=== PATIENT | female | born 1990 | race African-American/Black ===

== ENCOUNTER 2017-01-14 17:09 | Emergency (ER) | payer MEDICAID ==
[2017-01-14 17:48] VITALS: BP 116/54
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
== END 2017-01-14 21:58 | disposition home or self-care (01) ==
LOC: UCEAST 17:09
DX: N93.8 Other specified abnormal uterine and vaginal bleeding (principal); F41.9 Anxiety disorder, unspecified; F33.9 Major depressive disorder, recurrent, unspecified; F17.210 Nicotine dependence, cigarettes, uncomplicated
CPT/HCPCS: 81003; 84702; 99211; G0463

== ENCOUNTER → 2017-01-30 09:55 | Emergency (ER) | payer OTHER ==
[2017-01-30 10:07] VITALS: BP 129/77
[2017-01-30 10:50] LABS: Hematocrit 37 % (35-47); Hemoglobin 11.9 g/dl (12.0-16.0); Mean Corpuscular HGB Conc 32 g/dl (31-36); Mean Corpuscular Hemoglobin 27 pg (27-31); Mean Corpuscular Volume 84 fL (80-97); Mean Platelet Volume 8 um3 (7.4-10.4); Red Blood Count 4.36 10^6/ul (4.0-5.4); Red Cell Distribution Width 16 % (10.5-15); White Blood Count 7.3 10^3/ul (3.5-10.8)
[2017-01-30 10:58] LABS: Urine Bacteria Absent (Absent); Urine Bilirubin Negative (Negative); Urine Glucose Negative (Negative); Urine Nitrite Negative (Negative)
[2017-01-30 11:05] LABS: ALT 10 U/L (7-52); AST 24 U/L (13-39); Alkaline Phosphatase 36 U/L (34-104); Anion Gap 9 mmol/L (2-11); BUN/Creatinine Ratio 12.5 (8-20); Blood Urea Nitrogen 10 mg/dL (6-24); CO2 Carbon Dioxide 23 mmol/L (22-32); Calcium 10.1 mg/dL (8.6-10.3); Chloride 104 mmol/L (101-111); EGFR African American 113.3 (>60); EGFR Non-African American 88.1 (>60); Globulin 3.2 g/dL (2-4); Glucose 80 mg/dL (70-100); Potassium 3.4 mmol/L (3.5-5.0); Sodium 136 mmol/L (133-145); Total Protein 8.2 g/dL (6.4-8.9)
[2017-01-30 11:12] LABS: Benzodiazepine Urine Screen None Detected (None Detect)
--- NOTE | 2017-01-30 11:15 | ED ---
Psychiatric Complaint - HPI Summary HPI Summary: Pt here w/ 945. States she's not sure why she's here today. Was supposed to have a counseling appt but reports she called yesterday to tell them she wouldn' t be making it in and didn't care to reschedule as she doesn't feel she and her therapist are working well together. She'd like to find a new counselor. Denies SI/HI and has not reported any such concerns w/ her counselor. Feels well overall other than tired today. Admits to h/o anemia - has been taking Fe. Also has a yellow vaginal d/c that has been worked up by [facility] ([facility]). She had cx's taken and an U/S - per pt, these have all been normal. She denies vaginal pain, irritation, itching, odor, pelvic/back pain. - History Of Current Complaint Chief Complaint: EDMentalHealth Time Seen by Provider: 01/30/17 11:03 Hx Obtained From: Patient Hx Last Menstrual Period: 12/20/16 - Allergies/Home Medications Allergies/Adverse Reactions: Allergies Allergy/AdvReac Type Severity Reaction Status Date / Time No Known Allergies Allergy Verified 01/14/17 17:47 PMH/Surg Hx/FS Hx/Imm Hx Previously Healthy: Yes Endocrine/Hematology History: Reports: Hx Anemia - fe def - takes PO Fe Denies: Hx Anticoagulant Therapy, Hx Blood Disorders, Hx Blood Transfusions, Hx Bone Marrow Disease, Hx Diabetes, Hx Systemic Lupus Erythematosus, Hx Sickle Cell Disease, Hx Thyroid Disease, Hx Unexplained Bleeding, Other Endocrine/ Hematological Disorders Cardiovascular History: Denies: Hx Aneurysm, Hx Angina, Hx Angioplasty, Hx Auto Implanted Cardiovert Defib, Hx Cardiac Arrest, Hx Cardiomegaly, Hx Congenital Heart Disease, Hx Congestive Heart Failure, Hx Coronary Artery Disease, Hx Deep Vein Thrombosis, Hx Embolism, Hx Hypercholesterolemia, Hx Hypotension, Hx Hypertension, Hx Pacemaker/ICD, Hx Peripheral Vascular Disease, Hx Rheumatic Fever, Hx Syncope, Hx Valvular Heart Disease, Other Cardiovascular Problems/Disorders Respiratory History: Denies: Hx Asthma, Hx Chronic Bronchitis, Hx Chronic Obstructive Pulmonary Disease (COPD), Hx Cystic Fibrosis, Hx Lung Cancer, Hx Pleural Effusion, Hx Pneumonia, Hx Pulmonary Edema, Hx Pulmonary Embolism, Hx Seasonal Allergies, Hx Sleep Apnea, Other Respiratory Problems/Disorders GI History: Denies: Hx Cirrhosis, Hx Crohn's Disease, Hx Diverticulosis, Hx Gall Bladder Disease, Hx Gastroesophageal Reflux Disease, Hx Gastrointestinal Bleed, Hx Hiatal Hernia, Hx Irritable Bowel, Hx Jaundice, Hx Obstructive Bowel, Hx Ileostomy, Hx Pyloric Stenosis, Hx Ulcer, Other GI Disorders History: Denies: Hx Acute Renal Failure, Hx Benign Prostatic Hyperplasia, Hx Chronic Renal Failure, Hx Dialysis, Hx Kidney Infection, Hx Kidney Stones Musculoskeletal History: Denies: Hx Arthritis, Hx Back Problems, Hx Bursitis, Hx Congenital Bone Abnormalities, Hx Fibromyalgia, Hx Gout, Hx Orthopedic Injury, Hx Osteoporosis, Hx Scoliosis, Hx Tendonitis, Other Musculoskeletal History Sensory History: Denies: Hx Cataracts, Hx Contacts or Glasses, Hx Eye Injury, Hx Eye Prosthesis, Hx Glaucoma, Hx Legally Blind, Hx Macular Degeneration, Hx Vision Problem, Hx Deafness, Hx Hearing Aid, Hx Hearing Problem, Other Sensory Impairments Opthamlomology History: Denies: Hx Cataracts, Hx Contacts or Glasses, Hx Eye Injury, Hx Eye Prosthesis, Hx Glaucoma, Hx Legally Blind, Hx Macular Degeneration, Hx Vision Problem, Other Sensory Impairments Neurological History: Reports: Hx Headaches - patient states that she has has headache at least daily, lasting 2-3 hours Denies: Hx Dementia, Hx Migraine, Hx Nerve Disease, Hx Seizures, Hx Spinal Cord Injury, Hx Transient Ischemic Attacks (TIA), Other Neuro Impairments/ Disorders Psychiatric History: Reports: Hx Anxiety, Hx Depression, Hx Inpatient Treatment - december 2013 in [place], 4 days inpatient for psychosis Denies: Hx Attention Deficit Hyperactivity Disorder, Hx Eating Disorder, Hx Panic Disorder, Hx Post Traumatic Stress Disorder, Hx Schizophrenia, Hx Bipolar Disorder, Hx Suicide Attempt, Hx of Violent Episodes Against Others, Hx Substance Abuse, Other Psychiatric Issues/Disorders - Surgical History Surgery Procedure, Year, and Place: ORAL SURGERY Infectious Disease History: No Infectious Disease History: Reports: History Other Infectious Disease - Chlamydia [facility] Denies: Hx Clostridium Difficile, Hx Hepatitis, Hx Human Immunodeficiency Virus (HIV), Hx of Known/Suspected MRSA, Hx Shingles, Hx Tuberculosis, Traveled Outside the in Last 30 Days - Family History Known Family History: Positive: Hypertension, Diabetes - Social History Lives: [facility] Alcohol Use: Daily Alcohol Amount: 1 BOTTLE WINE DAILY Hx Substance Use: No Substance Use Type: Reports: None Hx Tobacco Use: No Smoking Status (MU): Current Every Day Smoker Type: Cigars Amount Used/How Often: 10/DAY Have You Smoked in the Last Year: Yes Review of Systems Constitutional: Negative Negative: Fever, Chills, Fatigue Cardiovascular: Negative Negative: Chest Pain Respiratory: Negative Negative: Shortness Of Breath Gastrointestinal: Negative Negative: Abdominal Pain, Vomiting, Diarrhea, Nausea Positive: see HPI Musculoskeletal: Negative Skin: Negative Positive: Headache - pt has these chronically - mild today Psychological: Normal, Other - see HPI All Other Systems Reviewed And Are Negative: Yes Physical Exam Triage Information Reviewed: Yes Vital Signs On Initial Exam: Initial Vitals Temp Pulse Resp BP Pulse Ox 98.3 F 90 17 129/77 100 01/30/17 10:04 01/30/17 10:04 01/30/17 10:04 01/30/17 10:04 01/30/17 10:04 Vital Signs Reviewed: Yes Appearance: Positive: Well-Appearing, No Pain Distress, Well-Nourished Skin: Positive: Warm, Dry - no signs of self harm Head/Face: Positive: Normal Head/Face Inspection Eyes: Positive: Normal, EOMI, Conjunctiva Clear ENT: Positive: Hearing grossly normal, Pharynx normal - mucosa moist Neck: Positive: Supple, Nontender Respiratory/Lung Sounds: Positive: Clear to Auscultation, Breath Sounds Present. Negative: Rales, Rhonchi, Wheezes Cardiovascular: Positive: Normal, RRR, Pulses are Symmetrical in both Upper and Lower Extremities Abdomen Description: Positive: Nontender, No Organomegaly, Soft Bowel Sounds: Positive: Present Musculoskeletal: Positive: Normal, Strength/ROM Intact Neurological: Positive: Normal, Sensory/Motor Intact, Alert, Oriented to Person Place, Time, CN Intact II-III Psychiatric: Positive: Normal - pleasant, calm, cooperative Diagnostics - Vital Signs Vital Signs Temp Pulse Resp BP Pulse Ox 01/30/17 10:07 98.4 F 90 17 129/77 100 01/30/17 10:04 98.3 F 90 17 129/77 100 - Laboratory Lab Results: Lab Results 01/30/17 01/30/17 01/30/17 Range/Units 10:35 10:35 10:35 WBC 7.3 (3.5-10.8) 10^3/ul RBC 4.36 (4.0-5.4) 10^6/ul Hgb 11.9 L (12.0-16.0) g/dl Hct 37 (35-47) % MCV 84 (80-97) fL MCH 27 (27-31) pg MCHC 32 (31-36) g/dl RDW 16 H (10.5-15) % Plt Count 403 (150-450) 10^3/ul MPV 8 (7.4-10.4) um3 Neut % (Auto) 52.0 (38-83) % Lymph % (Auto) 35.0 (25-47) % [place] % (Auto) 8.6 (1-9) % Eos % (Auto) 3.1 (0-6) % Baso % (Auto) 1.3 (0-2) % Absolute Neuts (auto) 3.8 (1.5-7.7) 10^3/ul Absolute Lymphs (auto) 2.5 (1.0-4.8) 10^3/ul Absolute Monos (auto) 0.6 (0-0.8) 10^3/ul Absolute Eos (auto) 0.2 (0-0.6) 10^3/ul Absolute Basos (auto) 0.1 (0-0.2) 10^3/ul Absolute Nucleated RBC 0 10^3/ul Nucleated RBC % 0 Sodium 136 (133-145) mmol/L Potassium 3.4 L (3.5-5.0) mmol/L Chloride 104 (101-111) mmol/L Carbon Dioxide 23 (22-32) mmol/L Anion Gap 9 (2-11) mmol/L BUN 10 (6-24) mg/dL Creatinine 0.80 (0.51-0.95) mg/dL Est GFR ( Amer) 113.3 (>60) Est GFR (Non-Af Amer) 88.1 (>60) BUN/Creatinine Ratio 12.5 (8-20) Glucose 80 (70-100) mg/dL Calcium 10.1 (8.6-10.3) mg/dL Total Bilirubin 0.50 (0.2-1.0) mg/dL AST 24 (13-39) U/L ALT 10 (7-52) U/L Alkaline Phosphatase 36 (34-104) U/L Total Protein 8.2 (6.4-8.9) g/dL Albumin 5.0 (3.2-5.2) g/dL Globulin 3.2 (2-4) g/dL Albumin/Globulin Ratio 1.6 (1-3) TSH Pending Urine Color Yellow Urine Appearance Cloudy Urine pH 5.0 (5-9) Ur Specific [place] 1.025 (1.010-1.030) Urine Protein 1+(30 mg/dl) H (Negative) Urine Ketones 1+ H (Negative) Urine Blood Negative (Negative) Urine Nitrate Negative (Negative) Urine Bilirubin Negative (Negative) Urine Urobilinogen Negative (Negative) Ur Leukocyte Esterase 1+ H (Negative) Urine WBC (Auto) 2+(11-20/hpf) H (Absent) Urine RBC (Auto) Absent (Absent) Ur Squamous Epith Cells Present H (Absent) Urine Bacteria Absent (Absent) Urine Glucose Negative (Negative) Urine Ascorbic Acid * H (Negative) Salicylates Pending Urine Opiates Screen (None Detect) Acetaminophen Pending Ur Barbiturates Screen (None Detect) Ur Phencyclidine Scrn (None Detect) Ur Amphetamines Screen (None Detect) U Benzodiazepines Scrn (None Detect) Urine Cocaine Screen (None Detect) U Cannabinoids Screen (None Detect) Serum Alcohol Pending 01/30/17 Range/Units 10:35 WBC (3.5-10.8) 10^3/ul RBC (4.0-5.4) 10^6/ul Hgb (12.0-16.0) g/dl Hct (35-47) % MCV (80-97) fL MCH (27-31) pg MCHC (31-36) g/dl RDW (10.5-15) % Plt Count (150-450) 10^3/ul MPV (7.4-10.4) um3 Neut % (Auto) (38-83) % Lymph % (Auto) (25-47) % Weston % (Auto) (1-9) % Eos % (Auto) (0-6) % Baso % (Auto) (0-2) % Absolute Neuts (auto) (1.5-7.7) 10^3/ul Absolute Lymphs (auto) (1.0-4.8) 10^3/ul Absolute Monos (auto) (0-0.8) 10^3/ul Absolute Eos (auto) (0-0.6) 10^3/ul Absolute Basos (auto) (0-0.2) 10^3/ul Absolute Nucleated RBC 10^3/ul Nucleated RBC % Sodium (133-145) mmol/L Potassium (3.5-5.0) mmol/L Chloride (101-111) mmol/L Carbon Dioxide (22-32) mmol/L Anion Gap (2-11) mmol/L BUN (6-24) mg/dL Creatinine (0.51-0.95) mg/dL Est GFR ( Amer) (>60) Est GFR (Non-Af Amer) (>60) BUN/Creatinine Ratio (8-20) Glucose (70-100) mg/dL Calcium (8.6-10.3) mg/dL Total Bilirubin (0.2-1.0) mg/dL AST (13-39) U/L ALT (7-52) U/L Alkaline Phosphatase (34-104) U/L Total Protein (6.4-8.9) g/dL Albumin (3.2-5.2) g/dL Globulin (2-4) g/dL Albumin/Globulin Ratio (1-3) TSH Urine Color Urine Appearance Urine pH (5-9) Ur Specific [place] (1.010-1.030) Urine Protein (Negative) Urine Ketones (Negative) Urine Blood (Negative) Urine Nitrate (Negative) Urine Bilirubin (Negative) Urine Urobilinogen (Negative) Ur Leukocyte Esterase (Negative) Urine WBC (Auto) (Absent) Urine RBC (Auto) (Absent) Ur Squamous Epith Cells (Absent) Urine Bacteria (Absent) Urine Glucose (Negative) Urine Ascorbic Acid (Negative) Salicylates Urine Opiates Screen None detected (None Detect) Acetaminophen Ur Barbiturates Screen None detected (None Detect) Ur Phencyclidine Scrn None detected (None Detect) Ur Amphetamines Screen None detected (None Detect) U Benzodiazepines Scrn None detected (None Detect) Urine Cocaine Screen None detected (None Detect) U Cannabinoids Screen None detected (None Detect) Serum Alcohol Result Diagrams: 01/30/17 10:35 01/30/17 10:35 Lab Statement: Any lab studies that have been ordered have been reviewed, and results considered in the medical decision making process. Course/Dx - Course Course Of Treatment: evaluation cleared pt to go home. See note. - Differential Dx/Clinical Impression Provider Diagnosis: Schizophrenia Discharge - Discharge Plan Condition: Stable Disposition: HOME Patient Education Materials: Schizophrenia (ED) Referrals: Fam Whitman MD [Primary Care Provider] - Additional Instructions: Follow-up with [facility] - see Mental Health discharge for phone number *If you develop suicidal or homicidal ideations, call 911 or return to ED
[2017-01-30 11:25] LABS: Acetaminophen < 15 mcg/mL; Alcohol < 10 mg/dL (<10); Salicylate < 2.50 mg/dL (<30)
[2017-01-30 11:32] LABS: TSH (Thyroid Stimulating Horm) 0.45 mcIU/mL (0.34-5.60)
== END | disposition home or self-care (01) ==
LOC: ED 09:55
DX: F20.9 Schizophrenia, unspecified (principal); R51 Headache; F17.210 Nicotine dependence, cigarettes, uncomplicated
CPT/HCPCS: 36415; 80053; 80307; 80320; 80329; 81003; 81015; 84443; 84702; 85025; 87086; 99284; G0480

== ENCOUNTER → 2017-02-03 10:27 | Emergency (ER) | payer OTHER ==
[2017-02-03 10:48] VITALS: BP 124/78
== END | disposition home or self-care (01) ==
LOC: ED 10:27
DX: Z53.21 Procedure and treatment not carried out due to patient leaving prior to being seen by health care provider (principal)
CPT/HCPCS: 99282

== ENCOUNTER 2017-02-07 13:57 | Emergency (ER) | payer OTHER ==
[2017-02-07 14:52] LABS: Urine Bacteria Absent (Absent); Urine Bilirubin Negative (Negative); Urine Glucose Negative (Negative); Urine Nitrite Negative (Negative)
[2017-02-07 14:56] LABS: Hematocrit 36 % (35-47); Hemoglobin 11.7 g/dl (12.0-16.0); Mean Corpuscular HGB Conc 32 g/dl (31-36); Mean Corpuscular Hemoglobin 27 pg (27-31); Mean Corpuscular Volume 84 fL (80-97); Mean Platelet Volume 8 um3 (7.4-10.4); Red Blood Count 4.35 10^6/ul (4.0-5.4); Red Cell Distribution Width 16 % (10.5-15); White Blood Count 8.4 10^3/ul (3.5-10.8)
[2017-02-07 15:09] LABS: Benzodiazepine Urine Screen None Detected (None Detect)
[2017-02-07 15:25] LABS: ALT 10 U/L (7-52); AST 20 U/L (13-39); Albumin 4.6 g/dL (3.2-5.2); Alkaline Phosphatase 31 U/L (34-104); Anion Gap 8 mmol/L (2-11); BUN/Creatinine Ratio 10.1 (8-20); Blood Urea Nitrogen 7 mg/dL (6-24); CO2 Carbon Dioxide 22 mmol/L (22-32); Calcium 9.9 mg/dL (8.6-10.3); Chloride 106 mmol/L (101-111); EGFR African American 134.4 (>60); EGFR Non-African American 104.5 (>60); Glucose 100 mg/dL (70-100); Potassium 3.5 mmol/L (3.5-5.0); Sodium 136 mmol/L (133-145); Total Protein 7.6 g/dL (6.4-8.9)
[2017-02-07 15:49] LABS: Acetaminophen < 15 mcg/mL; Alcohol < 10 mg/dL (<10); Salicylate < 2.50 mg/dL (<30)
[2017-02-07 15:58] LABS: TSH (Thyroid Stimulating Horm) 0.44 mcIU/mL (0.34-5.60)
[2017-02-07 17:17] VITALS: BP 123/73
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
== END 2017-02-07 17:50 | disposition home or self-care (01) ==
LOC: ED 13:57
DX: Z00.8 Encounter for other general examination (principal); F17.210 Nicotine dependence, cigarettes, uncomplicated
CPT/HCPCS: 36415; 80053; 80307; 80320; 80329; 81003; 81015; 84443; 84702; 85025; 87086; 99283; G0480

== ENCOUNTER 2017-02-27 16:27 | Inpatient (IN) | payer OTHER ==
[2017-02-27 17:31] LABS: Urine Bacteria Absent (Absent); Urine Bilirubin Negative (Negative); Urine Glucose Negative (Negative); Urine Nitrite Negative (Negative)
[2017-02-27 17:48] LABS: Benzodiazepine Urine Screen None Detected (None Detect)
[2017-02-27 18:24] LABS: Hematocrit 39 % (35-47); Hemoglobin 12.4 g/dl (12.0-16.0); Mean Corpuscular HGB Conc 32 g/dl (31-36); Mean Corpuscular Hemoglobin 28 pg (27-31); Mean Corpuscular Volume 87 fL (80-97); Mean Platelet Volume 8 um3 (7.4-10.4); Red Blood Count 4.48 10^6/ul (4.0-5.4); Red Cell Distribution Width 15 % (10.5-15); White Blood Count 6.4 10^3/ul (3.5-10.8)
[2017-02-27 18:41] LABS: ALT 10 U/L (7-52); AST 22 U/L (13-39); Acetaminophen < 15 mcg/mL; Albumin 5.1 g/dL (3.2-5.2); Alcohol < 10 mg/dL (<10); Alkaline Phosphatase 35 U/L (34-104); Anion Gap 6 mmol/L (2-11); BUN/Creatinine Ratio 12.3 (8-20); Blood Urea Nitrogen 9 mg/dL (6-24); CO2 Carbon Dioxide 26 mmol/L (22-32); Calcium 10.6 mg/dL (8.6-10.3); Chloride 104 mmol/L (101-111); EGFR Non-African American 97.9 (>60); Globulin 3.2 g/dL (2-4); Glucose 80 mg/dL (70-100); Potassium 3.9 mmol/L (3.5-5.0); Salicylate < 2.50 mg/dL (<30); Sodium 136 mmol/L (133-145); Total Protein 8.3 g/dL (6.4-8.9)
[2017-02-27 18:49] LABS: TSH (Thyroid Stimulating Horm) 0.47 mcIU/mL (0.34-5.60)
[2017-02-27] MEDS ORDERED: Acetaminophen TAB* 325 MG PO PRN (23:11)
[2017-02-27] MEDS ORDERED: Al Hydrox/Mg Hydrox/Simet LIQ* 30 ML UDC PO PRN (23:11)
[2017-02-27] MEDS ORDERED: Mouth Piece, Nicotine* 1 EACH CARTRIDGE INH SCH (23:11)
[2017-02-27] MEDS ORDERED: Nicotine Inhaler* 10 MG AMP INH PRN (23:11)
[2017-02-28] MEDS: Nicotine PATCH 14 MG/24 HR* PATCH TRANSDERM SCH (09:11)
[2017-02-28] MEDS: Vitamin THERAPEUTIC TAB PO SCH (09:11)
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
[2017-02-28] MEDS: FLUoxetine CAP* 10 MG PO SCH (16:11)
[2017-02-28] MEDS ORDERED: ARIPiprazole TAB* 5 MG PO SCH (21:00)
[2017-02-28] MEDS: Nicotine Patch Removal NOTE PATCH OFF SCH (21:01)
[2017-03-01] MEDS: FLUoxetine CAP* 10 MG PO SCH (08:13)
[2017-03-01] MEDS: Vitamin THERAPEUTIC TAB PO SCH (08:14)
[2017-03-01] MEDS: Nicotine PATCH 14 MG/24 HR* PATCH TRANSDERM SCH (08:14)
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
[2017-03-01] MEDS: Docusate CAP* 100 MG PO SCH (16:26)
[2017-03-01] MEDS: Nicotine Patch Removal NOTE PATCH OFF SCH (20:09)
[2017-03-01] MEDS: CMCS: Lurasidone (NF) 40 MG TAB PO SCH (20:09)
[2017-03-01] MEDS ORDERED: Paliperidone TAB* 6 MG PO SCH (21:00)
[2017-03-02] MEDS: Docusate CAP* 100 MG PO SCH (09:34)
[2017-03-02] MEDS: CMCS: Lurasidone (NF) 40 MG TAB PO SCH (09:34)
[2017-03-02] MEDS: FLUoxetine CAP* 10 MG PO SCH (09:34)
[2017-03-02] MEDS: Nicotine PATCH 14 MG/24 HR* PATCH TRANSDERM SCH (09:35)
[2017-03-02] MEDS: Vitamin THERAPEUTIC TAB PO SCH (09:35)
[2017-03-02] MEDS ORDERED: Magnesium CITRATE* 300 ML BTL PO ONE (15:12)
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
[2017-03-02] MEDS: Nicotine Patch Removal NOTE PATCH OFF SCH (22:07)
[2017-03-03] MEDS: Nicotine PATCH 14 MG/24 HR* PATCH TRANSDERM SCH (07:54)
[2017-03-03] MEDS: Vitamin THERAPEUTIC TAB PO SCH (07:54)
[2017-03-03] MEDS: LURASIDONE 20 MG PO SCH (09:22)
[2017-03-03] MEDS: FLUoxetine CAP* 10 MG PO SCH (09:23)
[2017-03-03] MEDS: LURASIDONE 40 MG PO SCH (09:23)
[2017-03-03] MEDS: Docusate CAP* 100 MG PO SCH (09:24)
[2017-03-03] MEDS: Nicotine Patch Removal NOTE PATCH OFF SCH (20:11)
--- NOTE | 2017-03-03 22:04 | ED ---
Anuja Amaral Edward, scribed for Tom Franco MD on 02/27/17 at 1700 . Psychiatric Complaint - HPI Summary HPI Summary: 26 y/o female brought to the ED by police s/p altercation. Per a clinical railroad track repair supervisor at [facility] the patient was stooped down this morning and jumped up at a programming instructor at the [facility] program with scissors in her hand and stated "these are for you". The patient has also been off of her medications for months and has had delusions of violence with her roommates, per the clinical railroad track repair supervisor. PMHx depression and anxiety. - History Of Current Complaint Chief Complaint: EDMentalHealth Time Seen by Provider: 02/27/17 16:49 Hx Obtained From: Patient Hx Last Menstrual Period: 12/20/16 Associated Signs And Symptoms: Positive: Paranoid Behavior - Delusions of violence, per clinical railroad track repair supervisor - Allergies/Home Medications Allergies/Adverse Reactions: Allergies Allergy/AdvReac Type Severity Reaction Status Date / Time No Known Allergies Allergy Verified 03/02/17 12:02 Home Medications: Home Medications Abilify 02/27/17 [History] Prozac 02/27/17 [History] PMH/Surg Hx/FS Hx/Imm Hx Previously Healthy: No Endocrine/Hematology History: Reports: Hx Anemia - fe def - takes PO Fe Denies: Hx Anticoagulant Therapy, Hx Blood Disorders, Hx Blood Transfusions, Hx Bone Marrow Disease, Hx Diabetes, Hx Systemic Lupus Erythematosus, Hx Sickle Cell Disease, Hx Thyroid Disease, Hx Unexplained Bleeding, Other Endocrine/ Hematological Disorders Cardiovascular History: Denies: Hx Aneurysm, Hx Angina, Hx Angioplasty, Hx Auto Implanted Cardiovert Defib, Hx Cardiac Arrest, Hx Cardiomegaly, Hx Congenital Heart Disease, Hx Congestive Heart Failure, Hx Coronary Artery Disease, Hx Deep Vein Thrombosis, Hx Embolism, Hx Hypercholesterolemia, Hx Hypotension, Hx Hypertension, Hx Pacemaker/ICD, Hx Peripheral Vascular Disease, Hx Rheumatic Fever, Hx Syncope, Hx Valvular Heart Disease, Other Cardiovascular Problems/Disorders Respiratory History: Denies: Hx Asthma, Hx Chronic Bronchitis, Hx Chronic Obstructive Pulmonary Disease (COPD), Hx Cystic Fibrosis, Hx Lung Cancer, Hx Pleural Effusion, Hx Pneumonia, Hx Pulmonary Edema, Hx Pulmonary Embolism, Hx Seasonal Allergies, Hx Sleep Apnea, Other Respiratory Problems/Disorders GI History: Denies: Hx Cirrhosis, Hx Crohn's Disease, Hx Diverticulosis, Hx Gall Bladder Disease, Hx Gastroesophageal Reflux Disease, Hx Gastrointestinal Bleed, Hx Hiatal Hernia, Hx Irritable Bowel, Hx Jaundice, Hx Obstructive Bowel, Hx Ileostomy, Hx Pyloric Stenosis, Hx Ulcer, Other GI Disorders History: Denies: Hx Acute Renal Failure, Hx Benign Prostatic Hyperplasia, Hx Chronic Renal Failure, Hx Dialysis, Hx Kidney Infection, Hx Kidney Stones Musculoskeletal History: Denies: Hx Arthritis, Hx Back Problems, Hx Bursitis, Hx Congenital Bone Abnormalities, Hx Fibromyalgia, Hx Gout, Hx Orthopedic Injury, Hx Osteoporosis, Hx Scoliosis, Hx Tendonitis, Other Musculoskeletal History Sensory History: Denies: Hx Cataracts, Hx Contacts or Glasses, Hx Eye Injury, Hx Eye Prosthesis, Hx Glaucoma, Hx Legally Blind, Hx Macular Degeneration, Hx Vision Problem, Hx Deafness, Hx Hearing Aid, Hx Hearing Problem, Other Sensory Impairments Opthamlomology History: Denies: Hx Cataracts, Hx Contacts or Glasses, Hx Eye Injury, Hx Eye Prosthesis, Hx Glaucoma, Hx Legally Blind, Hx Macular Degeneration, Hx Vision Problem, Other Sensory Impairments Neurological History: Reports: Hx Headaches - patient states that she has has headache at least daily, lasting 2-3 hours Denies: Hx Dementia, Hx Migraine, Hx Nerve Disease, Hx Seizures, Hx Spinal Cord Injury, Hx Transient Ischemic Attacks (TIA), Other Neuro Impairments/ Disorders Psychiatric History: Reports: Hx Anxiety, Hx Depression, Hx Inpatient Treatment - december 2013 in [place], 4 days inpatient for psychosis Denies: Hx Attention Deficit Hyperactivity Disorder, Hx Eating Disorder, Hx Panic Disorder, Hx Post Traumatic Stress Disorder, Hx Schizophrenia, Hx Bipolar Disorder, Hx Suicide Attempt, Hx of Violent Episodes Against Others, Hx Substance Abuse, Other Psychiatric Issues/Disorders - Surgical History Surgery Procedure, Year, and Place: ORAL SURGERY Infectious Disease History: Reports: History Other Infectious Disease - Chlamydia [facility] Denies: Hx Clostridium Difficile, Hx Hepatitis, Hx Human Immunodeficiency Virus (HIV), Hx of Known/Suspected MRSA, Hx Shingles, Hx Tuberculosis - Family History Known Family History: Positive: Hypertension, Diabetes - Social History Alcohol Use: Daily Alcohol Amount: 1 BOTTLE WINE DAILY Hx Substance Use: No Substance Use Type: Reports: None Hx Tobacco Use: No Smoking Status (MU): Current Every Day Smoker Type: Cigars Amount Used/How Often: 10/DAY Have You Smoked in the Last Year: Yes Review of Systems Constitutional: Negative Eyes: Negative ENT: Negative Cardiovascular: Negative Respiratory: Negative Gastrointestinal: Negative Genitourinary: Negative Musculoskeletal: Negative Skin: Negative Neurological: Negative Psychological: Other - Delusions of violence, per clinical railroad track repair supervisor All Other Systems Reviewed And Are Negative: Yes Physical Exam Triage Information Reviewed: Yes Vital Signs On Initial Exam: Initial Vitals Temp Pulse Resp BP Pulse Ox 98.7 F 110 18 141/84 100 02/27/17 16:59 02/27/17 16:59 02/27/17 16:59 02/27/17 16:59 02/27/17 16:59 Vital Signs Reviewed: Yes Appearance: Positive: Well-Appearing, No Pain Distress Skin: Positive: Warm, Skin Color Reflects Adequate Perfusion, Dry Head/Face: Positive: Normal Head/Face Inspection Eyes: Positive: EOMI, KATIUSKA ENT: Positive: Normal ENT inspection Neck: Positive: Supple, Nontender Respiratory/Lung Sounds: Positive: Clear to Auscultation, Breath Sounds Present Cardiovascular: Positive: RRR Abdomen Description: Positive: Nontender, Soft Bowel Sounds: Positive: Present Musculoskeletal: Positive: Normal, Strength/ROM Intact Neurological: Positive: Normal, Sensory/Motor Intact, Alert, Oriented to Person Place, Time Psychiatric: Positive: Affect/Mood Appropriate Diagnostics - Vital Signs Vital Signs Temp Pulse Resp BP Pulse Ox 02/27/17 20:06 98.1 F 73 16 120/85 100 02/27/17 16:59 98.7 F 110 18 141/84 100 - Laboratory Lab Results: Lab Results 02/27/17 02/27/17 02/27/17 Range/Units 16:35 16:35 17:16 WBC 6.4 (3.5-10.8) 10^3/ul RBC 4.48 (4.0-5.4) 10^6/ul Hgb 12.4 (12.0-16.0) g/dl Hct 39 (35-47) % MCV 87 (80-97) fL MCH 28 (27-31) pg MCHC 32 (31-36) g/dl RDW 15 (10.5-15) % Plt Count 347 (150-450) 10^3/ul MPV 8 (7.4-10.4) um3 Neut % (Auto) 39.0 (38-83) % Lymph % (Auto) 46.1 (25-47) % Vilas % (Auto) 10.1 H (1-9) % Eos % (Auto) 3.6 (0-6) % Baso % (Auto) 1.2 (0-2) % Absolute Neuts (auto) 2.5 (1.5-7.7) 10^3/ul Absolute Lymphs (auto) 2.9 (1.0-4.8) 10^3/ul Absolute Monos (auto) 0.6 (0-0.8) 10^3/ul Absolute Eos (auto) 0.2 (0-0.6) 10^3/ul Absolute Basos (auto) 0.1 (0-0.2) 10^3/ul Absolute Nucleated RBC 0.01 10^3/ul Nucleated RBC % 0.1 Sodium (133-145) mmol/L Potassium (3.5-5.0) mmol/L Chloride (101-111) mmol/L Carbon Dioxide (22-32) mmol/L Anion Gap (2-11) mmol/L BUN (6-24) mg/dL Creatinine (0.51-0.95) mg/dL Est GFR ( Amer) (>60) Est GFR (Non-Af Amer) (>60) BUN/Creatinine Ratio (8-20) Glucose (70-100) mg/dL Calcium (8.6-10.3) mg/dL Total Bilirubin (0.2-1.0) mg/dL AST (13-39) U/L ALT (7-52) U/L Alkaline Phosphatase (34-104) U/L Total Protein (6.4-8.9) g/dL Albumin (3.2-5.2) g/dL Globulin (2-4) g/dL Albumin/Globulin Ratio (1-3) TSH (0.34-5.60) mcIU/mL Beta HCG, Quant mIU/mL Urine Color Yellow Urine Appearance Clear Urine pH 6.0 (5-9) Ur Specific [place] 1.027 (1.010-1.030) Urine Protein 1+(30 mg/dl) H (Negative) Urine Ketones Trace H (Negative) Urine Blood Negative (Negative) Urine Nitrate Negative (Negative) Urine Bilirubin Negative (Negative) Urine Urobilinogen Negative (Negative) Ur Leukocyte Esterase Negative (Negative) Urine WBC (Auto) Trace(0-5/hpf) (Absent) Urine RBC (Auto) Absent (Absent) Ur Squamous Epith Cells Present H (Absent) Urine Bacteria Absent (Absent) Urine Glucose Negative (Negative) Urine Ascorbic Acid * H (Negative) Salicylates (<30) mg/dL Urine Opiates Screen None detected (None Detect) Acetaminophen mcg/mL Ur Barbiturates Screen None detected (None Detect) Ur Phencyclidine Scrn None detected (None Detect) Ur Amphetamines Screen None detected (None Detect) U Benzodiazepines Scrn None detected (None Detect) Urine Cocaine Screen None detected (None Detect) U Cannabinoids Screen None detected (None Detect) Serum Alcohol (<10) mg/dL 02/27/17 Range/Units 17:16 WBC (3.5-10.8) 10^3/ul RBC (4.0-5.4) 10^6/ul Hgb (12.0-16.0) g/dl Hct (35-47) % MCV (80-97) fL MCH (27-31) pg MCHC (31-36) g/dl RDW (10.5-15) % Plt Count (150-450) 10^3/ul MPV (7.4-10.4) um3 Neut % (Auto) (38-83) % Lymph % (Auto) (25-47) % Vilas % (Auto) (1-9) % Eos % (Auto) (0-6) % Baso % (Auto) (0-2) % Absolute Neuts (auto) (1.5-7.7) 10^3/ul Absolute Lymphs (auto) (1.0-4.8) 10^3/ul Absolute Monos (auto) (0-0.8) 10^3/ul Absolute Eos (auto) (0-0.6) 10^3/ul Absolute Basos (auto) (0-0.2) 10^3/ul Absolute Nucleated RBC 10^3/ul Nucleated RBC % Sodium 136 (133-145) mmol/L Potassium 3.9 (3.5-5.0) mmol/L Chloride 104 (101-111) mmol/L Carbon Dioxide 26 (22-32) mmol/L Anion Gap 6 (2-11) mmol/L BUN 9 (6-24) mg/dL Creatinine 0.73 (0.51-0.95) mg/dL Est GFR ( Amer) 126.0 (>60) Est GFR (Non-Af Amer) 97.9 (>60) BUN/Creatinine Ratio 12.3 (8-20) Glucose 80 (70-100) mg/dL Calcium 10.6 H (8.6-10.3) mg/dL Total Bilirubin 0.50 (0.2-1.0) mg/dL AST 22 (13-39) U/L ALT 10 (7-52) U/L Alkaline Phosphatase 35 (34-104) U/L Total Protein 8.3 (6.4-8.9) g/dL Albumin 5.1 (3.2-5.2) g/dL Globulin 3.2 (2-4) g/dL Albumin/Globulin Ratio 1.6 (1-3) TSH 0.47 (0.34-5.60) mcIU/mL Beta HCG, Quant < 0.60 mIU/mL Urine Color Urine Appearance Urine pH (5-9) Ur Specific Beaver (1.010-1.030) Urine Protein (Negative) Urine Ketones (Negative) Urine Blood (Negative) Urine Nitrate (Negative) Urine Bilirubin (Negative) Urine Urobilinogen (Negative) Ur Leukocyte Esterase (Negative) Urine WBC (Auto) (Absent) Urine RBC (Auto) (Absent) Ur Squamous Epith Cells (Absent) Urine Bacteria (Absent) Urine Glucose (Negative) Urine Ascorbic Acid (Negative) Salicylates < 2.50 (<30) mg/dL Urine Opiates Screen (None Detect) Acetaminophen < 15 mcg/mL Ur Barbiturates Screen (None Detect) Ur Phencyclidine Scrn (None Detect) Ur Amphetamines Screen (None Detect) U Benzodiazepines Scrn (None Detect) Urine Cocaine Screen (None Detect) U Cannabinoids Screen (None Detect) Serum Alcohol < 10 (<10) mg/dL Result Diagrams: 02/27/17 17:16 02/27/17 17:16 Lab Statement: Any lab studies that have been ordered have been reviewed, and results considered in the medical decision making process. Course/Dx - Course Assessment/Plan: Patient was medically cleared for MHU evaluation @ 19:[address] Tom Franco. - Differential Dx/Clinical Impression Provider Diagnosis: Mental health problem Discharge - Discharge Plan Condition: Stable Disposition: PSYCHIATRIC FACILITY-[facility] [place] The documentation as recorded by the Anuja rodriguez Edward accurately reflects the service I personally performed and the decisions made by me, Tom Franco MD.
[2017-03-04 07:56] VITALS: BP 119/73
[2017-03-04] MEDS: Docusate CAP* 100 MG PO SCH (08:22)
[2017-03-04] MEDS: LURASIDONE 40 MG PO SCH (08:23)
[2017-03-04] MEDS: FLUoxetine CAP* 10 MG PO SCH (08:23)
[2017-03-04] MEDS: LURASIDONE 20 MG PO SCH (08:23)
[2017-03-04] MEDS: Vitamin THERAPEUTIC TAB PO SCH (08:24)
[2017-03-04] MEDS: Nicotine PATCH 14 MG/24 HR* PATCH TRANSDERM SCH (08:24)
--- NOTE | 2017-03-04 13:53 | PN ---
MHU: Group Therapy Note - Service Type Service Type: 89177 Group Psychotherapy - Cognitive Behavioral Group Therapy ( CBT):Patient was attentive and participatory in CBT programming this morning, and remained in good behavioral control. Patient expressed positive insights regarding relevant treatment interventions and goals.
--- NOTE | 2017-03-04 23:33 | DS ---
DISCHARGE SUMMARY: DATE OF ADMISSION: 02/27/17 DATE OF DISCHARGE: 03/04/17 DISCHARGE DIAGNOSES: [place] I: Schizophrenia. [place] II: Deferred. [place] III: Headaches and constipati on. [place] IV: Severe primary support and housing stressors. [place] V: At the time of admission was 35 and at the time of discharge is 60. CONDITION AT THE TIME OF DISCHARGE: Stable. The patient is calm and cooperative. She has been safe on all checks. There has been on evidence of threatening or bizarre behavior. She is attending oups and seems to be social on the unit, interacting with staff and peers. The patient has initiate d an oral antipsychotic medication that she is tolerating well and is agreeable with continuing on a n outpatient basis. She had been visited by members of the [facility] on and they are in support of the discharge plan. In fact, they have arrived to pick her up and tra nsport her home. The patient is requesting discharge from the hospital indicating that she will fol low up on an outpatient basis and we feel that she could be adequately served in a less restrictive setting. MENTAL STATUS EXAMINATION: At the time of discharge, the patient is a young, attractive, -Am erican female, who is clean and well-groomed. She makes good eye contact. Her speech has a normal rate, tone, and volume. Mood appears to be euthymic with a full affect. Thought process is linear and goal directed. Thought content is significant for her desire to be discharged from the hospital . She denies suicidal or homicidal ideations. She denies auditory or visual hallucinations. Insig ht and judgment are fair given her willingness to follow up with outpatient treatment. Cognitively, she is awake and alert with what would appear to be an average intellect. DISCHARGE INSTRUCTIONS: To the patient are as follows: A. Medications: She takes lurasidone 60 mg p.o. q.h.s. She takes Prozac 10 mg p.o. daily. B. t: Regular. C. Activities: As tolerated. 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 There are no laboratory or diagnostic studies at the time of discharge. D. Followup care: The patient will be seen by Dr. Abdiel Jiménez, who is her psychiatric, as well as Sheyla Jasmine, who is her psychotherapist both at the [facility]. The patient will be seen within 1 week of discharge. HOSPITAL COURSE: Part A. Reason for admission: The patient is a 26-year-old single -[place] [facility], who was brought in by police on a 9.4 5 status due to an aggressive gesture towards her [place] staff. Apparently, this is the second ps ychiatric admission at [facility] for Benjamin with the first being in August of this year and she has a past diagnosis of schizophrenia and had been started on Abilify and Prozac during her last admission. She report that she was tried on multiple various medications, but was hesitant to discuss these any further. Apparently, she was brought in by police after she lunged at a [place] staff person with a pair of scissors. Staff person felt that this was an aggressive action. Throkam laoout her mental health evaluation, Benjamin asserts that she was simply handing the scissors [facility] and denied that it had been with the intent of harming or intimidating anyone. Cathleen andrews to her emergency room evaluation, she was squatting on the porch because it "took too long for the m to answer the door" and then when the door opened, she stood up and handed the scissors to the sta ff. The ER report further indicated that she had poor compliance with her medication regimen. She apparently lives with 2 separate roommates in the [facility], but does not interact w ith her team and tends to keep with herself. When we met her for her first assessment, she continuo usly asked multiple staff members what time it was because she insisted on going home. She indicate d that she was expecting a package in the mail that she needed to sign for. She further indicated t hat she was expecting a cellphone in the mail and that she did not want any of her roommate signing for this and then stealing it from her. On exam, the patient continued to state that the episode wi th the scissors was merely a misunderstanding. She did admit that she has not been taking her Abili fy and states that this was with the knowledge of her psychiatrist, Dr. Jiménez, because it was expla ined to her that Abilify caused weight gain. She did indicate that Dr. Jiménez had talked to her a l ittle bit about may be perhaps switching to Latuda; however, she had not made a decision about this. On examination, she was noted to be paranoid, hypervigilant, and perseverating on being able to le ave the mental health unit. Part B. Psychiatric treatment rendered: The patient was admitted to the hospital on a voluntary s tatus. She was placed on q.15-minute checks for her own safety. Initially, she was reluctant to sta rt medications, although she did become agreeable with a trial of lurasidone initially at 40 mg p.o. daily. She also continued to take Prozac 10 mg p.o. daily, which had been previously prescribed by Dr. Jiménez in the outpatient setting. On the unit, initially she was isolative but as she started taking the lurasidone, we noted that she started attending groups, started being more social and sta rted displaying a brighter affect. On the date of discharge, she was visited by members of the [facility] staff and she was calm and cooperative with them and was agreeable to continuing her antipsycho tic. She state that she tolerated this well with the exception of one side effect, which happened t o be sedation. For this reason, we recommended that she switch from taking it in the morning to edmund ing it in the evening right before bed. The patient is agreeable with this. She is agreeable with seeing Dr. Jiménez and agreeable with complying with all rules at the [facility]. We have se en no evidence of violent behavior from her and she has been fairly easy to work with throughout [facility] s hospitalization. [id number] #: [id number]
== END 2017-03-04 14:16 | disposition home or self-care (01) | DRG 750 ==
LOC: ED 16:27 → BSU 22:26
PROVIDERS: ADMIT Psychiatry & Neurology Psychiatry; ATTEND Psychiatry & Neurology Psychiatry
DX: F20.9 Schizophrenia, unspecified (principal); K59.00 Constipation, unspecified; R51 Headache
CPT/HCPCS: 36415; 80053; 80061; 80307; 80320; 80329; 81003; 81015; 83036; 84443; 84702; 85025; A9270-GY; G0480

== ENCOUNTER 2017-03-28 14:31 | Emergency (ER) | payer OTHER ==
[2017-03-28 14:51] VITALS: BP 123/70
--- NOTE | 2017-03-28 15:02 | UC ---
Headache HPI - HPI Summary HPI Summary: 26 year old female with a history of migraines presents with complains of a headache not resolving with ibuprofen. - History Of Current Complaint Chief Complaint: UCHeadache Stated Complaint: HEADACHE Time Seen by Provider: 03/28/17 14:37 Hx Last Menstrual Period: 03/26/17 - Allergies/Home Medications Allergies/Adverse Reactions: Allergies Allergy/AdvReac Type Severity Reaction Status Date / Time No Known Allergies Allergy Verified 03/02/17 12:02 PMH/Surg Hx/FS Hx/Imm Hx Previously Healthy: Yes Other History Of: Negative For: Anticoagulant Therapy - Surgical History Surgical History: Yes Surgery Procedure, Year, and Place: ORAL SURGERY - Family History Known Family History: Positive: Hypertension, Diabetes - Social History Alcohol Use: Rare Alcohol Amount: 1 BOTTLE WINE DAILY Substance Use Type: None Smoking Status (MU): Current Every Day Smoker Type: Cigars Amount Used/How Often: 10/DAY Have You Smoked in the Last Year: Yes When Did the Patient Quit Smoking/Using Tobacco: has not smoked for about a week /smoked within last 30 days Household Exposure Type: Cigarettes, Cigars - Immunization History Most Recent Influenza Vaccination: unknown Most Recent Tetanus Shot: 06/15/16 Most Recent Pneumonia Vaccination: n/a Review of Systems Constitutional: Negative Skin: Negative Eyes: Negative ENT: Negative Respiratory: Negative Cardiovascular: Negative Gastrointestinal: Negative Genitourinary: Negative Motor: Negative Neurovascular: Negative Musculoskeletal: Negative Neurological: Headache Psychological: Negative All Other Systems Reviewed And Are Negative: Yes Physical Exam Triage Information Reviewed: Yes Vital Signs: Initial Vital Signs Temp 36.2 C 03/28/17 14:47 Pulse 95 03/28/17 14:47 Resp 18 03/28/17 14:47 BP 123/70 03/28/17 14:47 Pulse Ox 100 03/28/17 14:47 Eye Exam: Normal ENT Exam: Normal Dental Exam: Normal Neck exam: Normal Neck: Positive: 1 Respiratory Exam: Normal Cardiovascular Exam: Normal Abdominal Exam: Normal Musculoskeletal Exam: Normal Neurological Exam: Normal Psychological Exam: Normal Skin Exam: Normal Headache Course/Dx - Differential Dx/Diagnosis Provider Diagnoses: migraine headache Discharge - Discharge Plan Condition: Stable Disposition: HOME Prescriptions: Butalb/Acetamin/Caff TAB* [Fioricet TAB*] 1 tab PO Q8H PRN #9 tab MDD 3 PRN Reason: Headache Patient Education Materials: Migraine Headache (ED) Referrals: Fam Whitman MD [Primary Care Provider] - If Needed
== END 2017-03-28 15:08 | disposition home or self-care (01) ==
LOC: UCEAST 14:31
DX: G43.909 Migraine, unspecified, not intractable, without status migrainosus (principal); F17.290 Nicotine dependence, other tobacco product, uncomplicated
CPT/HCPCS: 99212; G0463

== ENCOUNTER 2017-07-04 13:04 | Emergency (ER) | payer OTHER ==
[2017-07-04 13:29] VITALS: BP 114/69
--- NOTE | 2017-07-04 14:42 | UC ---
Respiratory Complaint HPI - HPI Summary HPI Summary: Patient presents with complaints of ear pain, sore throat and chest congestion with coughing. She states that her coughing has gotten progressively worse and she got sent home from work last night. He denies any chest pain, dyspnea, fever , chills, abdominal pain, nausea, vomiting, diarrhea associated with her symptoms. - History of Current Complaint Chief Complaint: UCGeneralIllness Stated Complaint: BODY ACHE/HEADACHE Time Seen by Provider: 07/04/17 14:26 Hx Obtained From: Patient Hx Last Menstrual Period: 06/06/17 ?: No Onset/Duration: Gradual Onset, Lasting Days Timing: Constant Severity Initially: Mild Severity Currently: Moderate Character: Cough: Productive Aggravating Factors: Deep Breaths, Recumbent Position Alleviating Factors: Upright Position, Spontaneous Resolution Associated Signs And Symptoms: Positive: Edema, URI, Nasal Congestion, Sinus Discomfort - Risk Factors Pulmonary Embolism Risk Factors: Negative Cardiac Risk Factors: Negative Pseudomonas Risk Factors: Negative Tuberculosis Risk Factors: Negative - Allergies/Home Medications Allergies/Adverse Reactions: Allergies Allergy/AdvReac Type Severity Reaction Status Date / Time No Known Allergies Allergy Verified 07/04/17 13:29 Home Medications: Home Medications Asenapine Maleate [Saphris] 2.5 mg SL DAILY 07/04/17 [History Confirmed 07/04/17 ] FLUoxetine CAP* [Prozac CAP*] 20 mg PO DAILY 07/04/17 [History Confirmed ] PMH/Surg Hx/FS Hx/Imm Hx Previously Healthy: Yes Other History Of: Negative For: Anticoagulant Therapy - Surgical History Surgical History: Yes Surgery Procedure, Year, and Place: ORAL SURGERY - Family History Known Family History: Positive: Hypertension, Diabetes - Social History Occupation: Employed Full-time Lives: Alone Alcohol Use: Occasionally Alcohol Amount: 1 BOTTLE WINE DAILY Substance Use Type: None Smoking Status (MU): Current Every Day Smoker Type: Cigars Amount Used/How Often: 10/DAY Have You Smoked in the Last Year: Yes When Did the Patient Quit Smoking/Using Tobacco: has not smoked for about a week /smoked within last 30 days Household Exposure Type: Cigarettes, Cigars - Immunization History Most Recent Influenza Vaccination: none Most Recent Tetanus Shot: 06/15/16 Most Recent Pneumonia Vaccination: n/a Review of Systems Constitutional: Negative Skin: Negative Eyes: Negative ENT: Sore Throat, Ear Ache, Nasal Discharge Respiratory: Cough Cardiovascular: Negative Gastrointestinal: Negative Genitourinary: Negative Motor: Negative Neurovascular: Negative Musculoskeletal: Negative Neurological: Negative Psychological: Negative All Other Systems Reviewed And Are Negative: Yes Physical Exam Triage Information Reviewed: Yes Appearance: Well-Appearing Vital Signs: Initial Vital Signs Pulse 104 07/04/17 13:20 Resp 16 07/04/17 13:20 BP 114/69 07/04/17 13:20 Pulse Ox 99 07/04/17 13:20 Eye Exam: Normal ENT Exam: Normal ENT: Positive: Pharyngeal erythema, Sinus tenderness Neck exam: Normal Neck: Positive: 1 Respiratory Exam: Normal Cardiovascular Exam: Normal Abdominal Exam: Normal Musculoskeletal Exam: Normal Neurological Exam: Normal Psychological Exam: Normal Skin Exam: Normal UC Diagnostic Evaluation - Laboratory O2 Sat by Pulse Oximetry: 99 Respiratory Course/Dx - Course Course Of Treatment: Patient presents with an unremarkable past medical history. She presents today with complaints of worsening cough and chest congestion. Her vital signs are normal. Afebrile. 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 She has been taken out of work for two days and if her symtpoms do not improve as anticipated she was told to go directly to the ER.Ayan verbalized understanding of and was in agreement with the discharge plan. - Differential Dx/Diagnosis Differential Diagnosis/HQI/PQRI: Bronchitis Provider Diagnoses: bronchitis Discharge - Discharge Plan Condition: Stable Disposition: HOME Prescriptions: Amoxicillin/Clavulanate TAB* [Augmentin TAB 500 mg*] 500 mg PO BID #20 tab Dextromethorphan-Guaifenesin [Robitussin Cough & Chest 5-100 mg/5Ml] 5 ml PO Q6H PRN #240 liq PRN Reason: Cough Patient Education Materials: Acute Bronchitis (ED) Referrals: Fam Whitman MD [Primary Care Provider] - Additional Instructions: Follow up with your PCP in two day, if your symptoms worsen go to the ER.
== END 2017-07-04 14:35 | disposition home or self-care (01) ==
LOC: UCEAST 13:04
DX: J40 Bronchitis, not specified as acute or chronic (principal); Z72.89 Other problems related to lifestyle; Z72.0 Tobacco use
CPT/HCPCS: 99212; G0463

== ENCOUNTER 2017-10-01 12:30 | Emergency (ER) | payer OTHER ==
[2017-10-01 13:40] VITALS: BP 112/74
--- NOTE | 2017-10-01 14:56 | UC ---
James Amaral Julia, scribed for Tom Franco MD on 10/01/17 at 1445 . Respiratory Complaint HPI - HPI Summary HPI Summary: This patient is a 26 year old F presenting to [facility] [place] with a chief complaint of coughing for two days. Patient reports: a upper abdominal, mid back pain, and chest pain with cough, sore throat, sneezing, and decreased appetite. The patient rates the pain 5/10 in severity. Patient denies calf swelling, ear pain , constant body aches, wheezing, urinary symptoms, and fever. Pt denies influenza contacts. Pt denies hx of asthma. Pt has hx of bronchitis. - History of Current Complaint Chief Complaint: UCGeneralIllness Stated Complaint: COUGH Time Seen by Provider: 10/01/17 14:35 Hx Obtained From: Patient Hx Last Menstrual Period: 09/14/17 Onset/Duration: Lasting Days, Still Present Timing: Constant Pain Intensity: 5 - with cough Pain Scale Used: 0-10 Numeric Character: Cough: Nonproductive Associated Signs And Symptoms: Positive: Pleuritic Chest Pain - back and abdominal pain Related History: Similar Episode/Dx as: - hx of bronchitis - Allergies/Home Medications Allergies/Adverse Reactions: Allergies Allergy/AdvReac Type Severity Reaction Status Date / Time No Known Allergies Allergy Verified 10/01/17 13:33 Home Medications: Home Medications Cold Medication 1 tab PO DAILY PRN 10/01/17 [History Confirmed 10/01/17] PMH/Surg Hx/FS Hx/Imm Hx Respiratory History: Bronchitis Other Respiratory History: no asthma Other History Of: Negative For: Anticoagulant Therapy - Surgical History Surgical History: Yes Surgery Procedure, Year, and Place: ORAL SURGERY - Family History Known Family History: Positive: Hypertension, Diabetes - Social History Alcohol Use: Daily Alcohol Amount: 1 BOTTLE WINE DAILY Substance Use Type: None Smoking Status (MU): Current Every Day Smoker Type: Cigars Amount Used/How Often: 4 cigars/daily Have You Smoked in the Last Year: Yes When Did the Patient Quit Smoking/Using Tobacco: has not smoked for about a week /smoked within last 30 days Household Exposure Type: Cigarettes, Cigars - Immunization History Most Recent Influenza Vaccination: none Most Recent Tetanus Shot: 06/15/16 Most Recent Pneumonia Vaccination: n/a Review of Systems Constitutional: Negative - fever and body aches ENT: Negative - ear ache, Sore Throat, Other - sneezing Respiratory: Negative - wheezing, Cough Cardiovascular: Chest Pain Gastrointestinal: Abdominal Pain, Other - decreased appetite Genitourinary: Negative Musculoskeletal: Myalgia - back pain All Other Systems Reviewed And Are Negative: Yes Physical Exam Triage Information Reviewed: Yes Vital Signs: Initial Vital Signs Temp 98.3 F 10/01/17 13:35 Pulse 102 10/01/17 13:35 Resp 18 10/01/17 13:35 BP 112/74 10/01/17 13:35 Pulse Ox 100 10/01/17 13:35 Vital Signs Reviewed: Yes - Additional Comments General: well-appearing, no pain distress Skin: warm, color reflects adequate perfusion, dry Head: normal Eyes: EOMI, KATIUSKA ENT: normal Neck: supple, nontender Respiratory: CTA, breath sounds present, dry cough Cardiovascular: Regular rhythm mildly tachycardic Abdomen: soft, nontender Bowel: present Musculoskeletal: normal, strength/ROM intact Neurological: normal, sensory/motor intact, A&O x3 Psychological: affect/mood appropriate Diagnostic Evaluation - Laboratory O2 Sat by Pulse Oximetry: 100 Respiratory Course/Dx - Course Course Of Treatment: SX X 2 DAYS - Differential Dx/Diagnosis Provider Diagnoses: VIRAL BRONCHITIS WITH BRONCHOSPASM Discharge - Discharge Plan Condition: Stable Disposition: HOME Prescriptions: Albuterol HFA INHALER* [Ventolin HFA Inhaler*] 2 puff INH Q4H PRN #1 mdi PRN Reason: Dyspnea guaiFENesin/CODIEN 100MG-10MG* [Robitussin AC 100Mg-10Mg*] 10 ml PO Q6H PRN # 120 ml MDD 40 PRN Reason: Cough Ibuprofen TAB* [Motrin TAB* 600 MG] 600 mg PO Q6H PRN #20 tab PRN Reason: Pain Patient Education Materials: Acute Bronchitis (ED), Viral Syndrome (ED), Bronchospasm (ED) Referrals: [facility]ERR[facility] [Outside] Additional Instructions: FOLLOW UP WITH YOUR DOCTOR. RETURN TO THE EMERGENCY DEPARTMENT FOR ANY WORSENING OF YOUR CONDITION OR QUESTIONS OR CONCERNS. The documentation as recorded by the James rodriguez Julia accurately reflects the service I personally performed and the decisions made by me, Tom Franco MD.
== END 2017-10-01 15:06 | disposition home or self-care (01) ==
LOC: UCEAST 12:30
DX: J20.8 Acute bronchitis due to other specified organisms (principal); F17.290 Nicotine dependence, other tobacco product, uncomplicated
CPT/HCPCS: 99212; G0463

== ENCOUNTER 2017-12-16 21:20 | Emergency (ER) | payer OTHER ==
--- NOTE | 2017-12-16 21:29 | UC ---
Skin Complaint HPI - HPI Summary HPI Summary: Pt presents with small plaques of itchy rash to neck and trunk. First started about 5 days ago and hasn't improved. She has not tried anything OTC for this. 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 She is most concerned that this is ringworm and that she might lose her hair. Denies fever, chills, SOB, chest pain. - History of Current Complaint Time Seen by Provider: 12/16/17 21:28 Stated Complaint: RASH Hx Obtained From: Patient Hx Last Menstrual Period: 09/14/17 Onset/Duration: Gradual Onset Skin Exposure Onset/Duration: Days Ago Current Severity: None - Allergy/Home Medications Allergies/Adverse Reactions: Allergies Allergy/AdvReac Type Severity Reaction Status Date / Time No Known Allergies Allergy Verified 12/16/17 21:30 Home Medications: Home Medications FLUoxetine CAP* [PROzac CAP*] 10 mg PO DAILY 12/16/17 [History Confirmed ] Review of Systems Constitutional: Negative Skin: Rash Eyes: Negative ENT: Negative Respiratory: Negative Cardiovascular: Negative Gastrointestinal: Negative Neurovascular: Negative Neurological: Negative Psychological: Negative All Other Systems Reviewed And Are Negative: Yes PMH/Surg Hx/FS Hx/Imm Hx Psychological History: Anxiety, Schizophrenia Other History Of: Negative For: Anticoagulant Therapy - Surgical History Surgical History: Yes Surgery Procedure, Year, and Place: ORAL SURGERY - Family History Known Family History: Positive: Hypertension, Diabetes - Social History Lives: With Family Alcohol Use: Daily Alcohol Amount: 1 BOTTLE WINE DAILY Substance Use Type: None Smoking Status (MU): Current Every Day Smoker Type: Cigars Amount Used/How Often: 4 cigars/daily Have You Smoked in the Last Year: Yes When Did the Patient Quit Smoking/Using Tobacco: has not smoked for about a week /smoked within last 30 days Household Exposure Type: Cigarettes, Cigars - Immunization History Most Recent Influenza Vaccination: none Most Recent Tetanus Shot: 06/15/16 Most Recent Pneumonia Vaccination: n/a Physical Exam - Summary Physical Exam Summary: GENERAL: NAD. WDWN. No pain distress. SKIN: Neck line with 6 to 7 , 1-2mm scaly papules that are itchy. Similar papules on sides of abdomen, approx 4-5 in number. No erythema, edema, or discharge. NECK: Supple. Nontender. No lymphadenopathy. CHEST: CTAB. No r/r/w. No accessory muscle use. Breathing comfortably and in no distress. CV: RRR. Without m/r/g. Pulses intact. Brisk cap refill. NEURO: Alert. CN II-XII grossly intact. PSYCH: Age appropriate behavior. Triage Information Reviewed: Yes Course/Dx - Course Course Of Treatment: Suspect lichen planus vs eczema vs tinea. Will treat her with steroids and topical ketoconazole cream and have her f/u with her cutting and boning supervisor. - Diagnoses Provider Diagnoses: Dermatitis Discharge - Sign-Out/Discharge Documenting (check all that apply): Discharge/Admit/Transfer - Discharge Plan Condition: Stable Disposition: HOME Patient Education Materials: Dermatitis (ED) Referrals: Fam Whitman MD [Primary Care Provider] - Additional Instructions: If you develop a fever, shortness of breath, chest pain, new or worsening symptoms - please call your PCP or go to the ED. 1) Please schedule a follow up appointment with your cutting and boning supervisor for further evaluation of your rash - Billing Disposition and Condition Condition: STABLE Disposition: HOME
[2017-12-16 21:30] VITALS: BP 128/84
[2017-12-16] MEDS ORDERED: predniSONE TAB* 20 MG PO ONE (21:48)
== END 2017-12-16 22:00 | disposition home or self-care (01) ==
LOC: UCEAST 21:20
DX: L30.9 Dermatitis, unspecified (principal); F41.9 Anxiety disorder, unspecified; F20.9 Schizophrenia, unspecified; F17.290 Nicotine dependence, other tobacco product, uncomplicated
CPT/HCPCS: 99212; G0463; J7512

== ENCOUNTER 2018-06-26 16:50 | Emergency (ER) | payer OTHER ==
[2018-06-26 17:20] VITALS: BP 117/79
--- NOTE | 2018-06-26 18:07 | UC ---
Complaint Female HPI - HPI Summary HPI Summary: 3 mo of increased urinary frequency w/ no other UTI symptoms. and 1 wk of vaginal irritation and discharge. +sexually active, last activity Jun 10, no condom use. [facility], neg. for StI there and no intercourse since last STI testing. Not on bc. Not interested in children at this time. Vaginal irritation worse w/ urination, intercourse. reports being neg. for hsv 2, + [facility]. denies pelvic pain, dv, n/v, fever. pt very concerned about fertility. - History Of Current Complaint Chief Complaint: UCGU Stated Complaint: PERSONAL Time Seen by Provider: 06/26/18 17:49 Hx Obtained From: Patient Hx Last Menstrual Period: 06/01/18 ?: No - today hcg neg. Onset/Duration: Gradual Onset Timing: Constant Severity Initially: Moderate Severity Currently: Mild Pain Intensity: 3 Pain Scale Used: 0-10 Numeric Character: Burning Aggravating Factor(s): Biron, Urination Associated Signs And Symptoms: Positive: Vaginal Discharge, Genital Swelling - Allergies/Home Medications Allergies/Adverse Reactions: Allergies Allergy/AdvReac Type Severity Reaction Status Date / Time No Known Allergies Allergy Verified 06/26/18 17:20 PMH/Surg Hx/FS Hx/Imm Hx Previously Healthy: Yes Other History Of: Negative For: Anticoagulant Therapy - Surgical History Surgical History: Yes Surgery Procedure, Year, and Place: ORAL SURGERY - Family History Known Family History: Positive: Hypertension, Diabetes - Social History Alcohol Use: None Alcohol Amount: 1 BOTTLE WINE DAILY Substance Use Type: None Smoking Status (MU): Current Every Day Smoker Type: Cigars Amount Used/How Often: 2 cigars/daily Have You Smoked in the Last Year: Yes When Did the Patient Quit Smoking/Using Tobacco: has not smoked for about a week /smoked within last 30 days Household Exposure Type: Cigarettes, Cigars - Immunization History Most Recent Influenza Vaccination: none Most Recent Tetanus Shot: 06/15/16 Most Recent Pneumonia Vaccination: n/a Review of Systems All Other Systems Reviewed And Are Negative: Yes Constitutional: Positive: Negative Skin: Positive: Negative Gastrointestinal: Positive: Negative Genitourinary: Positive: Frequency, Vaginal/Penile Burning, Vaginal/Penile Itching, Vaginal/Penile Discharge, Vaginal/Penile Pain. 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 Negative: Speculum Exam Normal - erythematous introitus, Blood, Cervicitis, Lesions Complaint Female Dx - Course Course Of Treatment: For increased urinary frequency w/ no + UA, urine cx pending have recommended she see pcp to discuss other causes given chronicity. on pelvic exam + for BV and yeast, sending labs to confirm more STI testing. Strongly encouraged control and we reviewed types. she will f/u w/ PP to discuss. hcg today neg. - Differential Dx/Diagnosis Differential Diagnosis/HQI/PQRI: Pelvic Inflammatory Disease, , Sexually Transmitted Disease, Urinary Tract Infection Provider Diagnoses: Bacterial Vaginosis, Yeast infection/vaginal. Discharge - Sign-Out/Discharge Documenting (check all that apply): Patient Departure All imaging exams completed and their final reports reviewed: No Studies - Discharge Plan Condition: Good Disposition: HOME Prescriptions: Fluconazole 150 MG (NF) [Diflucan 150 mg (NF)] 150 mg PO ONCE #1 tab metroNIDAZOLE VAGINAL 0.75%* 1 applic VAGINAL BEDTIME #7 tube Patient Education Materials: Bacterial Vaginosis (ED), Yeast Infection (ED) Referrals: Fam Whitman MD [Primary Care Provider] - Additional Instructions: If symptoms continue please return. we will call you with results. - Billing Disposition and Condition Condition: GOOD Disposition: Home
--- NOTE | 2018-06-30 16:52 | UC ---
- Progress Note Progress Note: 06/30/2018 Vaginal samples positive Kristen. Negative BV and Thricomonas vaginalis. GC/Chlam. pending. Pt Rx Metronidazole topical cream and Fluconazole PO. No change Laine Tiwari Discharge - Sign-Out/Discharge Documenting (check all that apply): Patient Departure - D/C home All imaging exams completed and their final reports reviewed: No Studies - Discharge Plan Condition: Good Disposition: HOME Prescriptions: Fluconazole 150 MG (NF) [Diflucan 150 mg (NF)] 150 mg PO ONCE #1 tab metroNIDAZOLE VAGINAL 0.75%* 1 applic VAGINAL BEDTIME #7 tube Patient Education Materials: Bacterial Vaginosis (ED), Yeast Infection (ED) Referrals: Fam Whitman MD [Primary Care Provider] - Additional Instructions: If symptoms continue please return. we will call you with results. - Billing Disposition and Condition Condition: GOOD Disposition: Home
== END 2018-06-26 19:00 | disposition home or self-care (01) ==
LOC: UCEAST 16:50
DX: B37.3 Candidiasis of vulva and vagina (principal); F17.210 Nicotine dependence, cigarettes, uncomplicated
CPT/HCPCS: 81003; 84702; 87086; 87480; 87491; 87510; 87591; 87661; 99212; G0463

== ENCOUNTER 2018-09-28 18:57 | Emergency (ER) | payer OTHER ==
--- OUTSIDE RECORDS SUMMARY | 2018-09-28 19:04 | XMS REPORT | Continuity of Care Document ---
:1990 External Reference #:[id number] Author Name Ramya Ariza Care Team Providers Name Role Phone Fam Whitman III, MD Primary Care Physician Unavailable Payers Type Date Identification Numbers Payment Provider Subscriber Policy Number: [id number] Tommy Roland Group Number: [id number] [address] PayID: [id number] [place] [address] Expires: 2016 PayID: [id number] Cont: Jose Luis Jeong Benjamin Roland [address] [place] [address] Advance Directives Description No Information Available Problems Date Description Provider Status Onset: 05/18/2016 Moderate depression Irvinyue Redding, [employer] Active Onset: 05/18/2016 Primary herpes simplex infection of lips Irvin [place], [employer] Active Onset: 05/18/2016 Tension-type headache Irvin [place], [employer] Active Onset: 05/18/2016 Nondependent alcohol abuse, continuous Irvinyue Redding, [employer] Active Onset: 03/12/2018 Headache Aftab Montoya MD Active Onset: 03/12/2018 Migraine without aura, not refractory Aftab Montoya MD Active Onset: 03/12/2018 Carpal tunnel syndrome of left wrist Aftab Montoya MD Active Onset: 03/12/2018 Essential tremor Aftab Montoya MD Active Family History Description No Information Available Social History Type Date Description Comments Sex Unknown Marital Status Single Lives With Alone Occupation Unemployed 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 occ more Tobacco Use Start: Unknown Patient is a current cigars and cigarettes smoker, smokes every X 1 year day Recreational Drug Use Denies Drug Use Smoking Status Reviewed: 09/10/18 Patient is a current cigars and cigarettes smoker, smokes every X 1 year day Exercise Type/Frequency Does not exercise Allergies, Adverse Reactions, Alerts Description No Known Drug Allergies Medications Medication Date Status Form Strength Qnty SIG Indications Ordering Provider Famotidine 08/22/ Active Tablets 20mg 30tabs 1 by mouth R07.89 Fam Rosado 2018 every day Antonette, for 1 month M.DTyree Rizatriptan 06/27/ Active Tablets 10mg 8tabs 1 by mouth G25.0 Aftab Benzoate 2017 as needed Lindsay for headache may repeat once in 2 hours max 2 days a week Wrist Splint 03/26/ Active Misc 1units use daily Aftab 2017 to help Lindsay with numbness and tingling in the right and left hand Oxycodone HCL 04/01/ Hx Tab ER 30mg M54.2 Jacob ER 2017 - 12H JOHN Carreno 04/01/ Abuse-Det 2018 Oxycodone-Aceta 04/01/ Hx Tablets 5-325mg 14tabs 1 tabs by M54.2 Jacob minophen 2018 - mouth every JOHN Carreno 06/26/ hours as 2018 needed for pain Valium 03/24/ Hx Tablets 10mg 1tabs 1 tablet by Aftab 2018 - mouth 30 Lindsay, 06/26/ minutes 2018 before mri Valium 03/14/ Hx Tablets 2mg 8tabs 2 tabs by Micheal Vargas 2017 - mouth 1 Almas, 03/24/ hour prior M.DTyree 2018 to procedure, may repeat dose at time of procedure if needed Amitriptyline 03/12/ Hx Tablets 10mg 60tabs 1/2 pill by G43.009 Aftab HCL 2018 - mouth at [facility], 06/26/ bedtime for 2018 a week then 1 at bed for two weeks then 2 at bed Naproxen 03/06/ Hx Tablets 500mg 30tabs 1 tablet M54.2 Jacob 2018 - with food JOHN Carreno 06/26/ by mouth 2018 twice a day for one week and then as needed. Baclofen 03/06/ Hx Tablets 10mg 20tabs take 1/2 M54.2 Jacob 2018 - tab every 8 JOHN Carreno 06/26/ hours as 2018 needed for muscle spasm Hydrocodone-Hany 03/06/ Hx Tablets 5-325mg 21tabs take 1 M54.2 Jacob taminophen 2018 - tablets JOHN Carreno 08/14/ every 8 2018 hours for pain. No Active Unknown Medications 2015 - 2015 Ferrous Sulfate Hx Tablets 325(65Fe) 60tabs 1 by mouth D64.9 Irvin 2016 - mg twice a day [place], 2016 D50.8 Abreva 05/18/2016 - Hx Cream 10% 2g apply B00.1 Irvin 05/23/2016 topically to [place], [employer] blister 5 x's/day intil gone Tylenol Extra 05/18/2016 - Hx Tablets 500mg 2 tablets G44.201 Irvin Strength 06/15/2016 twice daily [place], [employer] as needed for Culp Wellbutrin SR 05/18/2016 - Hx Tablets ER 150mg 60tabs 1 tablet po F33.2 Irvin 06/15/2016 12HR in the [place], [employer] morning Loratadine - Hx Tablets 10mg 1 by mouth Unknown 06/15/2016 every day as needed. (has not taken is 2 months) Wellbutrin SR - Hx Tablets ER 200mg 1 by mouth Unknown 01/08/2017 12HR every day(not taking regularly) Abilify - Hx Tablets 10mg 1 by mouth Unknown 01/08/2017 every day Prozac - Hx Capsules 10mg 1 by mouth Unknown 03/11/2018 every day Abilify - Hx Prsy 300mg Unknown Maintena 02/17/2018 Immunizations CPT Code Status Date Vaccine Lot # [id number] Given 06/15/2016 Tetanus And Diptheria (Td) For Adult Use Preservative Free Vital Signs Date Vital Result Comment 09/10/2018 10:20am Height 66 inches 5'6" Heart Rate 70 /min BP Systolic Sitting 116 mmHg BP Diastolic Sitting 70 mmHg 08/22/2018 10:05am Height 66 inches 5'6" Heart Rate 73 /min BP Systolic Sitting 110 mmHg BP Diastolic Sitting 78 mmHg O2 % BldC Oximetry 98 % 06/27/2018 10:08am Height 66 inches 5'6" Weight 125.50 lb Heart Rate 80 /min BP Systolic 110 mmHg BP Diastolic 78 mmHg BMI (Body Mass Index) 20.3 kg/m2 03/12/2018 10:20am Height 66 inches 5'6" Weight 129.00 lb Heart Rate 76 /min BP Systolic Sitting 118 mmHg BP Diastolic Sitting 70 mmHg BMI (Body Mass Index) 20.8 kg/m2 03/06/2018 9:37am Height 66 inches 5'6" Weight 129.00 lb Heart Rate 82 /min BP Systolic 106 mmHg 64 Body Temperature 97.5 F O2 % BldC Oximetry 96 % BMI (Body Mass Index) 20.8 kg/m2 01/08/2017 10:16am Heart Rate 82 /min BP Systolic Sitting 124 mmHg BP Diastolic Sitting 80 mmHg Respiratory Rate 15 /min O2 % BldC Oximetry 98 % 07/23/2016 11:35am Height 66 inches 5'6" Weight 125.00 lb Heart Rate 64 /min BP Systolic Sitting 108 mmHg BP Diastolic Sitting 80 mmHg Body Temperature 97.8 F O2 % BldC Oximetry 96 % BMI (Body Mass Index) 20.2 kg/m2 07/11/2016 11:15am Weight 123.00 lb Heart Rate 84 /min BP Systolic Sitting 128 mmHg BP Diastolic Sitting 80 mmHg Body Temperature 97.5 F O2 % BldC Oximetry 98 % 06/15/2016 9:39am Weight 127.00 lb Heart Rate 84 /min BP Systolic Sitting 124 mmHg BP Diastolic Sitting 86 mmHg Body Temperature 98.4 F 05/18/2016 10:04am Height 66 inches 5'6" Weight 128.50 lb Heart Rate 76 /min BP Systolic Sitting 110 mmHg BP Diastolic Sitting 80 mmHg Body Temperature 97.6 F BMI (Body Mass Index) 20.7 kg/m2 Results Test Date Facility Test Result H/L Range Note Basic Metabolic 08/26/2018 [facility] Sodium 139 mmol/L N 135- 145 Panel [address] [place] [address] [phone] Potassium 3.9 mmol/L N 3.5-5.0 Chloride 106 mmol/L N 101-111 Co2 Carbon Dioxide 27 mmol/L N 22-32 Anion Gap 6 mmol/L N 2-11 Glucose 84 mg/dL N 70-100 Blood Urea Nitrogen 8 mg/dL N 6-24 Creatinine 0.80 mg/dL N 0.51-0.95 BUN/Creatinine Ratio 10.0 N 8-20 Calcium 10.4 mg/dL High 8.6-10.3 Egfr Non- 87.4 >60 Egfr 105.8 >60 1 Lipid Profile 08/26/2018 [facility] Triglycerides 44 mg/dL 2 (Trig/Chol/HDL) [address] [place] [address] [phone] Cholesterol 145 mg/dL 3 HDL Cholesterol 48.8 mg/dL 4 LDL Cholesterol 87 mg/dL 5 Laboratory test 06/27/2018 [facility] TSH (Thyroid 0.77 N 0.34 -5.[address] Stim Horm) mcIU/[place] [address] [phone] Laboratory test 06/26/2018 [facility] Gard[place]rella/ SEE RESULT 6, [address] Yeast: [place] [address] Vaginal Dna [phone] Trichomonas Vaginalis Rna Negative Negative 8 GC/Chlamydia 06/26/2018 [facility] Chlamydia Negative Negative Amplified Rna [address] [place] [address] [phone] Neisseria gonorrhoeae (GC) Rna Negative Negative Urine Culture And 06/26/2018 [facility] Urine SEE RESULT 9 , [address] [place] [address] [phone] Laboratory test 06/26/2018 [facility] Poc Negative Negative [address] , [place] [address] Urine [phone] Poc Urinalysis 06/26/2018 [facility] Poc Negative Negative [address] Glucose, [place] [address] Urine [phone] Poc Bilirubin, Urine 1+ Abnormal Negative Poc Ketone, Urine Trace Abnormal Negative Poc Specific [place], Urine >=1.030 N 1.010-1.030 Poc Blood, Urine Negative Negative Poc pH, Urine 6.0 N 5-9 Poc Protein, Urine Trace Abnormal Negative Poc Urobilinogen, Urine 1.0 Negative Poc Nitrite, Urine Negative Negative Poc Leukocytes, Urine Trace Abnormal Negative Poc Color, Urine Yellow Poc Clarity, Urine Clear 12 Drug Abuse 20 03/06/2018 [facility] Urine Amphetamine Negative ng/mL [address] [place] [address] [phone] Urine Barbiturates Negative ng/mL 14 Urine Benzodiazepines Negative ng/mL 15 Urine Cocaine Negative ng/mL 16 Urine Phencyclidine Negative ng/mL Cutoff: 25 Urine Tetrahydrocannabinol Negative ng/mL Cutoff: 50 17 Creatinine, Urine 345.0 mg/dL Specific [place] 1.021 pH 5.9 Oxidants Negative 18 Adulterants Comment Normal Codeine, Ur Not Detected ng/mL Cutoff: 25 19 Gofcjit-8-ctbp-glucuronide, Ur Not Detected ng/mL 20 Morphine, Ur Not Detected ng/mL Cutoff: 25 21 Ialtmtxt-5-usgg-glucuronide, U Not Detected ng/mL 22 6-monoacetylmorphine, Ur Not Detected ng/mL Cutoff: 25 23 Hydrocodone, Ur Not Detected ng/mL Cutoff: 25 24 Norhydrocodone, Ur Not Detected ng/mL Cutoff: 25 25 Dihydrocodeine, Ur Not Detected ng/mL Cutoff: 25 26 Hydromorphone, Ur Not Detected ng/mL Cutoff: 25 27 Ldczikjzxfbhy3emjpgnjaisijmqo Not Detected ng/mL 28 Oxycodone, Ur Not Detected ng/mL Cutoff: 25 29 Noroxycodone, Ur Not Detected ng/mL Cutoff: 25 30 Oxymorphone, Ur Not Detected ng/mL Cutoff: 25 31 Cboogrcsjze-5-ceko-glucuronide Not Detected ng/mL 32 Noroxymorphone, Ur Not Detected ng/mL Cutoff: 25 33 Fentanyl, Ur Not Detected ng/mL Cutoff: 2 34 Norfentanyl, Ur Not Detected ng/mL Cutoff: 2 35 Meperidine, Ur Not Detected ng/mL Cutoff: 25 36 Normeperidine, Ur Not Detected ng/mL Cutoff: 25 37 Naloxone, Ur Not Detected ng/mL Cutoff: 25 38 Kxfhpwkv-3-nccm-glucuronide, U Not Detected ng/mL 39 Methadone, Ur Not Detected ng/mL Cutoff: 25 40 Eddp, Ur Not Detected ng/mL Cutoff: 25 41 Propoxyphene, Ur Not Detected ng/mL Cutoff: 25 42 Norpropoxyphene, Ur Not Detected ng/mL Cutoff: 25 43 Tramadol, Ur Not Detected ng/mL Cutoff: 25 44 O-desmethyltramadol, Ur Not Detected ng/mL Cutoff: 25 45 Tapentadol, Ur Not Detected ng/mL Cutoff: 25 46 N-desmethyltapentadol, Ur Not Detected ng/mL Cutoff: 50 47 Twdffnbkdx-pwhf-almzxuptisf, U Not Detected ng/mL 48 Buprenorphine, Ur Not Detected ng/mL Cutoff: 5 49 Norbuprenorphine, Ur Not Detected ng/mL Cutoff: 5 50 Norbuprenorphine glucuronide Not Detected ng/mL Cutoff: 20 51 Opioid Interpretation See Comment 52 Urinalysis Profile 02/07/2017 [facility] Urine Color Yellow N [address] [place] [address] [phone] Urine Appearance Clear N Urine Specific [place] 1.026 N 1.010-1.030 Urine pH 7.0 N 5-9 Urine Urobilinogen Negative N Negative Urine Ketones Trace Abnormal Negative Urine Protein 2+(100 mg/dL) Abnormal Negative Urine Leukocytes Trace Abnormal Negative Urine Blood Negative N Negative * * Abnormal Negative 53 Urine Nitrite Negative N Negative Urine Bilirubin Negative N Negative Urine Glucose Negative N Negative Urine White Blood Cell Trace(0-5/hpf) N Absent Urine Red Blood Cell 1+(3-5/hpf) Abnormal Absent Urine Bacteria Absent N Absent Urine Squamous Epithelial Cell Present Abnormal Absent Urine Drug 02/07/2017 [facility] Amphetamine Ur None Detected N None Detect SCR ED & [address] [place] [address] [phone] Barbiturates Urine Screen None Detected N None Detect Benzodiazepine Urine Screen None Detected N None Detect Urine Cannabinoids Screen None Detected N None Detect Urine Cocaine Screen None Detected N None Detect Urine Opiates Screen None Detected N None Detect Urine Phencyclidine Screen None Detected N None Detect 54 CBC Auto Diff 02/07/2017 [facility] White Blood 8.4 10^3/uL N 3.5-10.[address] [place] [address] [phone] Red Blood Count 4.35 10^6/uL N 4.0-5.4 Hemoglobin 11.7 g/dL Low 12.0-16.0 Hematocrit 36 % N 35-47 Mean Corpuscular Volume 84 fL N 80-97 Mean Corpuscular Hemoglobin 27 pg N 27-31 Mean Corpuscular HGB Conc 32 g/dL N 31-36 Red Cell Distribution Width 16 % High 10.5-15 Platelet Count 327 10^3/uL N 150-450 Mean Platelet Volume 8 um3 N 7.4-10.4 Abs Neutrophils 4.5 10^3/uL N 1.5-7.7 Abs Lymphocytes 2.9 10^3/uL N 1.0-4.8 Abs Monocytes 0.6 10^3/uL N 0-0.8 Abs Eosinophils 0.3 10^3/uL N 0-0.6 Abs Basophils 0.1 10^3/uL N 0-0.2 Abs Nucleated RBC 0.01 10^3/uL N Granulocyte % 53.3 % N 38-83 Lymphocyte % 35.1 % N 25-47 Monocyte % 6.9 % N 1-9 Eosinophil % 3.3 % N 0-6 Basophil % 1.4 % N 0-2 Nucleated Red Blood Cells % 0.1 N Laboratory test 02/07/2017 [facility] HCG < 0.60 N [address] mIU/[place] [address] [phone] Comp Metabolic 02/07/2017 [facility] Sodium 136 mmol/L N 133- [address] [place] [address] [phone] Potassium 3.5 mmol/L N 3.5-5.0 Chloride 106 mmol/L N 101-111 Co2 Carbon Dioxide 22 mmol/L N 22-32 Anion Gap 8 mmol/L N 2-11 Glucose 100 mg/dL N 70-100 Blood Urea Nitrogen 7 mg/dL N 6-24 Creatinine 0.69 mg/dL N 0.51-0.95 BUN/Creatinine Ratio 10.1 N 8-20 Calcium 9.9 mg/dL N 8.6-10.3 Total Protein 7.6 g/dL N 6.4-8.9 Albumin 4.6 g/dL N 3.2-5.2 Globulin 3.0 g/dL N 2-4 Albumin/Globulin Ratio 1.5 N 1-3 Total Bilirubin 0.30 mg/dL N 0.2-1.0 Alkaline Phosphatase 31 U/L Low 34-104 Alt 10 U/L N 7-52 Ast 20 U/L N 13-39 Egfr Non- 104.5 N >60 Egfr 134.4 N >60 56 Laboratory test 02/07/2017 [facility] Acetaminophen < 15 g/mL N [address] [place] [address] [phone] Alcohol < 10 mg/dL N <10 Salicylate < 2.50 mg/dL N <30 TSH (Thyroid Stim Horm) 0.44 mcIU/mL N 0.34-5.60 Urine Culture And 02/07/2017 [facility] Urine Culture SEE RESULT [address] [place] [address] [phone] Urinalysis Profile 01/30/2017 [facility] Urine Color Yellow N [address] [place] [address] [phone] Urine Appearance Cloudy N Urine Specific [place] 1.025 N 1.010-1.030 Urine pH 5.0 N 5-9 Urine Urobilinogen Negative N Negative Urine Ketones 1+ Abnormal Negative Urine Protein 1+(30 mg/dL) Abnormal Negative Urine Leukocytes 1+ Abnormal Negative Urine Blood Negative N Negative * * Abnormal Negative 59 Urine Nitrite Negative N Negative Urine Bilirubin Negative N Negative Urine Glucose Negative N Negative Urine White Blood Cell 2+(11-20/hpf) Abnormal Absent Urine Red Blood Cell Absent N Absent Urine Bacteria Absent N Absent Urine Squamous Epithelial Cell Present Abnormal Absent CBC Auto Diff 01/30/2017 [facility] White Blood 7.3 10^3/uL N 3.5-10.[address] [place] [address] [phone] Red Blood Count 4.36 10^6/uL N 4.0-5.4 Hemoglobin 11.9 g/dL Low 12.0-16.0 Hematocrit 37 % N 35-47 Mean Corpuscular Volume 84 fL N 80-97 Mean Corpuscular Hemoglobin 27 pg N 27-31 Mean Corpuscular HGB Conc 32 g/dL N 31-36 Red Cell Distribution Width 16 % High 10.5-15 Platelet Count 403 10^3/uL N 150-450 Mean Platelet Volume 8 um3 N 7.4-10.4 Abs Neutrophils 3.8 10^3/uL N 1.5-7.7 Abs Lymphocytes 2.5 10^3/uL N 1.0-4.8 Abs Monocytes 0.6 10^3/uL N 0-0.8 Abs Eosinophils 0.2 10^3/uL N 0-0.6 Abs Basophils 0.1 10^3/uL N 0-0.2 Abs Nucleated RBC 0 10^3/uL N Granulocyte % 52.0 % N 38-83 Lymphocyte % 35.0 % N 25-47 Monocyte % 8.6 % N 1-9 Eosinophil % 3.1 % N 0-6 Basophil % 1.3 % N 0-2 Nucleated Red Blood Cells % 0 N Urine Drug 01/30/2017 [facility] Amphetamine Ur None Detected N None Detect SCR ED & [address] [place] [address] [phone] Barbiturates Urine Screen None Detected N None Detect Benzodiazepine Urine Screen None Detected N None Detect Urine Cannabinoids Screen None Detected N None Detect Urine Cocaine Screen None Detected N None Detect Urine Opiates Screen None Detected N None Detect Urine Phencyclidine Screen None Detected N None Detect 60 Comp Metabolic Panel 01/30/2017 [facility] Sodium 136 mmol/L N 133-[address] [place] [address] [phone] Potassium 3.4 mmol/L Low 3.5-5.0 Chloride 104 mmol/L N 101-111 Co2 Carbon Dioxide 23 mmol/L N 22-32 Anion Gap 9 mmol/L N 2-11 Glucose 80 mg/dL N 70-100 Blood Urea Nitrogen 10 mg/dL N 6-24 Creatinine 0.80 mg/dL N 0.51-0.95 BUN/Creatinine Ratio 12.5 N 8-20 Calcium 10.1 mg/dL N 8.6-10.3 Total Protein 8.2 g/dL N 6.4-8.9 Albumin 5.0 g/dL N 3.2-5.2 Globulin 3.2 g/dL N 2-4 Albumin/Globulin Ratio 1.6 N 1-3 Total Bilirubin 0.50 mg/dL N 0.2-1.0 Alkaline Phosphatase 36 U/L N 34-104 Alt 10 U/L N 7-52 Ast 24 U/L N 13-39 Egfr Non- 88.1 N >60 Egfr 113.3 N >60 61 Laboratory test 01/30/2017 [facility] Acetaminophen < 15 g/mL N [address] [place] [address] [phone] Alcohol < 10 mg/dL N <10 Salicylate < 2.50 mg/dL N <30 TSH (Thyroid Stim Horm) 0.45 mcIU/mL N 0.34-5.60 HCG < 0.60 mIU/mL N 63 Urine Culture And 01/30/2017 [facility] Urine SEE RESULT [address] [place] [address] [phone] Laboratory test 01/14/2017 [facility] Poc Negative N Negative [address] , [place] [address] Urine [phone] Poc Urinalysis 01/14/2017 [facility] Poc Negative N Negative [address] Glucose, [place] [address] Urine [phone] Poc Bilirubin, Urine Negative N Negative Poc Ketone, Urine Negative N Negative Poc Specific [place], Urine 1.025 N 1.010-1.030 Poc Blood, Urine 3+ Abnormal Negative Poc pH, Urine 6.5 N 5-9 Poc Protein, Urine Negative N Negative Poc Urobilinogen, Urine 0.2 N Negative Poc Nitrite, Urine Negative N Negative Poc Leukocytes, Urine Negative N Negative Poc Color, Urine Brown N Poc Clarity, Urine Cloudy N 66 Urine Culture And 08/22/2016 [facility] Urine Culture SEE RESULT [address] [place] [address] [phone] Laboratory test 08/22/2016 [facility] [place]/Y SEE RESULT [address] east: [place] [address] Dna [phone] CBC Auto Diff 08/22/2016 [facility] White Blood 5.8 10^3/uL N 3.5-[address] Count 0.8 [place] [address] [phone] Red Blood Count 4.69 10^6/uL N 4.0-5.4 Hemoglobin 13.0 g/dL N 12.0-16.0 Hematocrit 40 % N 35-47 Mean Corpuscular Volume 86 fL N 80-97 Mean Corpuscular Hemoglobin 28 pg N 27-31 Mean Corpuscular HGB Conc 32 g/dL N 31-36 Red Cell Distribution Width 16 % High 10.5-15 Platelet Count 324 10^3/uL N 150-450 Mean Platelet Volume 8 um3 N 7.4-10.4 Abs Neutrophils 1.9 10^3/uL N 1.5-7.7 Abs Lymphocytes 3.2 10^3/uL N 1.0-4.8 Abs Monocytes 0.5 10^3/uL N 0-0.8 Abs Eosinophils 0.1 10^3/uL N 0-0.6 Abs Basophils 0.1 10^3/uL N 0-0.2 Abs Nucleated RBC 0.01 10^3/uL N Granulocyte % 32.3 % Low 38-83 Lymphocyte % 55.6 % High 25-47 Monocyte % 8.9 % N 1-9 Eosinophil % 2.0 % N 0-6 Basophil % 1.2 % N 0-2 Nucleated Red Blood Cells % 0.1 N Urinalysis Profile 08/22/2016 [facility] Urine Color Yellow N [address] [place] [address] [phone] Urine Appearance Cloudy N Urine Specific [place] 1.031 High 1.010-1.030 Urine pH 6.0 N 5-9 Urine Urobilinogen Negative N Negative Urine Ketones Trace Abnormal Negative Urine Protein 1+(30 mg/dL) Abnormal Negative Urine Leukocytes Negative N Negative Urine Blood Negative N Negative Urine Nitrite Negative N Negative Urine Bilirubin Negative N Negative Urine Glucose Negative N Negative Urine White Blood Cell Trace(0-5/hpf) N Absent Urine Red Blood Cell Absent N Absent Urine Bacteria 3+ Abnormal Absent Urine Squamous Epithelial Cell Present Abnormal Absent Urine Drug 08/22/2016 [facility] Amphetamine Ur None Detected N None Detect SCR ED & [address] [place] [address] [phone] Barbiturates Urine Screen None Detected N None Detect Benzodiazepine Urine Screen None Detected N None Detect Urine Cannabinoids Screen None Detected N None Detect Urine Cocaine Screen None Detected N None Detect Urine Opiates Screen None Detected N None Detect Urine Phencyclidine Screen None Detected N None Detect 69 Comp Metabolic Panel 08/22/2016 [facility] Sodium 133 mmol/L N 133-[address] [place] [address] [phone] Potassium 3.9 mmol/L N 3.5-5.0 Chloride 102 mmol/L N 101-111 Co2 Carbon Dioxide 22 mmol/L N 22-32 Anion Gap 9 mmol/L N 2-11 Glucose 85 mg/dL N 70-100 Blood Urea Nitrogen 15 mg/dL N 6-24 Creatinine 0.81 mg/dL N 0.51-0.95 BUN/Creatinine Ratio 18.5 N 8-20 Calcium 10.0 mg/dL N 8.6-10.3 Total Protein 8.3 g/dL N 6.4-8.9 Albumin 5.0 g/dL N 3.2-5.2 Globulin 3.3 g/dL N 2-4 Albumin/Globulin Ratio 1.5 N 1-3 Total Bilirubin 0.40 mg/dL N 0.2-1.0 Alkaline Phosphatase 41 U/L N 34-104 Alt 10 U/L N 7-52 Ast 23 U/L N 13-39 Egfr Non- 87.6 N >60 Egfr 112.7 N >60 70 Laboratory test 08/22/2016 [facility] HCG < 0.60 mIU/ mL N 71 finding [address] [place] [address] [phone] Acetaminophen < 15 g/mL N 72 Alcohol < 10 mg/dL N <10 Salicylate < 2.50 mg/dL N <30 TSH (Thyroid Stim Horm) 0.63 mcIU/mL N 0.34-5.60 Rapid HIV Nonreactive N Nonreactive Syphillis Igg W/Reflex RPR Nonreactive N Nonreactive 73 Hepatitis 08/22/2016 [facility] Hepatitis B Nonreactive N Nonreactive Acute Panel [address] [place] [address] Antigen [phone] Hepatitis B Core IgM Nonreactive N Nonreactive Hepatitis A AB IgM Nonreactive N Nonreactive Hepatitis C Antibody Nonreactive N Nonreactive Laboratory test 08/04/2016 [facility] HCG < 0.60 mIU/ mL N 74 finding [address] [place] [address] [phone] Acetaminophen < 15 g/mL N 75 Alcohol < 10 mg/dL N <10 Salicylate < 2.50 mg/dL N <30 TSH (Thyroid Stim Horm) 1.63 mcIU/mL N 0.34-5.60 Comp Metabolic Panel 08/04/2016 [facility] Sodium 135 mmol/L N 133-145 [address] [place] [address] [phone] Potassium 3.8 mmol/L N 3.5-5.0 Chloride 104 mmol/L N 101-111 Co2 Carbon Dioxide 25 mmol/L N 22-32 Anion Gap 6 mmol/L N 2-11 Glucose 108 mg/dL High 70-100 Blood Urea Nitrogen 18 mg/dL N 6-24 Creatinine 0.85 mg/dL N 0.51-0.95 BUN/Creatinine Ratio 21.2 High 8-20 Calcium 9.8 mg/dL N 8.6-10.3 Total Protein 7.4 g/dL N 6.4-8.9 Albumin 4.5 g/dL N 3.2-5.2 Globulin 2.9 g/dL N 2-4 Albumin/Globulin Ratio 1.6 N 1-3 Total Bilirubin 0.20 mg/dL N 0.2-1.0 Alkaline Phosphatase 35 U/L N 34-104 Alt 7 U/L N 7-52 Ast 17 U/L N 13-39 Egfr Non- 82.9 N >60 Egfr 106.6 N >60 76 Urinalysis Profile 08/04/2016 [facility] Urine Color Yellow N [address] [place] [address] [phone] Urine Appearance Cloudy N Urine Specific [place] 1.029 N 1.010-1.030 Urine pH 5.0 N 5-9 Urine Urobilinogen Negative N Negative Urine Ketones Negative N Negative Urine Protein Negative N Negative Urine Leukocytes Negative N Negative Urine Blood 3+ Abnormal Negative Urine Nitrite Negative N Negative Urine Bilirubin Negative N Negative Urine Glucose Negative N Negative Urine White Blood Cell Absent N Absent Urine Red Blood Cell 3+(>10/hpf) Abnormal Absent Urine Bacteria Absent N Absent Urine Squamous Epithelial Cell Present Abnormal Absent CBC Auto Diff 08/04/2016 [facility] White Blood 8.1 10^3/uL N 3.5-10.[address] [place] [address] [phone] Red Blood Count 4.15 10^6/uL N 4.0-5.4 Hemoglobin 11.6 g/dL Low 12.0-16.0 Hematocrit 35 % N 35-47 Mean Corpuscular Volume 84 fL N 80-97 Mean Corpuscular Hemoglobin 28 pg N 27-31 Mean Corpuscular HGB Conc 33 g/dL N 31-36 Red Cell Distribution Width 16 % High 10.5-15 Platelet Count 302 10^3/uL N 150-450 Mean Platelet Volume 7 um3 Low 7.4-10.4 Abs Neutrophils 4.5 10^3/uL N 1.5-7.7 Abs Lymphocytes 2.5 10^3/uL N 1.0-4.8 Abs Monocytes 0.8 10^3/uL N 0-0.8 Abs Eosinophils 0.2 10^3/uL N 0-0.6 Abs Basophils 0.1 10^3/uL N 0-0.2 Abs Nucleated RBC 0 10^3/uL N Granulocyte % 55.1 % N 38-83 Lymphocyte % 31.1 % N 25-47 Monocyte % 9.3 % High 1-9 Eosinophil % 3.0 % N 0-6 Basophil % 1.5 % N 0-2 Nucleated Red Blood Cells % 0 N Urine 08/04/2016 [facility] Amphetamine Ur Presumptive Abnormal None 77 Drug SCR [address] Screen Posi <SEE Detect ED & [place] [address] NOTE> Clinic [phone] Barbiturates Urine Screen None Detected N None Detect Benzodiazepine Urine Screen None Detected N None Detect Urine Cannabinoids Screen None Detected N None Detect Urine Cocaine Screen None Detected N None Detect Urine Opiates Screen None Detected N None Detect Urine Phencyclidine Screen None Detected N None Detect 78 CBC Auto Diff 06/25/2016 [facility] White Blood 8.2 10^3/uL N 3.5-10.[address] [place] [address] [phone] Red Blood Count 4.54 10^6/uL N 4.0-5.4 Hemoglobin 12.4 g/dL N 12.0-16.0 Hematocrit 38 % N 35-47 Mean Corpuscular Volume 84 fL N 80-97 Mean Corpuscular Hemoglobin 27 pg N 27-31 Mean Corpuscular HGB Conc 33 g/dL N 31-36 Red Cell Distribution Width 16 % High 10.5-15 Platelet Count 293 10^3/uL N 150-450 Mean Platelet Volume 8 um3 N 7.4-10.4 Abs Neutrophils 3.0 10^3/uL N 1.5-7.7 Abs Lymphocytes 4.0 10^3/uL N 1.0-4.8 Abs Monocytes 0.7 10^3/uL N 0-0.8 Abs Eosinophils 0.3 10^3/uL N 0-0.6 Abs Basophils 0.1 10^3/uL N 0-0.2 Abs Nucleated RBC 0 10^3/uL N Granulocyte % 36.9 % Low 38-83 Lymphocyte % 49.0 % High 25-47 Monocyte % 8.9 % N 1-9 Eosinophil % 3.9 % N 0-6 Basophil % 1.3 % N 0-2 Nucleated Red Blood Cells % 0 N Iron & Iron Binding 06/25/2016 [facility] Iron 37 g/dL Low 50-[address] [place] [address] [phone] Unsaturated Iron Binding 484 g/dL N Total Iron Binding Capacity 521 g/dL High 250-450 % Iron Saturation 7 % Low 15-55 Laboratory test 06/25/2016 [facility] Ferritin < 10.0 ng/mL Low 11-307 [address] [place] [address] [phone] Vitamin B12 285 pg/mL N 180-914 80 CBC Auto Diff 05/31/2016 [facility] White Blood 6.2 10^3/uL N 3.5-10.[address] [place] [address] [phone] Red Blood Count 4.46 10^6/uL N 4.0-5.4 Hemoglobin 11.6 g/dL Low 12.0-16.0 Hematocrit 37 % N 35-47 Mean Corpuscular Volume 83 fL N 80-97 Mean Corpuscular Hemoglobin 26 pg Low 27-31 Mean Corpuscular HGB Conc 32 g/dL N 31-36 Red Cell Distribution Width 17 % High 10.5-15 Platelet Count 333 10^3/uL N 150-450 Mean Platelet Volume 8 um3 N 7.4-10.4 Abs Neutrophils 2.2 10^3/uL N 1.5-7.7 Abs Lymphocytes 3.0 10^3/uL N 1.0-4.8 Abs Monocytes 0.7 10^3/uL N 0-0.8 Abs Eosinophils 0.3 10^3/uL N 0-0.6 Abs Basophils 0.1 10^3/uL N 0-0.2 Abs Nucleated RBC 0.01 10^3/uL N Granulocyte % 35.8 % Low 38-83 Lymphocyte % 48.0 % High 25-47 Monocyte % 11.0 % High 1-9 Eosinophil % 4.2 % N 0-6 Basophil % 1.0 % N 0-2 Nucleated Red Blood Cells % 0.2 N Laboratory test 05/31/2016 [facility] TSH (Thyroid 0.55 mcIU/mL N 0.34-5.60 [address] Stim [place]) [place] [address] [phone] Basic Metabolic 05/31/2016 [facility] Sodium 136 mmol/L N 133- [address] [place] [address] [phone] Potassium 4.2 mmol/L N 3.5-5.0 Chloride 105 mmol/L N 101-111 Co2 Carbon Dioxide 23 mmol/L N 22-32 Anion Gap 8 mmol/L N 2-11 Glucose 78 mg/dL N 70-100 Blood Urea Nitrogen 7 mg/dL N 6-24 Creatinine 0.77 mg/dL N 0.51-0.95 BUN/Creatinine Ratio 9.1 N 8-20 Calcium 10.0 mg/dL N 8.6-10.3 Egfr Non- 92.9 N >60 Egfr 119.5 N >60 82 1 Because ethnic data is not always readily available, this report includes an eGFR for both -Americans and non- Americans. The National Kidney Disease Education Program (NKDEP) does not endorse the use of the MDRD equation for patients that are not between the ages of 18 and 70, are , have extremes of body size, muscle mass, or nutritional status, or are non- or non-. According to the National Kidney Foundation, irrespective of diagnosis, the stage of the disease is based on the level of kidney function: Stage Description GFR(mL/min/1.73 m(2)) 1 Kidney damage with normal or decreased GFR 90 2 Kidney damage with mild decrease in GFR 60-89 3 Moderate decrease in GFR 30-59 4 Severe decrease in GFR 15-29 5 Kidney failure <15 (or dialysis) 2 Desirable: <150 Borderline High: 150-199 High: 200-499 Very High: >500 3 Desirable: <200 Borderline High: 200-239 High: >239 4 Low: <40 Desirable: 40-60 High: >60 5 Desirable: <100 Near Optimal: 100-129 Borderline High: 130-159 High: 160-189 Very High: >189 6 [id number] Would you like to order Trichomonas Vaginalis RNA testing? Y 7 SEE RESULT BELOW Name: BENJAMIN ROLAND : [address]: Tom Franco MD Acct: [id number] Unit: [id number] AGE: 27 Location: [facility] Re06/26/18 SEX: F Status: DEP ER SPEC: [id number] OLVIN: 06/26/18-[address] [facility] [address]: Sheyla YOUNG REQ: [id number] RECD: 06/27/18 STATUS: PAULINO MENDOZA DR: Fam Franco MD _ SOURCE: VAGINAL SPDESC: ORDERED: Jac,Yeast DNA COMMENTS: [id number] Would you like to order Trichomonas Vaginalis RNA testing? Y Procedure Result Reported Site Gardnerella/Yeast: Vaginal DNA Final 06/27/18- 1412 ML Organism 1 Negative Gardnerella Organism 2 POSITIVE KRISTEN The presence of G. vaginalis, although suggestive, is not diagnostic for bacterial vaginosis. Results should be interpreted in conjuction with other clinical and laboratory data available. Women with vaginal discharge should be evaluated for risk factors of cervicitis and pelvic inflammatory disease, toxic shock syndrome (S.aureus), and if present, evaluated for organisms not included in this assay such as N. gonorrhoeae, C. trachomatis, Mobiluncus, Mycoplasma and/or Prevotella. Mixed infections may occur. The performance of this test on patient specimens collected during or immediately after antimicrobial therapy is unknown. The presence or absence of Kristen species, or G. vaginalis cannot be used as a test for therapeutic success or failure. * ML - Main Lab . END OF REPORT DEPARTMENT OF PATHOLOGY, [address] [place] [address] Kvng Cole M.D. Director [facility] # [id number] GC/Chlamydia Source?: Endocervical Trichomonas Source: Endocervical 9 [id number] SEE RESULT BELOW Name: BENJAMIN ROLAND : [address]: Tom Franco MD Acct: [id number] Unit: [id number] AGE: 27 Location: [facility] Re06/26/18 SEX: F Status: DEP ER SPEC: [id number] OLVIN: 06/26/[address] [facility] [address]: Sheyla YOUNG REQ: [id number] RECD: 06/27/18 STATUS: PAULINO MENDOZA DR: Fam Franco MD _ SOURCE: URINE SPDESC: ORDERED: Urine Culture COMMENTS: [id number] Procedure Result Reported Site Urine Culture Final 06/28/18- 1113 ML No Growth (<1,000 CFU/mL) * ML - Main Lab . END OF REPORT DEPARTMENT OF PATHOLOGY, [address] [place] [address] Kvng Cole M.D. Director [facility] # [id number] 11 Super[employer]: [id number] If is still suspected, please repeat test after 48 to 72 hours. 12 Supervisor [employer] Cell Assembly: [id number] 13 REFERENCE VALUE Cutoff: 500 14 REFERENCE VALUE Cutoff: 200 15 REFERENCE VALUE Cutoff: 100 16 REFERENCE VALUE Cutoff: 150 17 ADDITIONAL INFORMATION This report is intended for use in clinical monitoring or management of patients. It is not intended for use in employment-related testing. 18 REFERENCE VALUE Cutoff: 200 mg/L 19 Tylenol 3 20 Metabolite of codeine REFERENCE VALUE Cutoff: 100 21 Valerie Phelan, Contin; Also a minor metabolite (10%) of codeine and can be seen in low concentrations (<2,000 ng/mL) with poppy seed ingestion. 22 Metabolite of morphine REFERENCE VALUE Cutoff: 100 23 Metabolite of heroin 24 Lortab, [place], Vicodin; Also a very minor metabolite of codeine and impurity (<1%) of oxycodone. 25 Metabolite of hydrocodone 26 Metabolite of hydrocodone 27 Dilaudid, Exalgo; Also a metabolite of hydrocodone and a minor (<5%) metabolite of morphine. 28 Metabolite of hydromorphone REFERENCE VALUE Cutoff: 100 29 Endocet, Percocet, Oxycontin 30 Metabolite of oxycodone 31 Numorphan, Opana; Also a metabolite of oxycodone. 32 Metabolite of oxymorphone REFERENCE VALUE Cutoff: 100 33 Metabolite of oxymorphone 34 Actiq, Duragesic, Fentora 35 Metabolite of fentanyl 36 Demerol 37 Metabolite of meperidine 38 Narcan 39 Metabolite of naloxone REFERENCE VALUE Cutoff: 100 40 Dolophine 41 Metabolite of methadone 42 Darvon, Darvocet 43 Metabolite of propoxyphene 44 Tradol, Ultram, Ultracet 45 Metabolite of tramadol 46 Nucynta 47 Metabolite of tapentadol 48 Metabolite of tapentadol REFERENCE VALUE Cutoff: 100 49 Buprenex, Suboxone 50 Metabolite of buprenorphine 51 Metabolite of buprenorphine 52 No opioids were detected. The absence of expected drug(s) and/or drug metabolite(s) may indicate non-compliance, altered pharmacokinetics, inappropriate timing of specimen collection relative to drug administration, diluted/adulterated urine, or limitations of testing. ADDITIONAL INFORMATION This test was developed and its performance characteristics determined by [facility] in a manner consistent with CLIA requirements. This test has not been cleared or approved by the U.S. Food and Drug Administration. Test Performed by: [facility] [address] [place] [address] 53 *Ascorbic acid is present which may interfere with detection of blood. 54 The urine specimen was tested at the listed cutoffs: Drug class test level (ng/mL) Amphetamines 500 Barbiturates 200 Benzodiazepine metabolites 200 Cocaine metabolites 150 Cannabinoids 50 Opiates 300 Pcp 25 Specimen was received without chain of custody. Results should be used for medical purposes only. 55 <5.0 Negative 5.0 - 25.0 Indeterminate (Repeat testing recommended after 72 hours) >25.0 Positive Perimenopausal women can display HCG levels of up to 20 mIU/mL 56 Because ethnic data is not always readily available, this report includes an eGFR for both -Americans and non- Americans. The National Kidney Disease Education Program (NKDEP) does not endorse the use of the MDRD equation for patients that are not between the ages of 18 and 70, are , have extremes of body size, muscle mass, or nutritional status, or are non- or non-. According to the National Kidney Foundation, irrespective of diagnosis, the stage of the disease is based on the level of kidney function: Stage Description GFR(mL/min/1.73 m(2)) 1 Kidney damage with normal or decreased GFR 90 2 Kidney damage with mild decrease in GFR 60-89 3 Moderate decrease in GFR 30-59 4 Severe decrease in GFR 15-29 5 Kidney failure <15 (or dialysis) 57 Therapeutic concentration: <50 ug/mL Toxic concentration: >120 ug/mL 58 SEE RESULT BELOW Name: BENJAMIN ROLAND : [address]: Tom Franco MD Acct: [id number] Unit: [id number] AGE: 26 Location: ED Re02/07/17 SEX: F Status: DEP ER SPEC: [id number] OLVIN: 02/07/17-[address] [facility] [address]: Tom Franco MD REQ: [id number] RECD: 02/07/17 STATUS: PAULINO MENDOZA DR: Fam Whitman III, MD _ SOURCE: URINE SPDESC: ORDERED: Urine Culture Procedure Result Reported Site Urine Culture Final 02/08/17- 1222 ML No Growth (<1,000 CFU/mL) * ML - MAIN LAB ([facility]) . END OF REPORT * ML=Testing performed at Main Lab DEPARTMENT OF PATHOLOGY, [address] [place] [address] Kvng Cole M.D. Director [facility] # [id number] 59 *Ascorbic acid is present which may interfere with detection of blood. 60 The urine specimen was tested at the listed cutoffs: Drug class test level (ng/mL) Amphetamines 500 Barbiturates 200 Benzodiazepine metabolites 200 Cocaine metabolites 150 Cannabinoids 50 Opiates 300 Pcp 25 Specimen was received without chain of custody. Results should be used for medical purposes only. 61 Because ethnic data is not always readily available, this report includes an eGFR for both -Americans and non- Americans. The National Kidney Disease Education Program (NKDEP) does not endorse the use of the MDRD equation for patients that are not between the ages of 18 and 70, are , have extremes of body size, muscle mass, or nutritional status, or are non- or non-. According to the National Kidney Foundation, irrespective of diagnosis, the stage of the disease is based on the level of kidney function: Stage Description GFR(mL/min/1.73 m(2)) 1 Kidney damage with normal or decreased GFR 90 2 Kidney damage with mild decrease in GFR 60-89 3 Moderate decrease in GFR 30-59 4 Severe decrease in GFR 15-29 5 Kidney failure <15 (or dialysis) 62 Therapeutic concentration: <50 ug/mL Toxic concentration: >120 ug/mL 63 <5.0 Negative 5.0 - 25.0 Indeterminate (Repeat testing recommended after 72 hours) >25.0 Positive Perimenopausal women can display HCG levels of up to 20 mIU/mL 64 SEE RESULT BELOW Name: BENJAMIN ROLAND : [address]: Fam Fernandez MD Acct: [id number] Unit: [id number] AGE: 26 Location: ED Re01/30/17 SEX: F Status: REG ER SPEC: [id number] OLVIN: 01/30/17-[address] [facility] [address]: Dorothy YOUNG REQ: [id number] RECD: 01/30/17 STATUS: PAULION MENDOZA DR: [facility] Fam Whitman III, MD _ SOURCE: URINE SPDESC: ORDERED: Urine Culture Procedure Result Reported Site Urine Culture Final 01/31/17- 1434 ML No Growth (<1,000 CFU/mL) * ML - [facility] ([facility]) . END OF REPORT * ML=Testing performed at Main Lab DEPARTMENT OF PATHOLOGY, [address] [place] [address] Kvng Cole M.D. Director [facility] # [id number] 65 Supervisor [employer]: [id number] If is still suspected, please repeat test after 48 to 72 hours. 66 Supervisor [employer] Cell Assembly: [id number] 67 SEE RESULT BELOW Name: BENJAMIN ROLAND : [address]: Evaristo Anand MD Acct: [id number] Unit: [id number] AGE: 25 Location: [address] Re08/22/16 SEX: F Status: ADM IN SPEC: [id number] OLVIN: 08/22/16-[address] [facility] [address]: Catherine YOUNG REQ: [id number] RECD: 08/22/16 STATUS: PAULINO MENDOZA DR: Kavon Whitman III, MD _ SOURCE: URINE SPDESC: ORDERED: Urine Culture Procedure Result Reported Site Urine Culture Final 08/23/16- 1415 ML No Growth (<1,000 CFU/mL) * ML - MAIN LAB ([facility]) . END OF REPORT * ML=Testing performed at Main Lab DEPARTMENT OF PATHOLOGY, [address] [place] [address] Kvng Cole M.D. Director [facility] # [id number] 68 SEE RESULT BELOW Name: BENJAMIN ROLAND : [address]: Kavon Saldivar MD Acct: [id number] Unit: [id number] AGE: 25 Location: ED Re08/22/16 SEX: F Status: REG ER SPEC: [id number] OLVIN: 08/22/16-[address] [facility] [address]: Catherine YOUNG REQ: [id number] RECD: 08/22/16-1259 STATUS: PAULINO MENDOZA DR: Kavon Whitman III, MD _ SOURCE: VAGINAL SPDESC: ORDERED: Jac,Yeast DNA, Trich DNA Procedure Result Reported Site Gardnerella/Yeast: Vaginal DNA Final 08/22/16- 7199 ML Organism 1 Negative Gardnerella Organism 2 Negative Kristen The presence of G. vaginalis, although suggestive, is not diagnostic for bacterial vaginosis. Results should be interpreted in conjuction with other clinical and laboratory data available. Women with vaginal discharge should be evaluated for risk factors of cervicitis and pelvic inflammatory disease, toxic shock syndrome (S.aureus), and if present, evaluated for organisms not included in this assay such as N. gonorrhoeae, C. trachomatis, Mobiluncus, Mycoplasma and/or Prevotella. Mixed infections may occur. The performance of this test on patient specimens collected during or immediately after antimicrobial therapy is unknown. The presence or absence of Kristen species, or G. vaginalis cannot be used as a test for therapeutic success or failure. Trichomonas: Vaginal DNA Probe Final 08/22/16- 1459 ML Organism 1 Negative Trichomonas CONTINUED ON NEXT PAGE * ML=Testing performed at [facility] DEPARTMENT OF PATHOLOGY, [address] [place] [address] Knvg Cole M.D. Director [facility] # [id number] Patient: BENJAMIN ROLAND [id number] (Continued) Specimen: [id number] Collected: 08/22/16-1236 Received: 08/22/16-125 (Continued) Procedure Result Reported Site Trichomonas: Vaginal DNA Probe Final (continued) 08/22/161458 The presence or absence of T. vaginalis cannot be used as a test for therapeutic success or failure. * ML - MAIN LAB ([facility]) . END OF REPORT * ML=Testing performed at Main Lab DEPARTMENT OF PATHOLOGY, [address] [place] [address] Kvng Cole M.D. Director [facility] # [id number] 69 The urine specimen was tested at the listed cutoffs: Drug class test level (ng/mL) Amphetamines 500 Barbiturates 200 Benzodiazepine metabolites 200 Cocaine metabolites 150 Cannabinoids 50 Opiates 300 Pcp 25 Specimen was received without chain of custody. Results should be used for medical purposes only. 70 Because ethnic data is not always readily available, this report includes an eGFR for both -Americans and non- Americans. The National Kidney Disease Education Program (NKDEP) does not endorse the use of the MDRD equation for patients that are not between the ages of 18 and 70, are , have extremes of body size, muscle mass, or nutritional status, or are non- or non-. According to the National Kidney Foundation, irrespective of diagnosis, the stage of the disease is based on the level of kidney function: Stage Description GFR(mL/min/1.73 m(2)) 1 Kidney damage with normal or decreased GFR 90 2 Kidney damage with mild decrease in GFR 60-89 3 Moderate decrease in GFR 30-59 4 Severe decrease in GFR 15-29 5 Kidney failure <15 (or dialysis) 71 <5.0 Negative 5.0 - 25.0 Indeterminate (Repeat testing recommended after 72 hours) >25.0 Positive Perimenopausal women can display HCG levels of up to 20 mIU/mL 72 Therapeutic concentration: <50 ug/mL Toxic concentration: >120 ug/mL 73 Warning: A positive result is not useful for establishing a diagnosis of syphilis. In most situations, such a result may reflect a prior treated infection; a negative result can exclude a diagnosis of syphilis except for incubating or early primary disease. 74 <5.0 Negative 5.0 - 25.0 Indeterminate (Repeat testing recommended after 72 hours) >25.0 Positive Perimenopausal women can display HCG levels of up to 20 mIU/mL 75 Therapeutic concentration: <50 ug/mL Toxic concentration: >120 ug/mL 76 Because ethnic data is not always readily available, this report includes an eGFR for both -Americans and non- Americans. The National Kidney Disease Education Program (NKDEP) does not endorse the use of the MDRD equation for patients that are not between the ages of 18 and 70, are , have extremes of body size, muscle mass, or nutritional status, or are non- or non-. According to the National Kidney Foundation, irrespective of diagnosis, the stage of the disease is based on the level of kidney function: Stage Description GFR(mL/min/1.73 m(2)) 1 Kidney damage with normal or decreased GFR 90 2 Kidney damage with mild decrease in GFR 60-89 3 Moderate decrease in GFR 30-59 4 Severe decrease in GFR 15-29 5 Kidney failure <15 (or dialysis) 77 Presumptive Positive Presumptive positive results are unconfirmed. 78 The urine specimen was tested at the listed cutoffs: Drug class test level (ng/mL) Amphetamines 500 Barbiturates 200 Benzodiazepine metabolites 200 Cocaine metabolites 150 Cannabinoids 50 Opiates 300 Pcp 25 Specimen was received without chain of custody. Results should be used for medical purposes only. 79 July 16 Normal Range 180 to 914 Indeterminate Range 145 to 180 Deficient Range <145 81 FASTING 10 HOUR 82 Because ethnic data is not always readily available, this report includes an eGFR for both -Americans and non- Americans. The National Kidney Disease Education Program (NKDEP) does not endorse the use of the MDRD equation for patients that are not between the ages of 18 and 70, are , have extremes of body size, muscle mass, or nutritional status, or are non- or non-. According to the National Kidney Foundation, irrespective of diagnosis, the stage of the disease is based on the level of kidney function: Stage Description GFR(mL/min/1.73 m(2)) 1 Kidney damage with normal or decreased GFR 90 2 Kidney damage with mild decrease in GFR 60-89 3 Moderate decrease in GFR 30-59 4 Severe decrease in GFR 15-29 5 Kidney failure <15 (or dialysis) Procedures Date Code Description Status 08/26/2018 48127 Nerve Conduction 07-08 Studies Completed 08/26/2018 94043 Needle Electromyography Each Extremity W/Related Completed Paraspinal Areas 08/22/2018 46035 EKG Tracing & Interpretation Completed 06/15/2016 43098 EKG Tracing & Interpretation Completed Encounters Type Date Location Provider Dx Diagnosis Office Visit 08/22/2018 [facility] Fam Whitman, R07.89 Other chest pain 10:00a Radha Chris Z13.220 Encounter for screening for lipoid disorders Z13.1 Encounter for screening for diabetes mellitus F41.9 Anxiety disorder, unspecified Office Visit 06/27/2018 [facility] Aftab Montoya, G25.0 Essential 10:15a Clinic tremor G56.02 Carpal tunnel syndrome, left upper limb G43.009 Migraine w/o aura, not intractable, w/o status migrainosus Office 03/12/2018 [facility] Aftab G43.009 Migraine w/o Visit 10:30a Clinic MD Lindsay aura, not intractable, w/o status migrainosus G56.02 Carpal tunnel syndrome, left upper limb G25.0 Essential tremor G44.209 Tension-type headache, unspecified, not intractable G25.2 Other specified forms of tremor Office Visit 03/06/2018 9:20a [facility] Internal Jacob Wai, [employer] M54.2 Cervicalgia Medicine - [place] Office Visit 01/08/2017 10:20a [facility] Internal Fam Rosado R51 Headache Radha - Dot Whitman M.D. G47.00 Insomnia, unspecified F33.2 Major depressv disorder, recurrent severe w/o psych features Office Visit 07/23/2016 11:40a [facility] Internal Irvin [place], D50.8 Other iron Medicine - [place] [employer] deficiency [address] anemias R79.0 Abnormal level of blood mineral Office Visit 07/11/2016 11:20a [facility] Internal Fam Rosado S61.001D Unsp open wound of Medicine Delmi Whitman M.D. right thumb w/o [place] damage to nail, subs Office Visit 06/20/2016 10:30a [facility] Nursing Monica Z11.1 Encounter for Home Aman, screening for N.P. respiratory tuberculosis Z02.1 Encounter for pre-employment examination Office Visit 06/15/2016 9:40a [facility] Internal Irvin [place], G44.201 Tension- type Medicine - [employer] headache, [place] [address] unspecified, intractable R07.9 Chest pain, unspecified F33.2 Major depressv disorder, recurrent severe w/o psych features F10.188 Alcohol abuse with other alcohol-induced disorder D64.9 Anemia, unspecified Z72.0 Tobacco use G44.209 Tension-type headache, unspecified, not intractable Office Visit 05/18/2016 10:00a [facility] Internal Irvin [place], Z00.00 Encntr for Medicine - [place] [employer] general adult Rd medical exam w/o abnormal findings F33.2 Major depressv disorder, 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 G44.201 Tension-type headache, unspecified, intractable L20.89 Other atopic dermatitis F10.188 Alcohol abuse with other alcohol-induced disorder Plan of Treatment Future Appointment(s):01/08/2019 9:30 am - Aftab Montoya MD at [facility] [id number]/10/2018 - Aftab Montoya MDG43.009 Migraine without aura, not intractable, without status migraComments:Discussed that she should have maxalt (=rizatriptan)available for when she gets a bad migraine it may help. Dicussed again that the tremor will be persistent and may slowly worsen over time.Discussed that with bilateral hand numbness she likely has carpal tunnel syndrome though her ncv did not show it at this time- it is mild. Discussed precautions she can take to minimize wear and tear on her hands. She did not want to go to ot and did not want to try exercises. she did not tolerate the splintFollow up:4 [id number] Carpal tunnel syndrome, left upper limbG25.0 Essential tremor
[2018-09-28 19:10] VITALS: BP 126/81
--- NOTE | 2018-09-28 19:33 | UC ---
Abdominal Pain Female HPI - HPI Summary HPI Summary: PATIENT ARRIVES CONCERNED THAT SHE HAS NOT HAD A BM IN THE PAST 3-4 DAYS. STATES SHE DOES NOT FEEL LIKE SHE NEEDS TO GO BUT JUST THOUGHT THAT SHE SHOULD. ON FIRST APPEARANCE PATIENT IS EXTREMELY THIN. UPON FURTHER QUESTIONING SHE ADMITS THAT SHE CARRIES A DIAGNOSIS OF ANOREXIA. HAS EATEN ONLY A FIBER BAR AND A COUPLE OF CHIPS TODAY. SHE DID THE SAME YESTERDAY. SHE REPORTS SHE DOES NOT EAT ANYTHING ON SOME DAYS. PATIENT HAS BEEN FOLLOWING UP WITH PSYCHIATRY AND IS NEXT DUE TO SEE SOMEONE ON THE TEAM THIS WEEK. SHE HAS BEEN PROVIDED WITH RESOURCES FOR EATING DISORDERS. - History of Current Complaint Chief Complaint: UCGI Stated Complaint: CONSTIPATION Time Seen by Provider: 09/28/18 19:09 Hx Obtained From: Patient Hx Last Menstrual Period: now Onset/Duration: Lasting Days, Still Present Severity Initially: Mild Severity Currently: Mild Pain Intensity: 0 Pain Scale Used: 0-10 Numeric Character: Not Applicable Associated Signs and Symptoms: Positive: Nausea. Negative: Fever, Back Pain, Urinary Symptoms, Vomiting, Diarrhea Allergies/Adverse Reactions: Allergies Allergy/AdvReac Type Severity Reaction Status Date / Time No Known Allergies Allergy Verified 09/28/18 19:10 Home Medications: Home Medications NK [No Home Medications Reported] 09/28/18 [History Confirmed 09/28/18] PMH/Surg Hx/FS Hx/Imm Hx - Additional Past Medical History Additional PMH: ANOREXIA Psychological History: Anxiety, Depression, Schizophrenia, Post Traumatic Stress Disorder Other History Of: Negative For: Anticoagulant Therapy - Surgical History Surgical History: Yes Surgery Procedure, Year, and Place: ORAL SURGERY - Family History Known Family History: Positive: Hypertension, Diabetes - Social History Alcohol Use: Rare Alcohol Amount: 1 BOTTLE WINE DAILY Substance Use Type: None Smoking Status (MU): Current Every Day Smoker Type: Cigars Amount Used/How Often: 2 cigars/daily Have You Smoked in the Last Year: Yes When Did the Patient Quit Smoking/Using Tobacco: has not smoked for about a week /smoked within last 30 days Household Exposure Type: Cigarettes, Cigars - Immunization History Most Recent Influenza Vaccination: none Most Recent Tetanus Shot: 06/15/16 Most Recent Pneumonia Vaccination: n/a Review of Systems All Other Systems Reviewed And Are Negative: Yes Constitutional: Positive: Negative Skin: Positive: Negative Respiratory: Positive: Negative Cardiovascular: Positive: Negative Gastrointestinal: Positive: Nausea Genitourinary: Positive: Negative Physical Exam Triage Information Reviewed: Yes Appearance: Well-Appearing, No Pain Distress, Thin Vital Signs: Initial Vital Signs Temp 96.9 F 09/28/18 19:05 Pulse 75 09/28/18 19:05 Resp 18 09/28/18 19:05 BP 126/81 09/28/18 19:05 Pulse Ox 97 09/28/18 19:05 Vital Signs Reviewed: Yes Eyes: Positive: Conjunctiva Clear ENT: Positive: Hearing grossly normal Neck: Positive: Supple Respiratory: Positive: No respiratory distress, No accessory muscle use Cardiovascular: Positive: Pulses Normal Abdomen Description: Positive: Nontender, Soft. Negative: Distended, Guarding Bowel Sounds: Positive: Present Musculoskeletal: Positive: No Edema Neurological: Positive: Alert Psychological: Positive: Age Appropriate Behavior Skin: Negative: Rashes UC Physical Exam Vital Signs On Initial Exam: Initial Vitals Temp Pulse Resp BP Pulse Ox 96.9 F 75 18 126/81 97 09/28/18 19:05 09/28/18 19:05 09/28/18 19:05 09/28/18 19:05 09/28/18 19:05 - Rectal Exam Rectal Exam: Normal Rectal Tone, Other - NO STOOL Abd Pain Female Course/Dx - Course Course Of Treatment: NO STOOL IN RECTAL VAULT ON EXAM TODAY. PT ADMITS TO DIAGNOSIS OF ANOREXIA. HAS NOT EATEN MUCH OF ANY SUBSTANCE OVER THE PAST FEW WEEKS. COUNSELED ON DANGERS OF EATING DISORDERS. PT SEES PSYCHIATRY REGULARLY AND STATES SHE HAS BEEN PROVIDED WITH RESOURCES FOR EATING DISORDERS. - Differential Dx/Diagnosis Provider Diagnosis: Eating disorder Discharge - Sign-Out/Discharge Documenting (check all that apply): Patient Departure All imaging exams completed and their final reports reviewed: No Studies - Discharge Plan Condition: Stable Disposition: HOME Referrals: Fam Whitman MD [Primary Care Provider] - 1 Week Additional Instructions: I DO NOT THINK YOU ARE CONSTIPATED. IT SEEMS THAT YOU ARE NOT TAKING IN ENOUGH SUBSTANTIVE FOOD TO NECESSITATE A BM EVERY DAY. I AM CONCERNED ABOUT YOUR EATING HABITS. ANOREXIA IS A CHRONIC CONDITION THAT CAN BE VERY DIFFICULT TO NAVIGATE. PLEASE CONTINUE TO FOLLOW-UP WITH YOUR PSYCHIATRIST AND HIS TEAM. STAY HYDRATED AND TRY TO EAT SOMETHING AT EVERY MEAL TIME EVEN IF IT IS A SMALL AMOUNT. DO NOT HESITATE TO GO TO THE ER IF YOU ARE FEELING FAINT, DIZZY, OR FIND THAT YOU HAVE NOT EATEN ANYTHING FOR DAYS AT A TIME. - Billing Disposition and Condition Condition: STABLE Disposition: Home
== END 2018-09-28 19:59 | disposition home or self-care (01) ==
LOC: UCEAST 18:57
DX: F50.9 Eating disorder, unspecified (principal); R11.0 Nausea; F17.210 Nicotine dependence, cigarettes, uncomplicated
CPT/HCPCS: 99211; G0463

== ENCOUNTER 2018-10-02 18:29 | Emergency (ER) | payer OTHER ==
[2018-10-02 19:20] VITALS: BP 133/91
--- NOTE | 2018-10-02 20:13 | UC ---
UC General HPI - HPI Summary HPI Summary: 27-year-old woman comes in with a chief complaint of right facial pain. Denies she woke up this morning when she was sleeping on a couch and had pain in the right temporal area of the right maxillary area. She sat up the pain went away about a minute. No runny nose no sore throat no ear pain no dental pain. No longer has the pain feels well otherwise. No rash. - History of Current Complaint Chief Complaint: UCHeadache Stated Complaint: ABDOMINAL PAIN, AND ACHE Time Seen by Provider: 10/02/18 20:01 Hx Last Menstrual Period: 10/02/18 Pain Intensity: 0 - Allergy/Home Medications Allergies/Adverse Reactions: Allergies Allergy/AdvReac Type Severity Reaction Status Date / Time No Known Allergies Allergy Verified 10/02/18 19:20 PMH/Surg Hx/FS Hx/Imm Hx Previously Healthy: Yes - eating disorder Psychological History: Depression, Schizophrenia, Other - psychosis Other History Of: Negative For: Anticoagulant Therapy - Surgical History Surgical History: Yes Surgery Procedure, Year, and Place: ORAL SURGERY - Family History Known Family History: Positive: Hypertension, Diabetes - Social History Alcohol Use: Occasionally Alcohol Amount: 1 BOTTLE WINE DAILY Substance Use Type: None Smoking Status (MU): Current Every Day Smoker Type: Cigars Amount Used/How Often: 2 cigars/daily Have You Smoked in the Last Year: Yes When Did the Patient Quit Smoking/Using Tobacco: has not smoked for about a week /smoked within last 30 days Household Exposure Type: Cigarettes, Cigars - Immunization History Most Recent Influenza Vaccination: none Most Recent Tetanus Shot: 06/15/16 Most Recent Pneumonia Vaccination: n/a Review of Systems All Other Systems Reviewed And Are Negative: Yes Constitutional: Positive: Negative Skin: Positive: Negative Eyes: Positive: Negative ENT: Positive: Negative Respiratory: Positive: Negative Cardiovascular: Positive: Negative Gastrointestinal: Positive: Negative Motor: Positive: Negative Neurovascular: Positive: Negative Musculoskeletal: Positive: Negative Neurological: Positive: Negative Psychological: Positive: Negative Is Patient Immunocompromised?: No Physical Exam Triage Information Reviewed: Yes Appearance: Well-Appearing, No Pain Distress, Well-Nourished Vital Signs: Initial Vital Signs Temp 98.3 F 10/02/18 19:11 Pulse 72 10/02/18 19:11 Resp 12 10/02/18 19:11 BP 133/91 10/02/18 19:11 Pulse Ox 100 10/02/18 19:11 Vital Signs Reviewed: Yes Eye Exam: Normal Eyes: Positive: Conjunctiva Clear ENT: Positive: Pharynx normal, TMs normal, Other - No facial/temporal tenderness to palpation Dental Exam: Normal Neck exam: Normal Neck: Positive: Supple Respiratory Exam: Normal Respiratory: Positive: Lungs clear, Normal breath sounds, No respiratory distress Cardiovascular: Positive: RRR Musculoskeletal Exam: Normal Musculoskeletal: Positive: Strength Intact, ROM Intact Neurological Exam: Normal Neurological: Positive: Alert, Muscle Tone Normal Psychological Exam: Normal Psychological: Positive: Normal Response To Family, Age Appropriate Behavior Skin Exam: Normal Course/Dx - Diagnoses Provider Diagnosis: Right sided facial pain Discharge - Sign-Out/Discharge Documenting (check all that apply): Patient Departure All imaging exams completed and their final reports reviewed: No Studies - Discharge Plan Condition: Stable Disposition: HOME Patient Education Materials: Atypical Facial Pain (ED) Referrals: Fam Whitman MD [Primary Care Provider] - Additional Instructions: FOLLOW UP WITH YOUR DOCTOR IF NOT COMPLETELY IMPROVED. GET RECHECKED FOR ANY WORSENING OF YOUR CONDITION OR QUESTIONS OR CONCERNS. - Billing Disposition and Condition Condition: STABLE Disposition: Home
== END 2018-10-02 20:15 | disposition home or self-care (01) ==
LOC: UCEAST 18:29
DX: R51 Headache (principal); F17.210 Nicotine dependence, cigarettes, uncomplicated
CPT/HCPCS: 99211; G0463

== ENCOUNTER 2018-10-22 12:30 | Emergency (ER) | payer OTHER ==
--- OUTSIDE RECORDS SUMMARY | 2018-10-22 12:44 | XMS REPORT | Continuity of Care Document ---
:1990 External Reference #:[id number] Author Name Traci Kong Care Team Providers Name Role Phone Fam Whitman III, MD Primary Care Physician Unavailable Payers Date Identification Numbers Payment Provider Subscriber Policy Number: [id number] Tommy Roland Group Number: [id number] [address] PayID: [id number] [place] [address] Expires: 2016 PayID: [id number] Cont: Jose Luis Adenike Roland [address] [place] [address] Advance Directives Description No Information Available Problems Date Description Provider Status Onset: 05/18/2016 Moderate depression Irvinyue Redding, [employer]OOD STATION 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 Active Onset: 05/18/2016 Primary herpes simplex infection of lips Irvin Redding [employer] STATION MANAGER Active Onset: 05/18/2016 Tension-type headache Irvin Redding, BROOD STATION MANAGER Active Onset: 05/18/2016 Nondependent alcohol abuse, continuous Irvin Redding, BROOD STATION MANAGER Active Onset: 03/12/2018 Headache Aftab Montoya MD [...] Use Denies Drug Use Smoking Status Reviewed: 10/20/18 Patient is a current cigars and cigarettes smoker, smokes every X 1 year day Exercise Type/Frequency Does not exercise Allergies, Adverse Reactions, Alerts Description No Known Drug Allergies Medications Medication Date Status Form Strength Qnty SIG Indications Ordering Provider Famotidine 08/22/ Active Tablets 20mg 30tabs 1 by mouth R07.89 Fam Rosado 2018 every day Antonette, for 1 M.D. month Rizatriptan 06/27/ Active Tablets 10mg 8tabs 1 by mouth G25.0 Aftab Benzoate 2017 as needed lai Montoya MD headache may repeat once in 2 hours max 2 days a week Wrist Splint 03/26/ Active Misc 1units use daily Aftab An to help Lindsay with numbness and tingling in the right and left hand Metamucil / Active Capsules 0.52gm 2 to 5 Unknown 0000 capsules up to 4 times daily Oxycodone HCL 04/01/ Hx Tab ER 12H 30mg M54.2 Jacob ER 2018 - Abuse-Det JOHN Carreno 2017 Oxycodone-Aceta 04/01/ Hx Tablets 5-325mg 14tabs 1 tabs by M54.2 Jacob minophen 2017 - mouth JOHN Carreno 06/26/ every 12 2018 hours as needed for pain Valium 03/24/ Hx Tablets 10mg 1tabs 1 tablet Aftab 2017 - by mouth Lindsay, 06/26/ 30 minutes 2017 before mri Valium 03/14/ Hx Tablets 2mg 8tabs 2 tabs by Micheal Vargas 2018 - mouth 1 Almas, 03/24/ hour prior M.D. 2018 to procedure, may repeat dose at time of procedure if needed Amitriptyline 03/12/ Hx Tablets 10mg 60tabs /2 pill G43.009 Aftab HCL 2018 - by mouth Lindsay, 06/26/ at bedtime 2018 for a week then 1 at bed for two weeks then 2 at bed Naproxen 03/06/ Hx Tablets 500mg 30tabs 1 tablet M54.2 Jacob 2017 - with food JOHN Carreno 06/26/ by mouth 2018 twice a day for one week and then as needed. Baclofen 03/06/ Hx Tablets 10mg 20tabs take /2 M54.2 Jacob 2018 - tab every JOHN Carreno 06/26/ 8 hours as 2018 needed for muscle spasm Hydrocodone-Hany 03/06/ Hx Tablets 5-325mg 21tabs take 1 M54.2 Jacob taminophen 2018 - tablets JOHN Carreno 04/01/ every 8 2018 hours for pain. No Active Unknown Medications 2015 - 2015 Ferrous Sulfate Hx Tablets 325(65Fe) 60tabs 1 by mouth D64.9 Irvin 2016 - mg twice a Montserratian, [employer]OOD STATION MANAGER 2017 D50.8 Abreva 05/18/2016 - Hx Cream 10% 2g apply B00.1 Irvin 05/23/2016 topically to Montserratian, [employer]OOD STATION MANAGER blister 5 x's/day intil gone Tylenol Extra 05/18/2016 - Hx Tablets 500mg 2 tablets G44.201 Irvin Strength 06/15/2016 twice daily Vahid [employer]OOD STATION MANAGER as needed for Culp Wellbutrin SR 05/18/2016 - Hx Tablets ER 150mg 60tabs 1 tablet po F33.2 Irvin 06/15/2016 12HR in the Montserratian, [employer]OOD STATION MANAGER morning Loratadine - Hx Tablets 10mg 1 [...] CPT Code Status Date Vaccine Lot # [id number] Given 06/15/2016 Tetanus And Diptheria (Td) For Adult Use Preservative Free Vital Signs Date Vital Result Comment 10/20/2018 10:13am Height 66 inches 5'6" Weight 104.00 lb Heart Rate 60 /min BP Systolic Sitting 125 mmHg BP Diastolic Sitting 78 mmHg Body Temperature 97.7 F BMI (Body Mass Index) 16.8 kg/m2 09/29/2018 10:01am Height 66 inches 5'6" Weight 108.25 lb Heart Rate 80 /min BP Systolic 100 mmHg BP Diastolic 62 mmHg Body Temperature 96.8 F O2 % BldC Oximetry 95 % BMI (Body Mass Index) 17.5 kg/m2 09/10/2018 11:57am Height 66 inches 5'6" Heart Rate 93 /min BP Systolic Sitting 120 mmHg BP Diastolic Sitting 80 mmHg O2 % BldC Oximetry 99 % 09/10/2018 10:20am Height 66 inches 5'6" Heart [...] Result H/L Range Note Basic Metabolic 08/26/2018 [facility] Sodium 139 mmol/L N 135- [address] [place], [place] [id number] [phone] Potassium 3.9 mmol/L N 3.5-5.0 Chloride 106 mmol/L N 101-111 Co2 Carbon Dioxide 27 mmol/L N 22-32 Anion Gap 6 mmol/L N 2-11 Glucose 84 mg/dL N 70-100 Blood Urea Nitrogen 8 mg/dL N 6-24 Creatinine 0.80 mg/dL N 0.51-0.95 BUN/Creatinine Ratio 10.0 N 8-20 Calcium 10.4 mg/dL High 8.6-10.3 Egfr Non- 87.4 >60 Egfr 105.8 >60 1 Lipid Profile 08/26/2018 [facility] Triglycerides 44 mg/dL 2 (Trig/Chol/HDL) [address] [place] [address] [phone] Cholesterol 145 mg/dL 3 HDL Cholesterol 48.8 mg/dL 4 LDL Cholesterol 87 mg/dL 5 Laboratory test 06/27/2018 [facility] TSH (Thyroid 0.77 N 0.34 -5.[address] Stim Horm) mcIU/[place] [address] [phone] Laboratory test 06/26/2018 [facility] Gardnerella/ SEE RESULT 6, [address] Yeast: [place] [address] Vaginal Dna [phone] Trichomonas Vaginalis Rna Negative Negative 8 GC/Chlamydia 06/26/2018 [facility] Chlamydia Negative Negative Amplified Rna [address] trachomatis Rna [place], [place] [id number] [phone] Neisseria gonorrhoeae (GC) Rna Negative Negative Urine Culture And 06/26/2018 [facility] Urine SEE RESULT 9 , [address] [place] [address] [phone] Laboratory test 06/26/2018 [facility] Poc Negative Negative [address] , [place] [address] Urine [phone] Poc Urinalysis 06/26/2018 [facility] Poc Negative Negative [address] Glucose, [place] [address] Urine [phone] Poc Bilirubin, Urine 1+ Abnormal Negative Poc Ketone, Urine Trace Abnormal Negative Poc Specific Crook, Urine >=1.030 N 1.010-1.030 Poc Blood, Urine Negative Negative Poc pH, Urine 6.0 N 5-9 Poc Protein, Urine Trace Abnormal Negative Poc Urobilinogen, Urine 1.0 Negative Poc Nitrite, Urine Negative Negative Poc Leukocytes, Urine Trace Abnormal Negative Poc Color, Urine Yellow Poc Clarity, Urine Clear 12 Drug Abuse 20 03/06/2018 [facility] Urine Amphetamine Negative ng/mL [address] [place] [address] [phone] Urine Barbiturates Negative ng/mL 14 Urine Benzodiazepines Negative ng/mL 15 Urine Cocaine Negative ng/mL 16 Urine Phencyclidine Negative ng/mL Cutoff: 25 Urine Tetrahydrocannabinol Negative ng/mL Cutoff: 50 17 Creatinine, Urine 345.0 mg/dL Specific Crook 1.021 pH 5.9 Oxidants Negative 18 Adulterants Comment Normal Codeine, Ur Not Detected ng/mL Cutoff: 25 19 Uooieru-4-rhkh-glucuronide, Ur Not Detected ng/mL 20 Morphine, Ur Not Detected ng/mL Cutoff: 25 21 Qhgsjlyi-0-mcqf-glucuronide, U Not Detected ng/mL 22 6-monoacetylmorphine, Ur Not Detected ng/mL Cutoff: 25 23 Hydrocodone, Ur Not Detected ng/mL Cutoff: 25 24 Norhydrocodone, Ur Not Detected ng/mL Cutoff: 25 25 Dihydrocodeine, Ur Not Detected ng/mL Cutoff: 25 26 Hydromorphone, Ur Not Detected ng/mL Cutoff: 25 27 Hmzgdtvqtrjcn0rmtvxyjzxgcxrag Not Detected ng/mL 28 Oxycodone, Ur Not Detected ng/mL Cutoff: 25 29 Noroxycodone, Ur Not Detected ng/mL Cutoff: 25 30 Oxymorphone, Ur Not Detected ng/mL Cutoff: 25 31 Wwzlnyfnuno-6-gtqj-glucuronide Not Detected ng/mL 32 Noroxymorphone, Ur Not Detected ng/mL Cutoff: 25 33 Fentanyl, Ur Not Detected ng/mL Cutoff: 2 34 Norfentanyl, Ur Not Detected ng/mL Cutoff: 2 35 Meperidine, Ur Not Detected ng/mL Cutoff: 25 36 Normeperidine, Ur Not Detected ng/mL Cutoff: 25 37 Naloxone, Ur Not Detected ng/mL Cutoff: 25 38 Vpbjxklj-4-evza-glucuronide, U Not Detected ng/mL 39 Methadone, Ur [...] Ur Not Detected ng/mL Cutoff: 50 47 Vsbhspjlzp-qoxc-easvyjdevps, U Not Detected ng/mL 48 Buprenorphine, Ur Not Detected ng/mL Cutoff: 5 49 Norbuprenorphine, Ur Not Detected ng/mL Cutoff: 5 50 Norbuprenorphine glucuronide Not Detected ng/mL Cutoff: 20 51 Opioid Interpretation See Comment 52 Urinalysis Profile 02/07/2017 [facility] Urine Color Yellow N [address] [place] [address] [phone] Urine Appearance Clear N Urine Specific Crook 1.026 N 1.010-1.030 Urine pH 7.0 N [...] Cell Present Abnormal Absent Urine Drug 02/07/2017 [facility] Amphetamine Ur None Detected N None Detect SCR ED & [address] [address] [phone] Barbiturates Urine Screen None Detected N None Detect Benzodiazepine Urine Screen None Detected N None Detect Urine Cannabinoids Screen None Detected N None Detect Urine Cocaine Screen None Detected N None Detect Urine Opiates Screen None Detected N None Detect Urine Phencyclidine Screen None Detected N None Detect 54 CBC Auto Diff 02/07/2017 [facility] White Blood 8.4 10^3/uL N 3.5-10.[address] [place] [address] [phone] Red Blood Count 4.35 10^6/uL N 4.0-5.4 [...] Cells % 0.1 N Laboratory test 02/07/2017 [facility] HCG < 0.60 N [address] mIU/[place] [address] [phone] Comp Metabolic 02/07/2017 [facility] Sodium 136 mmol/L N 133- [address] [place] [address] [phone] Potassium 3.5 mmol/L N 3.5-5.0 Chloride 106 [...] 134.4 N >60 56 Laboratory test 02/07/2017 [facility] Acetaminophen < 15 g/mL N [address] [place] [address] [phone] Alcohol < 10 mg/dL N <10 Salicylate < 2.50 mg/dL N <30 TSH (Thyroid Stim Horm) 0.44 mcIU/mL N 0.34-5.60 Urine Culture And 02/07/2017 [facility] Urine Culture SEE RESULT [address] [place] [address] [phone] Urinalysis Profile 01/30/2017 [facility] Urine Color Yellow N [address] [place] [address] [phone] Urine Appearance Cloudy N Urine Specific Crook 1.025 N 1.010-1.030 Urine pH 5.0 N [...] Present Abnormal Absent CBC Auto Diff 01/30/2017 [facility] White Blood 7.3 10^3/uL N 3.5-10.[address] [place] [address] [phone] Red Blood Count 4.36 10^6/uL N 4.0-5.4 [...] Cells % 0 N Urine Drug 01/30/2017 [facility] Amphetamine Ur None Detected N None Detect SCR ED & [address] [address] [phone] Barbiturates Urine Screen None Detected N None Detect Benzodiazepine Urine Screen None Detected N None Detect Urine Cannabinoids Screen None Detected N None Detect Urine Cocaine Screen None Detected N None Detect Urine Opiates Screen None Detected N None Detect Urine Phencyclidine Screen None Detected N None Detect 60 Comp Metabolic Panel 01/30/2017 [facility] Sodium 136 mmol/L N 133-[address] [place] [address] [phone] Potassium 3.4 mmol/L Low 3.5-5.0 Chloride 104 [...] 113.3 N >60 61 Laboratory test 01/30/2017 [facility] Acetaminophen < 15 g/mL N [address] [place], [place] [id number] [phone] Alcohol < 10 mg/dL N <10 Salicylate < 2.50 mg/dL N <30 TSH (Thyroid Stim Horm) 0.45 mcIU/mL N 0.34-5.60 HCG < 0.60 mIU/mL N 63 Urine Culture And 01/30/2017 [facility] Urine SEE RESULT [address] [place] [address] [phone] Laboratory test 01/14/2017 [facility] Poc Negative N Negative [address] , [place] [address] Urine [phone] Poc Urinalysis 01/14/2017 [facility] Poc Negative N Negative [address] Glucose, [place] [address] Urine [phone] Poc Bilirubin, Urine Negative N Negative Poc Ketone, Urine Negative N Negative Poc Specific Crook, Urine 1.025 N 1.010-1.030 Poc Blood, Urine 3+ Abnormal Negative Poc pH, Urine 6.5 N 5-9 Poc Protein, Urine Negative N Negative Poc Urobilinogen, Urine 0.2 N Negative Poc Nitrite, Urine Negative N Negative Poc Leukocytes, Urine Negative N Negative Poc Color, Urine Brown N Poc Clarity, Urine Cloudy N 66 Laboratory test 08/22/2016 [facility] Gardnerella/Yeast: SEE RESULT [address] Vaginal Dna [place]OW [place], [place] [address] [phone] CBC Auto Diff 08/22/2016 [facility] White Blood Count 5.8 N 3.5- [address] 10^3/uL 10.8 [place] [address] [phone] Red Blood Count 4.69 10^6/uL N 4.0-5.4 [...] Cells % 0.1 N Urinalysis Profile 08/22/2016 [facility] Urine Color Yellow N [address] [place] [address] [phone] Urine Appearance Cloudy N Urine Specific Crook 1.031 High 1.010-1.030 Urine pH 6.0 N [...] Cell Present Abnormal Absent Urine Drug 08/22/2016 [facility] Amphetamine Ur None Detected N None Detect SCR ED & [address] [address] [phone] Barbiturates Urine Screen None Detected N None Detect Benzodiazepine Urine Screen None Detected N None Detect Urine Cannabinoids Screen None Detected N None Detect Urine Cocaine Screen None Detected N None Detect Urine Opiates Screen None Detected N None Detect Urine Phencyclidine Screen None Detected N None Detect 68 Comp Metabolic Panel 08/22/2016 [facility] Sodium 133 mmol/L N 133-[address] [place] [address] [phone] Potassium 3.9 mmol/L N 3.5-5.0 Chloride 102 [...] 87.6 N >60 Egfr 112.7 N >60 69 Laboratory test 08/22/2016 [facility] HCG < 0.60 mIU/ mL N [address] [place] [address] [phone] Acetaminophen < 15 g/mL N 71 Alcohol < 10 mg/dL N <10 Salicylate < 2.50 mg/dL N <30 TSH (Thyroid Stim Horm) 0.63 mcIU/mL N 0.34-5.60 Rapid HIV Nonreactive N Nonreactive Syphillis Igg W/Reflex RPR Nonreactive N Nonreactive 72 Hepatitis 08/22/2016 [facility] Hepatitis B Nonreactive N Nonreactive Acute Panel [address] [place] [address] Antigen [phone] Hepatitis B Core IgM Nonreactive N Nonreactive Hepatitis A AB IgM Nonreactive N Nonreactive Hepatitis C Antibody Nonreactive N Nonreactive Urine Culture 08/22/2016 [facility] Urine SEE RESULT [address] [place] [address] [phone] Urine Drug SCR 08/04/2016 [facility] Amphetamine Presumptive Abnormal None 74 ED & Pain [address] Ur Screen Posi <[place] [address] NOTE> [phone] Barbiturates Urine Screen None Detected N None Detect Benzodiazepine Urine Screen None Detected N None Detect Urine Cannabinoids Screen None Detected N None Detect Urine Cocaine Screen None Detected N None Detect Urine Opiates Screen None Detected N None Detect Urine Phencyclidine Screen None Detected N None Detect 75 CBC Auto Diff 08/04/2016 [facility] White Blood 8.1 10^3/uL N 3.5-10.[address] [place] [address] [phone] Red Blood Count 4.15 10^6/uL N 4.0-5.4 [...] Nucleated Red Blood Cells % 0 N Laboratory test 08/04/2016 [facility] HCG < 0.60 mIU/ mL N [address] [place] [address] [phone] Acetaminophen < 15 g/mL N 77 Alcohol < 10 mg/dL N <10 Salicylate < 2.50 mg/dL N <30 TSH (Thyroid Stim Horm) 1.63 mcIU/mL N 0.34-5.60 Comp Metabolic Panel 08/04/2016 [facility] Sodium 135 mmol/L N 133-[address] [place] [address] [phone] Potassium 3.8 mmol/L N 3.5-5.0 Chloride 104 [...] 82.9 N >60 Egfr 106.6 N >60 78 Urinalysis Profile 08/04/2016 [facility] Urine Color Yellow N [address] [place] [address] [phone] Urine Appearance Cloudy N Urine Specific Crook 1.029 N 1.010-1.030 Urine pH 5.0 N [...] Urine Squamous Epithelial Cell Present Abnormal Absent Laboratory test 06/25/2016 [facility] Ferritin < 10.0 ng/mL Low 11-307 79 finding [address] [place] [address] [phone] Vitamin B12 285 pg/mL N 180-914 80 Iron & Iron Binding 06/25/2016 [facility] Iron 37 g/dL Low 50-212 [address] [place] [address] [phone] Unsaturated Iron Binding 484 g/dL N Total Iron Binding Capacity 521 g/dL High 250-450 % Iron Saturation 7 % Low 15-55 CBC Auto Diff 06/25/2016 [facility] White Blood 8.2 10^3/uL N 3.5-10.[address] [place] [address] [phone] Red Blood Count 4.54 10^6/uL N 4.0-5.4 [...] Nucleated Red Blood Cells % 0 N Laboratory test 05/31/2016 [facility] TSH (Thyroid 0.55 mcIU/mL N 0.34-5.60 [address] Stim Horm) [place] [address] [phone] Basic Metabolic 05/31/2016 [facility] Sodium 136 mmol/L N 133- [address] [place] [address] [phone] Potassium 4.2 mmol/L N 3.5-5.0 Chloride 105 mmol/L N 101-111 Co2 Carbon Dioxide 23 mmol/L N 22-32 Anion Gap 8 mmol/L N 2-11 Glucose 78 mg/dL N 70-100 Blood Urea Nitrogen 7 mg/dL N 6-24 Creatinine 0.77 mg/dL N 0.51-0.95 BUN/Creatinine Ratio 9.1 N 8-20 Calcium 10.0 mg/dL N 8.6-10.3 Egfr Non- 92.9 N >60 Egfr 119.5 N >60 82 CBC Auto Diff 05/31/2016 [facility] White Blood 6.2 10^3/uL N 3.5-10.[address] [place] [address] [phone] Red Blood Count 4.46 10^6/uL N 4.0-5.4 [...] Nucleated Red Blood Cells % 0.2 N 1 Because ethnic data is not always [...] 130-159 High: 160-189 Very High: >189 6 [id number] Would you like to order Trichomonas Vaginalis RNA testing? Y 7 SEE RESULT BELOW Name: BENJAMIN ROLAND : [address]: Tom Franco MD Acct: [id number] Unit: [id number] AGE: 27 Location: [facility] Re06/26/18 SEX: F Status: DEP ER SPEC: [id number] OLVIN: 06/26/[address] [facility] DR: Sheyla YOUNG REQ: [id number] RECD: 06/27/18 STATUS: PAULINO MENDOZA DR: Fam Franco MD _ SOURCE: VAGINAL SPDESC: ORDERED: Jac,Yeast DNA COMMENTS: [id number] Would you like to order Trichomonas Vaginalis [...] . END OF REPORT DEPARTMENT OF PATHOLOGY, [address] [place] [address] Kvng Cole M.D. Director [facility] # [id number] GC/Chlamydia Source?: Endocervical Trichomonas Source: Endocervical 9 [id number] SEE RESULT BELOW Name: KIERSTENBENJAMIN : [address]: Tom Franco MD Acct: [id number] Unit: [id number] AGE: 27 Location: [facility] Re06/26/18 SEX: F Status: DEP ER SPEC: [id number] OLVIN: 06/26/[address] [facility] DR: Sheyla YOUNG REQ: [id number] RECD: 06/27/18 STATUS: PAULINO MENDOZA DR: Fam Franco MD _ SOURCE: URINE SPDESC: ORDERED: Urine Culture COMMENTS: [id number] Procedure Result Reported Site Urine Culture Final 06/28/18- 1113 ML No Growth (<1,000 CFU/mL) * ML - Main Lab . END OF REPORT DEPARTMENT OF PATHOLOGY, [address] [place] [address] Kvng Cole M.D. Director [facility] # [id number] 11 Physical Integration Practitioner: [id number] If is still suspected, please repeat test after 48 to 72 hours. 12 Physical Integration Practitioner: [id number] REFERENCE VALUE Cutoff: 500 14 REFERENCE [...] REFERENCE VALUE Cutoff: 100 21 Valerie Phelan, MS Contin; Also a minor metabolite (10%) of codeine and can be seen in low concentrations (<2,000 ng/mL) with poppy seed ingestion. 22 Metabolite of morphine REFERENCE VALUE Cutoff: 100 23 Metabolite of heroin 24 Lortab, [place], Vicodin; Also a very minor metabolite of [...] developed and its performance characteristics determined by [facility] in a manner consistent with CLIA requirements. This test has not been cleared or approved by the U.S. Food and Drug Administration. Test Performed by: [facility] [address] [place] [address] 53 *Ascorbic acid is present which may [...] [address]: Tom Franco MD Acct: [id number] Unit: [id number] AGE: 26 Location: ED Re02/07/17 SEX: F Status: DEP ER SPEC: [id number] OLVIN: 02/07/17-[address] [facility] DR: Tom Franco MD REQ: [id number] RECD: 02/07/17 STATUS: PAULINO MENDOZA DR: Fam Whitman III, MD _ SOURCE: URINE SPDESC: ORDERED: Urine Culture Procedure Result Reported Site Urine Culture Final 02/08/17- 1222 ML No Growth (<1,000 CFU/mL) * ML - MAIN LAB ([facility]) . END OF REPORT * ML=Testing performed at Main Lab DEPARTMENT OF PATHOLOGY, [address] [place] [address] Kvng Cole M.D. Director [facility] # [id number] 59 *Ascorbic acid is present which may [...] [address]: Fam Fernandez MD Acct: [id number] Unit: [id number] AGE: 26 Location: ED Re01/30/17 SEX: F Status: REG ER SPEC: [id number] OLVIN: 01/30/17-[address] [facility] DR: Dorothy YOUNG REQ: [id number] RECD: 01/30/17 STATUS: PAULINO [facility] DR: [facility] Fam Whitman III, MD _ SOURCE: URINE SPDESC: ORDERED: Urine Culture Procedure Result Reported Site Urine Culture Final 01/31/17- 1434 ML No Growth (<1,000 CFU/mL) * ML - MAIN LAB ([facility]) . END OF REPORT * ML=Testing performed at Main Lab DEPARTMENT OF PATHOLOGY, [address] [place] [address] Kvng Cole M.D. Director [facility] # [id number] 65 Physical Integration Practitioner: [id number] If is still suspected, please repeat test after 48 to 72 hours. 66 Physical Integration Practitioner: [id number] 67 SEE RESULT BELOW Name: BENJAMIN ROLAND : [address]: Kavon Saldivar MD Acct: [id number] Unit: [id number] AGE: 25 Location: ED Re08/22/16 SEX: F Status: REG ER SPEC: [id number] OLVIN: 08/22/16-[address] [facility] DR: Catherine YOUNG REQ: [id number] RECD: 08/22/16-1258 STATUS: PAULINO MENDOZA DR: Kavon Whitman III, MD _ SOURCE: VAGINAL SPDESC: ORDERED: Jac,Yeast DNA, Trich DNA Procedure Result Reported Site Gardnerella/Yeast: Vaginal DNA Final 08/22/16- 1459 ML Organism 1 Negative Gardnerella Organism 2 [...] ON NEXT PAGE * ML=Testing performed at [facility] DEPARTMENT OF PATHOLOGY, [address] [place] [address] Kvng Cole M.D. Director [facility] # [id number] Patient: BENJAMIN ROLAND [id number] (Continued) Specimen: [id number] Collected: 08/22/16-1236 Received: 08/22/16-125 (Continued) Procedure Result Reported Site Trichomonas: Vaginal DNA Probe Final (continued) 08/22/16- 145 The presence or absence of T. vaginalis cannot be used as a test for therapeutic success or failure. * ML - MAIN LAB ([facility]) . END OF REPORT * ML=Testing performed at Main Lab DEPARTMENT OF PATHOLOGY, [address] [place] [address] Kvng Cole M.D. Director [facility] # [id number] 68 The urine specimen was tested at the listed cutoffs: Drug class test level (ng/mL) Amphetamines 500 Barbiturates 200 Benzodiazepine metabolites 200 Cocaine metabolites 150 Cannabinoids 50 Opiates 300 Pcp 25 Specimen was received without chain of custody. Results should be used for medical purposes only. 69 Because ethnic data is not always readily [...] 15-29 5 Kidney failure <15 (or dialysis) 70 <5.0 Negative 5.0 - 25.0 Indeterminate (Repeat testing recommended after 72 hours) >25.0 Positive Perimenopausal women can display HCG levels of up to 20 mIU/mL 71 Therapeutic concentration: <50 ug/mL Toxic concentration: >120 ug/mL 72 Warning: A positive result is not useful for establishing a diagnosis of syphilis. In most situations, such a result may reflect a prior treated infection; a negative result can exclude a diagnosis of syphilis except for incubating or early primary disease. 73 SEE RESULT BELOW Name: BENJAMIN ROLAND : [address]: Evaristo Anand MD Acct: [id number] Unit: [id number] AGE: 25 Location: [place] [address] Re08/22/16 SEX: F Status: ADM IN SPEC: [id number] OLVIN: 08/22/[address]: Catherine YOUNG REQ: [id number] RECD: [id number] STATUS: PAULINO MENDOZA DR: Kavon Whitman III, MD _ SOURCE: URINE SPDESC: ORDERED: Urine Culture Procedure Result Reported Site Urine Culture Final 08/23/16- 1415 ML No Growth (<1,000 CFU/mL) * ML - MAIN LAB ([id number]) . END OF REPORT * ML=Testing performed at Main Lab DEPARTMENT OF PATHOLOGY, [address] [place] [address] Kvng Cole M.D. Director [facility] # [id number] 74 Presumptive Positive Presumptive positive results are unconfirmed. 75 The urine specimen was tested at the listed cutoffs: Drug class test level (ng/mL) Amphetamines 500 Barbiturates 200 Benzodiazepine metabolites 200 Cocaine metabolites 150 Cannabinoids 50 Opiates 300 Pcp 25 Specimen was received without chain of custody. Results should be used for medical purposes only. 76 <5.0 Negative 5.0 - 25.0 Indeterminate (Repeat testing recommended after 72 hours) >25.0 Positive Perimenopausal women can display HCG levels of up to 20 mIU/mL 77 Therapeutic concentration: <50 ug/mL Toxic concentration: >120 ug/mL 78 Because ethnic data is not always readily [...] 15-29 5 Kidney failure <15 (or dialysis) July 16 Normal Range 180 to 914 [...] dialysis) Procedures Date Code Description Status 08/26/2018 42118 Nerve Conduction 07-08 Studies Completed 08/26/2018 00926 Needle Electromyography Each Extremity W/Related Completed Paraspinal Areas 08/22/2018 98375 EKG Tracing & Interpretation Completed 06/15/2016 54270 EKG Tracing & Interpretation Completed Encounters Type Date Location Provider Dx Diagnosis Office Visit 09/29/2018 Akil Whitman, R19.4 Change in bowel 10:00a Medicine - MTori habit [facility] Office Visit 09/10/2018 Akil Whitman, R47.02 Dysphasia 11:40a Radha Chris F41.9 Anxiety disorder, unspecified Office 09/10/2018 [facility] G43.009 Migraine w/o Visit 10:00a Clinic MD Lindsay aura, not intractable, w/o status migrainosus G56.02 Carpal tunnel syndrome, left upper limb G25.0 Essential tremor R20.0 Anesthesia of skin Office Visit 08/22/2018 10:00a [facility] Internal Fam Rosado R07.89 Other chest Medicine - Dariel Whitman pain [place] Z13.220 Encounter for screening for lipoid disorders [...] forms of tremor Office Visit 03/06/2018 9:20a [facility] Internal Jacob Carreno, BROOD STATION MANAGER M54.2 Cervicalgia [facility] Office Visit 01/08/2017 10:20a [facility] Geraldo Rosado R51 Headache Medicine - Dot Whitman M.D. G47.00 Insomnia, unspecified F33.2 Major depressv disorder, recurrent severe w/o psych features Office Visit 07/23/2016 11:40a [facility] Internal Irvin Redding, D50.8 Other iron Medicine - [place] BROOD STATION MANAGER deficiency Rd anemias R79.0 Abnormal level of blood mineral Office Visit 07/11/2016 11:20a [facility] Internal Fam Rosado S61.001D Unsp open wound of Radha Whitman M.D. right thumb w/o Dot damage to nail, subs Office Visit 06/20/2016 10:30a [facility] Monica Z11.1 Encounter for Home Aman, screening for N.P. respiratory tuberculosis Z02.1 Encounter for pre-employment examination Office Visit 06/15/2016 9:40a [facility] Internal Irvin [place], G44.201 Tension- type Medicine - BROOD STATION MANAGER headache, [place] [address] unspecified, intractable R07.9 Chest pain, unspecified F33.2 Major depressv disorder, recurrent severe w/o psych features F10.188 Alcohol abuse with other alcohol-induced disorder D64.9 Anemia, unspecified Z72.0 Tobacco use G44.209 Tension-type headache, unspecified, not intractable Office Visit 05/18/2016 10:00a [facility] Internal Irvin [place], Z00.00 Encntr for Medicine - [place] BROOD STATION MANAGER general adult Rd medical exam w/o abnormal findings F33.2 Major depressv disorder, 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 No acute medical concerns except pt's ongoing mental health issues as they affect her mood and appetite. Pt so far has declined some recommended psych medications. Continued close psychiatric follow up advised in her new location
--- NOTE | 2018-10-22 13:14 | ED ---
Psychiatric Complaint - HPI Summary HPI Summary: Patient's 27-year-old female with a history of anorexia and mental health issues presenting to the ED with 2 advocates. Advocates from the [facility] team states she has been having a 20 pound weight loss over the course of 3 months. She is a known anorexic, and admits this on arrival. She states she has been restricting her food intake, however has not been calorie counting. She is unsure how many calories per day she has been taking, but gases this is less than 1000. She states she is ready to take psychotropic medications for her anorexia, but her team of active nurses and physicians one to make sure she was healthy enough to withstand the medications as well as has no organ failure. She states she feels well, better than her baseline. She denies any headache, weakness. She was recently diagnosed with anemia in the past month but states she has no symptoms. Patient denies any SI, HI, feelings of wanting to harm herself. - History Of Current Complaint Chief Complaint: EDPsychosocial Time Seen by Provider: 10/22/18 12:45 Hx Obtained From: Patient Hx Last Menstrual Period: 10/02/18 ?: No Onset/Duration: Gradual Onset Timing: Constant Severity Initially: Severe Severity Currently: Severe Aggravating Factor(s): Nothing Alleviating Factor(s): Nothing Associated Signs And Symptoms: Positive: Negative - Risk Factor(s) Completed Suicide Risk Factors: Negative - Allergies/Home Medications Allergies/Adverse Reactions: Allergies Allergy/AdvReac Type Severity Reaction Status Date / Time No Known Allergies Allergy Verified 10/22/18 13:04 PMH/Surg Hx/FS Hx/Imm Hx Previously Healthy: Yes Endocrine/Hematology History: Reports: Hx Anemia - fe def - takes PO Fe Denies: Hx Anticoagulant Therapy, Hx Blood Disorders, Hx Blood Transfusions, Hx Bone Marrow Disease, Hx Diabetes, Hx Systemic Lupus Erythematosus, Hx Sickle Cell Disease, Hx Thyroid Disease, Hx Unexplained Bleeding, Other Endocrine/ Hematological Disorders Cardiovascular History: Denies: Hx Aneurysm, Hx Angina, Hx Angioplasty, Hx Auto Implanted Cardiovert Defib, Hx Cardiac Arrest, Hx Cardiomegaly, Hx Congenital Heart Disease, Hx Congestive Heart Failure, Hx Coronary Artery Disease, Hx Deep Vein Thrombosis, Hx Embolism, Hx Hypercholesterolemia, Hx Hypotension, Hx Hypertension, Hx Pacemaker/ICD, Hx Peripheral Vascular Disease, Hx Rheumatic Fever, Hx Syncope, Hx Valvular Heart Disease, Other Cardiovascular Problems/Disorders Respiratory History: Denies: Hx Asthma, Hx Chronic Bronchitis, Hx Chronic Obstructive Pulmonary Disease (COPD), Hx Cystic Fibrosis, Hx Lung Cancer, Hx Pleural Effusion, Hx Pneumonia, Hx Pulmonary Edema, Hx Pulmonary Embolism, Hx Seasonal Allergies, Hx Sleep Apnea, Other Respiratory Problems/Disorders GI History: Denies: Hx Cirrhosis, Hx Crohn's Disease, Hx Diverticulosis, Hx Gall Bladder Disease, Hx Gastroesophageal Reflux Disease, Hx Gastrointestinal Bleed, Hx Hiatal Hernia, Hx Irritable Bowel, Hx Jaundice, Hx Obstructive Bowel, Hx Ileostomy, Hx Pyloric Stenosis, Hx Ulcer, Other GI Disorders History: Denies: Hx Acute Renal Failure, Hx Benign Prostatic Hyperplasia, Hx Chronic Renal Failure, Hx Dialysis, Hx Kidney Infection, Hx Kidney Stones, Hx Renal Disease Musculoskeletal History: Denies: Hx Arthritis, Hx Back Problems, Hx Bursitis, Hx Congenital Bone Abnormalities, Hx Fibromyalgia, Hx Gout, Hx Orthopedic Injury, Hx Osteoporosis, Hx Scoliosis, Hx Tendonitis, Other Musculoskeletal History Sensory History: Denies: Hx Cataracts, Hx Contacts or Glasses, Hx Eye Injury, Hx Eye Prosthesis, Hx Glaucoma, Hx Legally Blind, Hx Macular Degeneration, Hx Vision Problem, Hx Deafness, Hx Hearing Aid, Hx Hearing Problem, Other Sensory Impairments Opthamlomology History: Denies: Hx Cataracts, Hx Contacts or Glasses, Hx Eye Injury, Hx Eye Prosthesis, Hx Glaucoma, Hx Legally Blind, Hx Macular Degeneration, Hx Vision Problem, Other Sensory Impairments Neurological History: Reports: Hx Headaches Denies: Hx Dementia, Hx Migraine, Hx Nerve Disease, Hx Seizures, Hx Spinal Cord Injury, Hx Transient Ischemic Attacks (TIA), Other Neuro Impairments/ Disorders Psychiatric History: Reports: Hx Anxiety, Hx Depression, Hx Inpatient Treatment - december 2013 in [place], 4 days inpatient for psychosis, Hx Community Mental Health Tx Denies: Hx Attention Deficit Hyperactivity Disorder, Hx Eating Disorder, Hx Panic Disorder, Hx Post Traumatic Stress Disorder, Hx Schizophrenia, Hx Bipolar Disorder, Hx Suicide Attempt, Hx of Violent Episodes Against Others, Hx Substance Abuse, Other Psychiatric Issues/Disorders - Surgical History Surgery Procedure, Year, and Place: ORAL SURGERY - Immunization History Hx Pertussis Vaccination: No Immunizations Up to Date: Yes Infectious Disease History: No Infectious Disease History: Reports: History Other Infectious Disease - [facility]lamydia June 2016[facility] Denies: Hx Clostridium Difficile, Hx Hepatitis, Hx Human Immunodeficiency Virus (HIV), Hx of Known/Suspected MRSA, Hx Shingles, Hx Tuberculosis, Traveled Outside the [place] in Last 30 Days - Family History Known Family History: Positive: Hypertension, Diabetes - Social History Occupation: Unemployed Lives: Alone Alcohol Use: Occasionally Alcohol Amount: 1 BOTTLE WINE DAILY Hx Substance Use: No Substance Use Type: Reports: None Hx Tobacco Use: No Smoking Status (MU): Current Every Day Smoker Type: Cigars Amount Used/How Often: 2 cigars/daily Have You Smoked in the Last Year: Yes Review of Systems Constitutional: Negative Negative: Fever, Chills, Fatigue, Skin Diaphoresis Negative: Dental Pain Negative: Palpitations, Chest Pain Genitourinary: Negative Positive: no symptoms reported, see HPI Negative: Arthralgia, Myalgia Skin: Negative Positive: Other - anorexia. Negative: Anxious, Depressed All Other Systems Reviewed And Are Negative: Yes Physical Exam Triage Information Reviewed: Yes Vital Signs On Initial Exam: Initial Vitals Temp Pulse Resp BP Pulse Ox 97.9 F 95 15 132/83 96 10/22/18 12:33 10/22/18 12:33 10/22/18 12:33 10/22/18 12:33 10/22/18 12:33 Vital Signs Reviewed: Yes Appearance: Positive: Thin Skin: Positive: Skin Color Reflects Adequate Perfusion Eyes: Positive: EOMI, KATIUSKA, Conjunctiva Clear Neck: Positive: Supple, No Lymphadenopathy Respiratory/Lung Sounds: Positive: Clear to Auscultation, Breath Sounds Present Cardiovascular: Positive: Pulses are Symmetrical in both Upper and Lower Extremities. Negative: Leg Edema Left, Leg Edema Right Musculoskeletal: Positive: Normal, Strength/ROM Intact Neurological: Positive: Sensory/Motor Intact, Alert, Oriented to Person Place, Time, Speech Normal Psychiatric: Positive: Normal, Affect/Mood Appropriate AVPU Assessment: Alert Diagnostics - Vital Signs Vital Signs Temp Pulse Resp BP Pulse Ox 10/22/18 12:33 97.9 F 95 15 132/83 96 - Laboratory Result Diagrams: 10/22/18 13:20 10/22/18 13:20 Lab Statement: Any lab studies that have been ordered have been reviewed, and results considered in the medical decision making process. Course/Dx - Course Course Of Treatment: Patient is evaluated for anorexia with request for a physical. She states she lives in a mental health house for anorexia and has a team of counselors with close follow-up. 2 counselors are at bedside. They state she is here for a is a local examination. Recently had a CBC which showed anemia, but no other abnormalities. No other lab work was obtained at that time. They're requesting full lab work for vitamin deficiency and full workup for organ failure secondary to anorexia. Patient states she feels well and denies any complaints at this time. Labs and EKG obtained. Vitamin D level is low. Otherwise normal labs. Normal EKG. Patient will be discharged home with diagnosis of anorexia. She will continue her follow up care. She offers no other concerns or complaints at this time. - Differential Dx/Clinical Impression Differential Diagnosis/HQI/PQRI: Positive: Other - Metabolic disorder Provider Diagnosis: Anorexia Discharge - Sign-Out/Discharge Documenting (check all that apply): Patient Departure Patient Received Moderate/Deep Sedation with Procedure: No - Discharge Plan Condition: Stable Disposition: HOME Patient Education Materials: Anorexia Nervosa (ED) Referrals: Fam Whitman MD [Primary Care Provider] - Additional Instructions: Please continue your outpatient care with your therapist During today's visit, there are no findings of acute heart or other organ failure - Billing Disposition and Condition Condition: STABLE Disposition: Home
[2018-10-22 13:37] LABS: Hematocrit 32 % (35-47); Mean Corpuscular HGB Conc 31 g/dl (31-36); Mean Corpuscular Hemoglobin 24 pg (27-31); Mean Corpuscular Volume 78 fL (80-97); Mean Platelet Volume 7.3 fL (7.4-10.4); Platelet Count 391 10^3/ul (150-450); Red Blood Count 4.12 10^6/ul (4.00-5.40); Red Cell Distribution Width 19 % (10.5-15); White Blood Count 7.8 10^3/ul (3.5-10.8)
[2018-10-22 13:50] LABS: Albumin 4.6 g/dL (3.2-5.2); Albumin/Globulin Ratio 1.8 (1-3); BUN/Creatinine Ratio 13.2 (8-20); Calcium 9.9 mg/dL (8.6-10.3); EGFR African American 112.2 (>60); EGFR Non-African American 92.7 (>60); Globulin 2.6 g/dL (2-4); Magnesium 2.1 mg/dL (1.9-2.7); Potassium 3.7 mmol/L (3.5-5.0); Total Bilirubin 0.3 mg/dL (0.2-1.0); Total Protein 7.2 g/dL (6.4-8.9)
[2018-10-22 14:06] VITALS: BP 147/89
[2018-10-22 14:29] LABS: Lymphocytes % 36 %; Monocytes % 7 %; Neutrophil % 54 %
[2018-10-22 14:30] LABS: ABS Eosinophils 0.2 10^3/ul (0-0.6); ABS Neutrophils 4.2 10^3/ul (1.5-7.7)
[2018-10-22 15:51] LABS: TSH (Thyroid Stimulating Horm) 0.34 mcIU/mL (0.34-5.60)
== END 2018-10-22 14:05 | disposition home or self-care (01) ==
LOC: ED 12:30
DX: R63.0 Anorexia (principal); D50.9 Iron deficiency anemia, unspecified; F17.290 Nicotine dependence, other tobacco product, uncomplicated
CPT/HCPCS: 36415; 80053; 82306; 82607; 83690; 83735; 84443; 85025; 93005; 99282

== ENCOUNTER 2018-10-23 22:28 | Emergency (ER) | payer OTHER ==
--- NOTE | 2018-10-23 23:16 | ED ---
Psychiatric Complaint - HPI Summary HPI Summary: This pt is a 27 y/o female presenting to [facility] via [facility] from [facility] for depression. Pt reports she has been feeling depressed and has "bad thoughts." She denies SI or HI. Pt states her feelings vary. Pt called the ambulance herself and notes she would like to be evaluated. She notes she sees a psychiatrist and is supposed to get a prescription for Abilify tomorrow. Currently she does not take any medications. Pt lives by herself in an apartment. - History Of Current Complaint Chief Complaint: EDMentalHealth Time Seen by Provider: 10/23/18 22:53 Hx Obtained From: Patient Hx Last Menstrual Period: 10/02/18 Onset/Duration: Lasting Days, Still Present Timing: Days Severity Currently: Mild Character: Depressed Aggravating Factor(s): Nothing Alleviating Factor(s): Nothing Related History: Positive For: Prior Psychiatric Issues Has Suicidal: Denies: Thoughts, With A Plan Has Homicidal: Denies: Thoughts, With A Plan - Allergies/Home Medications Allergies/Adverse Reactions: Allergies Allergy/AdvReac Type Severity Reaction Status Date / Time No Known Allergies Allergy Verified 10/24/18 00:05 PMH/Surg Hx/FS Hx/Imm Hx Endocrine/Hematology History: Reports: Hx Anemia - fe def - takes PO Fe Denies: Hx Anticoagulant Therapy, Hx Blood Disorders, Hx Blood Transfusions, Hx Bone Marrow Disease, Hx Diabetes, Hx Systemic Lupus Erythematosus, Hx Sickle Cell Disease, Hx Thyroid Disease, Hx Unexplained Bleeding, Other Endocrine/ Hematological Disorders Cardiovascular History: Denies: Hx Aneurysm, Hx Angina, Hx Angioplasty, Hx Auto Implanted Cardiovert Defib, Hx Cardiac Arrest, Hx Cardiomegaly, Hx Congenital Heart Disease, Hx Congestive Heart Failure, Hx Coronary Artery Disease, Hx Deep Vein Thrombosis, Hx Embolism, Hx Hypercholesterolemia, Hx Hypotension, Hx Hypertension, Hx Pacemaker/ICD, Hx Peripheral Vascular Disease, Hx Rheumatic Fever, Hx Syncope, Hx Valvular Heart Disease, Other Cardiovascular Problems/Disorders Respiratory History: Denies: Hx Asthma, Hx Chronic Bronchitis, Hx Chronic Obstructive Pulmonary Disease (COPD), Hx Cystic Fibrosis, Hx Lung Cancer, Hx Pleural Effusion, Hx Pneumonia, Hx Pulmonary Edema, Hx Pulmonary Embolism, Hx Seasonal Allergies, Hx Sleep Apnea, Other Respiratory Problems/Disorders GI History: Denies: Hx Cirrhosis, Hx Crohn's Disease, Hx Diverticulosis, Hx Gall Bladder Disease, Hx Gastroesophageal Reflux Disease, Hx Gastrointestinal Bleed, Hx Hiatal Hernia, Hx Irritable Bowel, Hx Jaundice, Hx Obstructive Bowel, Hx Ileostomy, Hx Pyloric Stenosis, Hx Ulcer, Other GI Disorders History: Denies: Hx Acute Renal Failure, Hx Benign Prostatic Hyperplasia, Hx Chronic Renal Failure, Hx Dialysis, Hx Kidney Infection, Hx Kidney Stones, Hx Renal Disease Musculoskeletal History: Denies: Hx Arthritis, Hx Back Problems, Hx Bursitis, Hx Congenital Bone Abnormalities, Hx Fibromyalgia, Hx Gout, Hx Orthopedic Injury, Hx Osteoporosis, Hx Scoliosis, Hx Tendonitis, Other Musculoskeletal History Sensory History: Denies: Hx Cataracts, Hx Contacts or Glasses, Hx Eye Injury, Hx Eye Prosthesis, Hx Glaucoma, Hx Legally Blind, Hx Macular Degeneration, Hx Vision Problem, Hx Deafness, Hx Hearing Aid, Hx Hearing Problem, Other Sensory Impairments Opthamlomology History: Denies: Hx Cataracts, Hx Contacts or Glasses, Hx Eye Injury, Hx Eye Prosthesis, Hx Glaucoma, Hx Legally Blind, Hx Macular Degeneration, Hx Vision Problem, Other Sensory Impairments Neurological History: Reports: Hx Headaches Denies: Hx Dementia, Hx Migraine, Hx Nerve Disease, Hx Seizures, Hx Spinal Cord Injury, Hx Transient Ischemic Attacks (TIA), Other Neuro Impairments/ Disorders Psychiatric History: Reports: Hx Anxiety, Hx Depression, Hx Inpatient Treatment - december 2013 in [place], 4 days inpatient for psychosis, Hx Community Mental Health Tx Denies: Hx Attention Deficit Hyperactivity Disorder, Hx Eating Disorder, Hx Panic Disorder, Hx Post Traumatic Stress Disorder, Hx Schizophrenia, Hx Bipolar Disorder, Hx Suicide Attempt, Hx of Violent Episodes Against Others, Hx Substance Abuse, Other Psychiatric Issues/Disorders - Surgical History Surgery Procedure, Year, and Place: ORAL SURGERY Infectious Disease History: No Infectious Disease History: Reports: History Other Infectious Disease - Chlamydia June 2016, [facility] Denies: Hx Clostridium Difficile, Hx Hepatitis, Hx Human Immunodeficiency Virus (HIV), Hx of Known/Suspected MRSA, Hx Shingles, Hx Tuberculosis, Traveled Outside the [place] in Last 30 Days - Family History Known Family History: Positive: Hypertension, Diabetes - Social History Alcohol Use: Occasionally Alcohol Amount: 1 BOTTLE WINE DAILY Hx Substance Use: No Substance Use Type: Reports: None Hx Tobacco Use: No Smoking Status (MU): Current Every Day Smoker Type: Cigars Amount Used/How Often: 2 cigars/daily Have You Smoked in the Last Year: Yes Review of Systems Negative: Fever, Chills Cardiovascular: Negative Respiratory: Negative Gastrointestinal: Negative Positive: Depressed, Other - NEG: SI or HI All Other Systems Reviewed And Are Negative: Yes Physical Exam - Summary Physical Exam Summary: VITAL SIGNS: Reviewed. GENERAL: Patient is a well-developed and nourished female who is lying comfortable in the stretcher. Patient is not in any acute respiratory distress. HEAD AND FACE: No signs of trauma. No ecchymosis, hematomas or skull depressions. No sinus tenderness. EYES: PERRLA, EOMI x 2, No injected conjunctiva, no nystagmus. EARS: Hearing grossly intact. Ear canals and tympanic membranes are within normal limits. MOUTH: Oropharynx within normal limits. NECK: Supple, trachea is midline, no adenopathy, no JVD, no carotid bruit, no c- spine tenderness, neck with full ROM. CHEST: Symmetric, no tenderness at palpation LUNGS: Clear to auscultation bilaterally. No wheezing or crackles. CVS: Regular rate and rhythm, S1 and S2 present, no murmurs or gallops appreciated. ABDOMEN: Soft, non-tender. No signs of distention. No rebound no guarding, and no masses palpated. Bowel sounds are normal. EXTREMITIES: FROM in all major joints, no edema, no cyanosis or clubbing. NEURO: Alert and oriented x 3. No acute neurological deficits. Speech is normal and follows commands. SKIN: Dry and warm Triage Information Reviewed: Yes Vital Signs On Initial Exam: Initial Vitals Temp Pulse Resp BP Pulse Ox 98.2 F 91 16 140/85 98 10/23/18 22:28 10/23/18 22:28 10/23/18 22:28 10/23/18 22:28 10/23/18 22:28 Vital Signs Reviewed: Yes Diagnostics - Vital Signs Vital Signs Temp Pulse Resp BP Pulse Ox 10/23/18 22:28 98.2 F 91 16 140/85 98 - Laboratory Result Diagrams: 10/23/18 23:35 10/23/18 23:35 Lab Statement: Any lab studies that have been ordered have been reviewed, and results considered in the medical decision making process. Course/Dx - Course Assessment/Plan: Pt is a 27 y/o female who presents via EMS for depression. Pt reports she has been feeling depressed and has "bad thoughts." She denies SI or HI. Pt states her feelings vary. Pt called the ambulance herself and notes she would like to be evaluated. Currently she does not take any medications. Pt was given potassium chloride for potassium level of 3.3. Pt was medically cleared. She had a mental health evaluation by sample body builder Joyce Earl. Pt will be discharged home with dx bipolar disorder. - Differential Dx/Clinical Impression Provider Diagnosis: Bipolar disorder Discharge - Sign-Out/Discharge Documenting (check all that apply): Patient Departure - Discharge home Patient Received Moderate/Deep Sedation with Procedure: No - Discharge Plan Condition: Stable Disposition: HOME Referrals: Fam Whitman MD [Primary Care Provider] - - Attestation Statements Document Initiated by Scribe: Yes Documenting Scribe: Natasha Tam Provider For Whom Scribe is Documenting (Include Credential): Sadiq Reyes MD Scribe Attestation: Natasha Amaral, scribed for Sadiq Reyes MD on 10/24/18 at 0203. Status of Scribe Document: Ready
[2018-10-23 23:24] LABS: Urine Appearance Cloudy; Urine Bacteria Absent (Absent); Urine Bilirubin Negative (Negative); Urine Blood 3+ (Negative); Urine Color Amber; Urine Glucose Negative (Negative); Urine Ketones Trace (Negative); Urine Nitrite Negative (Negative); Urine Protein 1+(30 mg/dL) (Negative); Urine Red Blood Cell 2+(6-10/hpf) (Absent); Urine Specific Gravity 1.031 (1.010-1.030); Urine Squamous Epithelial Cell Present (Absent); Urine Urobilinogen Positive (Negative); Urine White Blood Cell 2+(11-20/hpf) (Absent)
[2018-10-23 23:33] LABS: Barbiturates Urine Screen None Detected (None Detect); Benzodiazepine Urine Screen None Detected (None Detect); Urine Cannabinoids Screen None Detected (None Detect)
[2018-10-23 23:56] LABS: Hematocrit 32 % (35-47); Hemoglobin 9.9 g/dl (12.0-16.0); Mean Corpuscular HGB Conc 31 g/dl (31-36); Mean Corpuscular Hemoglobin 24 pg (27-31); Mean Corpuscular Volume 78 fL (80-97); Mean Platelet Volume 7.3 fL (7.4-10.4); Platelet Count 413 10^3/ul (150-450); Red Blood Count 4.07 10^6/ul (4.00-5.40); Red Cell Distribution Width 19 % (10.5-15)
[2018-10-24] LABS: ALT 17 U/L (7-52); AST 27 U/L (13-39); Albumin 4.5 g/dL (3.2-5.2); Albumin/Globulin Ratio 1.6 (1-3); Alkaline Phosphatase 39 U/L (34-104); Anion Gap 6 mmol/L (2-11); BUN/Creatinine Ratio 13.9 (8-20); Blood Urea Nitrogen 11 mg/dL (6-24); CO2 Carbon Dioxide 26 mmol/L (22-32); Calcium 9.9 mg/dL (8.6-10.3); Chloride 107 mmol/L (101-111); EGFR African American 107.3 (>60); EGFR Non-African American 88.7 (>60); Globulin 2.8 g/dL (2-4); Glucose 99 mg/dL (70-100); Potassium 3.3 mmol/L (3.5-5.0); Sodium 139 mmol/L (135-145); Total Protein 7.3 g/dL (6.4-8.9)
[2018-10-24 00:07] LABS: HCG Pregnancy 1.33 mIU/mL
[2018-10-24 00:21] LABS: Acetaminophen < 15 mcg/mL; Alcohol < 10 mg/dL (<10); Salicylate < 2.50 mg/dL (<30)
[2018-10-24] MEDS ORDERED: Potassium Chlor TAB* 20 MEQ TAB.ER PO ONE (00:41)
[2018-10-24 00:55] LABS: ABS Basophils 0.1 10^3/ul (0-0.2); ABS Eosinophils 0.2 10^3/ul (0-0.6); ABS Lymphocytes 2.9 10^3/ul (1.0-4.8); ABS Monocytes 0.5 10^3/ul (0-0.8); ABS Neutrophils 3.3 10^3/ul (1.5-7.7); ABS Nucleated RBC 0 10^3/ul; Eosinophil % 2.7 %; Lymphocyte % 41.7 %; Nucleated Red Blood Cells % 0
[2018-10-24 02:41] VITALS: BP 116/81
== END 2018-10-24 03:29 | disposition home or self-care (01) ==
LOC: ED 22:28
DX: F31.9 Bipolar disorder, unspecified (principal); D50.9 Iron deficiency anemia, unspecified; F17.290 Nicotine dependence, other tobacco product, uncomplicated
CPT/HCPCS: 36415; 80053; 80307; 80320; 80329; 81003; 81015; 84443; 84702; 85025; 87086; 99285; A9270-GY; G0480

== ENCOUNTER 2018-11-19 00:07 | Emergency (ER) | payer OTHER ==
[2018-11-19 00:13] VITALS: BP 128/84
--- NOTE | 2018-11-19 00:38 | ED ---
Complex/Multi-Sys Presentation - HPI Summary HPI Summary: This patient is a 27 year old F presenting to ED with a chief complaint of R hand swelling since 2200 on 11/18/18. The patient rates the pain 0/10 in severity. Symptoms aggravated by nothing. Symptoms alleviated by nothing. Patient reports any pain or recent trauma to the R hand. PMHx of carpel tunnel. - History Of Current Complaint Chief Complaint: EDExtremityUpper Time Seen by Provider: 11/19/18 00:24 Hx Obtained From: Patient Onset/Duration: Sudden Onset, Lasting Hours, Still Present Timing: Constant, Hours Severity Currently: None Aggravating Factor(s): nothing Alleviating Factor(s): nothing Associated Signs And Symptoms: Positive: Other - denies any pain or recent trauma to the R hand - Allergies/Home Medications Allergies/Adverse Reactions: Allergies Allergy/AdvReac Type Severity Reaction Status Date / Time No Known Allergies Allergy Verified 11/19/18 00:13 PMH/Surg Hx/FS Hx/Imm Hx Endocrine/Hematology History: Reports: Hx Anemia - fe def - takes PO Fe Denies: Hx Anticoagulant Therapy, Hx Blood Disorders, Hx Blood Transfusions, Hx Bone Marrow Disease, Hx Diabetes, Hx Systemic Lupus Erythematosus, Hx Sickle Cell Disease, Hx Thyroid Disease, Hx Unexplained Bleeding, Other Endocrine/ Hematological Disorders Cardiovascular History: Denies: Hx Aneurysm, Hx Angina, Hx Angioplasty, Hx Auto Implanted Cardiovert Defib, Hx Cardiac Arrest, Hx Cardiomegaly, Hx Congenital Heart Disease, Hx Congestive Heart Failure, Hx Coronary Artery Disease, Hx Deep Vein Thrombosis, Hx Embolism, Hx Hypercholesterolemia, Hx Hypotension, Hx Hypertension, Hx Pacemaker/ICD, Hx Peripheral Vascular Disease, Hx Rheumatic Fever, Hx Syncope, Hx Valvular Heart Disease, Other Cardiovascular Problems/Disorders Respiratory History: Denies: Hx Asthma, Hx Chronic Bronchitis, Hx Chronic Obstructive Pulmonary Disease (COPD), Hx Cystic Fibrosis, Hx Lung Cancer, Hx Pleural Effusion, Hx Pneumonia, Hx Pulmonary Edema, Hx Pulmonary Embolism, Hx Seasonal Allergies, Hx Sleep Apnea, Other Respiratory Problems/Disorders GI History: Denies: Hx Cirrhosis, Hx Crohn's Disease, Hx Diverticulosis, Hx Gall Bladder Disease, Hx Gastroesophageal Reflux Disease, Hx Gastrointestinal Bleed, Hx Hiatal Hernia, Hx Irritable Bowel, Hx Jaundice, Hx Obstructive Bowel, Hx Ileostomy, Hx Pyloric Stenosis, Hx Ulcer, Other GI Disorders History: Denies: Hx Acute Renal Failure, Hx Benign Prostatic Hyperplasia, Hx Chronic Renal Failure, Hx Dialysis, Hx Kidney Infection, Hx Kidney Stones, Hx Renal Disease Musculoskeletal History: Denies: Hx Arthritis, Hx Back Problems, Hx Bursitis, Hx Congenital Bone Abnormalities, Hx Fibromyalgia, Hx Gout, Hx Orthopedic Injury, Hx Osteoporosis, Hx Scoliosis, Hx Tendonitis, Other Musculoskeletal History Sensory History: Denies: Hx Cataracts, Hx Contacts or Glasses, Hx Eye Injury, Hx Eye Prosthesis, Hx Glaucoma, Hx Legally Blind, Hx Macular Degeneration, Hx Vision Problem, Hx Deafness, Hx Hearing Aid, Hx Hearing Problem, Other Sensory Impairments Opthamlomology History: Denies: Hx Cataracts, Hx Contacts or Glasses, Hx Eye Injury, Hx Eye Prosthesis, Hx Glaucoma, Hx Legally Blind, Hx Macular Degeneration, Hx Vision Problem, Other Sensory Impairments Neurological History: Reports: Hx Headaches Denies: Hx Dementia, Hx Migraine, Hx Nerve Disease, Hx Seizures, Hx Spinal Cord Injury, Hx Transient Ischemic Attacks (TIA), Other Neuro Impairments/ Disorders Psychiatric History: Reports: Hx Anxiety, Hx Depression, Hx Inpatient Treatment - december 2013 in [place], 4 days inpatient for psychosis, Hx Community Mental Health Tx Denies: Hx Attention Deficit Hyperactivity Disorder, Hx Eating Disorder, Hx Panic Disorder, Hx Post Traumatic Stress Disorder, Hx Schizophrenia, Hx Bipolar Disorder, Hx Suicide Attempt, Hx of Violent Episodes Against Others, Hx Substance Abuse, Other Psychiatric Issues/Disorders - Surgical History Surgery Procedure, Year, and Place: ORAL SURGERY Infectious Disease History: No Infectious Disease History: Reports: History Other Infectious Disease - Chlamydia June 2016, [facility] Denies: Hx Clostridium Difficile, Hx Hepatitis, Hx Human Immunodeficiency Virus (HIV), Hx of Known/Suspected MRSA, Hx Shingles, Hx Tuberculosis, Traveled Outside the in Last 30 Days - Family History Known Family History: Positive: Hypertension, Diabetes - Social History Alcohol Use: Occasionally Alcohol Amount: 1 BOTTLE WINE DAILY Hx Substance Use: No Substance Use Type: Reports: None Hx Tobacco Use: No Smoking Status (MU): Current Every Day Smoker Type: Cigars Amount Used/How Often: 2 cigars/daily Have You Smoked in the Last Year: Yes Review of Systems Negative: Fever Positive: Other - R hand swelling, denies any pain or recent trauma to the R hand All Other Systems Reviewed And Are Negative: Yes Physical Exam - Summary Physical Exam Summary: VITAL SIGNS: Reviewed. GENERAL: Patient is a well-developed and nourished FEMALE who is lying comfortable in the stretcher. Patient is not in any acute respiratory distress. HEAD AND FACE: No signs of trauma. No ecchymosis, hematomas or skull depressions. No sinus tenderness. EYES: PERRLA, EOMI x 2, No injected conjunctiva, no nystagmus. EARS: Hearing grossly intact. Ear canals and tympanic membranes are within normal limits. MOUTH: Oropharynx within normal limits. NECK: Supple, trachea is midline, no adenopathy, no JVD, no carotid bruit, no c- spine tenderness, neck with full ROM. CHEST: Symmetric, no tenderness at palpation LUNGS: Clear to auscultation bilaterally. No wheezing or crackles. CVS: Regular rate and rhythm, S1 and S2 present, no murmurs or gallops appreciated. ABDOMEN: Soft, non-tender. No signs of distention. No rebound no guarding, and no masses palpated. Bowel sounds are normal. EXTREMITIES: FROM in all major joints, no cyanosis or clubbing. Very minimal swelling of the R hand. No warmness, no tenderness, no erythema, and no other signs of inflammation. NEURO: Alert and oriented x 3. No acute neurological deficits. Speech is normal and follows commands. SKIN: Dry and warm Triage Information Reviewed: Yes Vital Signs On Initial Exam: Initial Vitals Temp Pulse Resp BP Pulse Ox 97.8 F 86 16 128/84 100 11/19/18 00:10 11/19/18 00:10 11/19/18 00:10 11/19/18 00:10 11/19/18 00:10 Vital Signs Reviewed: Yes Diagnostics - Vital Signs Vital Signs Temp Pulse Resp BP Pulse Ox 11/19/18 00:10 97.8 F 86 16 128/84 100 - Laboratory Lab Statement: Any lab studies that have been ordered have been reviewed, and results considered in the medical decision making process. Complex Multi-Symp Course/Dx Assessment/Plan: This patient is a 27 year old F presenting to ED with a chief complaint of R hand swelling since 2200 on 11/18/18. This patient will be given a sling and discharged with dx of dependent edema. Patient understands and agrees with this plan. - Diagnoses Differential Diagnoses/HQI/PQRI: Other - dependent edema Provider Diagnoses: Dependent edema Discharge - Sign-Out/Discharge Documenting (check all that apply): Patient Departure - discharge Patient Received Moderate/Deep Sedation with Procedure: No - Discharge Plan Condition: Stable Disposition: HOME Patient Education Materials: How to Use a Sling (ED) Referrals: Fam Whitman MD [Primary Care Provider] - 3 Days Additional Instructions: PLEASE RETURN TO THE ED TO IMMEDIATELY FOR WORSENING OR CONCERNING SYMPTOMS. - Billing Disposition and Condition Condition: STABLE Disposition: Home - Attestation Statements Document Initiated by Bethibe: Yes Documenting Scribe: Senthil Lozano Provider For Whom Antonio is Documenting (Include Credential): Sadiq Reyes MD Scribe Attestation: Senthil Amaral, scribed for Sadiq Reyes MD on 11/19/18 at 0615. Scribe Documentation Reviewed: Yes Provider Attestation: The documentation as recorded by the scribeSenthil accurately reflects the service I personally performed and the decisions made by me, Sadiq Reyes MD Status of Scribe Document: Viewed
== END 2018-11-19 00:53 | disposition home or self-care (01) ==
LOC: ED 00:07
DX: R60.9 Edema, unspecified (principal); D50.9 Iron deficiency anemia, unspecified; F41.9 Anxiety disorder, unspecified; F32.9 Major depressive disorder, single episode, unspecified; F17.290 Nicotine dependence, other tobacco product, uncomplicated
CPT/HCPCS: 99282

== ENCOUNTER 2018-11-29 15:09 | Emergency (ER) | payer OTHER ==
--- NOTE | 2018-11-29 15:59 | ED ---
GI/ HPI - HPI Summary HPI Summary: This patient is a 27 year old female presenting to [facility] with a chief complaint of vaginal bleeding since today. Patient started control pills 6 days ago and eventually stopped 4 days ago, due to concerns of side effects. Patient started bleeding today after and patient is wondering if her cycle is starting today. The pain is rated 0/10 in severity, although she had a minor cramping pain similar to period cramps briefly. Symptoms aggravated by nothing. Symptoms alleviated by nothing. Patient states that she is otherwise symptomatic. - History of Current Complaint Chief Complaint: EDVaginalBleeding Time Seen by Provider: 11/29/18 15:43 Stated Complaint: MENSTRUAL PROBLEMS PER PT Hx Obtained From: Patient Hx Last Menstrual Period: 10/02/18 Onset/Duration: Still Present Timing: Constant Current Severity: None Pain Intensity: 0 Location of Pain: None Aggravating Factor(s): Nothing Alleviating Factor(s): Nothing - Additional Pertinent History Primary Care Physician: MARY JANE - Allergy/Home Medications Allergies/Adverse Reactions: Allergies Allergy/AdvReac Type Severity Reaction Status Date / Time No Known Allergies Allergy Verified 11/29/18 15:20 PMH/Surg Hx/FS Hx/Imm Hx Previously Healthy: Yes Endocrine/Hematology History: Reports: Hx Anemia - fe def - takes PO Fe Denies: Hx Anticoagulant Therapy, Hx Blood Disorders, Hx Blood Transfusions, Hx Bone Marrow Disease, Hx Diabetes, Hx Systemic Lupus Erythematosus, Hx Sickle Cell Disease, Hx Thyroid Disease, Hx Unexplained Bleeding, Other Endocrine/ Hematological Disorders Cardiovascular History: Denies: Hx Aneurysm, Hx Angina, Hx Angioplasty, Hx Auto Implanted Cardiovert Defib, Hx Cardiac Arrest, Hx Cardiomegaly, Hx Congenital Heart Disease, Hx Congestive Heart Failure, Hx Coronary Artery Disease, Hx Deep Vein Thrombosis, Hx Embolism, Hx Hypercholesterolemia, Hx Hypotension, Hx Hypertension, Hx Pacemaker/ICD, Hx Peripheral Vascular Disease, Hx Rheumatic Fever, Hx Syncope, Hx Valvular Heart Disease, Other Cardiovascular Problems/Disorders Respiratory History: Denies: Hx Asthma, Hx Chronic Bronchitis, Hx Chronic Obstructive Pulmonary Disease (COPD), Hx Cystic Fibrosis, Hx Lung Cancer, Hx Pleural Effusion, Hx Pneumonia, Hx Pulmonary Edema, Hx Pulmonary Embolism, Hx Seasonal Allergies, Hx Sleep Apnea, Other Respiratory Problems/Disorders GI History: Denies: Hx Cirrhosis, Hx Crohn's Disease, Hx Diverticulosis, Hx Gall Bladder Disease, Hx Gastroesophageal Reflux Disease, Hx Gastrointestinal Bleed, Hx Hiatal Hernia, Hx Irritable Bowel, Hx Jaundice, Hx Obstructive Bowel, Hx Ileostomy, Hx Pyloric Stenosis, Hx Ulcer, Other GI Disorders History: Denies: Hx Acute Renal Failure, Hx Benign Prostatic Hyperplasia, Hx Chronic Renal Failure, Hx Dialysis, Hx Kidney Infection, Hx Kidney Stones, Hx Renal Disease Musculoskeletal History: Denies: Hx Arthritis, Hx Back Problems, Hx Bursitis, Hx Congenital Bone Abnormalities, Hx Fibromyalgia, Hx Gout, Hx Orthopedic Injury, Hx Osteoporosis, Hx Scoliosis, Hx Tendonitis, Other Musculoskeletal History Sensory History: Denies: Hx Cataracts, Hx Contacts or Glasses, Hx Eye Injury, Hx Eye Prosthesis, Hx Glaucoma, Hx Legally Blind, Hx Macular Degeneration, Hx Vision Problem, Hx Deafness, Hx Hearing Aid, Hx Hearing Problem, Other Sensory Impairments Opthamlomology History: Denies: Hx Cataracts, Hx Contacts or Glasses, Hx Eye Injury, Hx Eye Prosthesis, Hx Glaucoma, Hx Legally Blind, Hx Macular Degeneration, Hx Vision Problem, Other Sensory Impairments Neurological History: Reports: Hx Headaches Denies: Hx Dementia, Hx Migraine, Hx Nerve Disease, Hx Seizures, Hx Spinal Cord Injury, Hx Transient Ischemic Attacks (TIA), Other Neuro Impairments/ Disorders Psychiatric History: Reports: Hx Anxiety, Hx Depression, Hx Inpatient Treatment - december 2013 in [place], 4 days inpatient for psychosis, Hx Community Mental Health Tx Denies: Hx Attention Deficit Hyperactivity Disorder, Hx Eating Disorder, Hx Panic Disorder, Hx Post Traumatic Stress Disorder, Hx Schizophrenia, Hx Bipolar Disorder, Hx Suicide Attempt, Hx of Violent Episodes Against Others, Hx Substance Abuse, Other Psychiatric Issues/Disorders - Surgical History Surgery Procedure, Year, and Place: ORAL SURGERY Infectious Disease History: No Infectious Disease History: Reports: History Other Infectious Disease - Chlamydia June 2016, [facility] Denies: Hx Clostridium Difficile, Hx Hepatitis, Hx Human Immunodeficiency Virus (HIV), Hx of Known/Suspected MRSA, Hx Shingles, Hx Tuberculosis, Traveled Outside the [place] in Last 30 Days - Family History Known Family History: Positive: Hypertension, Diabetes - Social History Lives: Alone Alcohol Use: Occasionally Alcohol Amount: 1 BOTTLE WINE DAILY Hx Substance Use: No Substance Use Type: Reports: None Hx Tobacco Use: Yes Smoking Status (MU): Current Every Day Smoker Type: Cigars Amount Used/How Often: 2 cigars/daily Have You Smoked in the Last Year: Yes Review of Systems Negative: Fever Genitourinary: Other - vaginal bleeding All Other Systems Reviewed And Are Negative: Yes Physical Exam - Summary Physical Exam Summary: Constitutional: Well-developed, Well-nourished, Alert. Skin: Warm, Dry HENT: Normocephalic; Atraumatic Eyes: Conjunctiva normal Neck: Musculoskeletal ROM normal neck. Cardio: Rhythm regular, rate normal, Heart sounds normal; Intact distal pulses; The pedal pulses are 2+ and symmetric. Radial pulses are 2+ and symmetric. Pulmonary/Chest wall: Effort normal. Abd: Soft, Musculoskeletal: Normal Lymph: Normal Neuro: Alert, Oriented x3 Psych: Mood and affect Normal Triage Information Reviewed: Yes Vital Signs On Initial Exam: Initial Vitals Temp Pulse Resp BP Pulse Ox 98.4 F 94 12 128/85 100 11/29/18 15:20 11/29/18 15:20 11/29/18 15:20 11/29/18 15:20 11/29/18 15:20 Vital Signs Reviewed: Yes Diagnostics - Vital Signs Vital Signs Temp Pulse Resp BP Pulse Ox 11/29/18 15:20 98.4 F 94 12 128/85 100 - Laboratory Lab Statement: Any lab studies that have been ordered have been reviewed, and results considered in the medical decision making process. GIGU Course/Dx - Course Course Of Treatment: This patient is a 27 year old female presenting to [facility] with a chief complaint of vaginal bleeding since today. Patient started control pills 6 days ago and eventually stopped 4 days ago, due to concerns of side effects. Patient started bleeding today after and patient is wondering if her cycle is starting today. Patient will be discharged with a dx of control withdrawal bleeding. Patient is advised to follow up with PCP in 3 days. The patient is agreeable with this plan. - Diagnoses Provider Diagnoses: Breakthrough bleeding on control pills Discharge - Sign-Out/Discharge Documenting (check all that apply): Patient Departure Patient Received Moderate/Deep Sedation with Procedure: No - Discharge Plan Condition: Good Disposition: HOME Patient Education Materials: Control Pills (ED) Print Language: VIET[place]ESE Referrals: Fam Whitman MD [Primary Care Provider] - - Billing Disposition and Condition Condition: GOOD Disposition: Home - Attestation Statements Document Initiated by Scribe: Yes Documenting Scribe: Amy Lozano Provider For Whom Scribe is Documenting (Include Credential): Eugenia Melendez MD Scribe Attestation: I, Amy Lozano, scribed for Eugenia Patterson MD on 11/29/18 at 2138. Scribe Documentation Reviewed: Yes Provider Attestation: The documentation as recorded by the Amy rodriguez accurately reflects the service I personally performed and the decisions made by me, Eugenia Patterson MD Status of Scribe Document: Viewed
[2018-11-29 16:25] VITALS: BP 146/84
== END 2018-11-29 16:24 | disposition home or self-care (01) ==
LOC: ED 15:09
DX: N93.9 Abnormal uterine and vaginal bleeding, unspecified (principal); F17.290 Nicotine dependence, other tobacco product, uncomplicated; D64.9 Anemia, unspecified
CPT/HCPCS: 99282

== ENCOUNTER 2018-11-30 16:45 | Emergency (ER) | payer OTHER ==
[2018-11-30 16:55] VITALS: BP 130/84
--- NOTE | 2018-11-30 17:16 | UC ---
Upper Extremity HPI - HPI Summary HPI Summary: reports intermittant swelling R hand, bilateral lower legs and stomach over past few months denies known precipitant, denies change in diet except for trying to lose weight - History of Current Complaint Chief Complaint: UCGeneralIllness Stated Complaint: HAND, LEG, STOMACH COMPLAINT Time Seen by Provider: 11/30/18 16:57 Hx Obtained From: Patient Hx Last Menstrual Period: 11/30/18 Onset/Duration: Gradual Onset Pain Intensity: 0 - Allergies/Home Medications Allergies/Adverse Reactions: Allergies Allergy/AdvReac Type Severity Reaction Status Date / Time No Known Allergies Allergy Verified 11/30/18 16:55 PMH/Surg Hx/FS Hx/Imm Hx Previously Healthy: Yes Psychological History: Other - MH issues _ cannot name Other History Of: Negative For: Anticoagulant Therapy - Surgical History Surgical History: None Surgery Procedure, Year, and Place: ORAL SURGERY - Family History Known Family History: Positive: Hypertension, Diabetes - Social History Occupation: Unemployed Lives: Alone Alcohol Use: Daily Alcohol Amount: 1 BOTTLE WINE DAILY Substance Use Type: None Substance Use Comment - Amount & Last Used: half to whole bottle of wine Smoking Status (MU): Current Every Day Smoker Type: Cigars Amount Used/How Often: 2 cigars/daily Have You Smoked in the Last Year: Yes When Did the Patient Quit Smoking/Using Tobacco: has not smoked for about a week /smoked within last 30 days Household Exposure Type: Cigarettes, Cigars Cessation Counseling: Patient Advised to Stop - Immunization History Most Recent Influenza Vaccination: none Most Recent Tetanus Shot: 06/15/16 Most Recent Pneumonia Vaccination: n/a Review of Systems All Other Systems Reviewed And Are Negative: Yes Constitutional: Positive: Negative. Negative: Fever, Chills, Fatigue Skin: Positive: Negative. Negative: Rash Respiratory: Positive: Negative. Negative: Shortness Of Breath, Cough Cardiovascular: Positive: Negative. Negative: Chest Pain Gastrointestinal: Positive: Negative. Negative: Abdominal Pain, Vomiting, Diarrhea, Nausea Genitourinary: Positive: Negative Neurovascular: Positive: Negative Musculoskeletal: Positive: Negative Neurological: Positive: Negative. Negative: Headache Psychological: Positive: Negative Is Patient Immunocompromised?: No Physical Exam Triage Information Reviewed: Yes Appearance: Well-Appearing, No Pain Distress, Well-Nourished - calm Vital Signs: Initial Vital Signs Temp 98.2 F 11/30/18 16:48 Pulse 95 11/30/18 16:48 Resp 16 11/30/18 16:48 BP 130/84 11/30/18 16:48 Pulse Ox 99 11/30/18 16:48 Vital Signs Reviewed: Yes Eyes: Positive: Conjunctiva Clear Respiratory Exam: Normal Respiratory: Positive: Lungs clear Cardiovascular Exam: Normal Cardiovascular: Positive: RRR Abdominal Exam: Normal Abdomen Description: Positive: Nontender, No Organomegaly, Soft Bowel Sounds: Positive: Present Musculoskeletal Exam: Normal Psychological Exam: Normal Skin Exam: Normal Skin: Negative: Rashes Upper Extremity Course/Dx - Differential Dx/Diagnosis Differential Diagnosis/HQI/PQRI: Contusion, Other - CHF, leg edema, edema Provider Diagnosis: Edema Discharge - Sign-Out/Discharge Documenting (check all that apply): Patient Departure All imaging exams completed and their final reports reviewed: No Studies - Discharge Plan Condition: Good Disposition: HOME Patient Education Materials: Edema (ED) Referrals: Fam Whitman MD [Primary Care Provider] - 1 Day (call tomorrow) Additional Instructions: drink plenty of water and avoid salty foods - Billing Disposition and Condition Condition: GOOD Disposition: Home
== END 2018-11-30 17:38 | disposition home or self-care (01) ==
LOC: UCEAST 16:45
DX: R60.0 Localized edema (principal); F17.290 Nicotine dependence, other tobacco product, uncomplicated
CPT/HCPCS: 99211; G0463

== ENCOUNTER 2018-12-09 18:56 | Emergency (ER) | payer OTHER ==
--- OUTSIDE RECORDS SUMMARY | 2018-12-09 19:01 | XMS REPORT | Continuity of Care Document ---
:1990 External Reference #:[id number] Author Name Lena Oliver Care Team Providers Name Role Phone Fam Whitman III, MD Primary Care Physician Unavailable Payers Date Identification Numbers Payment Provider Subscriber Policy Number: [id number] Tommy Roland Group Number: [id number] [address] PayID: [id number] [place] [address] Expires: 2016 PayID: [id number] Cont: Jose Luis Jeong Benjamin Roland [address] [place] [address] Advance Directives Description No Information Available Problems Active Problems Provider Date Moderate depression Irvin Redding, SUPPORT SERVICES SPECIALIST Onset: 05/18/2016 Primary herpes simplex infection of lips Irvin Redding SUPPORT SERVICES SPECIALIST Onset: 05/18/2016 Tension-type headache Irvin Redding, SUPPORT SERVICES SPECIALIST Onset: 05/18/2016 Nondependent alcohol abuse, continuous Irvinyue Redding, SUPPORT SERVICES SPECIALIST Onset: 05/18/2016 Headache Aftab Montoya MD Onset: 03/12/2018 Migraine without aura, not refractory Aftab Montoya MD Onset: 03/12/2018 Carpal tunnel syndrome of left wrist Aftab Montoya MD Onset: 03/12/2018 Essential tremor Aftab Montoya MD Onset: 03/12/2018 Family History Description No Information Available Social [...] Use Denies Drug Use Smoking Status Reviewed: 12/04/18 Patient is a current cigars and cigarettes smoker, smokes every X 1 year day Exercise Type/Frequency Does not exercise Allergies, Adverse Reactions, Alerts Description No Known Drug Allergies Medications Active Medications SIG Qnty Indications Ordering Provider Date Ranitidine 150 one by mouth twice 60tabs R10.84 Alicia Borden MD 12/04/2018 Maximum Strength a day, as needed for heartburn and 150mg Tablets abdominal pain History Medications No Active Medications Unknown 12/04/2018 - 12/04/2018 Famotidine 1 by mouth every 30tabs R07.89 Fam Rosado 08/22/2018 - 20mg Tablets day for 1 month Dariel Whitman 12/04/2018 Rizatriptan Benzoate 1 by mouth as 8tabs G25.0 Aftab Montoya 06/27/2018 - needed for 12/04/2018 10mg Tablets headache may repeat once in 2 hours max 2 days a week Oxycodone HCL ER M54.2 Jacob Carreno NP 04/01/2018 - 30mg 04/01/2018 Tab ER 12H Abuse-Det Oxycodone-Acetaminoph 1 tabs by mouth 14tabs M54.2 Jacob Carreno NP 2017 - en every 12 hours as 06/26/2018 5-325mg Tablets needed for pain Wrist Splint use daily to help 1units Aftab Montoya 03/26/2018 - Misc with numbness and 12/04/2018 tingling in the right and left hand Valium 1 tablet by mouth 1tabs Aftab Montoya, 03/24/2018 - 10mg Tablets 30 minutes before 06/26/2018 mri Valium 2 tabs by mouth 1 8tabs Micheal Vargas 03/14/2018 - 2mg Tablets hour prior to Dariel Coburn 03/24/2018 procedure, may repeat dose at time of procedure if needed Amitriptyline HCL 1/2 pill by mouth 60tabs G43.009 Aftab Montoya, 2017 - 10mg at bedtime for a MD 06/26/2018 Tablets week then 1 at bed for two weeks then 2 at bed Hydrocodone-Acetamino take 1 tablets 21tabs M54.2 Jacob Carreno NP 2017 - phen every 8 hours for 04/01/2018 5-325mg Tablets pain. Baclofen take 1/2 tab 20tabs M54.2 Jacob Carreno NP 03/06/2018 - 10mg Tablets every 8 hours as 06/26/2018 needed for muscle spasm Naproxen 1 tablet with 30tabs M54.2 Jacob Carreno, SUPPORT SERVICES SPECIALIST 03/06/2018 - 500mg Tablets food by mouth 06/26/2018 twice a day for one week and then as needed. No Active Medications Unknown 06/15/2016 - 06/15/2016 Ferrous Sulfate 1 by mouth twice 60tabs D64.9 Irvin Redding, 06/15/2016 - a day SUPPORT SERVICES SPECIALIST 01/08/2017 325(65Fe) mg Tablets D50.8 Abreva apply topically to 2g B00.1 Irvin Redding, 05/18/2016 - 10% Cream blister 5 x's/day SUPPORT SERVICES SPECIALIST 05/23/2016 intil gone Tylenol Extra 2 tablets twice G44.201 Irvin Redding, 05/18/2016 - Strength daily as needed SUPPORT SERVICES SPECIALIST 06/15/2016 500mg for Culp Tablets Wellbutrin SR 1 tablet po in the 60tabs F33.2 Irvin Redding, 05/18/2016 - 150mg morning SUPPORT SERVICES SPECIALIST 06/15/2016 Tablets ER 12HR Loratadine 1 by mouth every Unknown - 10mg day as needed. 06/15/2016 Tablets (has not taken is 2 months) Wellbutrin SR 1 by mouth every Unknown - 200mg day(not taking 01/08/2017 Tablets ER 12HR regularly) Abilify 1 by mouth every Unknown - 10mg day 01/08/2017 Tablets Prozac 1 by mouth every Unknown - 10mg day 03/11/2018 Capsules Abilify Maintena Unknown - 02/17/2018 300mg Prsy Metamucil 2 to 5 capsules up Unknown - 0.52gm to 4 times daily 12/04/2018 Capsules Immunizations CPT Code Status Date Vaccine Lot # [id number] Given 06/15/2016 Tetanus And Diptheria (Td) For Adult Use Preservative Free Vital Signs Date Vital Result Comment 12/04/2018 3:31pm Height 66 inches 5'6" Weight 116.00 lb Heart Rate 95 /min BP Systolic Sitting 121 mmHg BP Diastolic Sitting 70 mmHg BMI (Body Mass Index) 18.7 kg/m2 10/20/2018 10:13am Height 66 inches 5'6" Weight [...] Date Facility Test Result H/L Range Note Urine Drug 10/23/2018 [facility] Amphetamine Ur None Detected None Detect 1 SCR ED & [address] [place] [address] [phone] Barbiturates Urine Screen None Detected None Detect Benzodiazepine Urine Screen None Detected None Detect Urine Cannabinoids Screen None Detected None Detect Urine Cocaine Screen None Detected None Detect Urine Opiates Screen None Detected None Detect Urine Phencyclidine Screen None Detected None Detect 2 Comp Metabolic Panel 10/23/2018 [facility] Sodium 139 mmol/L N 135-[address] [place] [address] [phone] Potassium 3.3 mmol/L Low 3.5-5.0 Chloride 107 mmol/L N 101-111 Co2 Carbon Dioxide 26 mmol/L N 22-32 Anion Gap 6 mmol/L N 2-11 Glucose 99 mg/dL N 70-100 Blood Urea Nitrogen 11 mg/dL N 6-24 Creatinine 0.79 mg/dL N 0.51-0.95 BUN/Creatinine Ratio 13.9 N 8-20 Calcium 9.9 mg/dL N 8.6-10.3 Total Protein 7.3 g/dL N 6.4-8.9 Albumin 4.5 g/dL N 3.2-5.2 Globulin 2.8 g/dL N 2-4 Albumin/Globulin Ratio 1.6 N 1-3 Total Bilirubin 0.30 mg/dL N 0.2-1.0 Alkaline Phosphatase 39 U/L N 34-104 Alt 17 U/L N 7-52 Ast 27 U/L N 13-39 Egfr Non- 88.7 >60 Egfr 107.3 >60 3 Laboratory test 10/23/2018 [facility] HCG 1.33 mIU/mL [address] [place] [address] [phone] Acetaminophen < 15 g/mL 5 Alcohol < 10 mg/dL N <10 Salicylate < 2.50 mg/dL <30 TSH (Thyroid Stim Horm) 0.50 mcIU/mL N 0.34-5.60 CBC Auto Diff 10/23/2018 [facility] White Blood 7.0 10^3/uL N 3.5-10.[address] [place] [address] [phone] Red Blood Count 4.07 10^6/uL N 4.00-5.40 Hemoglobin 9.9 g/dL Low 12.0-16.0 Hematocrit 32 % Low 35-47 Mean Corpuscular Volume 78 fL Low 80-97 Mean Corpuscular Hemoglobin 24 pg Low 27-31 Mean Corpuscular HGB Conc 31 g/dL N 31-36 Red Cell Distribution Width 19 % High 10.5-15 Platelet Count 413 10^3/uL N 150-450 Mean Platelet Volume 7.3 fL Low 7.4-10.4 Abs Neutrophils 3.3 10^3/uL N 1.5-7.7 Abs Lymphocytes 2.9 10^3/uL N 1.0-4.8 Abs Monocytes 0.5 10^3/uL N 0-0.8 Abs Eosinophils 0.2 10^3/uL N 0-0.6 Abs Basophils 0.1 10^3/uL N 0-0.2 Abs Nucleated RBC 0 10^3/uL Granulocyte % 47.6 % Lymphocyte % 41.7 % Monocyte % 7.2 % Eosinophil % 2.7 % Basophil % 0.8 % Nucleated Red Blood Cells % 0 Urine Culture And 10/23/2018 [facility] Urine Culture SEE RESULT [address] [place] [address] [phone] CBC Auto Diff 10/22/2018 [facility] White Blood 7.8 10^3/uL N 3.5-[address] Count .8 [place] [address] [phone] Red Blood Count 4.12 10^6/uL N 4.00-5.40 Hemoglobin 10.0 g/dL Low 12.0-16.0 Hematocrit 32 % Low 35-47 Mean Corpuscular Volume 78 fL Low 80-97 Mean Corpuscular Hemoglobin 24 pg Low 27-31 Mean Corpuscular HGB Conc 31 g/dL N 31-36 Red Cell Distribution Width 19 % High 10.5-15 Platelet Count 391 10^3/uL N 150-450 Mean Platelet Volume 7.3 fL Low 7.4-10.4 Manual Differential 10/22/2018 [facility] Neutrophil % 54 % [address] [place] [address] [phone] Lymphocytes % 36 % Monocytes % 7 % Eosinophils % 3 % Anisocytosis 1+ Abs Neutrophils 4.2 10^3/uL N 1.5-7.7 Abs Lymphocytes 2.8 10^3/uL N 1.0-4.8 Abs Monocytes 0.5 10^3/uL N 0-0.8 Abs Eosinophils 0.2 10^3/uL N 0-0.6 Laboratory test 10/22/2018 [facility] Vitamin D 9.0 ng/mL Low 20-[address] Total 25(Oh) [place] [address] [phone] TSH (Thyroid Stim Horm) 0.34 mcIU/mL N 0.34-5.60 Vitamin B12 273 pg/mL N 180-914 7 Manual Differential 10/20/2018 [facility] Neutrophil % 60 % [address] [place] [address] [phone] Lymphocytes % 27 % Monocytes % 12 % Eosinophils % 1 % Microcytosis 1+ Hypochromasia 1+ Abs Neutrophils 5.34 10^3/uL N 1.5-7.7 Abs Lymphocytes 2.4 10^3/uL N 1.0-4.8 Abs Monocytes 1.06 10^3/uL High 0-0.8 Abs Eosinophils 0.08 10^3/uL N 0-0.6 CBC Auto Diff 10/20/2018 [facility] White Blood 8.9 10^3/uL N 3.5-10.[address] [place] [address] [phone] Red Blood Count 4.20 10^6/uL N 4.00-5.40 Hemoglobin 10.2 g/dL Low 12.0-16.0 Hematocrit 33 % Low 35-47 Mean Corpuscular Volume 78 fL Low 80-97 Mean Corpuscular Hemoglobin 24 pg Low 27-31 Mean Corpuscular HGB Conc 31 g/dL N 31-36 Red Cell Distribution Width 18 % High 10.5-15 Platelet Count 407 10^3/uL N 150-450 Mean Platelet Volume 7.5 fL N 7.4-10.4 Lipid Profile 08/26/2018 [facility] Triglycerides 44 mg/dL 8 (Trig/Chol/HDL) [address] [place] [address] [phone] Cholesterol 145 mg/dL 9 HDL Cholesterol 48.8 mg/dL 10 LDL Cholesterol 87 mg/dL 11 Basic Metabolic Panel 08/26/2018 [facility] Sodium 139 mmol/L N 135-[address] [place] [address] [phone] Potassium 3.9 mmol/L N 3.5-5.0 Chloride 106 mmol/L N 101-111 Co2 Carbon Dioxide 27 mmol/L N 22-32 Anion Gap 6 mmol/L N 2-11 Glucose 84 mg/dL N 70-100 Blood Urea Nitrogen 8 mg/dL N 6-24 Creatinine 0.80 mg/dL N 0.51-0.95 BUN/Creatinine Ratio 10.0 N 8-20 Calcium 10.4 mg/dL High 8.6-10.3 Egfr Non- 87.4 >60 Egfr 105.8 >60 12 Laboratory test 06/27/2018 [facility] TSH (Thyroid 0.77 N 0.34 -5.[address] Stim Horm) mcIU/[place] [address] [phone] Laboratory test 06/26/2018 [facility] Gardnerella/ SEE RESULT 13, [address] Yeast: [place] [address] Vaginal Dna [phone] Trichomonas Vaginalis Rna Negative Negative 15 GC/Chlamydia 06/26/2018 [facility] Chlamydia Negative Negative Amplified Rna [address] [place] [address] [phone] Neisseria gonorrhoeae (GC) Rna Negative Negative Urine Culture And 06/26/2018 [facility] Urine SEE RESULT 16 , [address] [place] [address] [phone] Laboratory test 06/26/2018 [facility] Poc Negative Negative [address] , [place] [address] Urine [phone] Poc Urinalysis 06/26/2018 [facility] Poc Negative Negative [address] Glucose, [place] [address] Urine [phone] Poc Bilirubin, Urine 1+ Abnormal Negative Poc Ketone, Urine Trace Abnormal Negative Poc Specific [place], Urine >=1.030 N 1.010-1.030 Poc Blood, Urine Negative Negative Poc pH, Urine 6.0 N 5-9 Poc Protein, Urine Trace Abnormal Negative Poc Urobilinogen, Urine 1.0 Negative Poc Nitrite, Urine Negative Negative Poc Leukocytes, Urine Trace Abnormal Negative Poc Color, Urine Yellow Poc Clarity, Urine Clear 19 Drug Abuse 20 03/06/2018 [facility] Urine Amphetamine Negative ng/mL [address] [place] [address] [phone] Urine Barbiturates Negative ng/mL 21 Urine Benzodiazepines Negative ng/mL 22 Urine Cocaine Negative ng/mL 23 Urine Phencyclidine Negative ng/mL Cutoff: 25 Urine Tetrahydrocannabinol Negative ng/mL Cutoff: 50 24 Creatinine, Urine 345.0 mg/dL Specific [place] 1.021 pH 5.9 Oxidants Negative 25 Adulterants Comment Normal Codeine, Ur Not Detected ng/mL Cutoff: 25 26 Qyqorjp-5-vopc-glucuronide, Ur Not Detected ng/mL 27 Morphine, Ur Not Detected ng/mL Cutoff: 25 28 Xwdcqjmm-4-hivy-glucuronide, U Not Detected ng/mL 29 6-monoacetylmorphine, Ur Not Detected ng/mL Cutoff: 25 30 Hydrocodone, Ur Not Detected ng/mL Cutoff: 25 31 Norhydrocodone, Ur Not Detected ng/mL Cutoff: 25 32 Dihydrocodeine, Ur Not Detected ng/mL Cutoff: 25 33 Hydromorphone, Ur Not Detected ng/mL Cutoff: 25 34 Corjtuyzckypp6dosydkcgehyxvhs Not Detected ng/mL 35 Oxycodone, Ur Not Detected ng/mL Cutoff: 25 36 Noroxycodone, Ur Not Detected ng/mL Cutoff: 25 37 Oxymorphone, Ur Not Detected ng/mL Cutoff: 25 38 Esoawyhljxz-6-thnx-glucuronide Not Detected ng/mL 39 Noroxymorphone, Ur Not Detected ng/mL Cutoff: 25 40 Fentanyl, Ur Not Detected ng/mL Cutoff: 2 41 Norfentanyl, Ur Not Detected ng/mL Cutoff: 2 42 Meperidine, Ur Not Detected ng/mL Cutoff: 25 43 Normeperidine, Ur Not Detected ng/mL Cutoff: 25 44 Naloxone, Ur Not Detected ng/mL Cutoff: 25 45 Tpvimxpa-7-kxto-glucuronide, U Not Detected ng/mL 46 Methadone, Ur Not Detected ng/mL Cutoff: 25 47 Eddp, Ur Not Detected ng/mL Cutoff: 25 48 Propoxyphene, Ur Not Detected ng/mL Cutoff: 25 49 Norpropoxyphene, Ur Not Detected ng/mL Cutoff: 25 50 Tramadol, Ur Not Detected ng/mL Cutoff: 25 51 O-desmethyltramadol, Ur Not Detected ng/mL Cutoff: 25 52 Tapentadol, Ur Not Detected ng/mL Cutoff: 25 53 N-desmethyltapentadol, Ur Not Detected ng/mL Cutoff: 50 54 Mbvgeoqvid-oler-rsdbwcllbfa, U Not Detected ng/mL 55 Buprenorphine, Ur Not Detected ng/mL Cutoff: 5 56 Norbuprenorphine, Ur Not Detected ng/mL Cutoff: 5 57 Norbuprenorphine glucuronide Not Detected ng/mL Cutoff: 20 58 Opioid Interpretation See Comment 59 Urinalysis Profile 02/07/2017 [facility] Urine Color Yellow N [address] [place] [address] [phone] Urine Appearance Clear N Urine Specific [place] 1.026 N 1.010-1.030 Urine pH 7.0 N 5-9 Urine Urobilinogen Negative N Negative Urine Ketones Trace Abnormal Negative Urine Protein 2+(100 mg/dL) Abnormal Negative Urine Leukocytes Trace Abnormal Negative Urine Blood Negative N Negative * * Abnormal Negative 60 Urine Nitrite Negative N Negative Urine Bilirubin Negative N Negative Urine Glucose Negative N Negative Urine White Blood Cell Trace(0-5/hpf) N Absent Urine Red Blood Cell 1+(3-5/hpf) Abnormal Absent Urine Bacteria Absent N Absent Urine Squamous Epithelial Cell Present Abnormal Absent Urine Drug 02/07/2017 [facility] Amphetamine Ur None Detected N None Detect SCR ED & [address] [place] [address] [phone] Barbiturates Urine Screen None Detected N None Detect Benzodiazepine Urine Screen None Detected N None Detect Urine Cannabinoids Screen None Detected N None Detect Urine Cocaine Screen None Detected N None Detect Urine Opiates Screen None Detected N None Detect Urine Phencyclidine Screen None Detected N None Detect 61 CBC Auto Diff 02/07/2017 [facility] White Blood 8.4 10^3/uL N 3.5-10.[address] [place] [address] [phone] Red Blood Count 4.35 10^6/uL N 4.0-5.4 [...] Cells % 0.1 N Laboratory test 02/07/2017 [facility] HCG < 0.60 N [address] mIU/[place] [address] [phone] Comp Metabolic 02/07/2017 [facility] Sodium 136 mmol/L N 133- [address] 5 [place] [address] [phone] Potassium 3.5 mmol/L N 3.5-5.0 Chloride 106 [...] 104.5 N >60 Egfr 134.4 N >60 63 Laboratory test 02/07/2017 [facility] Acetaminophen < 15 g/mL N [address] [place] [address] [phone] Alcohol < 10 mg/dL N <10 Salicylate < 2.50 mg/dL N <30 TSH (Thyroid Stim Horm) 0.44 mcIU/mL N 0.34-5.60 Urine Culture And 02/07/2017 [facility] Urine Culture SEE RESULT [address] [place] [address] [phone] Urinalysis Profile 01/30/2017 [facility] Urine Color Yellow N [address] [place] [address] [phone] Urine Appearance Cloudy N Urine Specific [place] 1.025 N 1.010-1.030 Urine pH 5.0 N 5-9 Urine Urobilinogen Negative N Negative Urine Ketones 1+ Abnormal Negative Urine Protein 1+(30 mg/dL) Abnormal Negative Urine Leukocytes 1+ Abnormal Negative Urine Blood Negative N Negative * * Abnormal Negative 66 Urine Nitrite Negative N Negative Urine Bilirubin Negative N Negative Urine Glucose Negative N Negative Urine White Blood Cell 2+(11-20/hpf) Abnormal Absent Urine Red Blood Cell Absent N Absent Urine Bacteria Absent N Absent Urine Squamous Epithelial Cell Present Abnormal Absent CBC Auto Diff 01/30/2017 [facility] White Blood 7.3 10^3/uL N 3.5-10.[address] [place] [address] [phone] Red Blood Count 4.36 10^6/uL N 4.0-5.4 [...] Cells % 0 N Urine Drug 01/30/2017 [facility] Amphetamine Ur None Detected N None Detect SCR ED & [address] [place] [address] [phone] Barbiturates Urine Screen None Detected N None Detect Benzodiazepine Urine Screen None Detected N None Detect Urine Cannabinoids Screen None Detected N None Detect Urine Cocaine Screen None Detected N None Detect Urine Opiates Screen None Detected N None Detect Urine Phencyclidine Screen None Detected N None Detect 67 Comp Metabolic Panel 01/30/2017 [facility] Sodium 136 mmol/L N 133-[address] [place] [address] [phone] Potassium 3.4 mmol/L Low 3.5-5.0 Chloride 104 [...] 88.1 N >60 Egfr 113.3 N >60 68 Laboratory test 01/30/2017 [facility] Acetaminophen < 15 g/mL N [address] [place] [address] [phone] Alcohol < 10 mg/dL N <10 Salicylate < 2.50 mg/dL N <30 TSH (Thyroid Stim Horm) 0.45 mcIU/mL N 0.34-5.60 HCG < 0.60 mIU/mL N 70 Urine Culture And 01/30/2017 [facility] Urine SEE RESULT [address] [place] [address] [phone] Laboratory test 01/14/2017 [facility] Poc Negative N Negative [address] , [place] [address] Urine [phone] Poc Urinalysis 01/14/2017 [facility] Poc Negative N Negative [address] Glucose, [place] [address] Urine [phone] Poc Bilirubin, Urine Negative N Negative Poc Ketone, Urine Negative N Negative Poc Specific [place], Urine 1.025 N 1.010-1.030 Poc Blood, Urine 3+ Abnormal Negative Poc pH, Urine 6.5 N 5-9 Poc Protein, Urine Negative N Negative Poc Urobilinogen, Urine 0.2 N Negative Poc Nitrite, Urine Negative N Negative Poc Leukocytes, Urine Negative N Negative Poc Color, Urine Brown N Poc Clarity, Urine Cloudy N 73 Laboratory test 08/22/2016 [facility] Gardnerella/Yeast: SEE RESULT [address] [place] [address] [phone] CBC Auto Diff 08/22/2016 [facility] White Blood Count 5.8 N 3.5- [address] 10^3/uL 10.8 [place] [address] [phone] Red Blood Count 4.69 10^6/uL N 4.0-5.4 [...] Cells % 0.1 N Urinalysis Profile 08/22/2016 [facility] Urine Color Yellow N [address] [place] [address] [phone] Urine Appearance Cloudy N Urine Specific [place] 1.031 High 1.010-1.030 Urine pH 6.0 N [...] Cell Present Abnormal Absent Urine Drug 08/22/2016 [facility] Amphetamine Ur None Detected N None Detect SCR ED & [address] [place] [address] [phone] Barbiturates Urine Screen None Detected N None Detect Benzodiazepine Urine Screen None Detected N None Detect Urine Cannabinoids Screen None Detected N None Detect Urine Cocaine Screen None Detected N None Detect Urine Opiates Screen None Detected N None Detect Urine Phencyclidine Screen None Detected N None Detect 75 Comp Metabolic Panel 08/22/2016 [facility] Sodium 133 mmol/L N 133-[address] [place] [address] [phone] Potassium 3.9 mmol/L N 3.5-5.0 Chloride 102 [...] 87.6 N >60 Egfr 112.7 N >60 76 Laboratory test 08/22/2016 [facility] HCG < 0.60 mIU/ mL N [address] [place] [address] [phone] Acetaminophen < 15 g/mL N 78 Alcohol < 10 mg/dL N <10 Salicylate < 2.50 mg/dL N <30 TSH (Thyroid Stim Horm) 0.63 mcIU/mL N 0.34-5.60 Rapid HIV Nonreactive N Nonreactive Syphillis Igg W/Reflex RPR Nonreactive N Nonreactive 79 Hepatitis 08/22/2016 [facility] Hepatitis B Nonreactive N Nonreactive Acute Panel [address] [place] [address] Antigen [phone] Hepatitis B Core IgM Nonreactive N Nonreactive Hepatitis A AB IgM Nonreactive N Nonreactive Hepatitis C Antibody Nonreactive N Nonreactive Urine Culture 08/22/2016 [facility] Urine SEE RESULT [address] Culture [place] [address] [phone] Urine Drug SCR 08/04/2016 [facility] Amphetamine Presumptive Abnormal None 81 ED & Pain [address] Ur Screen Posi <[place] [address] NOTE> [phone] Barbiturates Urine Screen None Detected N None Detect Benzodiazepine Urine Screen None Detected N None Detect Urine Cannabinoids Screen None Detected N None Detect Urine Cocaine Screen None Detected N None Detect Urine Opiates Screen None Detected N None Detect Urine Phencyclidine Screen None Detected N None Detect 82 CBC Auto Diff 08/04/2016 [facility] White Blood 8.1 10^3/uL N 3.5-10.[address] [place] [address] [phone] Red Blood Count 4.15 10^6/uL N 4.0-5.4 [...] Nucleated Red Blood Cells % 0 N Urinalysis Profile 08/04/2016 [facility] Urine Color Yellow N [address] [place] [address] [phone] Urine Appearance Cloudy N Urine Specific [place] 1.029 N 1.010-1.030 Urine pH 5.0 N [...] Urine Squamous Epithelial Cell Present Abnormal Absent Comp Metabolic Panel 08/04/2016 [facility] Sodium 135 mmol/L N 133-145 [address] [place] [address] [phone] Potassium 3.8 mmol/L N 3.5-5.0 Chloride 104 [...] 82.9 N >60 Egfr 106.6 N >60 83 Laboratory test 08/04/2016 [facility] HCG < 0.60 mIU/ mL N 84 finding [address] [place] [address] [phone] Acetaminophen < 15 g/mL N 85 Alcohol < 10 mg/dL N <10 Salicylate < 2.50 mg/dL N <30 TSH (Thyroid Stim Horm) 1.63 mcIU/mL N 0.34-5.60 Laboratory test 06/25/2016 [facility] Ferritin < 10.0 ng/mL Low 11-307 86 finding [address] [place] [address] [phone] Vitamin B12 285 pg/mL N 180-914 87 Iron & Iron Binding 06/25/2016 [facility] Iron 37 g/dL Low 50-212 Capacity [address] [place] [address] [phone] Unsaturated Iron Binding 484 g/dL N Total Iron Binding Capacity 521 g/dL High 250-450 % Iron Saturation 7 % Low 15-55 CBC Auto Diff 06/25/2016 [facility] White Blood 8.2 10^3/uL N 3.5-10.[address] [place] [address] [phone] Red Blood Count 4.54 10^6/uL N 4.0-5.4 [...] Nucleated Red Blood Cells % 0 N Basic Metabolic Panel 05/31/2016 [facility] Sodium 136 mmol/L N 133-[address] [place] [address] [phone] Potassium 4.2 mmol/L N 3.5-5.0 Chloride 105 mmol/L N 101-111 Co2 Carbon Dioxide 23 mmol/L N 22-32 Anion Gap 8 mmol/L N 2-11 Glucose 78 mg/dL N 70-100 Blood Urea Nitrogen 7 mg/dL N 6-24 Creatinine 0.77 mg/dL N 0.51-0.95 BUN/Creatinine Ratio 9.1 N 8-20 Calcium 10.0 mg/dL N 8.6-10.3 Egfr Non- 92.9 N >60 Egfr 119.5 N >60 88 Laboratory test 05/31/2016 [facility] TSH (Thyroid 0.55 mcIU/mL N 0.34-5.60 [address] Stim Horm) [place] [address] [phone] CBC Auto Diff 05/31/2016 [facility] White Blood 6.2 10^3/uL N 3.5-10.[address] [place] [address] [phone] Red Blood Count 4.46 10^6/uL N 4.0-5.4 [...] Red Blood Cells % 0.2 N 1 [place] BY [id number] THAT IS WAS [id number] COLLECTION TIME, NOT 7862 [id number] 2 The urine specimen was tested at the listed cutoffs: Drug class test level (ng/mL) Amphetamines 500 Barbiturates 200 Benzodiazepine metabolites 200 Cocaine metabolites 150 Cannabinoids 50 Opiates 300 Pcp 25 Specimen was received without chain of custody. Results should be used for medical purposes only. 3 Because ethnic data is not always readily [...] 15-29 5 Kidney failure <15 (or dialysis) 4 <5.0 Negative 5.0 - 25.0 Indeterminate (Repeat testing recommended after 72 hours) >25.0 Positive Perimenopausal women can display HCG levels of up to 20 mIU/mL 5 Therapeutic concentration: <50 ug/mL Toxic concentration: >120 ug/mL 6 SEE RESULT BELOW Name: KIERSTENBENJAMIN : [address]: Sadiq Reyes MD Acct: [id number] Unit: [id number] AGE: 27 Location: ED Re10/23/18 SEX: F Status: DEP ER SPEC: [id number] OLVIN: 10/23/18-[address] [facility] [address]: Sadiq Reyes MD REQ: [id number] RECD: 10/23/18 STATUS: PAULINO MENDOZA DR: Fam Whitman III, MD _ SOURCE: URINE SPDESC: ORDERED: Urine Culture Procedure Result Reported Site Urine Culture Final 10/25/18- 939 ML No Growth (<1,000 CFU/mL) * ML - Main Lab . END OF REPORT DEPARTMENT OF PATHOLOGY, [address] [place] [address] Kvng Cole M.D. Director [facility] # [id number] Normal Range 180 to 914 Indeterminate Range 145 to 180 Deficient Range <145 8 Desirable: <150 Borderline High: 150-199 High: 200-499 Very High: >500 9 Desirable: <200 Borderline High: 200-239 High: >239 10 Low: <40 Desirable: 40-60 High: >60 11 Desirable: <100 Near Optimal: 100-129 Borderline High: 130-159 High: 160-189 Very High: >189 12 Because ethnic data is not always readily [...] 15-29 5 Kidney failure <15 (or dialysis) 13 [id number] Would you like to order Trichomonas Vaginalis RNA testing? Y 14 SEE RESULT BELOW Name: BENJAMIN ROLAND : [address]: Tom Franco MD Acct: [id number] Unit: [id number] AGE: 27 Location: [facility] Re06/26/18 SEX: F Status: DEP ER SPEC: [id number] OLVIN: 06/26/18-[address]: Sheyla YOUNG REQ: [id number] RECD: 06/27/18 STATUS: COMP KELLY DR: Fam Franco MD _ SOURCE: VAGINAL SPDESC: ORDERED: Jac,Yeast DNA COMMENTS: [id number] Would you like to order Trichomonas Vaginalis [...] . END OF REPORT DEPARTMENT OF PATHOLOGY, [address] [place] [address] Kvng Cole M.D. Director [facility] # [id number] 15 [id number] GC/Chlamydia Source?: Endocervical Trichomonas Source: Endocervical 16 [id number] 17 SEE RESULT BELOW Name: BENJAMIN ROLAND : [address]: Tom Franco MD Acct: [id number] Unit: [id number] AGE: 27 Location: [facility] Re06/26/18 SEX: F Status: DEP ER SPEC: [id number] OLVIN: 06/26/[address] [facility] [address]: Sheyla YOUNG REQ: [id number] RECD: 06/27/18-3 STATUS: PALUINO MENDOZA DR: Fam Franco MD _ SOURCE: URINE SPDESC: ORDERED: Urine Culture COMMENTS: [id number] Procedure Result Reported Site Urine Culture Final 06/28/18- 1113 ML No Growth (<1,000 CFU/mL) * ML - Main Lab . END OF REPORT DEPARTMENT OF PATHOLOGY, [address] [place] [address] Kvng Cole M.D. Director [facility] # [id number] 18 Toppiece Chopper: [id number] If is still suspected, please repeat test after 48 to 72 hours. 19 Toppiece Chopper: [id number] 20 REFERENCE VALUE Cutoff: 500 21 REFERENCE VALUE Cutoff: 200 22 REFERENCE VALUE Cutoff: 100 23 REFERENCE VALUE Cutoff: 150 24 ADDITIONAL INFORMATION This report is intended for use in clinical monitoring or management of patients. It is not intended for use in employment-related testing. 25 REFERENCE VALUE Cutoff: 200 mg/L 26 Tylenol 3 27 Metabolite of codeine REFERENCE VALUE Cutoff: 100 28 Valerie Phelan, MS Contin; Also a minor metabolite (10%) of codeine and can be seen in low concentrations (<2,000 ng/mL) with poppy seed ingestion. 29 Metabolite of morphine REFERENCE VALUE Cutoff: 100 30 Metabolite of heroin 31 Lortab, [place], Vicodin; Also a very minor metabolite of codeine and impurity (<1%) of oxycodone. 32 Metabolite of hydrocodone 33 Metabolite of hydrocodone 34 Dilaudid, Exalgo; Also a metabolite of hydrocodone and a minor (<5%) metabolite of morphine. 35 Metabolite of hydromorphone REFERENCE VALUE Cutoff: 100 36 Endocet, Percocet, Oxycontin 37 Metabolite of oxycodone 38 Numorphan, Opana; Also a metabolite of oxycodone. 39 Metabolite of oxymorphone REFERENCE VALUE Cutoff: 100 40 Metabolite of oxymorphone 41 Actiq, Duragesic, Fentora 42 Metabolite of fentanyl 43 Demerol 44 Metabolite of meperidine 45 Narcan 46 Metabolite of naloxone REFERENCE VALUE Cutoff: 100 47 Dolophine 48 Metabolite of methadone 49 Darvon, Darvocet 50 Metabolite of propoxyphene 51 Tradol, Ultram, Ultracet 52 Metabolite of tramadol 53 Nucynta 54 Metabolite of tapentadol 55 Metabolite of tapentadol REFERENCE VALUE Cutoff: 100 56 Buprenex, Suboxone 57 Metabolite of buprenorphine 58 Metabolite of buprenorphine 59 No opioids were detected. The absence of expected drug(s) and/or drug metabolite(s) may indicate non-compliance, altered pharmacokinetics, inappropriate timing of specimen collection relative to drug administration, diluted/adulterated urine, or limitations of testing. ADDITIONAL INFORMATION This test was developed and its performance characteristics determined by [facility] in a manner consistent with CLIA requirements. This test has not been cleared or approved by the U.S. Food and Drug Administration. Test Performed by: [facility] [address] [place] [address] 60 *Ascorbic acid is present which may interfere with detection of blood. 61 The urine specimen was tested at the listed cutoffs: Drug class test level (ng/mL) Amphetamines 500 Barbiturates 200 Benzodiazepine metabolites 200 Cocaine metabolites 150 Cannabinoids 50 Opiates 300 Pcp 25 Specimen was received without chain of custody. Results should be used for medical purposes only. 62 <5.0 Negative 5.0 - 25.0 Indeterminate (Repeat testing recommended after 72 hours) >25.0 Positive Perimenopausal women can display HCG levels of up to 20 mIU/mL 63 Because ethnic data is not always readily [...] 15-29 5 Kidney failure <15 (or dialysis) 64 Therapeutic concentration: <50 ug/mL Toxic concentration: >120 ug/mL 65 SEE RESULT BELOW Name: BENJAMIN ROLAND : [address]: Tom Franco MD Acct: [id number] Unit: [id number] AGE: 26 Location: ED Re02/07/17 SEX: F Status: DEP ER SPEC: [id number] OLVIN: 02/07/17-[address] [facility] [address]: Tom Franco MD REQ: [id number] RECD: 02/07/17 STATUS: PAULINO MENDOZA DR: Fam Whitman III, MD _ SOURCE: URINE [facility]: ORDERED: Urine Culture Procedure Result Reported Site Urine Culture Final 02/08/17- 1222 ML No Growth (<1,000 CFU/mL) * ML - MAIN LAB ([facility]) . END OF REPORT * ML=Testing performed at Main Lab DEPARTMENT OF PATHOLOGY, [address] [place] [address] Kvng Cole M.D. Director [facility] # [id number] 66 *Ascorbic acid is present which may interfere with detection of blood. 67 The urine specimen was tested at the listed cutoffs: Drug class test level (ng/mL) Amphetamines 500 Barbiturates 200 Benzodiazepine metabolites 200 Cocaine metabolites 150 Cannabinoids 50 Opiates 300 Pcp 25 Specimen was received without chain of custody. Results should be used for medical purposes only. 68 Because ethnic data is not always readily [...] 15-29 5 Kidney failure <15 (or dialysis) 69 Therapeutic concentration: <50 ug/mL Toxic concentration: >120 ug/mL 70 <5.0 Negative 5.0 - 25.0 Indeterminate (Repeat testing recommended after 72 hours) >25.0 Positive Perimenopausal women can display HCG levels of up to 20 mIU/mL 71 SEE RESULT BELOW Name: BENJAMIN ROLAND : [address]: Fam Fernandez MD Acct: [id number] Unit: [id number] AGE: 26 Location: ED Re01/30/17 SEX: F Status: REG ER SPEC: [id number] OLVIN: 01/30/17-[address]: Dorothy YOUNG REQ: [id number] RECD: 01/30/17 STATUS: PAULNIO MENDOZA DR: [facility] Fam Whitman III, MD _ SOURCE: URINE SPDES: ORDERED: Urine Culture Procedure Result Reported Site Urine Culture Final 01/31/17- 1434 ML No Growth (<1,000 CFU/mL) * ML - MAIN LAB ([facility]) . END OF REPORT * ML=Testing performed at Main Lab DEPARTMENT OF PATHOLOGY, [address] [place] [address] Kvng Cole M.D. Director [facility] # [id number] 72 Toppiece Chopper: [id number] If is still suspected, please repeat test after 48 to 72 hours. 73 Toppiece Chopper: [id number] 74 SEE RESULT BELOW Name: BENJAMIN ROLAND : [address]: Kavon Saldivar MD Acct: [id number] Unit: [id number] AGE: 25 Location: ED Re08/22/16 SEX: F Status: REG ER SPEC: [id number] OLVIN: 08/22/16-[address] [facility] [address]: Catherine YOUNG REQ: [id number] RECD: 08/22/16-125 STATUS: PAULINO MENDOAZ DR: Kavon Whitman III, MD _ SOURCE: [...] or failure. Trichomonas: Vaginal DNA Probe Final 08/22/161458 ML Organism 1 Negative Trichomonas CONTINUED ON NEXT PAGE * ML=Testing performed at Main Lab DEPARTMENT OF PATHOLOGY, [address] [place] [address] Kvng Cole M.D. Director [facility] # [id number] Patient: BENJAMIN ROLAND [id number] (Continued) Specimen: [id number] Collected: 08/22/16 Received: 08/22/16-757 (Continued) Procedure Result Reported Site Trichomonas: Vaginal DNA Probe Final (continued) 08/22/161458 The presence or absence of T. vaginalis cannot be used as a test for therapeutic success or failure. * ML - MAIN LAB ([facility]) . END OF REPORT * ML=Testing performed at Main Lab DEPARTMENT OF PATHOLOGY, [address] [place] [address] Kvng Cole M.D. Director [facility] # [id number] 75 The urine specimen was tested at the listed cutoffs: Drug class test level (ng/mL) Amphetamines 500 Barbiturates 200 Benzodiazepine metabolites 200 Cocaine metabolites 150 Cannabinoids 50 Opiates 300 Pcp 25 Specimen was received without chain of custody. Results should be used for medical purposes only. 76 Because ethnic data is not always [...] 5 Kidney failure <15 (or dialysis) 77 <5.0 Negative 5.0 - 25.0 Indeterminate (Repeat testing recommended after 72 hours) >25.0 Positive Perimenopausal women can display HCG levels of up to 20 mIU/mL 78 Therapeutic concentration: <50 ug/mL Toxic concentration: >120 ug/mL 79 Warning: A positive result is not useful for establishing a diagnosis of syphilis. In most situations, such a result may reflect a prior treated infection; a negative result can exclude a diagnosis of syphilis except for incubating or early primary disease. 80 SEE RESULT BELOW Name: BENJAMIN ROLAND : [address]: Evaristo Anand MD Acct: [id number] Unit: [id number] AGE: 25 Location: [address] Re08/22/16 SEX: F Status: ADM IN SPEC: [id number] OLVIN: 08/22/16-[address]: Catherine YOUNG REQ: [id number] RECD: 08/22/160879 STATUS: PAULINO MENDOZA DR: Kavon Whitman III, MD _ SOURCE: URINE [facility]: ORDERED: Urine Culture Procedure Result Reported Site Urine Culture Final 08/23/16- 1415 ML No Growth (<1,000 CFU/mL) * ML - MAIN LAB ([facility]) . END OF REPORT * ML=Testing performed at Main Lab DEPARTMENT OF PATHOLOGY, [address] [place] [address] Kvng Cole M.D. Director [facility] # [id number] 81 Presumptive Positive Presumptive positive results are unconfirmed. 82 The urine specimen was tested at the listed cutoffs: Drug class test level (ng/mL) Amphetamines 500 Barbiturates 200 Benzodiazepine metabolites 200 Cocaine metabolites 150 Cannabinoids 50 Opiates 300 Pcp 25 Specimen was received without chain of custody. Results should be used for medical purposes only. 83 Because ethnic data is not always readily [...] 15-29 5 Kidney failure <15 (or dialysis) 84 <5.0 Negative 5.0 - 25.0 Indeterminate (Repeat testing recommended after 72 hours) >25.0 Positive Perimenopausal women can display HCG levels of up to 20 mIU/mL 85 Therapeutic concentration: <50 ug/mL Toxic concentration: >120 ug/mL 86 due July 16 Normal Range 180 to 914 Indeterminate Range 145 to 180 Deficient Range <145 88 Because ethnic data is not always readily [...] 15-29 5 Kidney failure <15 (or dialysis) 89 FASTING 10 HOUR Procedures Date Code Description Status 08/26/2018 73015 Nerve Conduction 07-08 Studies Completed 08/26/2018 15028 Needle Electromyography Each Extremity W/Related Completed Paraspinal Areas 08/22/2018 96911 EKG Tracing & Interpretation Completed 06/15/2016 47656 EKG Tracing & Interpretation Completed Encounters Type Date Location Provider Dx Diagnosis Office Visit 10/20/2018 [facility] Geraldo Rosado F31.9 Bipolar disorder, 10:00a Radha Whitman M.D. unspecified [place] kent Office Visit 09/29/2018 [facility] Internal Fma Rosado R19.4 Change in bowel 10:00a Radha Whitman M.D. habit [place] Office Visit 09/10/2018 [facility] Internal Fam Rosado R47.02 Dysphasia 11:40a Dariel [place] F41.9 Anxiety disorder, unspecified Office 09/10/2018 [facility] G43.009 Migraine w/o Visit 10:00a Clinic MD Lindsay aura, not intractable, w/o status migrainosus G56.02 Carpal tunnel syndrome, left upper limb G25.0 Essential tremor R20.0 Anesthesia of skin Office Visit 08/22/2018 10:00a [facility] Geraldo Rosado R07.89 Other chest Radha Whitman M.D. pain [facility] Z13.220 Encounter for screening for lipoid disorders [...] forms of tremor Office Visit 03/06/2018 9:20a [facility] Internal Jacob Carreno NP M54.2 Cervicalgia Medicine Office Visit 01/08/2017 10:20a [facility] Internal Fam Rosado R51 Headache Radha Whitman M.D. G47.00 Insomnia, unspecified F33.2 Major depressv disorder, recurrent severe w/o psych features Office Visit 07/23/2016 11:40a [facility] Internal Irvin [place], D50.8 Other iron Medicine - [place] [employer] deficiency Rd anemias R79.0 Abnormal level of blood mineral Office Visit 07/11/2016 11:20a [facility] Internal Fam Rosado S61.001D Unsp open wound of Medicine Delmi Whitman M.D. right thumb w/o [place] damage to nail, subs Office Visit 06/20/2016 10:30a [facility] Nursing Monica Z11.1 Encounter for Home [facility], screening for N.P. respiratory tuberculosis Z02.1 Encounter for pre-employment examination Office Visit 06/15/2016 9:40a [facility] Internal Irvin [place], G44.201 Tension- type Medicine - [employer] SERVICES SPECIALIST headache, [place] [address] unspecified, intractable R07.9 Chest pain, unspecified F33.2 Major depressv disorder, recurrent severe w/o psych features F10.188 Alcohol abuse with other alcohol-induced disorder D64.9 Anemia, unspecified Z72.0 Tobacco use G44.209 Tension-type headache, unspecified, not intractable Office Visit 05/18/2016 10:00a [facility] Internal Irvin [place], Z00.00 Encntr for Medicine - [place] [employer] SPECIALIST general adult Rd medical exam w/o abnormal findings F33.2 Major depressv disorder, 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 at [facility] Internal Qozmhbbc63/18/2019 - Alicia Borden, MDR22.30 Localized swelling, mass and lump, unspecified upper limbNew Labs:Food Allergy Panel, Ordered: Anca Panel For Vasculitis, Ordered: 12/04/18R10.84 Generalized abdominal painNew Medication:Ranitidine 150 Maximum Strength 150 mg - one by mouth twice a day, as needed for heartburn and abdominal painD64.9 Anemia, unspecifiedNew Labs:Iron & Iron Binding Capacity, Ordered: 12/04/18Hemoglobin Electropheresis, Ordered: 12/04/18
--- OUTSIDE RECORDS SUMMARY | 2018-12-09 19:02 | XMS REPORT | Continuity of Care Document ---
:1990 External Reference #:[id number] Author Name Lena Oliver Care Team Providers Name Role Phone Fam Whitman III, MD Primary Care Physician Unavailable Payers Date Identification Numbers Payment Provider Subscriber Policy Number: [id number] Tommy Roland Group Number: [id number] [address] PayID: [id number] [place] [address] Expires: 2016 PayID: [id number] Cont: Jose Luis Jeong Benjamin Roland [address] [place] [address] Advance Directives Description No Information Available Problems Active Problems Provider Date Moderate depression Irvin Redding, [employer] Onset: 05/18/2016 Primary herpes simplex infection of lips Irvin Redding [employer] Onset: 05/18/2016 Tension-type headache Irvin Redding, [employer] Onset: 05/18/2016 Nondependent alcohol abuse, continuous Irvinyue Redding, [employer] Onset: 05/18/2016 Headache Aftab Montoya MD Onset: [...] 1 tablet with 30tabs M54.2 Jacob Carreno, [employer] 03/06/2018 - 500mg Tablets food by mouth 06/26/2018 twice a day for one week and then as needed. No Active Medications Unknown 06/15/2016 - 06/15/2016 Ferrous Sulfate 1 by mouth twice 60tabs D64.9 Irvin Redding, 06/15/2016 - a day [employer] 01/08/2017 325(65Fe) mg Tablets D50.8 Abreva apply topically to 2g B00.1 Irvin Redding, 05/18/2016 - 10% Cream blister 5 x's/day [employer] 05/23/2016 intil gone Tylenol Extra 2 tablets twice G44.201 Irvin Redding, 05/18/2016 - Strength daily as needed [employer] 06/15/2016 500mg for Culp Tablets Wellbutrin SR 1 tablet po in the 60tabs F33.2 Irvin Redding, 05/18/2016 - 150mg morning [employer] 06/15/2016 Tablets ER 12HR Loratadine 1 by [...] CPT Code Status Date Vaccine Lot # [id number] Given 06/15/2016 Tetanus And Diptheria (Td) For [...] Result H/L Range Note Urine Drug 10/23/2018 [facility] Amphetamine Ur None Detected None Detect 1 SCR ED & [address] [place] [address] [phone] Barbiturates Urine Screen None Detected None Detect Benzodiazepine Urine Screen None Detected None Detect Urine Cannabinoids Screen None Detected None Detect Urine Cocaine Screen None Detected None Detect Urine Opiates Screen None Detected None Detect Urine Phencyclidine Screen None Detected None Detect 2 Comp Metabolic Panel 10/23/2018 [facility] Sodium 139 mmol/L N 135-[address] [place] [address] [phone] Potassium 3.3 mmol/L Low 3.5-5.0 Chloride 107 [...] Egfr 107.3 >60 3 Laboratory test 10/23/2018 [facility] HCG 1.33 mIU/mL [address] [place] [address] [phone] Acetaminophen < 15 g/mL 5 Alcohol < 10 mg/dL N <10 Salicylate < 2.50 mg/dL <30 TSH (Thyroid Stim Horm) 0.50 mcIU/mL N 0.34-5.60 CBC Auto Diff 10/23/2018 [facility] White Blood 7.0 10^3/uL N 3.5-10.[address] [place] [address] [phone] Red Blood Count 4.07 10^6/uL N 4.00-5.40 [...] Cells % 0 Urine Culture And 10/23/2018 [facility] Urine Culture SEE RESULT [address] [place] [address] [phone] CBC Auto Diff 10/22/2018 [facility] White Blood 7.8 10^3/uL N 3.5-[address] Count .8 [place] [address] [phone] Red Blood Count 4.12 10^6/uL N 4.00-5.40 Hemoglobin 10.0 g/dL Low 12.0-16.0 Hematocrit 32 % Low 35-47 Mean Corpuscular Volume 78 fL Low 80-97 Mean Corpuscular Hemoglobin 24 pg Low 27-31 Mean Corpuscular HGB Conc 31 g/dL N 31-36 Red Cell Distribution Width 19 % High 10.5-15 Platelet Count 391 10^3/uL N 150-450 Mean Platelet Volume 7.3 fL Low 7.4-10.4 Manual Differential 10/22/2018 [facility] Neutrophil % 54 % [address] [place] [address] [phone] Lymphocytes % 36 % Monocytes % 7 % Eosinophils % 3 % Anisocytosis 1+ Abs Neutrophils 4.2 10^3/uL N 1.5-7.7 Abs Lymphocytes 2.8 10^3/uL N 1.0-4.8 Abs Monocytes 0.5 10^3/uL N 0-0.8 Abs Eosinophils 0.2 10^3/uL N 0-0.6 Laboratory test 10/22/2018 [facility] Vitamin D 9.0 ng/mL Low 20-[address] Total 25(Oh) [place] [address] [phone] TSH (Thyroid Stim Horm) 0.34 mcIU/mL N 0.34-5.60 Vitamin B12 273 pg/mL N 180-914 7 Manual Differential 10/20/2018 [facility] Neutrophil % 60 % [address] [place] [address] [phone] Lymphocytes % 27 % Monocytes % 12 % Eosinophils % 1 % Microcytosis 1+ Hypochromasia 1+ Abs Neutrophils 5.34 10^3/uL N 1.5-7.7 Abs Lymphocytes 2.4 10^3/uL N 1.0-4.8 Abs Monocytes 1.06 10^3/uL High 0-0.8 Abs Eosinophils 0.08 10^3/uL N 0-0.6 CBC Auto Diff 10/20/2018 [facility] White Blood 8.9 10^3/uL N 3.5-10.[address] [place] [address] [phone] Red Blood Count 4.20 10^6/uL N 4.00-5.40 Hemoglobin 10.2 g/dL Low 12.0-16.0 Hematocrit 33 % Low 35-47 Mean Corpuscular Volume 78 fL Low 80-97 Mean Corpuscular Hemoglobin 24 pg Low 27-31 Mean Corpuscular HGB Conc 31 g/dL N 31-36 Red Cell Distribution Width 18 % High 10.5-15 Platelet Count 407 10^3/uL N 150-450 Mean Platelet Volume 7.5 fL N 7.4-10.4 Lipid Profile 08/26/2018 [facility] Triglycerides 44 mg/dL 8 (Trig/Chol/HDL) [address] [place] [address] [phone] Cholesterol 145 mg/dL 9 HDL Cholesterol 48.8 mg/dL 10 LDL Cholesterol 87 mg/dL 11 Basic Metabolic Panel 08/26/2018 [facility] Sodium 139 mmol/L N 135-[address] [place] [address] [phone] Potassium 3.9 mmol/L N 3.5-5.0 Chloride 106 mmol/L N 101-111 Co2 Carbon Dioxide 27 mmol/L N 22-32 Anion Gap 6 mmol/L N 2-11 Glucose 84 mg/dL N 70-100 Blood Urea Nitrogen 8 mg/dL N 6-24 Creatinine 0.80 mg/dL N 0.51-0.95 BUN/Creatinine Ratio 10.0 N 8-20 Calcium 10.4 mg/dL High 8.6-10.3 Egfr Non- 87.4 >60 Egfr 105.8 >60 12 Laboratory test 06/27/2018 [facility] TSH (Thyroid 0.77 N 0.34 -5.[address] Stim Horm) mcIU/[place] [address] [phone] Laboratory test 06/26/2018 [facility] Gardnerella/ SEE RESULT 13, [address] Yeast: [place] [address] Vaginal Dna [phone] Trichomonas Vaginalis Rna Negative Negative 15 GC/Chlamydia 06/26/2018 [facility] Chlamydia Negative Negative Amplified Rna [address] [place] [address] [phone] Neisseria gonorrhoeae (GC) Rna Negative Negative Urine Culture And 06/26/2018 [facility] Urine SEE RESULT 16 , [address] [place] [address] [phone] Laboratory test 06/26/2018 [facility] Poc Negative Negative [address] , [place] [address] Urine [phone] Poc Urinalysis 06/26/2018 [facility] Poc Negative Negative [address] Glucose, [place] [address] Urine [phone] Poc Bilirubin, Urine 1+ Abnormal Negative Poc Ketone, Urine Trace Abnormal Negative Poc Specific [place], Urine >=1.030 N 1.010-1.030 Poc Blood, Urine Negative Negative Poc pH, Urine 6.0 N 5-9 Poc Protein, Urine Trace Abnormal Negative Poc Urobilinogen, Urine 1.0 Negative Poc Nitrite, Urine Negative Negative Poc Leukocytes, Urine Trace Abnormal Negative Poc Color, Urine Yellow Poc Clarity, Urine Clear 19 Drug Abuse 20 03/06/2018 [facility] Urine Amphetamine Negative ng/mL [address] [place] [address] [phone] Urine Barbiturates Negative ng/mL 21 Urine Benzodiazepines Negative ng/mL 22 Urine Cocaine Negative ng/mL 23 Urine Phencyclidine Negative ng/mL Cutoff: 25 Urine Tetrahydrocannabinol Negative ng/mL Cutoff: 50 24 Creatinine, Urine 345.0 mg/dL Specific [place] 1.021 pH 5.9 Oxidants Negative 25 Adulterants Comment Normal Codeine, Ur Not Detected ng/mL Cutoff: 25 26 Ylheekf-7-kezf-glucuronide, Ur Not Detected ng/mL 27 Morphine, Ur Not Detected ng/mL Cutoff: 25 28 Ecegubkf-0-xruj-glucuronide, U Not Detected ng/mL 29 6-monoacetylmorphine, Ur Not Detected ng/mL Cutoff: 25 30 Hydrocodone, Ur Not Detected ng/mL Cutoff: 25 31 Norhydrocodone, Ur Not Detected ng/mL Cutoff: 25 32 Dihydrocodeine, Ur Not Detected ng/mL Cutoff: 25 33 Hydromorphone, Ur Not Detected ng/mL Cutoff: 25 34 Ambzkhztjwduj9dhlvurmbjdaypih Not Detected ng/mL 35 Oxycodone, Ur Not Detected ng/mL Cutoff: 25 36 Noroxycodone, Ur Not Detected ng/mL Cutoff: 25 37 Oxymorphone, Ur Not Detected ng/mL Cutoff: 25 38 Ftyygdiymzz-6-qziu-glucuronide Not Detected ng/mL 39 Noroxymorphone, Ur Not Detected ng/mL Cutoff: 25 40 Fentanyl, Ur Not Detected ng/mL Cutoff: 2 41 Norfentanyl, Ur Not Detected ng/mL Cutoff: 2 42 Meperidine, Ur Not Detected ng/mL Cutoff: 25 43 Normeperidine, Ur Not Detected ng/mL Cutoff: 25 44 Naloxone, Ur Not Detected ng/mL Cutoff: 25 45 Nuebzdhs-0-elgq-glucuronide, U Not Detected ng/mL 46 Methadone, Ur [...] Ur Not Detected ng/mL Cutoff: 50 54 Ozovndjrwc-pihi-yvhamdyoycn, U Not Detected ng/mL 55 Buprenorphine, Ur Not Detected ng/mL Cutoff: 5 56 Norbuprenorphine, Ur Not Detected ng/mL Cutoff: 5 57 Norbuprenorphine glucuronide Not Detected ng/mL Cutoff: 20 58 Opioid Interpretation See Comment 59 Urinalysis Profile 02/07/2017 [facility] Urine Color Yellow N [address] [place] [address] [phone] Urine Appearance Clear N Urine Specific [place] 1.026 N 1.010-1.030 Urine pH 7.0 N [...] Cell Present Abnormal Absent Urine Drug 02/07/2017 [facility] Amphetamine Ur None Detected N None Detect SCR ED & [address] [place] [address] [phone] Barbiturates Urine Screen None Detected N None Detect Benzodiazepine Urine Screen None Detected N None Detect Urine Cannabinoids Screen None Detected N None Detect Urine Cocaine Screen None Detected N None Detect Urine Opiates Screen None Detected N None Detect Urine Phencyclidine Screen None Detected N None Detect 61 CBC Auto Diff 02/07/2017 [facility] White Blood 8.4 10^3/uL N 3.5-10.[address] [place] [address] [phone] Red Blood Count 4.35 10^6/uL N 4.0-5.4 [...] Cells % 0.1 N Laboratory test 02/07/2017 [facility] HCG < 0.60 N [address] mIU/[place] [address] [phone] Comp Metabolic 02/07/2017 [facility] Sodium 136 mmol/L N 133- [address] 5 [place] [address] [phone] Potassium 3.5 mmol/L N 3.5-5.0 Chloride 106 [...] 134.4 N >60 63 Laboratory test 02/07/2017 [facility] Acetaminophen < 15 g/mL N [address] [place] [address] [phone] Alcohol < 10 mg/dL N <10 Salicylate < 2.50 mg/dL N <30 TSH (Thyroid Stim Horm) 0.44 mcIU/mL N 0.34-5.60 Urine Culture And 02/07/2017 [facility] Urine Culture SEE RESULT [address] [place] [address] [phone] Urinalysis Profile 01/30/2017 [facility] Urine Color Yellow N [address] [place] [address] [phone] Urine Appearance Cloudy N Urine Specific [place] 1.025 N 1.010-1.030 Urine pH 5.0 N [...] Present Abnormal Absent CBC Auto Diff 01/30/2017 [facility] White Blood 7.3 10^3/uL N 3.5-10.[address] [place] [address] [phone] Red Blood Count 4.36 10^6/uL N 4.0-5.4 [...] Cells % 0 N Urine Drug 01/30/2017 [facility] Amphetamine Ur None Detected N None Detect SCR ED & [address] [place] [address] [phone] Barbiturates Urine Screen None Detected N None Detect Benzodiazepine Urine Screen None Detected N None Detect Urine Cannabinoids Screen None Detected N None Detect Urine Cocaine Screen None Detected N None Detect Urine Opiates Screen None Detected N None Detect Urine Phencyclidine Screen None Detected N None Detect 67 Comp Metabolic Panel 01/30/2017 [facility] Sodium 136 mmol/L N 133-[address] [place] [address] [phone] Potassium 3.4 mmol/L Low 3.5-5.0 Chloride 104 [...] 113.3 N >60 68 Laboratory test 01/30/2017 [facility] Acetaminophen < 15 g/mL N [address] [place] [address] [phone] Alcohol < 10 mg/dL N <10 Salicylate < 2.50 mg/dL N <30 TSH (Thyroid Stim Horm) 0.45 mcIU/mL N 0.34-5.60 HCG < 0.60 mIU/mL N 70 Urine Culture And 01/30/2017 [facility] Urine SEE RESULT [address] [place] [address] [phone] Laboratory test 01/14/2017 [facility] Poc Negative N Negative [address] , [place] [address] Urine [phone] Poc Urinalysis 01/14/2017 [facility] Poc Negative N Negative [address] Glucose, [place] [address] Urine [phone] Poc Bilirubin, Urine Negative N Negative Poc Ketone, Urine Negative N Negative Poc Specific [place], Urine 1.025 N 1.010-1.030 Poc Blood, Urine 3+ Abnormal Negative Poc pH, Urine 6.5 N 5-9 Poc Protein, Urine Negative N Negative Poc Urobilinogen, Urine 0.2 N Negative Poc Nitrite, Urine Negative N Negative Poc Leukocytes, Urine Negative N Negative Poc Color, Urine Brown N Poc Clarity, Urine Cloudy N 73 Laboratory test 08/22/2016 [facility] Gardnerella/Yeast: SEE RESULT [address] [place] [address] [phone] CBC Auto Diff 08/22/2016 [facility] White Blood Count 5.8 N 3.5- [address] 10^3/uL 10.8 [place] [address] [phone] Red Blood Count 4.69 10^6/uL N 4.0-5.4 [...] Cells % 0.1 N Urinalysis Profile 08/22/2016 [facility] Urine Color Yellow N [address] [place] [address] [phone] Urine Appearance Cloudy N Urine Specific [place] 1.031 High 1.010-1.030 Urine pH 6.0 N [...] Cell Present Abnormal Absent Urine Drug 08/22/2016 [facility] Amphetamine Ur None Detected N None Detect SCR ED & [address] [place] [address] [phone] Barbiturates Urine Screen None Detected N None Detect Benzodiazepine Urine Screen None Detected N None Detect Urine Cannabinoids Screen None Detected N None Detect Urine Cocaine Screen None Detected N None Detect Urine Opiates Screen None Detected N None Detect Urine Phencyclidine Screen None Detected N None Detect 75 Comp Metabolic Panel 08/22/2016 [facility] Sodium 133 mmol/L N 133-[address] [place] [address] [phone] Potassium 3.9 mmol/L N 3.5-5.0 Chloride 102 [...] 112.7 N >60 76 Laboratory test 08/22/2016 [facility] HCG < 0.60 mIU/ mL N [address] [place] [address] [phone] Acetaminophen < 15 g/mL N 78 Alcohol < 10 mg/dL N <10 Salicylate < 2.50 mg/dL N <30 TSH (Thyroid Stim Horm) 0.63 mcIU/mL N 0.34-5.60 Rapid HIV Nonreactive N Nonreactive Syphillis Igg W/Reflex RPR Nonreactive N Nonreactive 79 Hepatitis 08/22/2016 [facility] Hepatitis B Nonreactive N Nonreactive Acute Panel [address] [place] [address] Antigen [phone] Hepatitis B Core IgM Nonreactive N Nonreactive Hepatitis A AB IgM Nonreactive N Nonreactive Hepatitis C Antibody Nonreactive N Nonreactive Urine Culture 08/22/2016 [facility] Urine SEE RESULT [address] [place] [address] [phone] Urine Drug SCR 08/04/2016 [facility] Amphetamine Presumptive Abnormal None 81 ED & Pain [address] Ur Screen Posi <[place] [address] NOTE> [phone] Barbiturates Urine Screen None Detected N None Detect Benzodiazepine Urine Screen None Detected N None Detect Urine Cannabinoids Screen None Detected N None Detect Urine Cocaine Screen None Detected N None Detect Urine Opiates Screen None Detected N None Detect Urine Phencyclidine Screen None Detected N None Detect 82 CBC Auto Diff 08/04/2016 [facility] White Blood 8.1 10^3/uL N 3.5-10.[address] [place] [address] [phone] Red Blood Count 4.15 10^6/uL N 4.0-5.4 [...] Cells % 0 N Urinalysis Profile 08/04/2016 [facility] Urine Color Yellow N [address] [place] [address] [phone] Urine Appearance Cloudy N Urine Specific [place] 1.029 N 1.010-1.030 Urine pH 5.0 N [...] Present Abnormal Absent Comp Metabolic Panel 08/04/2016 [facility] Sodium 135 mmol/L N 133-145 [address] [place] [address] [phone] Potassium 3.8 mmol/L N 3.5-5.0 Chloride 104 [...] 106.6 N >60 83 Laboratory test 08/04/2016 [facility] HCG < 0.60 mIU/ mL N 84 finding [address] [place] [address] [phone] Acetaminophen < 15 g/mL N 85 Alcohol < 10 mg/dL N <10 Salicylate < 2.50 mg/dL N <30 TSH (Thyroid Stim Horm) 1.63 mcIU/mL N 0.34-5.60 Laboratory test 06/25/2016 [facility] Ferritin < 10.0 ng/mL Low 11-307 86 finding [address] [place] [address] [phone] Vitamin B12 285 pg/mL N 180-914 87 Iron & Iron Binding 06/25/2016 [facility] Iron 37 g/dL Low 50-212 Capacity [address] [place] [address] [phone] Unsaturated Iron Binding 484 g/dL N Total Iron Binding Capacity 521 g/dL High 250-450 % Iron Saturation 7 % Low 15-55 CBC Auto Diff 06/25/2016 [facility] White Blood 8.2 10^3/uL N 3.5-10.[address] [place] [address] [phone] Red Blood Count 4.54 10^6/uL N 4.0-5.4 [...] % 0 N Basic Metabolic Panel 05/31/2016 [facility] Sodium 136 mmol/L N 133-[address] [place] [address] [phone] Potassium 4.2 mmol/L N 3.5-5.0 Chloride 105 mmol/L N 101-111 Co2 Carbon Dioxide 23 mmol/L N 22-32 Anion Gap 8 mmol/L N 2-11 Glucose 78 mg/dL N 70-100 Blood Urea Nitrogen 7 mg/dL N 6-24 Creatinine 0.77 mg/dL N 0.51-0.95 BUN/Creatinine Ratio 9.1 N 8-20 Calcium 10.0 mg/dL N 8.6-10.3 Egfr Non- 92.9 N >60 Egfr 119.5 N >60 88 Laboratory test 05/31/2016 [facility] TSH (Thyroid 0.55 mcIU/mL N 0.34-5.60 [address] Stim Horm) [place] [address] [phone] CBC Auto Diff 05/31/2016 [facility] White Blood 6.2 10^3/uL N 3.5-10.[address] [place] [address] [phone] Red Blood Count 4.46 10^6/uL N 4.0-5.4 [...] Cells % 0.2 N 1 [place] BY [id number] THAT IS WAS 2242 COLLECTION TIME, NOT [id number] -[id number] 2 The urine specimen was tested at [...] [address]: Sadiq Reyes MD Acct: [id number] Unit: [id number] AGE: 27 Location: ED Re10/23/18 SEX: F Status: DEP ER SPEC: [id number] OLVIN: 10/23/18-[address] [facility] [address]: Sadiq Reyes MD REQ: [id number] RECD: 10/23/18 STATUS: PAULINO MENDOZA DR: Fam Whitman III, MD _ SOURCE: URINE SPDESC: ORDERED: Urine Culture Procedure Result Reported Site Urine Culture Final 10/25/18- 939 ML No Growth (<1,000 CFU/mL) * ML - Main Lab . END OF REPORT DEPARTMENT OF PATHOLOGY, [address] [place] [address] Kvng Cole M.D. Director [facility] # [id number] 7 Normal Range 180 to 914 Indeterminate [...] 5 Kidney failure <15 (or dialysis) 13 [id number] Would you like to order Trichomonas Vaginalis RNA testing? Y 14 SEE RESULT BELOW Name: BENJAMIN ROLAND : [address]: Tom Franco MD Acct: [id number] Unit: [id number] AGE: 27 Location: [facility] Re06/26/18 SEX: F Status: DEP ER SPEC: [id number] OLVIN: 06/26/18-[address]: Sheyla YOUNG REQ: [id number] RECD: 06/27/18 STATUS: COMP KELLY DR: Fam Franco MD _ SOURCE: VAGINAL SPDESC: ORDERED: Jac,Yeast DNA COMMENTS: [id number] Would you like to order Trichomonas Vaginalis [...] . END OF REPORT DEPARTMENT OF PATHOLOGY, [address] [place] [address] Kvng Cole M.D. Director [facility] # [id number] GC/Chlamydia Source?: Endocervical Trichomonas Source: Endocervical 16 [id number] 17 SEE RESULT BELOW Name: BENJAMIN ROLAND : [address]: Tom Franco MD Acct: [id number] Unit: [id number] AGE: 27 Location: [facility] Re06/26/18 SEX: F Status: DEP ER SPEC: [id number] OLVIN: 06/26/[address] [facility] [address]: Sheyla YOUNG REQ: [id number] RECD: 06/27/18-3 STATUS: PAULINO MENDOZA DR: Fam Franco MD _ SOURCE: URINE SPDESC: ORDERED: Urine Culture COMMENTS: [id number] Procedure Result Reported Site Urine Culture Final 06/28/18- 1113 ML No Growth (<1,000 CFU/mL) * ML - Main Lab . END OF REPORT DEPARTMENT OF PATHOLOGY, [address] [place] [address] Kvng Cole M.D. Director [facility] # [id number] 18 [employer]inerator Plant Supervisor: [id number] If is still suspected, please repeat test after 48 to 72 hours. 19 [employer]inerator Plant Supervisor: [id number] REFERENCE VALUE Cutoff: 500 21 REFERENCE [...] 100 30 Metabolite of heroin 31 Lortab, Byers, Vicodin; Also a very minor metabolite of [...] developed and its performance characteristics determined by [facility] in a manner consistent with CLIA requirements. This test has not been cleared or approved by the U.S. Food and Drug Administration. Test Performed by: [facility] [address] [place] [address] 60 *Ascorbic acid is present which may [...] [address]: Tom Franco MD Acct: [id number] Unit: [id number] AGE: 26 Location: ED Re02/07/17 SEX: F Status: DEP ER SPEC: [id number] OLVIN: 02/07/17-[address] [facility] [address]: Tom Franco MD REQ: [id number] RECD: 02/07/17 STATUS: PAULINO MENDOZA DR: Fam Whitman III, MD _ SOURCE: URINE [facility]: ORDERED: Urine Culture Procedure Result Reported Site Urine Culture Final 02/08/17- 1222 ML No Growth (<1,000 CFU/mL) * ML - MAIN LAB ([facility]) . END OF REPORT * ML=Testing performed at Main Lab DEPARTMENT OF PATHOLOGY, [address] [place] [address] Kvng Cole M.D. Director [facility] # [id number] 66 *Ascorbic acid is present which may [...] [address]: Fam Fernandez MD Acct: [id number] Unit: [id number] AGE: 26 Location: ED Re01/30/17 SEX: F Status: REG ER SPEC: [id number] OLVIN: 01/30/17-[address]: Dorothy YOUNG REQ: [id number] RECD: 01/30/17 STATUS: PAULINO MENDOZA DR: [facility] Fam Whitman III, MD _ SOURCE: URINE SPDES: ORDERED: Urine Culture Procedure Result Reported Site Urine Culture Final 01/31/17- 1434 ML No Growth (<1,000 CFU/mL) * ML - [facility] LAB ([facility]) . END OF REPORT * ML=Testing performed at Main Lab DEPARTMENT OF PATHOLOGY, [address] [place] [address] Kvng Cole M.D. Director [facility] # [id number] 72 Incinerator Plant Supervisor: [id number] If is still suspected, please repeat test after 48 to 72 hours. 73 [employer]inerator Plant Supervisor: [id number] 74 SEE RESULT BELOW Name: BENJAMIN ROLAND : [address]: Kavon Saldivar MD Acct: [id number] Unit: [id number] AGE: 25 Location: ED Re08/22/16 SEX: F Status: REG ER SPEC: [id number] OLVIN: 08/22/16-[address] [facility] [address]: Catherine YOUNG REQ: [id number] RECD: 08/22/16-125 STATUS: PAULINO MENDOZA DR: Kavon Whitman III, [...] performed at Main Lab DEPARTMENT OF PATHOLOGY, [address] [place] [address] Kvng Cole M.D. Director [facility] # [id number] Patient: BENJAMIN ROLAND [id number] (Continued) Specimen: [id number] Collected: 08/22/16 Received: 08/22/16-997 (Continued) Procedure Result Reported Site Trichomonas: Vaginal DNA Probe Final (continued) 08/22/161458 The presence or absence of T. vaginalis cannot be used as a test for therapeutic success or failure. * ML - MAIN LAB ([facility]) . END OF REPORT * ML=Testing performed at Main Lab DEPARTMENT OF PATHOLOGY, [address] [place] [address] Kvng Cole M.D. Director [facility] # [id number] 75 The urine specimen was tested at [...] [address]: Evaristo Anand MD Acct: [id number] Unit: [id number] AGE: 25 Location: [address] Re08/22/16 SEX: F Status: ADM IN SPEC: [id number] OLVIN: 08/22/16-[address]: Catherine YOUNG REQ: [id number] RECD: 08/22/162585 STATUS: PAULINO [place] DR: Kavon Whitman III, MD _ SOURCE: URINE [facility]: ORDERED: Urine Culture Procedure Result Reported Site Urine Culture Final 08/23/16- 1415 ML No Growth (<1,000 CFU/mL) * ML - MAIN LAB ([facility]) . END OF REPORT * ML=Testing performed at Main Lab DEPARTMENT OF PATHOLOGY, [address] [place] [address] Kvng Cole M.D. Director [facility] # [id number] Presumptive Positive Presumptive positive results are [...] HOUR Procedures Date Code Description Status 08/26/2018 13457 Nerve Conduction 07-08 Studies Completed 08/26/2018 26178 Needle Electromyography Each Extremity W/Related Completed Paraspinal Areas 08/22/2018 65829 EKG Tracing & Interpretation Completed 06/15/2016 05067 EKG Tracing & Interpretation Completed Encounters Type Date Location Provider Dx Diagnosis Office Visit 10/20/2018 [facility] Geraldo Rosado F31.9 Bipolar disorder, 10:00a Radha Whitman M.D. unspecified [place] Office Visit 09/29/2018 [facility] Internal Fam Rosado R19.4 Change in bowel 10:00a Radha Whitman M.D. habit [place] Office Visit 09/10/2018 [facility] Internal Fam Rosado R47.02 Dysphasia 11:40a Dariel Mathewscarmel F41.9 Anxiety disorder, unspecified Office 09/10/2018 [facility] [place] G43.009 Migraine w/o Visit 10:00a Clinic MD Lindsay aura, not intractable, w/o status migrainosus G56.02 Carpal tunnel syndrome, left upper limb G25.0 Essential tremor R20.0 Anesthesia of skin Office Visit 08/22/2018 10:00a [facility] Geraldo Rosado R07.89 Other chest Radha Whitman M.D. pain [facility] Z13.220 Encounter for screening for lipoid disorders [...] forms of tremor Office Visit 03/06/2018 9:20a [facility] Internal Jacob Carreno NP M54.2 Cervicalgia Medicine Office Visit 01/08/2017 10:20a [facility] Internal Fam Rosado R51 Headache Radha Whitman M.D. 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 right thumb w/o [place] damage to nail, subs Office Visit 06/20/2016 10:30a [facility] Nursing Monica Z11.1 Encounter for Home [facility], screening for N.P. 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, recurrent severe w/o psych features F10.188 Alcohol abuse with other alcohol-induced disorder D64.9 Anemia, unspecified Z72.0 Tobacco use G44.209 Tension-type headache, unspecified, not intractable Office Visit 05/18/2016 10:00a [facility] Internal Irvin [place], Z00.00 Encntr for Medicine - [place] [address] general adult Rd medical exam w/o abnormal findings F33.2 Major depressv disorder, 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 G44.201 Tension-type headache, unspecified, intractable L20.89 Other atopic dermatitis F10.188 Alcohol abuse with other alcohol-induced disorder Plan of Treatment 12/04/2018 - Alicia Borden, MDR22.30 Localized swelling, mass and lump, unspecified upper limbNew Labs:Food Allergy Panel, Ordered: 12/04/18Anca Panel For Vasculitis, Ordered: 12/04/18R10.84 Generalized abdominal painNew Medication :Ranitidine 150 Maximum Strength 150 mg - one by mouth twice a day, as needed for heartburn and abdominal painD64.9 Anemia, unspecifiedNew Labs:Iron & Iron Binding Capacity, Ordered: 12/04/18Hemoglobin Electropheresis, Ordered:
--- NOTE | 2018-12-09 19:08 | UC ---
Throat Pain/Nasal Horacio HPI - HPI Summary HPI Summary: 27 yo female presents with a sore throat for 4 days. She has not taken anything OTC for her symptoms. She is tolerating po well. Denies fever, chills, sinus symptoms, cough, rash. - History of Current Complaint Stated Complaint: SORE THROAT Time Seen by Provider: 12/09/18 19:08 Hx Obtained From: Patient Hx Last Menstrual Period: 11/30/18 Onset/Duration: Gradual Onset Severity: Moderate Pain Intensity: 6 Pain Scale Used: 0-10 Numeric - Allergies/Home Medications Allergies/Adverse Reactions: Allergies Allergy/AdvReac Type Severity Reaction Status Date / Time No Known Allergies Allergy Verified 12/09/18 19:15 PMH/Surg Hx/FS Hx/Imm Hx - Additional Past Medical History Additional PMH: None Other History Of: Negative For: Anticoagulant Therapy - Surgical History Surgical History: None Surgery Procedure, Year, and Place: ORAL SURGERY - Family History Known Family History: Positive: Hypertension, Diabetes - Social History Lives: With Family Alcohol Use: Daily Alcohol Amount: 1 BOTTLE WINE DAILY Substance Use Type: None Substance Use Comment - Amount & Last Used: half to whole bottle of wine Smoking Status (MU): Current Every Day Smoker Type: Cigars Amount Used/How Often: 2 cigars/daily Have You Smoked in the Last Year: Yes When Did the Patient Quit Smoking/Using Tobacco: has not smoked for about a week /smoked within last 30 days Household Exposure Type: Cigarettes, Cigars - Immunization History Most Recent Influenza Vaccination: none Most Recent Tetanus Shot: 06/15/16 Most Recent Pneumonia Vaccination: n/a Review of Systems All Other Systems Reviewed And Are Negative: Yes Constitutional: Positive: Negative Skin: Positive: Negative Eyes: Positive: Negative ENT: Positive: Sore Throat Respiratory: Positive: Negative Cardiovascular: Positive: Negative Gastrointestinal: Positive: Negative Neurological: Positive: Negative Psychological: Positive: Negative Physical Exam - Summary Physical Exam Summary: GENERAL: NAD. WDWN. No pain distress. SKIN: No rashes, sores, lesions, or open wounds. HEENT: Head: AT/NC Eyes: Conjunctiva clear without inflammation or discharge. Ears: Hearing grossly normal. TMs intact, no bulging, erythema, or edema. Nose: Nasal mucosa pink and moist. NTTP maxillary and frontal sinus. Throat: Posterior oropharynx mild erythema and 2+ tonsillar enlargement. No exudates. Uvula midline. No hoarse voice or muffled voice. NECK: Supple. Nontender. No lymphadenopathy. CHEST: CTAB. No r/r/w. No accessory muscle use. Breathing comfortably and in no distress. CV: RRR. Without m/r/g. Pulses intact. Cap refill <2seconds NEURO: Alert. PSYCH: Age appropriate behavior. Triage Information Reviewed: Yes Vital Signs: Vital Signs: Temp Pulse Resp BP Pulse Ox 98.5 F 98 16 143/72 98 12/09/18 19:08 12/09/18 19:08 12/09/18 19:08 12/09/18 19:08 12/09/18 19:08 Laboratory Tests 12/09/18 19:19 Group A Strep Rapid Positive A Vital Signs Reviewed: Yes Throat Pain/Nasal Course/Dx - Course Course Of Treatment: POC strep positive. Rx for amoxicillin - Differential Dx/Diagnosis Provider Diagnosis: Strep pharyngitis Discharge - Sign-Out/Discharge Documenting (check all that apply): Patient Departure All imaging exams completed and their final reports reviewed: No Studies - Discharge Plan Condition: Stable Disposition: HOME Prescriptions: Amoxicillin PO (*) [Amoxicillin 500 MG CAP*] 500 mg PO Q12H #20 cap Patient Education Materials: Strep Throat (DC) Referrals: Fam Whitman MD [Primary Care Provider] - Additional Instructions: If you develop a fever, shortness of breath, chest pain, new or worsening symptoms - please call your PCP or go to the ED. - Billing Disposition and Condition Condition: STABLE Disposition: Home - Attestation Statements Provider Attestation: Pt not examined by me. I was available for consult.
[2018-12-09 19:14] VITALS: BP 143/72
== END 2018-12-09 19:38 | disposition home or self-care (01) ==
LOC: UCEAST 18:56
DX: J02.0 Streptococcal pharyngitis (principal); F17.290 Nicotine dependence, other tobacco product, uncomplicated
CPT/HCPCS: 87651; 99212; G0463

== ENCOUNTER 2018-12-14 17:46 | Emergency (ER) | payer OTHER ==
--- OUTSIDE RECORDS SUMMARY | 2018-12-14 17:50 | XMS REPORT | Continuity of Care Document ---
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 Onset: 05/18/2016 Primary herpes simplex infection of lips Irvin Redding [employer] IN[employer] Onset: 05/18/2016 Tension-type headache Irvin Redding [employer]AL [employer]IL INST[employer]ER Onset: 05/18/2016 Nondependent alcohol abuse, continuous 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 occ more Tobacco Use Start: Unknown Patient is a current cigars and cigarettes smoker, smokes every X 1 year day Recreational Drug Use Denies Drug Use Smoking Status Reviewed: 12/10/18 Patient is a current cigars and cigarettes [...] Valium 1 tablet by mouth 1tabs Aftab Montoya 03/24/2018 - 10mg Tablets 30 minutes before [...] Baclofen take 1/2 tab 20tabs M54.2 Jacob Carreno, JOHN 03/06/2018 - 10mg Tablets every 8 hours as 06/26/2018 needed for muscle spasm Naproxen 1 tablet with 30tabs M54.2 Jacob Carreno, JOHN 03/06/2018 - 500mg Tablets food by mouth 06/26/2018 twice a day for one week and then as needed. 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] Date Facility Test Result H/L Range Note Laboratory test [facility] Rapid Strep POSITIVE Abnormal Negative 1 finding 9 [address] [place] [address] [phone] Food Allergy [facility] Egg White <0.35 kU/L 2 Panel 9 [address] [place] [address] [phone] Cumby Allergen IgE <0.35 kU/L 3 Egg Yolk Allergen IgE <0.35 kU/L 4 Cow's Milk Allergen IgE <0.35 kU/L 5 Peanut Allergen IgE <0.10 kU/L 6 Soybean Allergen IgE <0.35 kU/L 7 Wheat Allergen IgE <0.35 kU/L 8 Anca Panel For 12/04/2018 [facility] Myeloperoxidase AB < 0.2 U 9 Vasculitis [address] [place] [address] [phone] Proteinase 3 AB < 0.2 U 10 Iron & Iron 12/04/2018 [facility] Total Iron 627 g/dL High 250-450 Binding [address] [place] [address] Capacity [phone] Transferrin 448 mg/dL High 203-362 Iron < 17 g/dL Low 50-212 Unsaturated Iron Binding < 612 g/dL % Iron Saturation 3 % Low 15-55 Hemoglobin 12/04/2018 [facility] Hemoglobin A2 2.2 % 2.0-3.3 Electropheresis [address] [place] [address] [phone] Hemoglobin F 0.0 % 0.0-0.9 11 Hemoglobin A 97.8 % 95.8-98.0 Variant Hemoglobin 0.0 % 12 Hemoglobin Electro Interp See Comment 13 Urine Drug 10/23/2018 [facility] Amphetamine Ur None Detected None 14 SCR ED & [address] Screen [place] [address] [phone] Barbiturates Urine Screen None Detected None Detect Benzodiazepine Urine Screen None Detected None Detect Urine Cannabinoids Screen None Detected None Detect Urine Cocaine Screen None Detected None Detect Urine Opiates Screen None Detected None Detect Urine Phencyclidine Screen None Detected None Detect 15 Comp Metabolic Panel 10/23/2018 [facility] Sodium 139 mmol/L N 135-[address] [place] [address] [phone] Potassium 3.3 mmol/L Low 3.5-5.0 Chloride 107 [...] Egfr Non- 88.7 >60 Egfr 107.3 >60 16 Laboratory test 10/23/2018 [facility] HCG 1.33 mIU/mL [address] [place] [address] [phone] Acetaminophen < 15 g/mL 18 Alcohol < 10 mg/dL N <10 Salicylate < 2.50 mg/dL <30 TSH (Thyroid Stim Horm) 0.50 mcIU/mL N 0.34-5.60 CBC Auto Diff 10/23/2018 [facility] White Blood 7.0 10^3/uL N 3.5-10.[address] [place] [address] [phone] Red Blood Count 4.07 10^6/uL N 4.00-5.40 [...] Cells % 0 Urine Culture And 10/23/2018 [facility] Urine Culture SEE RESULT [address] [place] [address] [phone] CBC Auto Diff 10/22/2018 [facility] White Blood 7.8 10^3/uL N 3.5-[address] Count 0.8 [place], [place] [id number] [phone] Red Blood Count 4.12 10^6/uL N 4.00-5.40 Hemoglobin 10.0 g/dL Low 12.0-16.0 Hematocrit 32 % Low 35-47 Mean Corpuscular Volume 78 fL Low 80-97 Mean Corpuscular Hemoglobin 24 pg Low 27-31 Mean Corpuscular HGB Conc 31 g/dL N 31-36 Red Cell Distribution Width 19 % High 10.5-15 Platelet Count 391 10^3/uL N 150-450 Mean Platelet Volume 7.3 fL Low 7.4-10.4 Manual Differential 10/22/2018 [facility] Neutrophil % 54 % [address] [place] [address] [phone] Lymphocytes % 36 % Monocytes % 7 % Eosinophils % 3 % Anisocytosis 1+ Abs Neutrophils 4.2 10^3/uL N 1.5-7.7 Abs Lymphocytes 2.8 10^3/uL N 1.0-4.8 Abs Monocytes 0.5 10^3/uL N 0-0.8 Abs Eosinophils 0.2 10^3/uL N 0-0.6 Laboratory test 10/22/2018 [facility] Vitamin D 9.0 ng/mL Low 20-[address] Total 25(Oh) [place] [address] [phone] TSH (Thyroid Stim Horm) 0.34 mcIU/mL N 0.34-5.60 Vitamin B12 273 pg/mL N 180-914 20 Manual Differential 10/20/2018 [facility] Neutrophil % 60 % [address] [place] [address] [phone] Lymphocytes % 27 % Monocytes % 12 % Eosinophils % 1 % Microcytosis 1+ Hypochromasia 1+ Abs Neutrophils 5.34 10^3/uL N 1.5-7.7 Abs Lymphocytes 2.4 10^3/uL N 1.0-4.8 Abs Monocytes 1.06 10^3/uL High 0-0.8 Abs Eosinophils 0.08 10^3/uL N 0-0.6 CBC Auto Diff 10/20/2018 [facility] White Blood 8.9 10^3/uL N 3.5-10.[address] [place] [address] [phone] Red Blood Count 4.20 10^6/uL N 4.00-5.40 Hemoglobin 10.2 g/dL Low 12.0-16.0 Hematocrit 33 % Low 35-47 Mean Corpuscular Volume 78 fL Low 80-97 Mean Corpuscular Hemoglobin 24 pg Low 27-31 Mean Corpuscular HGB Conc 31 g/dL N 31-36 Red Cell Distribution Width 18 % High 10.5-15 Platelet Count 407 10^3/uL N 150-450 Mean Platelet Volume 7.5 fL N 7.4-10.4 Basic Metabolic Panel 08/26/2018 [facility] Sodium 139 mmol/L N 135-[address] [place] [address] [phone] Potassium 3.9 mmol/L N 3.5-5.0 Chloride 106 mmol/L N 101-111 Co2 Carbon Dioxide 27 mmol/L N 22-32 Anion Gap 6 mmol/L N 2-11 Glucose 84 mg/dL N 70-100 Blood Urea Nitrogen 8 mg/dL N 6-24 Creatinine 0.80 mg/dL N 0.51-0.95 BUN/Creatinine Ratio 10.0 N 8-20 Calcium 10.4 mg/dL High 8.6-10.3 Egfr Non- 87.4 >60 Egfr 105.8 >60 21 Lipid Profile 08/26/2018 [facility] Triglycerides 44 mg/dL 22 (Trig/Chol/HDL) [address] [place], [place] [address] [phone] Cholesterol 145 mg/dL 23 HDL Cholesterol 48.8 mg/dL 24 LDL Cholesterol 87 mg/dL 25 Laboratory test 06/27/2018 [facility] TSH (Thyroid 0.77 N 0.34 -5.[address] Stim Horm) mcIU/[place] [address] [phone] Laboratory test 06/26/2018 [facility] Gardnerella/ SEE RESULT 26, [address] Yeast: [place] [address] Vaginal Dna [phone] Trichomonas Vaginalis Rna Negative Negative 28 GC/Chlamydia 06/26/2018 [facility] Chlamydia Negative Negative Amplified Rna [address] [place] [address] [phone] Neisseria gonorrhoeae (GC) Rna Negative Negative Urine Culture And 06/26/2018 [facility] Urine SEE RESULT 29 , [address] [place] [address] [phone] Laboratory test 06/26/2018 [facility] Poc Negative Negative [address] , [place] [address] Urine [phone] Poc Urinalysis 06/26/2018 [facility] Poc Negative Negative [address] Glucose, [place] [address] Urine [phone] Poc Bilirubin, Urine 1+ Abnormal Negative Poc Ketone, Urine Trace Abnormal Negative Poc Specific [place], Urine >=1.030 N 1.010-1.030 Poc Blood, Urine Negative Negative Poc pH, Urine 6.0 N 5-9 Poc Protein, Urine Trace Abnormal Negative Poc Urobilinogen, Urine 1.0 Negative Poc Nitrite, Urine Negative Negative Poc Leukocytes, Urine Trace Abnormal Negative Poc Color, Urine Yellow Poc Clarity, Urine Clear 32 Drug Abuse 20 03/06/2018 [facility] Urine Amphetamine Negative ng/mL [address] [place] [id number] [phone] Urine Barbiturates Negative ng/mL 34 Urine Benzodiazepines Negative ng/mL 35 Urine Cocaine Negative ng/mL 36 Urine Phencyclidine Negative ng/mL Cutoff: 25 Urine Tetrahydrocannabinol Negative ng/mL Cutoff: 50 37 Creatinine, Urine 345.0 mg/dL Specific [place] 1.021 pH 5.9 Oxidants Negative 38 Adulterants Comment Normal Codeine, Ur Not Detected ng/mL Cutoff: 25 39 Esrxghe-7-uuxx-glucuronide, Ur Not Detected ng/mL 40 Morphine, Ur Not Detected ng/mL Cutoff: 25 41 Ogtjieec-9-oeck-glucuronide, U Not Detected ng/mL 42 6-monoacetylmorphine, Ur Not Detected ng/mL Cutoff: 25 43 Hydrocodone, Ur Not Detected ng/mL Cutoff: 25 44 Norhydrocodone, Ur Not Detected ng/mL Cutoff: 25 45 Dihydrocodeine, Ur Not Detected ng/mL Cutoff: 25 46 Hydromorphone, Ur Not Detected ng/mL Cutoff: 25 47 Swjlylkzbkknt9veiauzlivbhztxa Not Detected ng/mL 48 Oxycodone, Ur Not Detected ng/mL Cutoff: 25 49 Noroxycodone, Ur Not Detected ng/mL Cutoff: 25 50 Oxymorphone, Ur Not Detected ng/mL Cutoff: 25 51 Icglzeqshaz-6-zxiz-glucuronide Not Detected ng/mL 52 Noroxymorphone, Ur Not Detected ng/mL Cutoff: 25 53 Fentanyl, Ur Not Detected ng/mL Cutoff: 2 54 Norfentanyl, Ur Not Detected ng/mL Cutoff: 2 55 Meperidine, Ur Not Detected ng/mL Cutoff: 25 56 Normeperidine, Ur Not Detected ng/mL Cutoff: 25 57 Naloxone, Ur Not Detected ng/mL Cutoff: 25 58 Peerpmzj-1-fant-glucuronide, U Not Detected ng/mL 59 Methadone, Ur Not Detected ng/mL Cutoff: 25 60 Eddp, Ur Not Detected ng/mL Cutoff: 25 61 Propoxyphene, Ur Not Detected ng/mL Cutoff: 25 62 Norpropoxyphene, Ur Not Detected ng/mL Cutoff: 25 63 Tramadol, Ur Not Detected ng/mL Cutoff: 25 64 O-desmethyltramadol, Ur Not Detected ng/mL Cutoff: 25 65 Tapentadol, Ur Not Detected ng/mL Cutoff: 25 66 N-desmethyltapentadol, Ur Not Detected ng/mL Cutoff: 50 67 Sfqwkfvsrd-wjde-tzitpgajktq, U Not Detected ng/mL 68 Buprenorphine, Ur Not Detected ng/mL Cutoff: 5 69 Norbuprenorphine, Ur Not Detected ng/mL Cutoff: 5 70 Norbuprenorphine glucuronide Not Detected ng/mL Cutoff: 20 71 Opioid Interpretation See Comment 72 Urinalysis Profile 02/07/2017 [facility] Urine Color Yellow N [address] [place] [address] [phone] Urine Appearance Clear N Urine Specific [place] 1.026 N 1.010-1.030 Urine pH 7.0 N 5-9 Urine Urobilinogen Negative N Negative Urine Ketones Trace Abnormal Negative Urine Protein 2+(100 mg/dL) Abnormal Negative Urine Leukocytes Trace Abnormal Negative Urine Blood Negative N Negative * * Abnormal Negative 73 Urine Nitrite Negative N Negative Urine Bilirubin Negative N Negative Urine Glucose Negative N Negative Urine White Blood Cell Trace(0-5/hpf) N Absent Urine Red Blood Cell 1+(3-5/hpf) Abnormal Absent Urine Bacteria Absent N Absent Urine Squamous Epithelial Cell Present Abnormal Absent Urine Drug 02/07/2017 [facility] Amphetamine Ur None Detected N None Detect SCR ED & [address] [place] [address] [phone] Barbiturates Urine Screen None Detected N None Detect Benzodiazepine Urine Screen None Detected N None Detect Urine Cannabinoids Screen None Detected N None Detect Urine Cocaine Screen None Detected N None Detect Urine Opiates Screen None Detected N None Detect Urine Phencyclidine Screen None Detected N None Detect 74 CBC Auto Diff 02/07/2017 [facility] White Blood 8.4 10^3/uL N 3.5-10.[address] [place] [address] [phone] Red Blood Count 4.35 10^6/uL N 4.0-5.4 [...] Cells % 0.1 N Laboratory test 02/07/2017 [facility] HCG < 0.60 N [address] mIU/[place] [address] [phone] Comp Metabolic 02/07/2017 [facility] Sodium 136 mmol/L N 133- [address] [place] [address] [phone] Potassium 3.5 mmol/L N 3.5-5.0 Chloride 106 [...] 104.5 N >60 Egfr 134.4 N >60 76 Laboratory test 02/07/2017 [facility] Acetaminophen < 15 g/mL N [address] [place] [address] [phone] Alcohol < 10 mg/dL N <10 Salicylate < 2.50 mg/dL N <30 TSH (Thyroid Stim Horm) 0.44 mcIU/mL N 0.34-5.60 Urine Culture And 02/07/2017 [facility] Urine Culture SEE RESULT [address] [place] [address] [phone] Urinalysis Profile 01/30/2017 [facility] Urine Color Yellow N [address] [place] [address] [phone] Urine Appearance Cloudy N Urine Specific [place] 1.025 N 1.010-1.030 Urine pH 5.0 N 5-9 Urine Urobilinogen Negative N Negative Urine Ketones 1+ Abnormal Negative Urine Protein 1+(30 mg/dL) Abnormal Negative Urine Leukocytes 1+ Abnormal Negative Urine Blood Negative N Negative * * Abnormal Negative 79 Urine Nitrite Negative N Negative Urine Bilirubin Negative N Negative Urine Glucose Negative N Negative Urine White Blood Cell 2+(11-20/hpf) Abnormal Absent Urine Red Blood Cell Absent N Absent Urine Bacteria Absent N Absent Urine Squamous Epithelial Cell Present Abnormal Absent CBC Auto Diff 01/30/2017 [facility] White Blood 7.3 10^3/uL N 3.5-10.[address] [place] [address] [phone] Red Blood Count 4.36 10^6/uL N 4.0-5.4 [...] Cells % 0 N Urine Drug 01/30/2017 [facility] Amphetamine Ur None Detected N None Detect SCR ED & [address] [place] [address] [phone] Barbiturates Urine Screen None Detected N None Detect Benzodiazepine Urine Screen None Detected N None Detect Urine Cannabinoids Screen None Detected N None Detect Urine Cocaine Screen None Detected N None Detect Urine Opiates Screen None Detected N None Detect Urine Phencyclidine Screen None Detected N None Detect 80 Comp Metabolic Panel 01/30/2017 [facility] Sodium 136 mmol/L N 133-[address] [place] [address] [phone] Potassium 3.4 mmol/L Low 3.5-5.0 Chloride 104 [...] 88.1 N >60 Egfr 113.3 N >60 81 Laboratory test 01/30/2017 [facility] Acetaminophen < 15 g/mL N [address] [place] [address] [phone] Alcohol < 10 mg/dL N <10 Salicylate < 2.50 mg/dL N <30 TSH (Thyroid Stim Horm) 0.45 mcIU/mL N 0.34-5.60 HCG < 0.60 mIU/mL N 83 Urine Culture And 01/30/2017 [facility] Urine SEE RESULT [address] [place] [address] [phone] Laboratory test 01/14/2017 [facility] Poc Negative N Negative [address] , [place] [address] Urine [phone] Poc Urinalysis 01/14/2017 [facility] Poc Negative N Negative [address] Glucose, [place] [address] Urine [phone] Poc Bilirubin, Urine Negative N Negative Poc Ketone, Urine Negative N Negative Poc Specific [place], Urine 1.025 N 1.010-1.030 Poc Blood, Urine 3+ Abnormal Negative Poc pH, Urine 6.5 N 5-9 Poc Protein, Urine Negative N Negative Poc Urobilinogen, Urine 0.2 N Negative Poc Nitrite, Urine Negative N Negative Poc Leukocytes, Urine Negative N Negative Poc Color, Urine Brown N Poc Clarity, Urine Cloudy N 86 Urine Culture And 08/22/2016 [facility] Urine Culture SEE RESULT [address] [place] [address] [phone] Laboratory test 08/22/2016 [facility] Gardnerella/Y SEE RESULT [address] east: [place] [address] Dna [phone] CBC Auto Diff 08/22/2016 [facility] White Blood 5.8 10^3/uL N 3.5-[address] Count 0.8 [place], [place] [address] [phone] Red Blood Count 4.69 10^6/uL N 4.0-5.4 [...] Cells % 0.1 N Urinalysis Profile 08/22/2016 [facility] Urine Color Yellow N [address] [place] [address] [phone] Urine Appearance Cloudy N Urine Specific [place] 1.031 High 1.010-1.030 Urine pH 6.0 N [...] Cell Present Abnormal Absent Urine Drug 08/22/2016 [facility] Amphetamine Ur None Detected N None Detect SCR ED & [address] [place] [address] [phone] Barbiturates Urine Screen None Detected N None Detect Benzodiazepine Urine Screen None Detected N None Detect Urine Cannabinoids Screen None Detected N None Detect Urine Cocaine Screen None Detected N None Detect Urine Opiates Screen None Detected N None Detect Urine Phencyclidine Screen None Detected N None Detect 89 Comp Metabolic Panel 08/22/2016 [facility] Sodium 133 mmol/L N 133-[address] [place] [address] [phone] Potassium 3.9 mmol/L N 3.5-5.0 Chloride 102 [...] 87.6 N >60 Egfr 112.7 N >60 90 Laboratory test 08/22/2016 [facility] HCG < 0.60 mIU/ mL N 91 finding [address] [place] [address] [phone] Acetaminophen < 15 g/mL N 92 Alcohol < 10 mg/dL N <10 Salicylate < 2.50 mg/dL N <30 TSH (Thyroid Stim Horm) 0.63 mcIU/mL N 0.34-5.60 Rapid HIV Nonreactive N Nonreactive Syphillis Igg W/Reflex RPR Nonreactive N Nonreactive 93 Hepatitis 08/22/2016 [facility] Hepatitis B Nonreactive N Nonreactive Acute Panel [address] [place] [address] Antigen [phone] Hepatitis B Core IgM Nonreactive N Nonreactive Hepatitis A AB IgM Nonreactive N Nonreactive Hepatitis C Antibody Nonreactive N Nonreactive Laboratory test 08/04/2016 [facility] HCG < 0.60 mIU/ mL N 94 finding [address] [place] [address] [phone] Acetaminophen < 15 g/mL N 95 Alcohol < 10 mg/dL N <10 Salicylate < 2.50 mg/dL N <30 TSH (Thyroid Stim Horm) 1.63 mcIU/mL N 0.34-5.60 Comp Metabolic Panel 08/04/2016 [facility] Sodium 135 mmol/L N 133-[address] [place] [address] [phone] Potassium 3.8 mmol/L N 3.5-5.0 Chloride 104 [...] 82.9 N >60 Egfr 106.6 N >60 96 Urinalysis Profile 08/04/2016 [facility] Urine Color Yellow [address] [place] [address] [phone] Urine Appearance Cloudy N Urine Specific [place] 1.029 N 1.010-1.030 Urine pH 5.0 N [...] Present Abnormal Absent CBC Auto Diff 08/04/2016 [facility] White Blood 8.1 10^3/uL N 3.5-10.[address] [place] [address] [phone] Red Blood Count 4.15 10^6/uL N 4.0-5.4 [...] Blood Cells % 0 N Urine 08/04/2016 [facility] Amphetamine Ur Presumptive Abnormal None 97 Drug SCR [address] Screen Posi <SEE Detect ED & [place] [address] NOTE> [facility] [phone] Barbiturates Urine Screen None Detected N None Detect Benzodiazepine Urine Screen None Detected N None Detect Urine Cannabinoids Screen None Detected N None Detect Urine Cocaine Screen None Detected N None Detect Urine Opiates Screen None Detected N None Detect Urine Phencyclidine Screen None Detected N None Detect 98 CBC Auto Diff 06/25/2016 [facility] White Blood 8.2 10^3/uL N 3.5-10.[address] [place] [address] [phone] Red Blood Count 4.54 10^6/uL N 4.0-5.4 [...] 0 N Iron & Iron Binding 06/25/2016 [facility] Iron 37 g/dL Low 50-212 Capacity [address] [place] [address] [phone] Unsaturated Iron Binding 484 g/dL N Total Iron Binding Capacity 521 g/dL High 250-450 % Iron Saturation 7 % Low 15-55 Laboratory test 06/25/2016 [facility] Ferritin < 10.0 ng/mL Low 11-307 [address] [place] [address] [phone] Vitamin B12 285 pg/mL N 180-914 100 CBC Auto Diff 05/31/2016 [facility] White Blood 6.2 10^3/uL N 3.5-10.[address] [place] [address] [phone] Red Blood Count 4.46 10^6/uL N 4.0-5.4 [...] Cells % 0.2 N Laboratory test 05/31/2016 [facility] TSH (Thyroid 0.55 N 0.34 -5.60 [address] Stim Horm) mcIU/[place] [address] [phone] Basic Metabolic 05/31/2016 [facility] Sodium 136 mmol/L N 133- [address] [place] [address] [phone] Potassium 4.2 mmol/L N 3.5-5.0 Chloride 105 mmol/L N 101-111 Co2 Carbon Dioxide 23 mmol/L N 22-32 Anion Gap 8 mmol/L N 2-11 Glucose 78 mg/dL N 70-100 Blood Urea Nitrogen 7 mg/dL N 6-24 Creatinine 0.77 mg/dL N 0.51-0.95 BUN/Creatinine Ratio 9.1 N 8-20 Calcium 10.0 mg/dL N 8.6-10.3 Egfr Non- 92.9 N >60 Egfr 119.5 N >60 102 1 Plating Stripper: [id number] 2 Class 0 (Negative <0.35) 3 Class 0 (Negative <0.35) 4 Class 0 (Negative <0.35) 5 Class 0 (Negative <0.35) 6 Class 0 (Negative <0.10) 7 Class 0 (Negative <0.35) 8 Class 0 (Negative <0.35) Test Performed by: [facility] [employer] [facility] [address], [place] [address] 9 REFERENCE VALUE <0.4 (Negative) 10 REFERENCE VALUE <0.4 (Negative) Test Performed by: [facility] [employer] [facility] [address] [place] [address] 11 ADDITIONAL INFORMATION This test has been modified from the netbackup admin's instructions. Its performance characteristics were determined by [facility] in a manner consistent with CLIA requirements. This test has not been cleared or approved by the U.S. Food and Drug Administration. 12 REFERENCE VALUE No abnormal variants ADDITIONAL INFORMATION This test has been modified from the netbackup admin's instructions. Its performance characteristics were determined by [facility] in a manner consistent with CLIA requirements. This test has not been cleared or approved by the U.S. Food and Drug Administration. 13 No electrophoretic evidence of abnormal hemoglobin or beta thalassemia. See comment. Comment: These results do not exclude alpha thalassemia. The vast majority of hemoglobin variants and beta thalassemias are excluded, although some rare clinically significant hemoglobin disorders are electrophoretically silent. If otherwise unexplained lifelong/familial symptoms such as hemolysis (i.e. Josh body hemolytic anemia), microcytosis, erythrocytosis, cyanosis, or hypoxia are present and additional testing is desired, please call the [facility] ( ). If alpha thalassemia is a consideration, alpha globin gene deletion/duplication analysis is available (ATHAL/Alpha-Globin Gene Analysis). Additional sample required. Test Performed by: [facility] [address] [place] [address] 14 VERBALL BY [id number] THAT IS WAS 2242 COLLECTION TIME, NOT 2052 [id number] The urine specimen was tested at the listed cutoffs: Drug class test level (ng/mL) Amphetamines 500 Barbiturates 200 Benzodiazepine metabolites 200 Cocaine metabolites 150 Cannabinoids 50 Opiates 300 Pcp 25 Specimen was received without chain of custody. Results should be used for medical purposes only. 16 Because ethnic data is not always readily [...] 15-29 5 Kidney failure <15 (or dialysis) 17 <5.0 Negative 5.0 - 25.0 Indeterminate (Repeat testing recommended after 72 hours) >25.0 Positive Perimenopausal women can display HCG levels of up to 20 mIU/mL 18 Therapeutic concentration: <50 ug/mL Toxic concentration: >120 ug/mL 19 SEE RESULT BELOW Name: BENJAMIN ROLAND : [address]: Sadiq Reyes MD Acct: [id number] Unit: [id number] AGE: 27 Location: ED Re10/23/18 SEX: F Status: DEP ER SPEC: [id number] OLVIN: 10/23/[address] [facility] [address]: Sadiq Reyes MD REQ: [id number] RECD: 10/23/18 STATUS: PAULINO MENDOZA DR: Fam Whitman III, MD _ SOURCE: URINE SPDESC: ORDERED: Urine Culture Procedure Result Reported Site Urine Culture Final 10/25/18- 939 ML No Growth (<1,000 CFU/mL) * ML - Main Lab . END OF REPORT DEPARTMENT OF PATHOLOGY, [address] [place] [address] Kvng Cole M.D. Director [facility] # [id number] 20 Normal Range 180 to 914 Indeterminate Range 145 to 180 Deficient Range <145 21 Because ethnic data is not always readily [...] 15-29 5 Kidney failure <15 (or dialysis) 22 Desirable: <150 Borderline High: 150-199 High: 200-499 Very High: >500 23 Desirable: <200 Borderline High: 200-239 High: >239 24 Low: <40 Desirable: 40-60 High: >60 25 Desirable: <100 Near Optimal: 100-129 Borderline High: 130-159 High: 160-189 Very High: >189 26 [id number] Would you like to order Trichomonas Vaginalis RNA testing? Y 27 SEE RESULT BELOW Name: BENJAMIN ROLAND : [address]: Tom Franco MD Acct: [id number] Unit: [id number] AGE: 27 Location: [facility] Re06/26/18 SEX: F Status: DEP ER SPEC: [id number] OLVIN: 06/26/18-[address] [facility] [address]: Sheyla YOUNG REQ: [id number] RECD: 06/27/18 STATUS: PAULINO MENDOZA DR: Fam Franco MD _ SOURCE: VAGINAL [facility]: ORDERED: Jac,Yeast DNA COMMENTS: [id number] Would you like to order Trichomonas Vaginalis [...] . END OF REPORT DEPARTMENT OF PATHOLOGY, [address] [place] [address] Kvng Cole M.D. Director [facility] # [id number] 28 [id number] GC/Chlamydia Source?: Endocervical Trichomonas Source: Endocervical 29 [id number] 30 SEE RESULT BELOW Name: BENJAMIN ROLAND : [address]: Tom Franco MD Acct: [id number] Unit: [id number] AGE: 27 Location: [facility] Re06/26/18 SEX: F Status: DEP ER SPEC: [id number] OLVIN: 06/26/18-[address] [facility] [address]: Sheyla YOUNG REQ: [id number] RECD: 06/27/18-1002 STATUS: PAULINO MENDOZA DR: Fam Franco MD _ SOURCE: URINE SPDESC: ORDERED: Urine Culture COMMENTS: [id number] Procedure Result Reported Site Urine Culture Final 06/28/18- 1113 ML No Growth (<1,000 CFU/mL) * ML - Main Lab . END OF REPORT DEPARTMENT OF PATHOLOGY, [address] [place] [address] Kvng Cole M.D. Director [facility] # [id number] 31 Plating Stripper: [id number] If is still suspected, please repeat test after 48 to 72 hours. 32 Plating Stripper: [id number] 33 REFERENCE VALUE Cutoff: 500 34 REFERENCE VALUE Cutoff: 200 35 REFERENCE VALUE Cutoff: 100 36 REFERENCE VALUE Cutoff: 150 37 ADDITIONAL INFORMATION This report is intended for use in clinical monitoring or management of patients. It is not intended for use in employment-related testing. 38 REFERENCE VALUE Cutoff: 200 mg/L 39 Tylenol 3 40 Metabolite of codeine REFERENCE VALUE Cutoff: 100 41 Valerie Phelan, MS Contin; Also a minor metabolite (10%) of codeine and can be seen in low concentrations (<2,000 ng/mL) with poppy seed ingestion. 42 Metabolite of morphine REFERENCE VALUE Cutoff: 100 43 Metabolite of heroin 44 Lortab, [place], Vicodin; Also a very minor metabolite of codeine and impurity (<1%) of oxycodone. 45 Metabolite of hydrocodone 46 Metabolite of hydrocodone 47 Dilaudid, Exalgo; Also a metabolite of hydrocodone and a minor (<5%) metabolite of morphine. 48 Metabolite of hydromorphone REFERENCE VALUE Cutoff: 100 49 Endocet, Percocet, Oxycontin 50 Metabolite of oxycodone 51 Numorphan, Opana; Also a metabolite of oxycodone. 52 Metabolite of oxymorphone REFERENCE VALUE Cutoff: 100 53 Metabolite of oxymorphone 54 Actiq, Duragesic, [place] 55 Metabolite of fentanyl 56 Demerol 57 Metabolite of meperidine 58 Narcan 59 Metabolite of naloxone REFERENCE VALUE Cutoff: 100 60 Dolophine 61 Metabolite of methadone 62 Darvon, Darvocet 63 Metabolite of propoxyphene 64 Tradol, Ultram, Ultracet 65 Metabolite of tramadol 66 Nucynta 67 Metabolite of tapentadol 68 Metabolite of tapentadol REFERENCE VALUE Cutoff: 100 69 Buprenex, Suboxone 70 Metabolite of buprenorphine 71 Metabolite of buprenorphine 72 No opioids were detected. The absence of expected drug(s) and/or drug metabolite(s) may indicate non-compliance, altered pharmacokinetics, inappropriate timing of specimen collection relative to drug administration, diluted/adulterated urine, or limitations of testing. ADDITIONAL INFORMATION This test was developed and its performance characteristics determined by [facility] in a manner consistent with CLIA requirements. This test has not been cleared or approved by the U.S. Food and Drug Administration. Test Performed by: [facility] [address] [place] [address] 73 *Ascorbic acid is present which may interfere with detection of blood. 74 The urine specimen was tested at the listed cutoffs: Drug class test level (ng/mL) Amphetamines 500 Barbiturates 200 Benzodiazepine metabolites 200 Cocaine metabolites 150 Cannabinoids 50 Opiates 300 Pcp 25 Specimen was received without chain of custody. Results should be used for medical purposes only. 75 <5.0 Negative 5.0 - 25.0 Indeterminate (Repeat testing recommended after 72 hours) >25.0 Positive Perimenopausal women can display HCG levels of up to 20 mIU/mL 76 Because ethnic data is not always [...] 5 Kidney failure <15 (or dialysis) 77 Therapeutic concentration: <50 ug/mL Toxic concentration: >120 ug/mL 78 SEE RESULT BELOW Name: BENJAMIN ROLAND : [address]: Tom Franco MD Acct: [id number] Unit: [id number] AGE: 26 Location: ED Re02/07/17 SEX: F Status: DEP ER SPEC: [id number] OLVIN: 02/07/[address] [facility] [address]: Tom Franco MD REQ: [id number] RECD: 02/07/17 STATUS: PAULINO MENDOZA DR: Fam Whitman III, MD _ [facility] ORDERED: Urine Culture Procedure Result Reported Site Urine Culture Final 02/08/17- 1222 ML No Growth (<1,000 CFU/mL) * ML - [facility] LAB [facility] . END OF REPORT * ML=Testing performed at Main Lab DEPARTMENT OF PATHOLOGY, [address] [place] [address] Kvng Cole M.D. Director [facility] # [id number] 79 *Ascorbic acid is present which may interfere with detection of blood. 80 The urine specimen was tested at the listed cutoffs: Drug class test level (ng/mL) Amphetamines 500 Barbiturates 200 Benzodiazepine metabolites 200 Cocaine metabolites 150 Cannabinoids 50 Opiates 300 Pcp 25 Specimen was received without chain of custody. Results should be used for medical purposes only. 81 Because ethnic data is not always readily [...] 15-29 5 Kidney failure <15 (or dialysis) 82 Therapeutic concentration: <50 ug/mL Toxic concentration: >120 ug/mL 83 <5.0 Negative 5.0 - 25.0 Indeterminate (Repeat testing recommended after 72 hours) >25.0 Positive Perimenopausal women can display HCG levels of up to 20 mIU/mL 84 SEE RESULT BELOW Name: BENJAMNI ROLAND : [address]: Fam Fernandez MD Acct: [id number] Unit: [id number] AGE: 26 Location: ED Re01/30/17 SEX: F Status: REG ER SPEC: [id number] OLVIN: 01/30/[address]: Dorothy YOUNG REQ: [id number] RECD: 01/30/17 STATUS: PAULINO MENDOZA DR: [facility] Fam Whitman III, MD _ SOURCE: URINE SPDESC: ORDERED: Urine Culture Procedure Result Reported Site Urine Culture Final 01/31/17- 1434 ML No Growth (<1,000 CFU/mL) * ML - MA[facility] LAB ([facility]) . END OF REPORT * ML=Testing performed at Main Lab DEPARTMENT OF PATHOLOGY, [address] [place] [address] Kvng Cole M.D. Director [facility] # [id number] 85 Plating Stripper: [id number] If is still suspected, please repeat test after 48 to 72 hours. 86 Plating Stripper: [id number] 87 SEE RESULT BELOW Name: BENJAMIN ROLAND : [address]: Evaristo Anand MD Acct: [id number] Unit: [id number] AGE: 25 Location: [facility] Re08/22/16 SEX: F Status: ADM IN SPEC: [id number] OLVIN: 08/22/16-[address]: Catherine YOUNG REQ: [id number] RECD: 08/22/16 STATUS: PAULINO MENDOZA DR: Kavon Whitman III, MD _ SOURCE: URINE SPDESC: ORDERED: Urine Culture Procedure Result Reported Site Urine Culture Final 08/23/16- 1415 ML No Growth (<1,000 CFU/mL) * ML - MAIN LAB ([facility]) . END OF REPORT * ML=Testing performed at Main Lab DEPARTMENT OF PATHOLOGY, [address] [place] [address] Kvng Cole M.D. Director [facility] # [id number] 88 SEE RESULT BELOW Name: BENJAMIN ROLAND : [address]: Kavon Saldivar MD Acct: [id number] Unit: [id number] AGE: 25 Location: ED Re08/22/16 SEX: F Status: REG ER SPEC: [id number] OLVIN: 08/22/16-[address]: Catherine YOUNG REQ: [id number] RECD: 08/22/16 STATUS: PAULINO MENDOZA DR: Kavon Whitman III, MD _ SOURCE: VAGINAL SPDESC: ORDERED: Jac,Yeast DNA, Trich DNA Procedure Result Reported Site Gardnerella/Yeast: Vaginal DNA Final 08/22/161458 ML Organism 1 Negative Gardnerella Organism 2 [...] performed at Main Lab DEPARTMENT OF PATHOLOGY, [address] [place] [address] Kvng Cole M.D. Director [facility] # [id number] Patient: BENJAMIN ROLAND [id number] (Continued) Specimen: [id number] Collected: 08/22/16 Received: 08/22/16 (Continued) Procedure Result Reported Site Trichomonas: Vaginal DNA Probe Final (continued) 08/22/16 863 The presence or absence of T. vaginalis cannot be used as a test for therapeutic success or failure. * ML - MAIN LAB ([facility]) . END OF REPORT * ML=Testing performed at Main Lab DEPARTMENT OF PATHOLOGY, [address] [place] [address] Kvng Cole M.D. Director [facility] # [id number] 89 The urine specimen was tested at the listed cutoffs: Drug class test level (ng/mL) Amphetamines 500 Barbiturates 200 Benzodiazepine metabolites 200 Cocaine metabolites 150 Cannabinoids 50 Opiates 300 Pcp 25 Specimen was received without chain of custody. Results should be used for medical purposes only. 90 Because ethnic data is not always readily [...] 15-29 5 Kidney failure <15 (or dialysis) 91 <5.0 Negative 5.0 - 25.0 Indeterminate (Repeat testing recommended after 72 hours) >25.0 Positive Perimenopausal women can display HCG levels of up to 20 mIU/mL 92 Therapeutic concentration: <50 ug/mL Toxic concentration: >120 ug/mL 93 Warning: A positive result is not useful for establishing a diagnosis of syphilis. In most situations, such a result may reflect a prior treated infection; a negative result can exclude a diagnosis of syphilis except for incubating or early primary disease. 94 <5.0 Negative 5.0 - 25.0 Indeterminate (Repeat testing recommended after 72 hours) >25.0 Positive Perimenopausal women can display HCG levels of up to 20 mIU/mL 95 Therapeutic concentration: <50 ug/mL Toxic concentration: >120 ug/mL 96 Because ethnic data is not always readily [...] 15-29 5 Kidney failure <15 (or dialysis) 97 Presumptive Positive Presumptive positive results are unconfirmed. 98 The urine specimen was tested at the listed cutoffs: Drug class test level (ng/mL) Amphetamines 500 Barbiturates 200 Benzodiazepine metabolites 200 Cocaine metabolites 150 Cannabinoids 50 Opiates 300 Pcp 25 Specimen was received without chain of custody. Results should be used for medical purposes only. 99 due July 16 Normal Range 180 to 914 Indeterminate Range 145 to 180 Deficient Range <145 101 FASTING 10 HOUR 102 Because ethnic data is not always readily [...] dialysis) Procedures Date Code Description Status 08/26/2018 11164 Nerve Conduction 07-08 Studies Completed 08/26/2018 10609 Needle Electromyography Each Extremity W/Related Completed Paraspinal Areas 08/22/2018 33399 EKG Tracing & Interpretation Completed 06/15/2016 23296 EKG Tracing & Interpretation Completed Encounters Type Date Location Provider Dx Diagnosis Office Visit 10/20/2018 [facility] Fam Rosado F31.9 Bipolar disorder, 10:00a Radha Whitman M.D. unspecified [place] Office Visit 09/29/2018 [facility] Fam Rosado R19.4 Change in bowel 10:00a Radha Whitman M.D. habit [place] Office Visit 09/10/2018 Akil Rosado R47.02 Dysphasia 11:40a Dariel [place]elch F41.9 Anxiety disorder, unspecified Office 09/10/2018 [facility] G43.009 Migraine w/o Visit 10:00a Clinic MD Lindsay aura, not intractable, w/o status migrainosus G56.02 Carpal tunnel syndrome, left upper limb G25.0 Essential tremor R20.0 Anesthesia of skin Office Visit 08/22/2018 10:00a [facility] Geraldo Rosado R07.89 Other chest Medicine Delmi Whitman M.D. pain [facility] Z13.220 Encounter for screening for lipoid [...] forms of tremor Office Visit 03/06/2018 9:20a [facility] Jacob Carreno NP M54.2 Cervicalgia Medicine Office Visit 01/08/2017 10:20a [facility] Fam Rosado R51 Headache Medicine - Dot Whitman M.D. G47.00 Insomnia, unspecified F33.2 Major depressv disorder, recurrent severe w/o psych features Office Visit 07/23/2016 11:40a [facility] Irvin [place], D50.8 Other iron Medicine - [place] [employer] deficiency Rd anemias R79.0 Abnormal level of blood mineral Office Visit 07/11/2016 11:20a [facility] Fam Rosado S61.001D Unsp open wound of Medicine Delmi Whitman M.D. right thumb w/o [place] damage to nail, subs Office Visit 06/20/2016 10:30a [facility] Monica Z11.1 Encounter for Home Aman, screening for N.P. respiratory tuberculosis Z02.1 Encounter for pre-employment examination Office Visit 06/15/2016 9:40a [facility] Irvin [place], G44.201 Tension- type Medicine - [employer] headache, [place] [address] unspecified, intractable R07.9 Chest pain, unspecified F33.2 Major depressv disorder, recurrent severe w/o psych features F10.188 Alcohol abuse with other alcohol-induced disorder D64.9 Anemia, unspecified Z72.0 Tobacco use G44.209 Tension-type headache, unspecified, not intractable Office Visit 05/18/2016 10:00a [facility] Irvin [place], Z00.00 Encntr for Medicine - [place] [employer] general adult Rd medical exam w/o abnormal findings F33.2 Major depressv disorder, 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 at [facility] Zbsrvyxe48/24/2019 - Fam Whitman M.D.R22.30 Localized swelling, mass and lump, unspecified upper limb
[2018-12-14 18:01] VITALS: BP 105/70
--- NOTE | 2018-12-14 18:36 | UC ---
Throat Pain/Nasal Horacio HPI - HPI Summary HPI Summary: Coughing for two weeks, had strep throat but did not take the pills because she cant swallow pills. This is new in the past few months, she used to be able to swallow pills. Denies sore throat, stomach ache, rash, states she has chronic headaches. Pt states she does not drink any water - History of Current Complaint Chief Complaint: UCRespiratory Stated Complaint: SORE THROAT, AND COUGH Time Seen by Provider: 12/14/18 18:11 Hx Obtained From: Patient Hx Last Menstrual Period: [id number] ?: No Onset/Duration: Gradual Onset, Lasting Days Severity: Moderate Pain Intensity: 0 Associated Signs & Symptoms: Positive: Dysphagia - Allergies/Home Medications Allergies/Adverse Reactions: Allergies Allergy/AdvReac Type Severity Reaction Status Date / Time No Known Allergies Allergy Verified 12/14/18 18:01 PMH/Surg Hx/FS Hx/Imm Hx Previously Healthy: Yes Other History Of: Negative For: Anticoagulant Therapy - Surgical History Surgical History: Yes Surgery Procedure, Year, and Place: ORAL SURGERY - Family History Known Family History: Positive: Hypertension, Diabetes - Social History Alcohol Use: None Alcohol Amount: 1 BOTTLE WINE DAILY Substance Use Type: None Substance Use Comment - Amount & Last Used: half to whole bottle of wine Smoking Status (MU): Current Every Day Smoker Type: Cigars Amount Used/How Often: 4 cigars/daily Have You Smoked in the Last Year: Yes When Did the Patient Quit Smoking/Using Tobacco: has not smoked for about a week /smoked within last 30 days Household Exposure Type: Cigarettes, Cigars - Immunization History Most Recent Influenza Vaccination: none Most Recent Tetanus Shot: 06/15/16 Most Recent Pneumonia Vaccination: n/a Review of Systems All Other Systems Reviewed And Are Negative: Yes ENT: Positive: Sore Throat Respiratory: Positive: Cough Is Patient Immunocompromised?: No Physical Exam Triage Information Reviewed: Yes Appearance: Well-Appearing, Well-Nourished, Pain Distress Vital Signs: Initial Vital Signs Temp 97.7 F 12/14/18 17:53 Pulse 91 12/14/18 17:53 Resp 16 12/14/18 17:53 BP 105/70 12/14/18 17:53 Pulse Ox 100 12/14/18 17:53 Vital Signs Reviewed: Yes Eye Exam: Normal ENT: Positive: Pharyngeal erythema Dental Exam: Normal Neck exam: Normal Respiratory Exam: Normal Cardiovascular Exam: Normal Abdominal Exam: Normal Bowel Sounds: Positive: Present Musculoskeletal Exam: Normal Neurological Exam: Normal Psychological Exam: Normal Skin Exam: Normal Throat Pain/Nasal Course/Dx - Course Course Of Treatment: hx obtained, exam performed ,meds reviewed, rapid strep is neg, sent for throat culture. tessleon pearls prescribed for cough. - Differential Dx/Diagnosis Differential Diagnosis/HQI/PQRI: Influenza, Laryngitis, Otitis Media, Pharyngitis, Sinusitis, URI Provider Diagnosis: Cough, Pharyngitis Discharge - Sign-Out/Discharge Documenting (check all that apply): Patient Departure All imaging exams completed and their final reports reviewed: No Studies - Discharge Plan Condition: Stable Disposition: HOME Prescriptions: Benzonatate CAP* [Tessalon 100 MG CAP*] 100 mg PO TID PRN #[id number] cap PRN Reason: Cough Patient Education Materials: Pharyngitis (ED) Referrals: Fam Whitman MD [Primary Care Provider] - Additional Instructions: 1. take the medication as prescribed. 2. Warm fluids, honey, salt water gargles to help with the sore throat. 3. The throat culture results will be available in the next couple days - Billing Disposition and Condition Condition: STABLE Disposition: Home
== END 2018-12-14 18:40 | disposition home or self-care (01) ==
LOC: UCEAST 17:46
DX: J02.9 Acute pharyngitis, unspecified (principal); R05 Cough; F17.210 Nicotine dependence, cigarettes, uncomplicated
CPT/HCPCS: 87070; 87651; 99212; G0463

== ENCOUNTER 2018-12-21 18:40 | Emergency (ER) | payer OTHER ==
--- NOTE | 2018-12-21 18:43 | UC ---
Abdominal Pain Female HPI - HPI Summary HPI Summary: 28 yo female presents with frequent urination. She tells me that she has had this problem for over 1 year and has been seen multiple times in the past for this issue. Each time has been told that her UA and urine culture do not show an infection and was referred to Urology. She has not made an appointment with Urology until recently, but they cannot see her until next month. She tells me that she feels that she urinates an excess amount of volume and then will have the urge to urinate again soon after, but only a few drops will come out. She denies pain with urination, hematuria, or frequent UTIs. No bed wetting or urinary incontinence. - History of Current Complaint Stated Complaint: CONSTIPATION, URINARY COMPLAINT Time Seen by Provider: 12/21/18 18:42 Hx Obtained From: Patient Hx Last Menstrual Period: [id number] Onset/Duration: Gradual Onset Severity Currently: None Allergies/Adverse Reactions: Allergies Allergy/AdvReac Type Severity Reaction Status Date / Time No Known Allergies Allergy Verified 12/21/18 19:00 Home Medications: Home Medications NK [No Home Medications Reported] 12/21/18 [History Confirmed 12/21/18] PMH/Surg Hx/FS Hx/Imm Hx Psychological History: Anxiety, Depression, Bipolar Disorder, Schizophrenia Other History Of: Negative For: Anticoagulant Therapy - Surgical History Surgical History: Yes Surgery Procedure, Year, and Place: ORAL SURGERY - Family History Known Family History: Positive: Hypertension, Diabetes - Social History Alcohol Use: None Alcohol Amount: 1 BOTTLE WINE DAILY Substance Use Type: None Substance Use Comment - Amount & Last Used: half to whole bottle of wine Smoking Status (MU): Current Every Day Smoker Type: Cigars Amount Used/How Often: 4 cigars/daily Have You Smoked in the Last Year: Yes When Did the Patient Quit Smoking/Using Tobacco: has not smoked for about a week /smoked within last 30 days Household Exposure Type: Cigarettes, Cigars - Immunization History Most Recent Influenza Vaccination: none Most Recent Tetanus Shot: 06/15/16 Most Recent Pneumonia Vaccination: n/a Review of Systems All Other Systems Reviewed And Are Negative: Yes Constitutional: Positive: Negative Skin: Positive: Negative Respiratory: Positive: Negative Cardiovascular: Positive: Negative Gastrointestinal: Positive: Negative Genitourinary: Positive: Frequency Motor: Positive: Negative Neurological: Positive: Negative Psychological: Positive: Negative Physical Exam - Summary Physical Exam Summary: GENERAL: NAD. Thin appearing. No pain distress. SKIN: No rashes, sores, lesions, or open wounds. NECK: Supple. Nontender. No lymphadenopathy. CHEST: CTAB. No r/r/w. No accessory muscle use. Breathing comfortably and in no distress. CV: RRR. Without m/r/g. Pulses intact. Cap refill <2seconds ABDOMEN: Soft. NTTP. No CVA tenderness. Bowel sounds present NEURO: Alert. PSYCH: Age appropriate behavior. Triage Information Reviewed: Yes Vital Signs: Vital Signs: Temp Pulse Resp BP Pulse Ox 98.3 F 100 18 119/68 100 12/21/18 18:50 12/21/18 18:50 12/21/18 18:50 12/21/18 18:50 12/21/18 18:50 Laboratory Tests 12/21/18 12/21/18 19:09 19:11 POC Urine Color [place] POC Urine Clarity Clear POC Urine pH 7.0 POC Ur Specif [place] 1.020 POC Urine Protein Trace A POC Ur Glucose (UA) Negative POC Urine Ketones Negative POC Urine Blood Negative POC Urine Nitrite Negative POC Urine Bilirubin Negative POC Urine Urobilinogen 1.0 POC U Leukocyte Esteras Negative POC Ur Test Negative Vital Signs Reviewed: Yes Abd Pain Female Course/Dx - Course Course Of Treatment: UA and negative. Will test her urine for mycoplasma and ureaplasma as I dont see where these have been performed recently. POC glucose WNL. Advised to keep appt with Urology for further evaluation. - Differential Dx/Diagnosis Provider Diagnosis: Frequent urination Discharge - Sign-Out/Discharge Documenting (check all that apply): Patient Departure All imaging exams completed and their final reports reviewed: No Studies - Discharge Plan Condition: Stable Disposition: HOME Patient Education Materials: Urinary Urgency and Frequency (DC) Referrals: No Primary Care Phys,NOPCP [Primary Care Provider] - Gideon Fernández MD [Medical Doctor] - As Soon As Possible Additional Instructions: If you develop a fever, shortness of breath, chest pain, new or worsening symptoms - please call your PCP or go to the ED immediately. Your urine test was normal today in the clinic, but we have sent your urine to the lab for further testing and should have results in 5-7 days. I am unsure the cause of your continued troubles with urination, but there does not seem to be an urgent/emergent condition as these symptoms have been persisting for months. I strongly recommend that you keep your appointment with Urology for further evaluation and testing. - Billing Disposition and Condition Condition: STABLE Disposition: Home - Attestation Statements Provider Attestation: I was available for consult. This patient was seen by the JAKE. The patient was not presented to , seen by or examined by fl -Cynthia Allen MD
--- OUTSIDE RECORDS SUMMARY | 2018-12-21 18:44 | XMS REPORT | Continuity of Care Document ---
:1990 External Reference #:[id number] Author Name Lena Oliver Care Team Providers Name Role Phone Fam Whitman III, MD Primary Care Physician Unavailable Payers Date Identification Numbers Payment Provider Subscriber Policy Number: [id number] Tommy Roland Group Number: [id number] [address] PayID: [id number] [place] [address] Expires: 2016 PayID: [id number] Cont: Jose Luis Jeong Benjamin Roland [address] [place] [address] Advance Directives Description No Information Available Problems Active Problems Provider Date Moderate depression Irvin Redding, [employer] Onset: 05/18/2016 Primary herpes simplex infection of lips Irvin Redding [employer] Onset: 05/18/2016 Tension-type headache Irvin Redding [employer] Onset: 05/18/2016 Nondependent alcohol abuse, continuous Irvin Redding, [employer] Onset: 05/18/2016 Headache Aftab Montoya MD Onset: [...] 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 occ more Tobacco Use Start: Unknown Patient is a current cigars and cigarettes smoker, smokes every X 1 year day Recreational Drug Use Denies Drug Use Smoking Status Reviewed: 12/18/18 Patient is a current cigars and cigarettes smoker, smokes every X 1 year day Exercise Type/Frequency Does not exercise Allergies, Adverse Reactions, Alerts Description No Known Drug Allergies Medications Active Medications SIG Qnty Indications Ordering Provider Date Ranitidine 150 12/18/18 reports not 60tabs R10.84 Alicia Borden MD 12/04/2018 Maximum Strength taking one by mouth twice a day, 150mg Tablets as needed for heartburn and abdominal pain History Medications No Active Medications [...] D64.9 Irvin Redding, 06/15/2016 - a day [employer] 01/08/2017 325(65Fe) mg Tablets D50.8 Abreva apply topically to 2g B00.1 Irvin Redding, 05/18/2016 - 10% Cream blister 5 x's/day [employer] 05/23/2016 intil gone Tylenol Extra 2 tablets twice G44.201 Irvin Redding, 05/18/2016 - Strength daily as needed [employer] 06/15/2016 500mg for Culp Tablets Wellbutrin SR 1 tablet po in the 60tabs F33.2 Irvin Redding, 05/18/2016 - 150mg morning [employer] 06/15/2016 Tablets ER 12HR Loratadine 1 by [...] CPT Code Status Date Vaccine Lot # [id number] Given 06/15/2016 Tetanus And Diptheria (Td) For Adult Use Preservative Free Vital Signs Date Vital Result Comment 12/18/2018 4:27pm Height 66 inches 5'6" Heart Rate 89 /min BP Systolic Sitting 114 mmHg BP Diastolic Sitting 76 mmHg Body Temperature 98.0 F O2 % BldC Oximetry 99 % 12/10/2018 2:09pm Height 66 inches 5'6" Weight [...] Test Result H/L Range Note Laboratory test [facility] Culture Throat SEE RESULT 1, 2 finding [address] [place] [address] [phone] Laboratory test [facility] Rapid Strep Negative Negative 3 finding [address] [place] [address] [phone] Laboratory test [facility] Erythrocyte Sed 15 mm/Hr N 0-19 finding [address] [place] [address] [phone] CRP High Sensitivity < 0.20 mg/L <2.00 Laboratory test 12/09/2018 [facility] Rapid Strep POSITIVE Abnormal Negative [address] [place] [address] [phone] Hemoglobin 12/04/2018 [facility] Hemoglobin 2.2 % 2.0-3.[address] A2 [place] [address] [phone] Hemoglobin F 0.0 % 0.0-0.9 5 Hemoglobin A 97.8 % 95.8-98.0 Variant Hemoglobin 0.0 % 6 Hemoglobin Electro Interp See Comment 7 Food Allergy 12/04/2018 [facility] Egg White Allergen <0.35 kU/ L [address] [place] [address] [phone] [place] Allergen IgE <0.35 kU/L 9 Egg Yolk Allergen IgE <0.35 kU/L 10 Cow's Milk Allergen IgE <0.35 kU/L 11 Peanut Allergen IgE <0.10 kU/L 12 Soybean Allergen IgE <0.35 kU/L 13 Wheat Allergen IgE <0.35 kU/L 14 Anca Panel For 12/04/2018 [facility] Myeloperoxidase AB < 0.2 U [address] [place] [address] [phone] Proteinase 3 AB < 0.2 U 16 Iron & Iron 12/04/2018 [facility] Total Iron 627 g/dL High 250-[address] [place] [address] Capacity [phone] Transferrin 448 mg/dL High 203-362 Iron < 17 g/dL Low 50-212 Unsaturated Iron Binding < 612 g/dL % Iron Saturation 3 % Low 15-55 Urine Drug 10/23/2018 [facility] Amphetamine Ur None Detected None 17 SCR ED & [address] Screen [place] [address] [phone] Barbiturates Urine Screen None Detected None Detect Benzodiazepine Urine Screen None Detected None Detect Urine Cannabinoids Screen None Detected None Detect Urine Cocaine Screen None Detected None Detect Urine Opiates Screen None Detected None Detect Urine Phencyclidine Screen None Detected None Detect 18 Urine Culture And 10/23/2018 [facility] Urine Culture SEE RESULT [address] [place] [address] [phone] Comp Metabolic 10/23/2018 [facility] Sodium 139 mmol/L N 135- [address] [place] [address] [phone] Potassium 3.3 mmol/L Low 3.5-5.0 Chloride 107 [...] Egfr Non- 88.7 >60 Egfr 107.3 >60 20 Laboratory test 10/23/2018 [facility] HCG 1.33 mIU/mL [address] [place] [address] [phone] Acetaminophen < 15 g/mL 22 Alcohol < 10 mg/dL N <10 Salicylate < 2.50 mg/dL <30 TSH (Thyroid Stim Horm) 0.50 mcIU/mL N 0.34-5.60 CBC Auto Diff 10/23/2018 [facility] White Blood 7.0 10^3/uL N 3.5-10.[address] [place] [address] [phone] Red Blood Count 4.07 10^6/uL N 4.00-5.40 [...] % Nucleated Red Blood Cells % 0 CBC Auto Diff 10/22/2018 [facility] White Blood 7.8 10^3/uL N 3.5-10.[address] [place] [address] [phone] Red Blood Count 4.12 10^6/uL N 4.00-5.40 Hemoglobin 10.0 g/dL Low 12.0-16.0 Hematocrit 32 % Low 35-47 Mean Corpuscular Volume 78 fL Low 80-97 Mean Corpuscular Hemoglobin 24 pg Low 27-31 Mean Corpuscular HGB Conc 31 g/dL N 31-36 Red Cell Distribution Width 19 % High 10.5-15 Platelet Count 391 10^3/uL N 150-450 Mean Platelet Volume 7.3 fL Low 7.4-10.4 Manual Differential 10/22/2018 [facility] Neutrophil % 54 % [address] [place] [address] [phone] Lymphocytes % 36 % Monocytes % 7 % Eosinophils % 3 % Anisocytosis 1+ Abs Neutrophils 4.2 10^3/uL N 1.5-7.7 Abs Lymphocytes 2.8 10^3/uL N 1.0-4.8 Abs Monocytes 0.5 10^3/uL N 0-0.8 Abs Eosinophils 0.2 10^3/uL N 0-0.6 Laboratory test 10/22/2018 [facility] Vitamin D 9.0 ng/mL Low 20-[address] Total 25(Oh) [place] [address] [phone] TSH (Thyroid Stim Horm) 0.34 mcIU/mL N 0.34-5.60 Vitamin B12 273 pg/mL N 180-914 23 Manual Differential 10/20/2018 [facility] Neutrophil % 60 % [address] [place] [address] [phone] Lymphocytes % 27 % Monocytes % 12 % Eosinophils % 1 % Microcytosis 1+ Hypochromasia 1+ Abs Neutrophils 5.34 10^3/uL N 1.5-7.7 Abs Lymphocytes 2.4 10^3/uL N 1.0-4.8 Abs Monocytes 1.06 10^3/uL High 0-0.8 Abs Eosinophils 0.08 10^3/uL N 0-0.6 CBC Auto Diff 10/20/2018 [facility] White Blood 8.9 10^3/uL N 3.5-10.[address] [place] [address] [phone] Red Blood Count 4.20 10^6/uL N 4.00-5.40 [...] fL N 7.4-10.4 Basic Metabolic Panel 08/26/2018 [facility] Sodium 139 mmol/L N [address] [place] [address] [phone] Potassium 3.9 mmol/L N 3.5-5.0 Chloride 106 mmol/L N 101-111 Co2 Carbon Dioxide 27 mmol/L N 22-32 Anion Gap 6 mmol/L N 2-11 Glucose 84 mg/dL N 70-100 Blood Urea Nitrogen 8 mg/dL N 6-24 Creatinine 0.80 mg/dL N 0.51-0.95 BUN/Creatinine Ratio 10.0 N 8-20 Calcium 10.4 mg/dL High 8.6-10.3 Egfr Non- 87.4 >60 Egfr 105.8 >60 24 Lipid Profile 08/26/2018 [facility] Triglycerides 44 mg/dL 25 (Trig/Chol/HDL) [place] [address] [phone] Cholesterol 145 mg/dL 26 HDL Cholesterol 48.8 mg/dL 27 LDL Cholesterol 87 mg/dL 28 Laboratory test 06/27/2018 [facility] TSH (Thyroid 0.77 N 0.34 -5.[address] Stim Horm) mcIU/[place] [address] [phone] Laboratory test 06/26/2018 [facility] Gardnerella/ SEE RESULT 29, 30 finding Yeast: [place] [address] Vaginal Dna [phone] Trichomonas Vaginalis Rna Negative Negative 31 GC/Chlamydia 06/26/2018 [facility] Chlamydia Negative Negative Amplified Rna [address] [place] [address] [phone] Neisseria gonorrhoeae (GC) Rna Negative Negative Urine Culture And 06/26/2018 [facility] Urine SEE RESULT 32 , [address] [place] [address] [phone] Laboratory test 06/26/2018 [facility] Poc Negative Negative [address] , [place] [address] Urine [phone] Poc Urinalysis 06/26/2018 [facility] Poc Negative Negative [address] Glucose, [place] [address] Urine [phone] Poc Bilirubin, Urine 1+ Abnormal Negative Poc Ketone, Urine Trace Abnormal Negative Poc Specific [place], Urine >=1.030 N 1.010-1.030 Poc Blood, Urine Negative Negative Poc pH, Urine 6.0 N 5-9 Poc Protein, Urine Trace Abnormal Negative Poc Urobilinogen, Urine 1.0 Negative Poc Nitrite, Urine Negative Negative Poc Leukocytes, Urine Trace Abnormal Negative Poc Color, Urine Yellow Poc Clarity, Urine Clear 35 Drug Abuse 20 03/06/2018 [facility] Urine Amphetamine Negative ng/mL [address] [place] [address] [phone] Urine Barbiturates Negative ng/mL 37 Urine Benzodiazepines Negative ng/mL 38 Urine Cocaine Negative ng/mL 39 Urine Phencyclidine Negative ng/mL Cutoff: 25 Urine Tetrahydrocannabinol Negative ng/mL Cutoff: 50 40 Creatinine, Urine 345.0 mg/dL Specific [place] 1.021 pH 5.9 Oxidants Negative 41 Adulterants Comment Normal Codeine, Ur Not Detected ng/mL Cutoff: 25 42 Axddpvw-4-xnqc-glucuronide, Ur Not Detected ng/mL 43 Morphine, Ur Not Detected ng/mL Cutoff: 25 44 Gutafmjb-1-ampv-glucuronide, U Not Detected ng/mL 45 6-monoacetylmorphine, Ur Not Detected ng/mL Cutoff: 25 46 Hydrocodone, Ur Not Detected ng/mL Cutoff: 25 47 Norhydrocodone, Ur Not Detected ng/mL Cutoff: 25 48 Dihydrocodeine, Ur Not Detected ng/mL Cutoff: 25 49 Hydromorphone, Ur Not Detected ng/mL Cutoff: 25 50 Jckzuhkbxcpug3vzlakqnhzoagumz Not Detected ng/mL 51 Oxycodone, Ur Not Detected ng/mL Cutoff: 25 52 Noroxycodone, Ur Not Detected ng/mL Cutoff: 25 53 Oxymorphone, Ur Not Detected ng/mL Cutoff: 25 54 Kmptvkltyae-2-fztw-glucuronide Not Detected ng/mL 55 Noroxymorphone, Ur Not Detected ng/mL Cutoff: 25 56 Fentanyl, Ur Not Detected ng/mL Cutoff: 2 57 Norfentanyl, Ur Not Detected ng/mL Cutoff: 2 58 Meperidine, Ur Not Detected ng/mL Cutoff: 25 59 Normeperidine, Ur Not Detected ng/mL Cutoff: 25 60 Naloxone, Ur Not Detected ng/mL Cutoff: 25 61 Hbhjygnh-2-vnri-glucuronide, U Not Detected ng/mL 62 Methadone, Ur Not Detected ng/mL Cutoff: 25 63 Eddp, Ur Not Detected ng/mL Cutoff: 25 64 Propoxyphene, Ur Not Detected ng/mL Cutoff: 25 65 Norpropoxyphene, Ur Not Detected ng/mL Cutoff: 25 66 Tramadol, Ur Not Detected ng/mL Cutoff: 25 67 O-desmethyltramadol, Ur Not Detected ng/mL Cutoff: 25 68 Tapentadol, Ur Not Detected ng/mL Cutoff: 25 69 N-desmethyltapentadol, Ur Not Detected ng/mL Cutoff: 50 70 Spaiszxuah-hdty-flahjcymhih, U Not Detected ng/mL 71 Buprenorphine, Ur Not Detected ng/mL Cutoff: 5 72 Norbuprenorphine, Ur Not Detected ng/mL Cutoff: 5 73 Norbuprenorphine glucuronide Not Detected ng/mL Cutoff: 20 74 Opioid Interpretation See Comment 75 Urinalysis Profile 02/07/2017 [facility] Urine Color Yellow N [address] [place] [address] [phone] Urine Appearance Clear N Urine Specific [place] 1.026 N 1.010-1.030 Urine pH 7.0 N 5-9 Urine Urobilinogen Negative N Negative Urine Ketones Trace Abnormal Negative Urine Protein 2+(100 mg/dL) Abnormal Negative Urine Leukocytes Trace Abnormal Negative Urine Blood Negative N Negative * * Abnormal Negative 76 Urine Nitrite Negative N Negative Urine Bilirubin Negative N Negative Urine Glucose Negative N Negative Urine White Blood Cell Trace(0-5/hpf) N Absent Urine Red Blood Cell 1+(3-5/hpf) Abnormal Absent Urine Bacteria Absent N Absent Urine Squamous Epithelial Cell Present Abnormal Absent Urine Drug 02/07/2017 [facility] Amphetamine Ur None Detected N None Detect SCR ED & [address] [place] [address] [phone] Barbiturates Urine Screen None Detected N None Detect Benzodiazepine Urine Screen None Detected N None Detect Urine Cannabinoids Screen None Detected N None Detect Urine Cocaine Screen None Detected N None Detect Urine Opiates Screen None Detected N None Detect Urine Phencyclidine Screen None Detected N None Detect 77 CBC Auto Diff 02/07/2017 [facility] White Blood 8.4 10^3/uL N 3.5-10.[address] [place] [address] [phone] Red Blood Count 4.35 10^6/uL N 4.0-5.4 [...] Cells % 0.1 N Laboratory test 02/07/2017 [facility] HCG < 0.60 N [address] mIU/[place] [address] [phone] Comp Metabolic 02/07/2017 [facility] Sodium 136 mmol/L N 133- [address] [place] [address] [phone] Potassium 3.5 mmol/L N 3.5-5.0 Chloride 106 [...] 104.5 N >60 Egfr 134.4 N >60 79 Laboratory test 02/07/2017 [facility] Acetaminophen < 15 g/mL N [address] [place] [address] [phone] Alcohol < 10 mg/dL N <10 Salicylate < 2.50 mg/dL N <30 TSH (Thyroid Stim Horm) 0.44 mcIU/mL N 0.34-5.60 Urine Culture And 02/07/2017 [facility] Urine Culture SEE RESULT [address] [place] [address] [phone] Urinalysis Profile 01/30/2017 [facility] Urine Color Yellow N [address] [place] [address] [phone] Urine Appearance Cloudy N Urine Specific [place] 1.025 N 1.010-1.030 Urine pH 5.0 N 5-9 Urine Urobilinogen Negative N Negative Urine Ketones 1+ Abnormal Negative Urine Protein 1+(30 mg/dL) Abnormal Negative Urine Leukocytes 1+ Abnormal Negative Urine Blood Negative N Negative * * Abnormal Negative 82 Urine Nitrite Negative N Negative Urine Bilirubin Negative N Negative Urine Glucose Negative N Negative Urine White Blood Cell 2+(-hpf) Abnormal Absent Urine Red Blood Cell Absent N Absent Urine Bacteria Absent N Absent Urine Squamous Epithelial Cell Present Abnormal Absent CBC Auto Diff 01/30/2017 [facility] White Blood 7.3 10^3/uL N 3.5-10.[address] [place] [address] [phone] Red Blood Count 4.36 10^6/uL N 4.0-5.4 [...] Cells % 0 N Urine Drug 01/30/2017 [facility] Amphetamine Ur None Detected N None Detect SCR ED & [address] [place] [address] [phone] Barbiturates Urine Screen None Detected N None Detect Benzodiazepine Urine Screen None Detected N None Detect Urine Cannabinoids Screen None Detected N None Detect Urine Cocaine Screen None Detected N None Detect Urine Opiates Screen None Detected N None Detect Urine Phencyclidine Screen None Detected N None Detect 83 Comp Metabolic Panel 01/30/2017 [facility] Sodium 136 mmol/L N 133-[address] [place] [address] [phone] Potassium 3.4 mmol/L Low 3.5-5.0 Chloride 104 [...] 88.1 N >60 Egfr 113.3 N >60 84 Laboratory test 01/30/2017 [facility] Acetaminophen < 15 g/mL N [address] [place] [address] [phone] Alcohol < 10 mg/dL N <10 Salicylate < 2.50 mg/dL N <30 TSH (Thyroid Stim Horm) 0.45 mcIU/mL N 0.34-5.60 HCG < 0.60 mIU/mL N 86 Urine Culture And 01/30/2017 [facility] Urine SEE RESULT [address] Culture BELOW [place], [place] [id number] [phone] Laboratory test 01/14/2017 [facility] Poc Negative N Negative [address] , [place] [address] Urine [phone] Poc Urinalysis 01/14/2017 [facility] Poc Negative N Negative [address] Glucose, [place] [address] Urine [phone] Poc Bilirubin, Urine Negative N Negative Poc Ketone, Urine Negative N Negative Poc Specific [place], Urine 1.025 N 1.010-1.030 Poc Blood, Urine 3+ Abnormal Negative Poc pH, Urine 6.5 N 5-9 Poc Protein, Urine Negative N Negative Poc Urobilinogen, Urine 0.2 N Negative Poc Nitrite, Urine Negative N Negative Poc Leukocytes, Urine Negative N Negative Poc Color, Urine Brown N Poc Clarity, Urine Cloudy N 89 Laboratory test 08/22/2016 [facility] Gardnerella/Yeast: SEE RESULT [address] [place] [address] [phone] CBC Auto Diff 08/22/2016 [facility] White Blood Count 5.8 N 3.5- [address] 10^3/uL 10.8 [place] [address] [phone] Red Blood Count 4.69 10^6/uL N 4.0-5.4 [...] Cells % 0.1 N Urinalysis Profile 08/22/2016 [facility] Urine Color Yellow N [address] [place] [address] [phone] Urine Appearance Cloudy N Urine Specific [place] 1.031 High 1.010-1.030 Urine pH 6.0 N [...] Cell Present Abnormal Absent Urine Drug 08/22/2016 [facility] Amphetamine Ur None Detected N None Detect SCR ED & [address] [place] [address] [phone] Barbiturates Urine Screen None Detected N None Detect Benzodiazepine Urine Screen None Detected N None Detect Urine Cannabinoids Screen None Detected N None Detect Urine Cocaine Screen None Detected N None Detect Urine Opiates Screen None Detected N None Detect Urine Phencyclidine Screen None Detected N None Detect 91 Comp Metabolic Panel 08/22/2016 [facility] Sodium 133 mmol/L N 133-[address] [place] [address] [phone] Potassium 3.9 mmol/L N 3.5-5.0 Chloride 102 [...] 87.6 N >60 Egfr 112.7 N >60 92 Laboratory test 08/22/2016 [facility] HCG < 0.60 mIU/ mL N [address] [place] [address] [phone] Acetaminophen < 15 g/mL N 94 Alcohol < 10 mg/dL N <10 Salicylate < 2.50 mg/dL N <30 TSH (Thyroid Stim Horm) 0.63 mcIU/mL N 0.34-5.60 Rapid HIV Nonreactive N Nonreactive Syphillis Igg W/Reflex RPR Nonreactive N Nonreactive 95 Urine Culture 08/22/2016 [facility] Urine SEE RESULT [address] [place] [address] [phone] Hepatitis Acute 08/22/2016 [facility] Hepatitis B Nonreactive N Nonreactive Panel [address] [place] [address] Antigen [phone] Hepatitis B Core IgM Nonreactive N Nonreactive Hepatitis A AB IgM Nonreactive N Nonreactive Hepatitis C Antibody Nonreactive N Nonreactive Laboratory test 08/04/2016 [facility] HCG < 0.60 mIU/ mL N [address] [place] [address] [phone] Acetaminophen < 15 g/mL N 98 Alcohol < 10 mg/dL N <10 Salicylate < 2.50 mg/dL N <30 TSH (Thyroid Stim Horm) 1.63 mcIU/mL N 0.34-5.60 Comp Metabolic Panel 08/04/2016 [facility] Sodium 135 mmol/L N 133-[address] [place] [address] [phone] Potassium 3.8 mmol/L N 3.5-5.0 Chloride 104 [...] 82.9 N >60 Egfr 106.6 N >60 99 Urinalysis Profile 08/04/2016 [facility] Urine Color Yellow N [address] [place] [address] [phone] Urine Appearance Cloudy N Urine Specific [place] 1.029 N 1.010-1.030 Urine pH 5.0 N [...] Present Abnormal Absent CBC Auto Diff 08/04/2016 [facility] White Blood 8.1 10^3/uL N 3.5-10.[address] [place] [address] [phone] Red Blood Count 4.15 10^6/uL N 4.0-5.4 [...] Blood Cells % 0 N Urine 08/04/2016 [facility] Amphetamine Ur Presumptive Abnormal None 100 Drug SCR [address] Screen Posi <SEE Detect ED & [place] [address] NOTE> Clinic [phone] Barbiturates Urine Screen None Detected N None Detect Benzodiazepine Urine Screen None Detected N None Detect Urine Cannabinoids Screen None Detected N None Detect Urine Cocaine Screen None Detected N None Detect Urine Opiates Screen None Detected N None Detect Urine Phencyclidine Screen None Detected N None Detect 101 Iron & Iron Binding 06/25/2016 [facility] Iron 37 g/dL Low 50-[address] [place] [address] [phone] Unsaturated Iron Binding 484 g/dL N Total Iron Binding Capacity 521 g/dL High 250-450 % Iron Saturation 7 % Low 15-55 Laboratory test 06/25/2016 [facility] Ferritin < 10.0 ng/mL Low 11-307 [address] [place] [address] [phone] Vitamin B12 285 pg/mL N 180-914 103 CBC Auto Diff 06/25/2016 [facility] White Blood 8.2 10^3/uL N 3.5-10.[address] [place] [address] [phone] Red Blood Count 4.54 10^6/uL N 4.0-5.4 [...] Nucleated Red Blood Cells % 0 N CBC Auto Diff 05/31/2016 [facility] White Blood 6.2 10^3/uL N 3.5-10.[address] [place] [address] [phone] Red Blood Count 4.46 10^6/uL N 4.0-5.4 [...] Cells % 0.2 N Laboratory test 05/31/2016 [facility] TSH (Thyroid 0.55 N 0.34 -5.[address] Stim Horm) mcIU/[place] [address] [phone] Basic Metabolic 05/31/2016 [facility] Sodium 136 mmol/L N 133- [address] [place] [address] [phone] Potassium 4.2 mmol/L N 3.5-5.0 Chloride 105 mmol/L N 101-111 Co2 Carbon Dioxide 23 mmol/L N 22-32 Anion Gap 8 mmol/L N 2-11 Glucose 78 mg/dL N 70-100 Blood Urea Nitrogen 7 mg/dL N 6-24 Creatinine 0.77 mg/dL N 0.51-0.95 BUN/Creatinine Ratio 9.1 N 8-20 Calcium 10.0 mg/dL N 8.6-10.3 Egfr Non- 92.9 N >60 Egfr 119.5 N >60 105 1 [id number] 2 SEE RESULT BELOW Name: BENJAMIN ROLAND : [address]: Fam Fernandez MD Acct: [id number] Unit: [id number] AGE: 28 Location: [facility] Re12/14/18 SEX: F Status: DEP ER SPEC: [id number] OLVIN: 12/14/[address]: Jessica Anton NP REQ: [id number] RECD: 12/15/18 STATUS: PAULINO MENDOZA DR: Fam Whitman III, MD _ SOURCE: THROAT SPDESC: ORDERED: Throat Culture COMMENTS: [id number] Procedure Result Reported Site Throat Culture Final 12/17/18- 1203 ML Organism 1 NORMAL ADRI Quantity 2+ Throat cultures are clinically indicated to detect the presence of group A strep, arcanobacterium and yeast. In certain cases, predominating organisms will be reported. * ML - Main Lab . END OF REPORT DEPARTMENT OF PATHOLOGY, [address] [place] [address] Kvng Cole M.D. Director [facility] # [id number] 3 Echo Vascular Tech: [id number] Echo Vascular Tech: [id number] ADDITIONAL INFORMATION This test has been modified from the assistant center director's instructions. Its performance characteristics were determined by [facility] in a manner consistent with CLIA requirements. This test has not been cleared or approved by the U.S. Food and Drug Administration. 6 REFERENCE VALUE No abnormal variants ADDITIONAL INFORMATION This test has been modified from the assistant center director's instructions. Its performance characteristics were determined by [facility] in a manner consistent with CLIA requirements. This test has not been cleared or approved by the U.S. Food and Drug Administration. 7 No electrophoretic evidence of abnormal hemoglobin or [...] Analysis). Additional sample required. Test Performed by: [facility] - [address] [address] 8 Class 0 (Negative <0.35) 9 Class 0 (Negative <0.35) 10 Class 0 (Negative <0.35) 11 Class 0 (Negative <0.35) 12 Class 0 (Negative <0.10) 13 Class 0 (Negative <0.35) 14 Class 0 (Negative <0.35) Test Performed by: [facility] [place] [address] 15 REFERENCE VALUE <0.4 (Negative) 16 REFERENCE VALUE <0.4 (Negative) Test Performed by: [facility] [address] 17 VERBALL BY [id number] THAT IS WAS 2242 COLLECTION TIME, NOT [id number] The urine specimen was tested at the listed cutoffs: Drug class test level (ng/mL) Amphetamines 500 Barbiturates 200 Benzodiazepine metabolites 200 Cocaine metabolites 150 Cannabinoids 50 Opiates 300 Pcp 25 Specimen was received without chain of custody. Results should be used for medical purposes only. 19 SEE RESULT BELOW Name: BENJAMIN ROLAND : [address]: Sadiq Reyes MD Acct: [id number] Unit: [id number] AGE: 27 Location: ED Re10/23/18 SEX: F Status: DEP ER SPEC: [id number] OLVIN: 10/23/18 [facility] DR: Sadiq Reyes MD REQ: [id number] RECD: 10/23/18 STATUS: PAULINO MENDOZA DR: Fam Whitman III, MD _ SOURCE: URINE SPDESC: ORDERED: Urine Culture Procedure Result Reported Site Urine Culture Final 10/25/18- 0940 ML No Growth (<1,000 CFU/mL) * ML - Main Lab . END OF REPORT DEPARTMENT OF PATHOLOGY, [address] [place] [address] Kvng Cole M.D. Director [facility] # [id number] 20 Because ethnic data is not always readily [...] 15-29 5 Kidney failure <15 (or dialysis) 21 <5.0 Negative 5.0 - 25.0 Indeterminate (Repeat testing recommended after 72 hours) >25.0 Positive Perimenopausal women can display HCG levels of up to 20 mIU/mL 22 Therapeutic concentration: <50 ug/mL Toxic concentration: >120 ug/mL 23 Normal Range 180 to 914 Indeterminate Range 145 to 180 Deficient Range <145 24 Because ethnic data is not always readily [...] 15-29 5 Kidney failure <15 (or dialysis) 25 Desirable: <150 Borderline High: 150-199 High: 200-499 Very High: >500 26 Desirable: <200 Borderline High: 200-239 High: >239 27 Low: <40 Desirable: 40-60 High: >60 28 Desirable: <100 Near Optimal: 100-129 Borderline High: 130-159 High: 160-189 Very High: >189 29 [id number] Would you like to order Trichomonas Vaginalis RNA testing? Y 30 SEE RESULT BELOW Name: BENJAMIN ROLAND : [address]: Tom Franco MD Acct: [id number] Unit: [id number] AGE: 27 Location: [facility] Re06/26/18 SEX: F Status: DEP ER SPEC: [id number] OLVIN: 06/26/18-1838 [facility] DR: Sheyla YOUNG REQ: [id number] RECD: 06/27/18-1001 STATUS: COMP CHELSIE DR: Fam Franco MD _ SOURCE: VAGINAL SPDESC: ORDERED: Jac,Yeast DNA COMMENTS: [id number] Would you like to order Trichomonas Vaginalis [...] . END OF REPORT DEPARTMENT OF PATHOLOGY, [address] [place] [address] Kvng Cole M.D. Director [facility] # [id number] 31 [id number] GC/Chlamydia Source?: Endocervical Trichomonas Source: Endocervical 32 [id number] 33 SEE RESULT BELOW Name: BENJAMIN ROLAND : [address]: Tom Franco MD Acct: [id number] Unit: [id number] AGE: 27 Location: [facility] Re06/26/18 SEX: F Status: DEP ER SPEC: [id number] OLVIN: 06/26/18 [facility] DR: Sheyla YOUNG REQ: [id number] RECD: 06/27/18 STATUS: PAULINO MENDOZA DR: Fam Franco MD _ SOURCE: URINE SPDESC: ORDERED: Urine Culture COMMENTS: [id number] Procedure Result Reported Site Urine Culture Final 06/28/18- 1113 ML No Growth (<1,000 CFU/mL) * ML - Main Lab . END OF REPORT DEPARTMENT OF PATHOLOGY, [address] [place] [address] Kvng Cole M.D. Director [facility] # [id number] 34 [employer] Tech: [id number] If is still suspected, please repeat test after 48 to 72 hours. 35 [employer] V[employer] Tech: [id number] 36 REFERENCE VALUE Cutoff: 500 37 REFERENCE VALUE Cutoff: 200 38 REFERENCE VALUE Cutoff: 100 39 REFERENCE VALUE Cutoff: 150 40 ADDITIONAL INFORMATION This report is intended for use in clinical monitoring or management of patients. It is not intended for use in employment-related testing. 41 REFERENCE VALUE Cutoff: 200 mg/L 42 Tylenol 3 43 Metabolite of codeine REFERENCE VALUE Cutoff: 100 44 Valerie Phelan, Contin; Also a minor metabolite (10%) of codeine and can be seen in low concentrations (<2,000 ng/mL) with poppy seed ingestion. 45 Metabolite of morphine REFERENCE VALUE Cutoff: 100 46 Metabolite of heroin 47 Lortab, [place], Vicodin; Also a very minor metabolite of codeine and impurity (<1%) of oxycodone. 48 Metabolite of hydrocodone 49 Metabolite of hydrocodone 50 Dilaudid, Exalgo; Also a metabolite of hydrocodone and a minor (<5%) metabolite of morphine. 51 Metabolite of hydromorphone REFERENCE VALUE Cutoff: 100 52 Endocet, Percocet, Oxycontin 53 Metabolite of oxycodone 54 Numorphan, Opana; Also a metabolite of oxycodone. 55 Metabolite of oxymorphone REFERENCE VALUE Cutoff: 100 56 Metabolite of oxymorphone 57 Actiq, Duragesic, [place] 58 Metabolite of fentanyl 59 Demerol 60 Metabolite of meperidine 61 Narcan 62 Metabolite of naloxone REFERENCE VALUE Cutoff: 100 63 Dolophine 64 Metabolite of methadone 65 Darvon, Darvocet 66 Metabolite of propoxyphene 67 Tradol, Ultram, Ultracet 68 Metabolite of tramadol 69 Nucynta 70 Metabolite of tapentadol 71 Metabolite of tapentadol REFERENCE VALUE Cutoff: 100 72 Buprenex, Suboxone 73 Metabolite of buprenorphine 74 Metabolite of buprenorphine 75 No opioids were detected. The absence of expected drug(s) and/or drug metabolite(s) may indicate non-compliance, altered pharmacokinetics, inappropriate timing of specimen collection relative to drug administration, diluted/adulterated urine, or limitations of testing. ADDITIONAL INFORMATION This test was developed and its performance characteristics determined by [facility] in a manner consistent with CLIA requirements. This test has not been cleared or approved by the U.S. Food and Drug Administration. Test Performed by: [facility] [place] [place] [address] 76 *Ascorbic acid is present which may interfere with detection of blood. 77 The urine specimen was tested at the listed cutoffs: Drug class test level (ng/mL) Amphetamines 500 Barbiturates 200 Benzodiazepine metabolites 200 Cocaine metabolites 150 Cannabinoids 50 Opiates 300 Pcp 25 Specimen was received without chain of custody. Results should be used for medical purposes only. 78 <5.0 Negative 5.0 - 25.0 Indeterminate (Repeat testing recommended after 72 hours) >25.0 Positive Perimenopausal women can display HCG levels of up to 20 mIU/mL 79 Because ethnic data is not always readily [...] 15-29 5 Kidney failure <15 (or dialysis) 80 Therapeutic concentration: <50 ug/mL Toxic concentration: >120 ug/mL 81 SEE RESULT BELOW Name: BENJAMIN ROLAND : [address]: Tom Franco MD Acct: [id number] Unit: [id number] AGE: 26 Location: ED Re02/07/17 SEX: F Status: DEP ER SPEC: [id number] OLVIN: 02/07/17-[address]: Tom Franco MD REQ: [id number] RECD: 02/07/17 STATUS: PAULINO MENDOZA DR: Fam Whitman III, MD _ SOURCE: URINE SPDESC: ORDERED: Urine Culture Procedure Result Reported Site Urine Culture Final 02/08/17- 1222 ML No Growth (<1,000 CFU/mL) * ML - MAIN LAB ([facility]) . END OF REPORT * ML=Testing performed at Main Lab DEPARTMENT OF PATHOLOGY, [address] [place] [address] Kvng Cole M.D. Director [facility] # [id number] 82 *Ascorbic acid is present which may interfere with detection of blood. 83 The urine specimen was tested at the listed cutoffs: Drug class test level (ng/mL) Amphetamines 500 Barbiturates 200 Benzodiazepine metabolites 200 Cocaine metabolites 150 Cannabinoids 50 Opiates 300 Pcp 25 Specimen was received without chain of custody. Results should be used for medical purposes only. 84 Because ethnic data is not always readily [...] 15-29 5 Kidney failure <15 (or dialysis) 85 Therapeutic concentration: <50 ug/mL Toxic concentration: >120 ug/mL 86 <5.0 Negative 5.0 - 25.0 Indeterminate (Repeat testing recommended after 72 hours) >25.0 Positive Perimenopausal women can display HCG levels of up to 20 mIU/mL 87 SEE RESULT BELOW Name: KIERSTENBENJAMIN : [address]: Fam Fernandez MD Acct: [id number] Unit: [id number] AGE: 26 Location: ED Re01/30/17 SEX: F Status: REG ER SPEC: [id number] OLVIN: 01/30/17-[address]: Dorothy YOUNG REQ: [id number] RECD: 01/30/17 STATUS: PAULINO MENDOZA DR: [facility] Fam Whitman III, MD _ SOURCE: URINE SPDES: ORDERED: Urine Culture Procedure Result Reported Site Urine Culture Final 01/31/17- 1434 ML No Growth (<1,000 CFU/mL) * ML - MAIN LAB ([facility]) . END OF REPORT * ML=Testing performed at Main Lab DEPARTMENT OF PATHOLOGY, [address] [place] [address] Kvng Cole M.D. Director [facility] # [id number] 88 Echo V[employer] Tech: [id number] If is still suspected, please repeat test after 48 to 72 hours. 89 Echo Vascular Tech: [id number] 90 SEE RESULT BELOW Name: BENJAMIN ROLAND : [address]: Kavon Saldivar MD Acct: [id number] Unit: [id number] AGE: 25 Location: ED Re08/22/16 SEX: F Status: REG ER SPEC: [id number] OLVIN: 08/22/16-1237 [facility] DR: Catherine YOUNG REQ: [id number] RECD: 08/22/16 STATUS: PAULINO MENDOZA DR: Kavon [...] ON NEXT PAGE * ML=Testing performed at [facility] DEPARTMENT OF PATHOLOGY, [address] [place] [address] Kvng Cole M.D. Director [facility] # [id number] Patient: BENJAMIN ROLAND [id number] (Continued) Specimen: [id number] Collected: 08/22/16 Received: 08/22/16-943 (Continued) Procedure Result Reported Site Trichomonas: Vaginal DNA Probe Final (continued) 08/22/161458 The presence or absence of T. vaginalis cannot be used as a test for therapeutic success or failure. * ML - MAIN LAB ([facility]) . END OF REPORT * ML=Testing performed at Main Lab DEPARTMENT OF PATHOLOGY, [address] [place] [address] Kvng Cole M.D. Director [facility] # [id number] 91 The urine specimen was tested at the listed cutoffs: Drug class test level (ng/mL) Amphetamines 500 Barbiturates 200 Benzodiazepine metabolites 200 Cocaine metabolites 150 Cannabinoids 50 Opiates 300 Pcp 25 Specimen was received without chain of custody. Results should be used for medical purposes only. 92 Because ethnic data is not always readily [...] 15-29 5 Kidney failure <15 (or dialysis) 93 <5.0 Negative 5.0 - 25.0 Indeterminate (Repeat testing recommended after 72 hours) >25.0 Positive Perimenopausal women can display HCG levels of up to 20 mIU/mL 94 Therapeutic concentration: <50 ug/mL Toxic concentration: >120 ug/mL 95 Warning: A positive result is not useful for establishing a diagnosis of syphilis. In most situations, such a result may reflect a prior treated infection; a negative result can exclude a diagnosis of syphilis except for incubating or early primary disease. 96 SEE RESULT BELOW Name: BENJAMIN ROLAND : [address]: Evaristo Anand MD Acct: [id number] Unit: [id number] AGE: 25 Location: [place] [address] Re08/22/16 SEX: F Status: ADM IN SPEC: [id number] OLVIN: 08/22/16-[address]: Catherine YOUNG REQ: [id number] RECD: 08/22/16 STATUS: PAULINO HOLGUIN DR: Kavon Whitman III, MD _ SOURCE: URINE [facility]: ORDERED: Urine Culture Procedure Result Reported Site Urine Culture Final 08/23/16- 1415 ML No Growth (<1,000 CFU/mL) * ML - MAIN LAB ([facility]) . END OF REPORT * ML=Testing performed at Main Lab DEPARTMENT OF PATHOLOGY, [address] [place] [address] Kvng Cole M.D. Director [facility] # [id number] 97 <5.0 Negative 5.0 - 25.0 Indeterminate (Repeat testing recommended after 72 hours) >25.0 Positive Perimenopausal women can display HCG levels of up to 20 mIU/mL 98 Therapeutic concentration: <50 ug/mL Toxic concentration: >120 ug/mL 99 Because ethnic data is not always readily [...] 15-29 5 Kidney failure <15 (or dialysis) 100 Presumptive Positive Presumptive positive results are unconfirmed. 101 The urine specimen was tested at the listed cutoffs: Drug class test level (ng/mL) Amphetamines 500 Barbiturates 200 Benzodiazepine metabolites 200 Cocaine metabolites 150 Cannabinoids 50 Opiates 300 Pcp 25 Specimen was received without chain of custody. Results should be used for medical purposes only. 102 due July 16 103 Normal Range 180 to 914 Indeterminate Range 145 to 180 Deficient Range <145 104 FASTING 10 HOUR 105 Because ethnic data is not always readily [...] dialysis) Procedures Date Code Description Status 08/26/2018 56164 Nerve Conduction 07-08 Studies Completed 08/26/2018 75121 Needle Electromyography Each Extremity W/Related Completed Paraspinal Areas 08/22/2018 25181 EKG Tracing & Interpretation Completed 06/15/2016 42172 EKG Tracing & Interpretation Completed Encounters Type Date Location Provider Dx Diagnosis Office Visit 12/04/2018 [facility] Alicia Borden MD R10.84 Generalized 3:20p Medicine abdominal pain D64.9 Anemia, unspecified R22.31 Localized swelling, mass and lump, right upper limb Office Visit 10/20/2018 10:00a [facility] Fam Rosado F31.9 Bipolar disorder, Radha Whitman M.D. unspecified [place] Office Visit 09/29/2018 10:00a [facility] Fam Rosado R19.4 Change in bowel Radha Whitman M.D. habit [place] Office Visit 09/10/2018 11:40a [facility] Fam Rosado R47.02 Dysphasia Dariel Mathewsshiro F41.9 Anxiety disorder, unspecified Office 09/10/2018 [facility] G43.009 Migraine w/o Visit 10:00a Clinic MD Lindsay aura, not intractable, w/o status migrainosus G56.02 Carpal tunnel syndrome, left upper limb G25.0 Essential tremor R20.0 Anesthesia of skin Office Visit 08/22/2018 10:00a [facility] Fam Rosado R07.89 Other chest Medicine Delmi Whitman M.D. pain [facility] Z13.220 Encounter for screening for lipoid disorders [...] forms of tremor Office Visit 03/06/2018 9:20a [facility] Jacob Carreno NP M54.2 Cervicalgia Medicine Office Visit 01/08/2017 10:20a [facility] Fam Rosado R51 Headache Medicine - Dot Whitman M.D. G47.00 Insomnia, unspecified F33.2 Major depressv disorder, recurrent severe w/o psych features Office Visit 07/23/2016 11:40a [facility] Irvin [place], D50.8 Other iron Medicine - [place] [employer] deficiency Rd anemias R79.0 Abnormal level of blood mineral Office Visit 07/11/2016 11:20a [facility] Fam Rosado S61.001D Unsp open wound of Medicine Delmi Whitman M.D. right thumb w/o Dot damage to nail, subs Office Visit 06/20/2016 10:30a [facility] Monica Z11.1 Encounter for Home Aman, screening for N.P. respiratory tuberculosis Z02.1 Encounter for pre-employment examination Office Visit 06/15/2016 9:40a [facility] Irvin [place], G44.201 Tension- type Medicine - [employer] headache, [place] [address] unspecified, intractable R07.9 Chest pain, unspecified F33.2 Major depressv disorder, recurrent severe w/o psych features F10.188 Alcohol abuse with other alcohol-induced disorder D64.9 Anemia, unspecified Z72.0 Tobacco use G44.209 Tension-type headache, unspecified, not intractable Office Visit 05/18/2016 10:00a [facility] Internal Irvin [place], Z00.00 Encntr for Medicine - [place] [employer] general adult Rd medical exam w/o abnormal findings F33.2 Major depressv disorder, 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 G44.201 Tension-type headache, unspecified, intractable L20.89 Other atopic dermatitis F10.188 Alcohol abuse with other alcohol-induced disorder Plan of Treatment No Information Available
[2018-12-21 19:00] VITALS: BP 119/68
[2018-12-24 16:13] LABS: Ureaplasma Source URINE; Ureaplasma parvum PCR Negative; Ureaplasma urealyticum PCR Negative
[2018-12-24 16:17] LABS: Mycoplasma hominis Result Negative; Mycoplasma hominis Source URINE
== END 2018-12-21 19:20 | disposition home or self-care (01) ==
LOC: UCEAST 18:40
DX: R35.0 Frequency of micturition (principal); F41.9 Anxiety disorder, unspecified; F31.9 Bipolar disorder, unspecified; F20.9 Schizophrenia, unspecified; F17.290 Nicotine dependence, other tobacco product, uncomplicated; Z32.02 Encounter for pregnancy test, result negative
CPT/HCPCS: 81003; 84702; 87798; 99211; G0463

== ENCOUNTER 2018-12-28 18:59 | Emergency (ER) | payer OTHER ==
[2018-12-28 19:11] VITALS: BP 118/73
--- NOTE | 2018-12-28 19:36 | UC ---
UC General HPI - HPI Summary HPI Summary: c/o constipation no stool for 2-3 day--eating "ok" no nausea or vomiting---pcp suggested fiberlax pills but she cannot take the pills - History of Current Complaint Chief Complaint: UCHeadInjury Stated Complaint: CONSTIPATION, AND HEAD INJURY Time Seen by Provider: 12/28/18 19:10 Hx Obtained From: Patient Hx Last Menstrual Period: [id number] Onset/Duration: Gradual Onset Pain Intensity: 0 - Allergy/Home Medications Allergies/Adverse Reactions: Allergies Allergy/AdvReac Type Severity Reaction Status Date / Time No Known Allergies Allergy Verified 12/28/18 19:10 PMH/Surg Hx/FS Hx/Imm Hx Psychological History: Schizophrenia Other History Of: Negative For: Anticoagulant Therapy - Surgical History Surgical History: Yes Surgery Procedure, Year, and Place: ORAL SURGERY - Family History Known Family History: Positive: Hypertension, Diabetes - Social History Occupation: Unemployed Lives: Alone Alcohol Use: Rare Alcohol Amount: 1 BOTTLE WINE DAILY Substance Use Type: None Substance Use Comment - Amount & Last Used: half to whole bottle of wine Smoking Status (MU): Current Every Day Smoker Type: Cigars Amount Used/How Often: 4 cigars/daily Have You Smoked in the Last Year: Yes When Did the Patient Quit Smoking/Using Tobacco: has not smoked for about a week /smoked within last 30 days Household Exposure Type: Cigarettes, Cigars - Immunization History Most Recent Influenza Vaccination: none Most Recent Tetanus Shot: 06/15/16 Most Recent Pneumonia Vaccination: n/a Review of Systems All Other Systems Reviewed And Are Negative: Yes Constitutional: Positive: Negative Skin: Positive: Negative Eyes: Positive: Negative ENT: Positive: Negative Respiratory: Positive: Negative Cardiovascular: Positive: Negative Gastrointestinal: Positive: Other - constipation Genitourinary: Positive: Negative Motor: Positive: Negative Neurovascular: Positive: Negative Musculoskeletal: Positive: Negative Neurological: Positive: Negative Psychological: Positive: Negative Is Patient Immunocompromised?: No Physical Exam Triage Information Reviewed: Yes Appearance: Well-Appearing, No Pain Distress, Well-Nourished Vital Signs: Initial Vital Signs Temp 98.8 F 12/28/18 19:06 Pulse 84 12/28/18 19:06 Resp 14 12/28/18 19:06 BP 118/73 12/28/18 19:06 Pulse Ox 99 12/28/18 19:06 Vital Signs Reviewed: Yes Eye Exam: Normal Eyes: Positive: Conjunctiva Clear ENT Exam: Normal ENT: Positive: Normal ENT inspection, Hearing grossly normal. Negative: Trismus , Muffled voice, Hoarse voice Dental Exam: Normal Neck exam: Normal Neck: Positive: Supple, Nontender Respiratory Exam: Normal Respiratory: Positive: Chest non-tender, No respiratory distress, No accessory muscle use Cardiovascular Exam: Normal Cardiovascular: Positive: RRR, Pulses Normal, Brisk Capillary Refill Abdominal Exam: Normal Abdomen Description: Positive: Nontender, No Organomegaly, Soft. Negative: CVA Tenderness (R), CVA Tenderness (L), McBurney's Point Tenderness Musculoskeletal Exam: Normal Musculoskeletal: Positive: Strength Intact, ROM Intact, No Edema Neurological Exam: Normal Neurological: Positive: Alert, Muscle Tone Normal Psychological Exam: Normal Skin Exam: Normal Course/Dx - Course Course Of Treatment: metaMUCIL, INCREASE FLUIDS, FOLLOW WITH PCP PRN - Diagnoses Provider Diagnosis: Constipation Discharge - Sign-Out/Discharge Documenting (check all that apply): Patient Departure All imaging exams completed and their final reports reviewed: No Studies - Discharge Plan Condition: Stable Disposition: HOME Prescriptions: Psyllium Husk/Aspartame [Metamucil Fiber Singles Packet] 3.4 gm PO DAILY #30 powd.pack Patient Education Materials: Magnesium Hydroxide (By mouth), Constipation (DC) , High Fiber Diet (ED), Head Injury (ED), Ice Pack Application (ED) Referrals: Fam Whitman MD [Medical Doctor] - 2 Days - Billing Disposition and Condition Condition: STABLE Disposition: Home
== END 2018-12-28 19:46 | disposition home or self-care (01) ==
LOC: UCEAST 18:59
DX: K59.00 Constipation, unspecified (principal); F20.9 Schizophrenia, unspecified; F17.290 Nicotine dependence, other tobacco product, uncomplicated
CPT/HCPCS: 99211; G0463

== ENCOUNTER 2019-01-12 15:18 | Emergency (ER) | payer OTHER ==
[2019-01-12 15:48] VITALS: BP 118/82
--- NOTE | 2019-01-12 16:15 | UC ---
Throat Pain/Nasal Horacio HPI - HPI Summary HPI Summary: started "a few days ago" (cannot pinpoint day) with R sided tongue pain. denies biting tongue or other trauma, no spicy/salty foods. Nothing makes it worse or better, describes "sores" on tongue that burn, denies ST or cough, no fever - History of Current Complaint Chief Complaint: JUSTINkin Stated Complaint: MOUTH COMPLAINT Time Seen by Provider: 01/12/19 16:04 Hx Obtained From: Patient Hx Last Menstrual Period: [id number] ?: No Onset/Duration: Gradual Onset Severity: Moderate Pain Intensity: 4 Associated Signs & Symptoms: Positive: Negative - Allergies/Home Medications Allergies/Adverse Reactions: Allergies Allergy/AdvReac Type Severity Reaction Status Date / Time No Known Allergies Allergy Verified 01/12/19 15:49 PMH/Surg Hx/FS Hx/Imm Hx Previously Healthy: Yes Psychological History: Depression Other History Of: Negative For: Anticoagulant Therapy - Surgical History Surgical History: Yes Surgery Procedure, Year, and Place: ORAL SURGERY - Family History Known Family History: Positive: Hypertension, Diabetes - Social History Occupation: Unemployed Lives: Alone Alcohol Use: Rare Alcohol Amount: 1 BOTTLE WINE DAILY Substance Use Type: None Substance Use Comment - Amount & Last Used: half to whole bottle of wine Smoking Status (MU): Current Every Day Smoker Type: Cigars Amount Used/How Often: 4 cigars/daily Have You Smoked in the Last Year: Yes When Did the Patient Quit Smoking/Using Tobacco: has not smoked for about a week /smoked within last 30 days Household Exposure Type: Cigarettes, Cigars Cessation Counseling: Patient Advised to Stop - Immunization History Most Recent Influenza Vaccination: none Most Recent Tetanus Shot: 06/15/16 Most Recent Pneumonia Vaccination: n/a Review of Systems All Other Systems Reviewed And Are Negative: Yes Constitutional: Positive: Negative. Negative: Fever, Chills Skin: Positive: Negative. Negative: Rash ENT: Negative: Sore Throat, Ear Ache, Sinus Congestion Respiratory: Positive: Negative Cardiovascular: Positive: Negative Gastrointestinal: Positive: Negative. Negative: Abdominal Pain, Vomiting, Nausea Neurological: Positive: Negative. Negative: Headache Psychological: Positive: Negative Physical Exam Triage Information Reviewed: Yes Appearance: Well-Appearing, No Pain Distress Vital Signs: Initial Vital Signs Temp 98.0 F 01/12/19 15:43 Pulse 78 01/12/19 15:43 Resp 16 01/12/19 15:43 BP 118/82 01/12/19 15:43 Pulse Ox 100 01/12/19 15:43 Vital Signs Reviewed: Yes Eyes: Positive: Conjunctiva Clear ENT: Positive: Pharynx normal, Other - no sores, redness, or swelling any part of tongue, oral mucous moist and pink. Negative: Nasal congestion, Nasal drainage Neck exam: Normal Neck: Positive: No Lymphadenopathy Respiratory Exam: Normal Respiratory: Positive: Lungs clear Cardiovascular Exam: Normal Cardiovascular: Positive: RRR Psychological Exam: Normal Skin Exam: Normal Skin: Negative: Rashes Throat Pain/Nasal Course/Dx - Differential Dx/Diagnosis Differential Diagnosis/HQI/PQRI: Tonsillitis, URI, Other - stomatitis, apthous ulcers Provider Diagnosis: Tongue pain Discharge - Sign-Out/Discharge Documenting (check all that apply): Patient Departure All imaging exams completed and their final reports reviewed: No Studies - Discharge Plan Condition: Good Disposition: HOME Patient Education Materials: Normal Exam (ED) Referrals: No Primary Care Phys,NOPCP [Primary Care Provider] - [facility] PHYSICIAN REFERRAL [Outside] Additional Instructions: drink plenty of fluids and eat bland foods use over the counter Tylenol or ibuprofen for pain as directed Please call the [facility] physician referral telephone number included to find a primary care provider - Billing Disposition and Condition Condition: GOOD Disposition: Home - Attestation Statements Provider Attestation: I was available for consult. This patient was seen by the JAKE. The patient was not presented to , seen by or examined by -Cynthia Allen MD
== END 2019-01-12 16:30 | disposition home or self-care (01) ==
LOC: UCEAST 15:18
DX: K14.6 Glossodynia (principal); F32.9 Major depressive disorder, single episode, unspecified; F17.210 Nicotine dependence, cigarettes, uncomplicated
CPT/HCPCS: 99211; G0463

== ENCOUNTER 2019-01-31 16:17 | Emergency (ER) | payer OTHER ==
[2019-01-31 16:26] VITALS: BP 115/75
--- NOTE | 2019-01-31 17:04 | UC ---
UC General HPI - HPI Summary HPI Summary: 28-year-old female comes in with a chief complaint of constipation. She's had constipation for years. She is to take laxatives on a regular basis but she stopped because she was told that I could give her constipation. She has been on Metamucil recently but stopped she did not Feel it was working. No abdominal pain. No fevers no chills. She does have some low back discomfort she is on her menses at this time and she gets the low back discomfort which is on her menses. She reports having a bowel movement about every 4 days. States it's loose. No large hard stools. She is had constipation for years and she's basically tried everything. She has seen her primary care doctor for this. - History of Current Complaint Chief Complaint: UCGI Stated Complaint: CONSTIPATION Time Seen by Provider: 01/31/19 16:45 Hx Last Menstrual Period: 01/28/19 Pain Intensity: 3 - Allergy/Home Medications Allergies/Adverse Reactions: Allergies Allergy/AdvReac Type Severity Reaction Status Date / Time No Known Allergies Allergy Verified 01/31/19 16:26 PMH/Surg Hx/FS Hx/Imm Hx Previously Healthy: Yes Psychological History: Depression, Schizophrenia Other Psychological History: psychosis Other History Of: Negative For: Anticoagulant Therapy - Surgical History Surgical History: Yes Surgery Procedure, Year, and Place: ORAL SURGERY - Family History Known Family History: Positive: Hypertension, Diabetes - Social History Alcohol Use: Occasionally Alcohol Amount: 1 BOTTLE WINE DAILY Substance Use Type: None Substance Use Comment - Amount & Last Used: half to whole bottle of wine Smoking Status (MU): Current Every Day Smoker Type: Cigars Amount Used/How Often: 4 cigars/daily Have You Smoked in the Last Year: Yes When Did the Patient Quit Smoking/Using Tobacco: has not smoked for about a week /smoked within last 30 days Household Exposure Type: Cigarettes, Cigars - Immunization History Most Recent Influenza Vaccination: none Most Recent Tetanus Shot: 06/15/16 Most Recent Pneumonia Vaccination: n/a Review of Systems All Other Systems Reviewed And Are Negative: Yes Constitutional: Positive: Negative Skin: Positive: Negative Eyes: Positive: Negative ENT: Positive: Negative Respiratory: Positive: Negative Cardiovascular: Positive: Negative Gastrointestinal: Positive: Other - see hpi Genitourinary: Positive: Negative Motor: Positive: Negative Neurovascular: Positive: Negative Musculoskeletal: Positive: Negative Neurological: Positive: Negative Psychological: Positive: Negative Is Patient Immunocompromised?: No Physical Exam Triage Information Reviewed: Yes Appearance: Well-Appearing, No Pain Distress, Well-Nourished Vital Signs: Initial Vital Signs Temp 98.5 F 01/31/19 16:21 Pulse 89 01/31/19 16:21 Resp 18 01/31/19 16:21 BP 115/75 01/31/19 16:21 Pulse Ox 100 01/31/19 16:21 Vital Signs Reviewed: Yes Eye Exam: Normal Eyes: Positive: Conjunctiva Clear Neck: Positive: Supple Respiratory: Positive: Lungs clear, Normal breath sounds, No respiratory distress Cardiovascular: Positive: RRR Abdominal Exam: Normal Abdomen Description: Positive: Nontender, Soft Bowel Sounds: Positive: Present Musculoskeletal Exam: Normal Musculoskeletal: Positive: Strength Intact, ROM Intact Neurological Exam: Normal Neurological: Positive: Alert, Muscle Tone Normal Psychological Exam: Normal Psychological: Positive: Age Appropriate Behavior Skin Exam: Normal Course/Dx - Course Course Of Treatment: I wrote a prescription for methylcellulose. She is to start that with 8 ounces of water a day. I recommended follow-up with gastroenterology. Also discussed dietary changes. I also told her to not take stimulant laxatives as make the problem worse. - Diagnoses Provider Diagnosis: Constipation Discharge - Sign-Out/Discharge Documenting (check all that apply): Patient Departure All imaging exams completed and their final reports reviewed: No Studies - Discharge Plan Condition: Stable Disposition: HOME Prescriptions: Methylcellulose [Citrucel] 1 tbsp PO DAILY #1191 gm Patient Education Materials: Constipation (ED), High Fiber Diet (ED) Referrals: Genaro Patten DO [Doctor of Osteopathy] - Additional Instructions: FOLLOW UP WITH DR PATTEN, GASTROENTEROLOGY. GET RECHECKED SOONER IF YOUR CONDITION WORSENS OR ANY QUESTIONS OR CONCERNS. - Billing Disposition and Condition Condition: STABLE Disposition: Home
== END 2019-01-31 17:12 | disposition home or self-care (01) ==
LOC: UCEAST 16:17
DX: K59.00 Constipation, unspecified (principal); F17.210 Nicotine dependence, cigarettes, uncomplicated
CPT/HCPCS: 99212; G0463

== ENCOUNTER 2019-02-11 16:45 | Emergency (ER) | payer OTHER ==
[2019-02-11 16:52] VITALS: BP 122/72
--- NOTE | 2019-02-11 17:16 | UC ---
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 has appt next week with gi denies wt loss - History of Current Complaint Chief Complaint: UCGI Stated Complaint: BLOATING Time Seen by Provider: 02/11/19 17:04 Hx Obtained From: Patient Hx From Patient Unobtainable Due To: Dementia Hx Last Menstrual Period: 01/28/19 Onset/Duration: Sudden Onset, Gradual Onset Timing: Constant Severity Initially: Mild Severity Currently: Mild Pain Intensity: 0 Pain Scale Used: 0-10 Numeric Character: Other - bloating Aggravating Factor(s): Nothing Alleviating Factor(s): Nothing Associated Signs and Symptoms: Positive: Negative Allergies/Adverse Reactions: Allergies Allergy/AdvReac Type Severity Reaction Status Date / Time No Known Allergies Allergy Verified 02/11/19 16:52 PMH/Surg Hx/FS Hx/Imm Hx Previously Healthy: Yes Psychological History: Schizophrenia Other History Of: Negative For: Anticoagulant Therapy - Surgical History Surgical History: Yes Surgery Procedure, Year, and Place: ORAL SURGERY - Family History Known Family History: Positive: Hypertension, Diabetes, Other - breast [place] - Social History Alcohol Use: Daily Alcohol Amount: 1 BOTTLE WINE DAILY Substance Use Type: None Substance Use Comment - Amount & Last Used: half to whole bottle of wine Smoking Status (MU): Current Every Day Smoker Type: Cigars Amount Used/How Often: 4 cigars/daily Have You Smoked in the Last Year: Yes When Did the Patient Quit Smoking/Using Tobacco: has not smoked for about a week /smoked within last 30 days Household Exposure Type: Cigarettes, Cigars - Immunization History Most Recent Influenza Vaccination: none Most Recent Tetanus Shot: 06/15/16 Most Recent Pneumonia Vaccination: n/a Review of Systems All Other Systems Reviewed And Are Negative: Yes Constitutional: Positive: Negative Skin: Positive: Negative Eyes: Positive: Negative ENT: Positive: Negative Respiratory: Positive: Negative Cardiovascular: Positive: Negative Gastrointestinal: Positive: Negative, Other - bloating Genitourinary: Positive: Negative Motor: Positive: Negative Neurovascular: Positive: Negative Musculoskeletal: Positive: Negative Neurological: Positive: Negative Psychological: Positive: Negative Physical Exam Triage Information Reviewed: Yes Appearance: Well-Appearing, No Pain Distress, Well-Nourished Vital Signs: Initial Vital Signs Temp 98.3 F 02/11/19 16:49 Pulse 97 02/11/19 16:49 Resp 18 02/11/19 16:49 BP 122/72 02/11/19 16:49 Pulse Ox 100 02/11/19 16:49 Vital Signs Reviewed: Yes Eyes: Positive: Conjunctiva Clear ENT: Positive: Hearing grossly normal. Negative: Nasal congestion, Nasal drainage, Tonsillar swelling, Tonsillar exudate, Hoarse voice Neck: Positive: Supple, Nontender Respiratory: Positive: Lungs clear, Normal breath sounds, No respiratory distress, No accessory muscle use Cardiovascular: Positive: RRR, No Murmur Abdomen Description: Positive: No Organomegaly. Negative: Nontender - slight tenderness RUQ, Bruit, CVA Tenderness (R), CVA Tenderness (L), Distended, Guarding, Hepatomegaly, McBurney's Point Tenderness, Pulsatile Mass, Splenomegaly Bowel Sounds: Positive: Present Musculoskeletal: Positive: ROM Intact, No Edema Neurological: Positive: Alert Psychological Exam: Normal Skin Exam: Normal Abd Pain Female Course/Dx - Course Course Of Treatment: tr ketones, +1 gladys on UA - Differential Dx/Diagnosis Provider Diagnosis: Abdominal bloating Discharge - Sign-Out/Discharge Documenting (check all that apply): Patient Departure All imaging exams completed and their final reports reviewed: No Studies - Discharge Plan Condition: Stable Disposition: HOME Patient Education Materials: Gas and Bloating (ED) Referrals: No Primary Care Phys,NOPCP [Primary Care Provider] - Additional Instructions: SEE BUSINESS INTEGRATION MANAGER tomorrow as planned and GI doctor next week as planned return for any problems or worsening symptoms - Billing Disposition and Condition Condition: STABLE Disposition: Home
[2019-02-12 11:35] LABS: ABS Basophils 0.1 10^3/ul (0-0.2); ABS Eosinophils 0.2 10^3/ul (0-0.6); ABS Lymphocytes 2.7 10^3/ul (1.0-4.8); ABS Monocytes 0.7 10^3/ul (0-0.8); Eosinophil % 3.7 %; Hematocrit 33 % (35-47); Hemoglobin 10.1 g/dL (12.0-16.0); Lymphocyte % 40.4 %; Mean Corpuscular HGB Conc 30 g/dL (31-36); Mean Corpuscular Hemoglobin 24 pg (27-31); Mean Corpuscular Volume 78 fL (80-97); Mean Platelet Volume 7.9 fL (7.4-10.4); Platelet Count 397 10^3/uL (150-450); Red Blood Count 4.28 10^6 /uL (3.70-4.87); Red Cell Distribution Width 17 % (10-15); White Blood Count 6.7 10^3/uL (3.5-10.8)
[2019-02-12 11:53] LABS: Albumin 4.5 g/dL (3.2-5.2); Albumin/Globulin Ratio 1.8 (1-3); BUN/Creatinine Ratio 17.2 (8-20); Calcium 9.9 mg/dL (8.6-10.3); EGFR African American 135.7 (>60); EGFR Non-African American 112.2 (>60); Globulin 2.5 g/dL (2-4); Potassium 3.6 mmol/L (3.5-5.0); Total Bilirubin 0.2 mg/dL (0.2-1.0)
--- NOTE | 2019-02-12 17:36 | UC ---
- Progress Note Progress Note: CBC with mild anemia as previously seen on CBC in October 2018. CMP WNL No change in plan of care. Please strongly stress to her the importance of appropriate follow up and keeping her appointments with PACKAGE MAKER and GI as scheduled as she has been seen in our clinic multiple times over the last few months for the same or similar issue. Course/Dx - Diagnoses Provider Diagnoses: Abdominal bloating Discharge - Sign-Out/Discharge Documenting (check all that apply): Post-Discharge Follow Up All imaging exams completed and their final reports reviewed: No Studies - Discharge Plan Condition: Stable Disposition: HOME Patient Education Materials: Gas and Bloating (ED) Referrals: No Primary Care Phys,NOPCP [Primary Care Provider] - Additional Instructions: SEE PACKAGE MAKER tomorrow as planned and GI doctor next week as planned return for any problems or worsening symptoms - Billing Disposition and Condition Condition: STABLE Disposition: Home
== END 2019-02-11 17:55 | disposition home or self-care (01) ==
LOC: UCEAST 16:45
DX: R14.0 Abdominal distension (gaseous) (principal); D64.9 Anemia, unspecified; F17.210 Nicotine dependence, cigarettes, uncomplicated
CPT/HCPCS: 36415; 80053; 81003; 83690; 85025; 99211; G0463

== ENCOUNTER → 2019-03-20 20:45 | Emergency (ER) | payer OTHER ==
--- NOTE | 2019-03-20 21:28 | ED ---
GI/ HPI - HPI Summary HPI Summary: 28-year-old female presents for test today. States that she had a period last month. She started bleeding yesterday but she did not have her normal PMS symptoms. She is concerned that she is . Denies any abdominal pain currently. No nausea or vomiting. No abnormal vaginal discharge. No urinary symptoms. No previous . - History of Current Complaint Chief Complaint: EDGeneral Time Seen by Provider: 03/20/19 21:11 Stated Complaint: I NEED A BLOOD TEST PER PT Hx Last Menstrual Period: 01/28/19 Pain Intensity: 0 - Additional Pertinent History Primary Care Physician: [id number] - Allergy/Home Medications Allergies/Adverse Reactions: Allergies Allergy/AdvReac Type Severity Reaction Status Date / Time No Known Allergies Allergy Verified 02/11/19 16:52 Home Medications: Home Medications NK [No Home Medications Reported] 03/20/19 [History Confirmed 03/20/19] PMH/Surg Hx/FS Hx/Imm Hx Endocrine/Hematology History: Reports: Hx Anemia - fe def - takes PO Fe Denies: Hx Anticoagulant Therapy, Hx Blood Disorders, Hx Blood Transfusions, Hx Bone Marrow Disease, Hx Diabetes, Hx Systemic Lupus Erythematosus, Hx Sickle Cell Disease, Hx Thyroid Disease, Hx Unexplained Bleeding, Other Endocrine/ Hematological Disorders Cardiovascular History: Denies: Hx Aneurysm, Hx Angina, Hx Angioplasty, Hx Auto Implanted Cardiovert Defib, Hx Cardiac Arrest, Hx Cardiomegaly, Hx Congenital Heart Disease, Hx Congestive Heart Failure, Hx Coronary Artery Disease, Hx Deep Vein Thrombosis, Hx Embolism, Hx Hypercholesterolemia, Hx Hypotension, Hx Hypertension, Hx Pacemaker/ICD, Hx Peripheral Vascular Disease, Hx Rheumatic Fever, Hx Syncope, Hx Valvular Heart Disease, Other Cardiovascular Problems/Disorders Respiratory History: Denies: Hx Asthma, Hx Chronic Bronchitis, Hx Chronic Obstructive Pulmonary Disease (COPD), Hx Cystic Fibrosis, Hx Lung Cancer, Hx Pleural Effusion, Hx Pneumonia, Hx Pulmonary Edema, Hx Pulmonary Embolism, Hx Seasonal Allergies, Hx Sleep Apnea, Other Respiratory Problems/Disorders GI History: Denies: Hx Cirrhosis, Hx Crohn's Disease, Hx Diverticulosis, Hx Gall Bladder Disease, Hx Gastroesophageal Reflux Disease, Hx Gastrointestinal Bleed, Hx Hiatal Hernia, Hx Irritable Bowel, Hx Jaundice, Hx Obstructive Bowel, Hx Ileostomy, Hx Pyloric Stenosis, Hx Ulcer, Other GI Disorders History: Denies: Hx Acute Renal Failure, Hx Benign Prostatic Hyperplasia, Hx Chronic Renal Failure, Hx Dialysis, Hx Kidney Infection, Hx Kidney Stones, Hx Renal Disease Musculoskeletal History: Denies: Hx Arthritis, Hx Back Problems, Hx Bursitis, Hx Congenital Bone Abnormalities, Hx Fibromyalgia, Hx Gout, Hx Orthopedic Injury, Hx Osteoporosis, Hx Scoliosis, Hx Tendonitis, Other Musculoskeletal History Sensory History: Denies: Hx Cataracts, Hx Contacts or Glasses, Hx Eye Injury, Hx Eye Prosthesis, Hx Glaucoma, Hx Legally Blind, Hx Macular Degeneration, Hx Vision Problem, Hx Deafness, Hx Hearing Aid, Hx Hearing Problem, Other Sensory Impairments Opthamlomology History: Denies: Hx Cataracts, Hx Contacts or Glasses, Hx Eye Injury, Hx Eye Prosthesis, Hx Glaucoma, Hx Legally Blind, Hx Macular Degeneration, Hx Vision Problem, Other Sensory Impairments Neurological History: Reports: Hx Headaches Denies: Hx Dementia, Hx Migraine, Hx Nerve Disease, Hx Seizures, Hx Spinal Cord Injury, Hx Transient Ischemic Attacks (TIA), Other Neuro Impairments/ Disorders Psychiatric History: Reports: Hx Anxiety, Hx Depression, Hx Inpatient Treatment - december 2013 in [place], 4 days inpatient for psychosis, Hx Community Mental Health Tx Denies: Hx Attention Deficit Hyperactivity Disorder, Hx Eating Disorder, Hx Panic Disorder, Hx Post Traumatic Stress Disorder, Hx Schizophrenia, Hx Bipolar Disorder, Hx Suicide Attempt, Hx of Violent Episodes Against Others, Hx Substance Abuse, Other Psychiatric Issues/Disorders - Surgical History Surgery Procedure, Year, and Place: ORAL SURGERY Infectious Disease History: No Infectious Disease History: Reports: History Other Infectious Disease - Chlamydia June 2016, [facility] Denies: Hx Clostridium Difficile, Hx Hepatitis, Hx Human Immunodeficiency Virus (HIV), Hx of Known/Suspected MRSA, Hx Shingles, Hx Tuberculosis, Traveled Outside the in Last 30 Days - Family History Known Family History: Positive: Hypertension, Diabetes, Other - breast [place] - Social History Alcohol Use: Daily Alcohol Amount: 1 BOTTLE WINE DAILY Hx Substance Use: No Substance Use Type: Reports: None Substance Use Comment - Amount & Last Used: half to whole bottle of wine Hx Tobacco Use: Yes Smoking Status (MU): Current Every Day Smoker Type: Cigars Amount Used/How Often: 4 cigars/daily Have You Smoked in the Last Year: Yes Review of Systems Negative: Fever Negative: Chest Pain Negative: Shortness Of Breath Positive: Abdominal Pain, Other - vaginal bleeding All Other Systems Reviewed And Are Negative: Yes Physical Exam Triage Information Reviewed: Yes Vital Signs On Initial Exam: Initial Vitals Temp Pulse Resp BP Pulse Ox 98.6 F 88 16 143/81 99 03/20/19 20:47 03/20/19 20:47 03/20/19 20:47 03/20/19 20:47 03/20/19 20:47 Vital Signs Reviewed: Yes Appearance: Positive: Well-Appearing Skin: Positive: Warm, Dry Head/Face: Positive: Normal Head/Face Inspection Eyes: Positive: Normal, Conjunctiva Clear ENT: Positive: Pharynx normal Respiratory/Lung Sounds: Positive: Clear to Auscultation, Breath Sounds Present Cardiovascular: Positive: Normal, RRR Abdomen Description: Positive: Nontender, Soft Bowel Sounds: Positive: Present Musculoskeletal: Positive: Normal Neurological: Positive: Normal Psychiatric: Positive: Normal Diagnostics - Vital Signs Vital Signs Temp Pulse Resp BP Pulse Ox 03/20/19 20:47 98.6 F 88 16 143/81 99 - Laboratory Lab Statement: Any lab studies that have been ordered have been reviewed, and results considered in the medical decision making process. GIGU Course/Dx - Course Course Of Treatment: 28-year-old female presents for test today. States that she had a period last month. She started bleeding yesterday but she did not have her normal PMS symptoms. She is concerned that she is . Denies any abdominal pain currently. No nausea or vomiting. No abnormal vaginal discharge. No urinary symptoms. No previous . On exam nontender abdomen. hcg negative. Patient will be diagnosed with menstrual bleeding. Told to est care with Primary. Patient understand and agrees with plan. - Diagnoses Differential Diagnoses - Female: Urinary Tract Infection, Other - mentrual bleeding, Provider Diagnoses: test negative Discharge - Sign-Out/Discharge Documenting (check all that apply): Patient Departure Patient Received Moderate/Deep Sedation with Procedure: No - Discharge Plan Condition: Good Disposition: HOME Referrals: No Primary Care Phys,NOPCP [Primary Care Provider] - Additional Instructions: you are not this is your normal menstrual bleeding establish care with primary Return to ED if develop any new or worsening symptoms - Billing Disposition and Condition Condition: GOOD Disposition: Home
[2019-03-20 21:58] VITALS: BP 128/79
== END | disposition home or self-care (01) ==
LOC: ED 20:45
DX: Z32.02 Encounter for pregnancy test, result negative (principal); N93.9 Abnormal uterine and vaginal bleeding, unspecified; D64.9 Anemia, unspecified; F17.290 Nicotine dependence, other tobacco product, uncomplicated
CPT/HCPCS: 36415; 84702; 99282

== ENCOUNTER 2019-03-24 22:25 | Emergency (ER) | payer OTHER ==
[2019-03-24 22:38] VITALS: BP 121/84
--- NOTE | 2019-03-24 22:57 | ED ---
- HPI Summary HPI Summary: Patient complains of wanting to know if she is . States LMP 03/19/19 with normal cycle at normal time. States she has become very sensitive to smell. Denies any other pain injury or symptoms. Denies medical history. - History of Current Complaint Chief Complaint: EDGeneral Stated Complaint: BLOOD TEST PER PT Time Seen by Provider: 03/24/19 22:43 Hx Obtained From: Patient Current Severity: None Pain Intensity: 0 Location of Pain: None Character: None Aggravating Factors: Nothing Alleviating Factors: Nothing Associated Signs and Symptoms: Positive: Negative - Assessment Hx Now: No Hx Hysterectomy: No - Additional Pertinent History Primary Care Physician: [id number] - Allergies/Home Medications Allergies/Adverse Reactions: Allergies Allergy/AdvReac Type Severity Reaction Status Date / Time No Known Allergies Allergy Verified 03/24/19 22:55 PMH/Surg Hx/FS Hx/Imm Hx Endocrine/Hematology History: Reports: Hx Anemia - fe def - takes PO Fe Denies: Hx Anticoagulant Therapy, Hx Blood Disorders, Hx Blood Transfusions, Hx Bone Marrow Disease, Hx Diabetes, Hx Systemic Lupus Erythematosus, Hx Sickle Cell Disease, Hx Thyroid Disease, Hx Unexplained Bleeding, Other Endocrine/ Hematological Disorders Cardiovascular History: Denies: Hx Aneurysm, Hx Angina, Hx Angioplasty, Hx Auto Implanted Cardiovert Defib, Hx Cardiac Arrest, Hx Cardiomegaly, Hx Congenital Heart Disease, Hx Congestive Heart Failure, Hx Coronary Artery Disease, Hx Deep Vein Thrombosis, Hx Embolism, Hx Hypercholesterolemia, Hx Hypotension, Hx Hypertension, Hx Pacemaker/ICD, Hx Peripheral Vascular Disease, Hx Rheumatic Fever, Hx Syncope, Hx Valvular Heart Disease, Other Cardiovascular Problems/Disorders Respiratory History: Denies: Hx Asthma, Hx Chronic Bronchitis, Hx Chronic Obstructive Pulmonary Disease (COPD), Hx Cystic Fibrosis, Hx Lung Cancer, Hx Pleural Effusion, Hx Pneumonia, Hx Pulmonary Edema, Hx Pulmonary Embolism, Hx Seasonal Allergies, Hx Sleep Apnea, Other Respiratory Problems/Disorders GI History: Denies: Hx Cirrhosis, Hx Crohn's Disease, Hx Diverticulosis, Hx Gall Bladder Disease, Hx Gastroesophageal Reflux Disease, Hx Gastrointestinal Bleed, Hx Hiatal Hernia, Hx Irritable Bowel, Hx Jaundice, Hx Obstructive Bowel, Hx Ileostomy, Hx Pyloric Stenosis, Hx Ulcer, Other GI Disorders History: Denies: Hx Acute Renal Failure, Hx Benign Prostatic Hyperplasia, Hx Chronic Renal Failure, Hx Dialysis, Hx Kidney Infection, Hx Kidney Stones, Hx Renal Disease Musculoskeletal History: Denies: Hx Arthritis, Hx Back Problems, Hx Bursitis, Hx Congenital Bone Abnormalities, Hx Fibromyalgia, Hx Gout, Hx Orthopedic Injury, Hx Osteoporosis, Hx Scoliosis, Hx Tendonitis, Other Musculoskeletal History Sensory History: Denies: Hx Cataracts, Hx Contacts or Glasses, Hx Eye Injury, Hx Eye Prosthesis, Hx Glaucoma, Hx Legally Blind, Hx Macular Degeneration, Hx Vision Problem, Hx Deafness, Hx Hearing Aid, Hx Hearing Problem, Other Sensory Impairments Opthamlomology History: Denies: Hx Cataracts, Hx Contacts or Glasses, Hx Eye Injury, Hx Eye Prosthesis, Hx Glaucoma, Hx Legally Blind, Hx Macular Degeneration, Hx Vision Problem, Other Sensory Impairments Neurological History: Reports: Hx Headaches Denies: Hx Dementia, Hx Migraine, Hx Nerve Disease, Hx Seizures, Hx Spinal Cord Injury, Hx Transient Ischemic Attacks (TIA), Other Neuro Impairments/ Disorders Psychiatric History: Reports: Hx Anxiety, Hx Depression, Hx Inpatient Treatment - december 2013 in [place], 4 days inpatient for psychosis, Hx Community Mental Health Tx Denies: Hx Attention Deficit Hyperactivity Disorder, Hx Eating Disorder, Hx Panic Disorder, Hx Post Traumatic Stress Disorder, Hx Schizophrenia, Hx Bipolar Disorder, Hx Suicide Attempt, Hx of Violent Episodes Against Others, Hx Substance Abuse, Other Psychiatric Issues/Disorders - Surgical History Surgery Procedure, Year, and Place: ORAL SURGERY Infectious Disease History: No Infectious Disease History: Reports: History Other Infectious Disease - Chlamydia June 2016, [facility] Denies: Hx Clostridium Difficile, Hx Hepatitis, Hx Human Immunodeficiency Virus (HIV), Hx of Known/Suspected MRSA, Hx Shingles, Hx Tuberculosis, Traveled Outside the [place] in Last 30 Days - Family History Known Family History: Positive: Hypertension, Diabetes, Other - breast [place] - Social History Alcohol Use: Daily Alcohol Amount: 1 BOTTLE WINE DAILY Hx Substance Use: No Substance Use Type: Reports: None Substance Use Comment - Amount & Last Used: half to whole bottle of wine Hx Tobacco Use: Yes Smoking Status (MU): Current Every Day Smoker Type: Cigars Amount Used/How Often: 4 cigars/daily Have You Smoked in the Last Year: Yes Review of Systems Constitutional: Negative Eyes: Negative ENT: Negative Cardiovascular: Negative Respiratory: Negative Gastrointestinal: Negative Genitourinary: Negative Musculoskeletal: Negative Skin: Negative Neurological: Negative Psychological: Normal All Other Systems Reviewed And Are Negative: Yes Physical Exam - Physical Exam Triage Information Reviewed: Yes Vital Signs Reviewed: Yes Appearance: Positive: Well-Appearing Skin: Positive: Warm Head/Face: Positive: Normal Head/Face Inspection Eyes: Positive: Normal ENT: Positive: Normal ENT inspection Neck: Positive: Supple Respiratory/Lung Sounds: Positive: Clear to Auscultation Cardiovascular: Positive: Normal Abdomen Description: Positive: Nontender Musculoskeletal: Positive: Normal Neurological: Positive: Normal Psychiatric: Positive: Normal AVPU Assessment: Alert - Nabil Coma Scale Eye: 4 - Spontaneous Motor: 6 - Obeys Commands Verbal: 5 - Oriented Coma Scale Total: 15 Diagnostics - Vital Signs Vital Signs Temp Pulse Resp BP Pulse Ox 03/24/19 22:35 97.9 F 78 16 121/84 100 - Laboratory Lab Statement: Any lab studies that have been ordered have been reviewed, and results considered in the medical decision making process. Course/Dx - Course Course Of Treatment: Patient complains of wanting to know if she is . States LMP 03/19/19 with normal cycle at normal time. States she has become very sensitive to smell. Denies any other pain injury or symptoms. Denies medical history. Vital signs within normal limits. Patient was advised that it is highly unlikely she is if she had last period on 03/19/19, and negative hCG test on 03/20/19. Patient insisted on test, anxious about possibility. test was ordered, but patient left prior to lab being drawn. - Diagnoses Provider Diagnoses: Routine lab draw Discharge - Sign-Out/Discharge Documenting (check all that apply): Patient Departure Patient Received Moderate/Deep Sedation with Procedure: No - Discharge Plan Condition: Stable Disposition: ELOPEMENT Referrals: No Primary Care Phys,NOPCP [Primary Care Provider] - Additional Instructions: Follow-up with primary care. - Billing Disposition and Condition Condition: STABLE Disposition: Elopement
== END 2019-03-24 23:05 | disposition left against medical advice (07) ==
LOC: ED 22:25
DX: Z53.21 Procedure and treatment not carried out due to patient leaving prior to being seen by health care provider (principal); D50.9 Iron deficiency anemia, unspecified; F17.290 Nicotine dependence, other tobacco product, uncomplicated
CPT/HCPCS: 99282

== ENCOUNTER 2019-08-02 10:05 | Emergency (ER) | payer OTHER ==
[2019-08-02 10:25] VITALS: BP 122/66
--- NOTE | 2019-08-02 10:42 | UC ---
Throat Pain/Nasal Horacio HPI - HPI Summary HPI Summary: sore throat for 1 week-- no fevers, ear ache, nausea - History of Current Complaint Chief Complaint: UCGeneralIllness Stated Complaint: THROAT COMPLAINT Time Seen by Provider: 08/02/19 10:25 Hx Obtained From: Patient Hx Last Menstrual Period: 01/28/19 ?: No Onset/Duration: Sudden Onset, Lasting Weeks - 1, Still Present Severity: Mild Pain Intensity: 0 Cough: None Associated Signs & Symptoms: Positive: Negative - Allergies/Home Medications Allergies/Adverse Reactions: Allergies Allergy/AdvReac Type Severity Reaction Status Date / Time No Known Allergies Allergy Verified 03/24/19 22:55 Home Medications: Home Medications Lurasidone(*) [Latuda] 1 tab PO DAILY WITH MEAL 08/02/19 [History Confirmed ] PMH/Surg Hx/FS Hx/Imm Hx Previously Healthy: No Psychological History: Schizophrenia Other History Of: Negative For: Anticoagulant Therapy - Surgical History Surgical History: Yes Surgery Procedure, Year, and Place: ORAL SURGERY - Family History Known Family History: Positive: Hypertension, Diabetes, Other - breast CA - Social History Occupation: Disabled Lives: Alone Alcohol Use: Occasionally Alcohol Amount: 1 BOTTLE WINE DAILY Substance Use Type: None Substance Use Comment - Amount & Last Used: half to whole bottle of wine Smoking Status (MU): Current Every Day Smoker Type: Cigars Amount Used/How Often: 4 cigars/daily Have You Smoked in the Last Year: Yes When Did the Patient Quit Smoking/Using Tobacco: has not smoked for about a week /smoked within last 30 days Household Exposure Type: Cigarettes, Cigars - Immunization History Most Recent Influenza Vaccination: none Most Recent Tetanus Shot: 06/15/16 Most Recent Pneumonia Vaccination: n/a Review of Systems All Other Systems Reviewed And Are Negative: Yes Constitutional: Positive: Negative Skin: Positive: Negative Eyes: Positive: Negative ENT: Positive: Sore Throat Respiratory: Positive: Negative Cardiovascular: Positive: Negative Gastrointestinal: Positive: Negative Genitourinary: Positive: Negative Motor: Positive: Negative Neurovascular: Positive: Negative Musculoskeletal: Positive: Negative Neurological: Positive: Negative Psychological: Positive: Negative Is Patient Immunocompromised?: No Physical Exam Triage Information Reviewed: Yes Appearance: Well-Appearing, No Pain Distress, Well-Nourished Vital Signs: Initial Vital Signs Temp 98.4 F 08/02/19 10:16 Pulse 100 08/02/19 10:16 Resp 16 08/02/19 10:16 BP 122/66 08/02/19 10:16 Pulse Ox 99 08/02/19 10:16 Vital Signs Reviewed: Yes Eye Exam: Normal Eyes: Positive: Conjunctiva Clear ENT Exam: Normal ENT: Positive: Normal ENT inspection, Hearing grossly normal, Pharynx normal, TMs normal, Uvula midline. Negative: Nasal congestion, Tonsillar swelling, Tonsillar exudate, Trismus, Muffled voice, Hoarse voice, Dental tenderness, Sinus tenderness Dental Exam: Normal Neck exam: Normal Neck: Positive: Supple, Nontender, No Lymphadenopathy Respiratory Exam: Normal Respiratory: Positive: Chest non-tender, Lungs clear, Normal breath sounds, No respiratory distress, No accessory muscle use Cardiovascular Exam: Normal Cardiovascular: Positive: RRR, No Murmur, Pulses Normal, Brisk Capillary Refill Musculoskeletal Exam: Normal Musculoskeletal: Positive: Strength Intact, ROM Intact Neurological Exam: Normal Neurological: Positive: Alert, Muscle Tone Normal Psychological Exam: Normal - to patients baseline Skin Exam: Normal Diagnostics - Laboratory Lab Results: rst - Throat Pain/Nasal Course/Dx - Course Course Of Treatment: increase fluids, tylenol ibuprofen for pain---cough drops and throat spray for discomfort - Differential Dx/Diagnosis Provider Diagnosis: Viral sore throat Discharge ED - Sign-Out/Discharge Documenting (check all that apply): Patient Departure All imaging exams completed and their final reports reviewed: No Studies - Discharge Plan Condition: Stable Disposition: HOME Patient Education Materials: Upper Respiratory Infection (ED), Viral Syndrome ( ED) Referrals: [facility] [Outside] - 1 Week - Billing Disposition and Condition Condition: STABLE Disposition: Home - Attestation Statements Provider Attestation: I was available for consult. This patient was seen by the JAKE. The patient was not presented to , seen by or examined by me Shun Allen MD
== END 2019-08-02 10:54 | disposition home or self-care (01) ==
LOC: UCEAST 10:05
DX: J02.9 Acute pharyngitis, unspecified (principal); F20.9 Schizophrenia, unspecified; Z79.899 Other long term (current) drug therapy; F17.290 Nicotine dependence, other tobacco product, uncomplicated
CPT/HCPCS: 87651; 99211; G0463

== ENCOUNTER 2019-09-02 03:27 | Emergency (ER) | payer OTHER ==
--- OUTSIDE RECORDS SUMMARY | 2019-09-02 03:38 | XMS REPORT ---
:1990 Author Name Lauren Jerez Address [address] [address] Care Team Providers Name Role Phone Lauren Jerez Unavailable Unavailable Allergies, Adverse Reactions, Alerts Allergy Code CodeSystem Reaction Severity Status Substance RxNorm Medications Medication Medication Medication Start Route Dose Status Fill Code CodeSystem Date Instructions RxNorm NoCurrentDosage Active NoCurrentFrequency RxNorm NoCurrentDosage Active NoCurrentFrequency RxNorm NoCurrentDosage Active NoCurrentFrequency RxNorm NoCurrentDosage Active NoCurrentFrequency RxNorm NoCurrentDosage Active NoCurrentFrequency RxNorm NoCurrentDosage Active NoCurrentFrequency RxNorm NoCurrentDosage Active NoCurrentFrequency Hospital Discharge Medications Medication Direction Start Date Status Indications Fill Instuctions No Discharge Medication Problems Problem Name Code CodeSystem Start Date End Date Status SNOMED-CT 2018-11-07 Active SNOMED-CT 2019-04-28 Active Laboratory Values/Results Test Test Code Code System Actual Result Date LOINC Procedures Procedure Name Code CodeSystem Target Site Date of Procedure SNOMED-CT () 2019-04-28 SNOMED-CT () 2019-05-13 Encounter Diagnosis Code CodeSystem Description Date Finding Finding Status Code [address] [facility] Psychotherapy - 2019-04-20 - Active Individual 30 min 5 SNOMED-CT Vital Signs Vitals Date Value Immunizations Vaccine Name Vaccine Code CodeSystem Date Status Social History Element Description Start Date End Date Code CodeSystem Description SNOMED-CT Hospital Discharge Instructions Reason For Referral
--- OUTSIDE RECORDS SUMMARY | 2019-09-02 03:38 | XMS REPORT ---
:1990 Author Organization [facility] Care Team Providers Name Role Phone Lauren Jerez Primary Care Physician Unavailable Allergies, Adverse Reactions, Alerts Allergy Code CodeSystem Reaction Severity Criticality Status Start Substance Date Moderate Medications Medication Medication Medication Start Stop Route Dose Status Fill Code CodeSystem Date Date Instructions Aristada 8728399 RxNorm 2018-08- IM 675 completed Inject 2.4 ml Initio 08-22 11-12 mg/2.4 mL intramuscularly 2.4 as directed for suspensio 1 day(s) n,extende d rel syring as directed Abili 1523525 RxNorm 2018-08 IM 400 mg active for 1 Maintena -06 suspensio day(s) n,extende d rel syring Problems Problem Name Code CodeSystem Alternate Alternate Start End Status Narrative Code CodeSystem Date Date Schizoaffect 67500150 SNOMED-CT 2018-08 Active stephania disorder, 0-17 Depressive type Schizophreni 09505232 SNOMED-CT Completed a, 3-22 unspecified Schizophreni 77332894 SNOMED-CT Active a, 3-22 unspecified Relevant diagnostic tests/laboratory data Narrative No Information Procedures Procedure Code CodeSystem Target Date of Status Service Device Device Device Name Site Procedure Delivery Code Name UID Location Psychiatric 866903 SNOMED-CT () 2019-06-03 complete Mental diagnostic 85 d Health- evaluation [facility] with medical [facility] services [address], [place], [id number] Comprehensiv 551645 SNOMED-CT () 2019-06-24 complete Mental e medication 0 d Health- services, [facility] per [place] minutes [address], [place], [id number] [id number] Comprehensiv 286834 SNOMED-CT () 2019-06-22 complete Mental e medication 0 d Health- services, [facility] per [place] minutes [address], [place], [id number] [phone] Office or 377247 SNOMED-CT () 2019-06-30 complete Mental other 7 d Health- outpatient [facility] visit for [address], [facility], established [phone] patient, [id number] which requires at least 2 of these 3 aldridge components: An expanded problem focused history; An expanded problem focused examination; Medical decision making of low SNOMED-CT () 2019-05-13 complete Mental d [address], [id number] [phone] SNOMED-CT () 2019-04-28 complete Mental d [address], [phone] [phone] SNOMED-CT () 2019-07-03 complete Mental d [address], [id number] [phone] Encounters/Encounter Diagnoses Encounter Encounter Diagnosis Diagnosis Name Diagnosis Date of Service Name Code Code CodeSystem Diagnosis Delivery Location Established 69734 [id number] Schizoaffective SNOMED-CT 2019-07-13 Behavioral patient 15-29 disorder, Health minutes Depressive type Clinic , , , Vital Signs No Information Social History Element Description Description Start End Code CodeSystem AdditionalInfo Date Date SexAssignedAtBirth Female F AdministrativeGender 12-12 Hospital Discharge Instructions Reason For Referral Medical Equipment FDA Assessments
--- OUTSIDE RECORDS SUMMARY | 2019-09-02 03:38 | XMS REPORT ---
:1990 Author Organization [facility] Care Team Providers Name Role Phone Lauren Jerez Primary Care Physician Unavailable Allergies, Adverse Reactions, Alerts Allergy Code CodeSystem Reaction Severity Criticality Status Start Substance Date Moderate Medications Medication Medication Medication Start Stop Route Dose Status Fill Code CodeSystem Date Date Instructions Aristada 7099581 RxNorm 2018-08- IM 675 completed Inject 2.4 ml Initio 08-22 11-12 mg/2.4 mL intramuscularly 2.4 as directed for suspensio 1 day(s) n,extende d rel syring as directed Abili 3030205 RxNorm 2018-08 IM 400 mg active for 1 Maintena -06 suspensio day(s) n,extende d rel syring Problems Problem Name Code CodeSystem Alternate Alternate Start End Status Narrative Code CodeSystem Date Date Schizophreni 47163251 SNOMED-CT Active a, 3-22 unspecified Schizoaffect 48199290 SNOMED-CT 2018-08 Active stephania disorder, 0-17 Depressive type Schizophreni 79580166 SNOMED-CT Completed a, 3-22 unspecified Relevant diagnostic tests/laboratory data Narrative No Information Procedures Procedure Code CodeSystem Target Date of Status Service Device Device Device Name Site Procedure Delivery Code Name UID Location Psychiatric 911956 SNOMED-CT () 2019-06-03 complete Mental diagnostic 85 d Health- evaluation [facility] with medical [facility] services [address] [place], [place], [phone] Comprehensiv 652027 SNOMED-CT () 2019-06-24 complete Mental e medication 0 d Health- services, [facility] per [place] minutes [address], [place], [phone] Comprehensiv 654626 SNOMED-CT () 2019-06-22 complete Mental e medication 0 d Health- services, [facility] per [place] minutes [address] [place], [place], [phone] Office or 318148 SNOMED-CT () 2019-06-30 complete Mental other 7 d Health- outpatient [facility] visit for [address], [facility], established [phone] patient, [phone] which requires at least 2 of these 3 aldridge components: An expanded problem focused history; An expanded problem focused examination; Medical decision making of low SNOMED-CT () 2019-05-13 complete Mental d [address], [phone] [phone] SNOMED-CT () 2019-04-28 complete Mental d [address], [id number] [phone] SNOMED-CT () 2019-07-03 complete Mental d [address], [id number] [phone] SNOMED-CT () 2019-07-08 complete Mental d [address], [phone] [phone] Encounters/Encounter Diagnoses Encounter Encounter Diagnosis Diagnosis Name Diagnosis Date of Service Name Code Code CodeSystem Diagnosis Delivery Location Established 27528 [id number] Schizoaffective SNOMED-CT 2019-07-21 Behavioral patient 15-29 disorder, Health minutes Depressive type Clinic , , , Vital Signs No Information Social History Element Description Description Start End Code CodeSystem AdditionalInfo Date Date SexAssignedAtBirth Female 1990- F AdministrativeGender 12-12 Hospital Discharge Instructions Reason For Referral Medical Equipment FDA Assessments
--- OUTSIDE RECORDS SUMMARY | 2019-09-02 03:38 | XMS REPORT | Continuity of Care Document ---
:1990 External Reference #:[id number] Author Name Anyi Avery CNM Address [address] [place] [id number] Care Team Providers Name Role Phone Fam Whitman MD Care Team Information Chinese Medicine Practitioner [phone] Problems Description No Active Problems Social History Type Date Description Comments Sex Unknown Cigarette Use Current Cigarette 4 cigars a day Smoker ETOH Use Denies alcohol use Former alcohol user Recreational Drug Use Former Drug User Tobacco Use Start: Unknown Patient is a current smoker, smokes every day Smoking Status Reviewed: 04/14/19 Patient is a current smoker, smokes every day Exercise Type/Frequency Does not exercise Allergies, Adverse Reactions, Alerts Description No Known Drug Allergies Medications History Medications SIG Qnty Indications Ordering Provider Date Ferrous Sulfate 18mg daily 473ml Madison Chawla 02/13/2019 - 220(44Fe) MARILYN Lieberman 04/15/2019 mg/5ML Liquid History Medications Ibuprofen take 1 tablet by 30tabs Madison Lieberman, 01/29/2019 - 600mg mouth every 6 CN 02/28/2019 Tablets hours as needed for pain Medications Administered in Office Medication SIG Qnty Indications Ordering Provider Date PT SCRN Tbco Id as Non User Madison Lieberman CNM 05/12/2019 Injection PT SCRN Tbco Id as Non User Madison Lieberman CNM 03/26/2019 Injection Immunizations Description No Information Available Vital Signs Date Vital Result Comment 05/12/2019 11:02am BP Systolic 110 mmHg BP Diastolic 68 mmHg Height 65 inches 5'5" 0 Parity 0 04/14/2019 8:17am BP Systolic 112 mmHg BP Diastolic 68 mmHg Height 65 inches 5'5" Last Menstrual Period 8003845 0 Parity 0 Results Test Acquired Date Facility Test Result H/L Range Note Laboratory test 05/12/2019 [facility] Gardnerella/Yea SEE RESULT 1 [place] [address] st: Vaginal Dna BELOW [phone] GC/Chlamydia 05/12/2019 [facility] Chlamydia [place] [address] trachomatis Azul [phone] Neisseria gonorrhoeae (GC) Azul Negative Negative Laboratory test 05/12/2019 [facility] Trichomonas Negative Negative 2 [place] [address] vaginalis Azul [phone] Laboratory test 04/14/2019 [facility] Gardnerella/Yea SEE RESULT 3 [place] [address] st: Vaginal Dna BELOW [phone] HIV 1&2 p24 04/01/2019 [facility] HIV 4th Negative [place] [address] Generation [phone] GC/Chlamydia 03/26/2019 [facility] Chlamydia [place] [address] trachomatis Rna [phone] Neisseria gonorrhoeae (GC) Rna Negative Negative Laboratory test 03/26/2019 [facility] Trichomonas Negative Negative [address] [place] [address] vaginalis [phone] Result Laboratory test 03/26/2019 [facility] Gardnerella/Yea SEE RESULT 5 [place] [address] st: Vaginal Dna BELOW [phone] 1 SEE RESULT BELOW Name: BENJAMIN BURCH : [address]: Madison Lieberman [facility] Acct: [id number] Unit: [id number] AGE: 28 Location: [facility] Re05/12/19 SEX: F Status: REG REF SPEC: [id number] OLVIN: 05/12/19-1130 [facility] DR: Madison Lieberman [facility] REQ: [id number] RECD: 05/12/19 STATUS: COMP _ SOURCE: VAGINAL SPDESC: ORDERED: Jac,Yeast DNA COMMENTS: [id number] Would you like to order Trichomonas Vaginalis testing? Yes Procedure Result Reported Site Gardnerella/Yeast: Vaginal DNA Final 05/13/19- 1228 ML Organism 1 Negative Kristen Organism 2 Negative Gardnerella The presence of G. vaginalis, although suggestive, [...] . END OF REPORT DEPARTMENT OF PATHOLOGY, [address] [place] [address] Kvng Cole M.D. Director [facility] # [id number] 2 [id number] GC/Chlamydia Source?: Endocervical Trichomonas Source: Endocervical 3 SEE RESULT BELOW Name: BENJAMIN BURCH : [address]: Manda Lyon MD Acct: [id number] Unit: [id number] AGE: 28 Location: [facility] Re04/14/19 SEX: F Status: REG REF SPEC: [id number] OLVIN: 04/14/19-902 [facility] DR: Manda Lyon MD REQ: [id number] RECD: 04/14/191307 STATUS: COMP _ SOURCE: VAGINAL SPDESC: ORDERED: Jac,Yeast DNA, Trich DNA COMMENTS: [id number] Would you like to order Trichomonas Vaginalis testing? Yes Procedure Result Reported Site Gardnerella/Yeast: Vaginal DNA Final 04/14/19- 1653 ML Organism 1 Negative Gardnerella Organism 2 [...] or failure. Trichomonas: Vaginal DNA Probe Final 04/14/19- 1653 ML Organism 1 Negative Trichomonas CONTINUED ON NEXT PAGE DEPARTMENT OF PATHOLOGY, [address] [place] [address] Kvng Cole M.D. Director [facility] # [id number] Patient: BENJAMIN BURCH [id number] (Continued) Specimen: [id number] Collected: 04/14/19 Received: 04/14/19 (Continued) Procedure Result Reported Site Trichomonas: Vaginal DNA Probe Final (continued) 04/14/191653 The presence or absence of T. vaginalis cannot be used as a test for therapeutic success or failure. * - Main Lab . END OF REPORT DEPARTMENT OF PATHOLOGY, [address] [place] [address] Kvng Cole M.D. Director [facility] # [id number] 4 [id number] GC/Chlamydia Source?: Endocervical Trichomonas Source: Endocervical 5 SEE RESULT BELOW Name: BENJAMIN BURCH : [address]: Madison Lieberman [facility] Acct: [id number] Unit: [id number] AGE: 28 Location: [facility] Re03/26/19 SEX: F Status: REG REF SPEC: [id number] OLVIN: 03/26/19-6 [facility] DR: Madison Lieberman [facility] REQ: [id number] RECD: 03/26/19 STATUS: COMP _ SOURCE: VAGINAL SPDESC: ORDERED: Jac,Yeast DNA COMMENTS: [id number] Would you like to order Trichomonas Vaginalis testing? Yes Procedure Result Reported Site Gardnerella/Yeast: Vaginal DNA Final 03/27/19- 1222 ML Organism 1 Negative Gardnerella Organism 2 [...] . END OF REPORT DEPARTMENT OF PATHOLOGY, [address] [place] [address] Kvng Cole M.D. Director [facility] # [id number] Procedures Description No Information Available Medical Devices Description No Information Available Encounters Type Date Location Provider Dx Diagnosis Office Visit 05/12/2019 [facility] Madison Chawla Z30.09 Encounter for oth 11:00a MARILYN Lieberman general coun and advice on contraception Z11.3 Encntr screen for infections w sexl mode of transmiss N76.0 Acute vaginitis Office Visit 04/14/2019 8:30a [facility] Office Manda Lyon, R35.0 Frequency of MD micturition N76.0 Acute vaginitis Office Visit 03/26/2019 1:00p [facility] Office Madison Chawla N76.0 Acute vaginitis MARILYN Lieberman Office Visit 02/12/2019 9:20a [facility] Madison Chawla R14.0 Abdominal MARILYN Lieberman distension (gaseous) Office Visit 01/29/2019 1:00p [facility] Madison Chawla Z01.419 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) (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) w/o abn findings Assessments Date Code Description Provider 05/12/2019 Z30.09 Encounter for other general counseling Madison Lieberman CNM and advice on contraception 05/12/2019 Z11.3 Encounter for screening for infections Madison Lieberman CNM with a predominantly sexual mode of transmission 05/12/2019 N76.0 Acute vaginitis Madison Lieberman CNM 04/14/2019 R35.0 Frequency of micturition Manda Lyon MD 04/14/2019 N76.0 Acute vaginitis aMnda Lyon MD 04/01/2019 Z11.3 Encounter for screening for infections Liseth Coughlin MD with a predominantly sexual mode of transmission 04/01/2019 Z11.3 Encounter for screening for infections Laboratory with a predominantly sexual mode of transmission 03/26/2019 N76.0 Acute vaginitis Madison Lieberman CNM 02/12/2019 R14.0 Abdominal distension (gaseous) Madison Lieberman CNM 01/29/2019 Z01.419 Encounter for gynecological examination Madison Lieberman CNM (general) (routine) Plan of Treatment Future Appointment(s):07/10/2019 10:30 am - [facility] [place] [facility] Functional Status Description No Information Available Mental Status Description No Information Available Referrals Description No Information Available
[2019-09-02 03:51] VITALS: BP 109/73
== END 2019-09-02 04:47 | disposition left against medical advice (07) ==
LOC: ED 03:27
DX: Z53.21 Procedure and treatment not carried out due to patient leaving prior to being seen by health care provider (principal); N93.9 Abnormal uterine and vaginal bleeding, unspecified
CPT/HCPCS: 99282

== ENCOUNTER 2019-09-26 18:58 | Emergency (ER) | payer MEDICARE, MEDICAID ==
--- NOTE | 2019-09-26 19:26 | ED ---
HPI Chest Pain - HPI Summary HPI Summary: This patient is a 28 year old F presenting to [facility] with a chief complaint of chest pain since this morning 09/26/19. Symptoms aggravated by certain movement. Symptoms alleviated by nothing. Patient reports this morning she took bacterial vaginosis medication and woke up after sleeping and her chest was very sore and since then had on and off chest soreness worsening when she bends down or lay down (chest hurts and heart starts racing really fast). Pt reports she never experienced anything similar but has had cp and belching associated with gas. Denies trouble breathing but deep breaths causes soreness. Reports feeling hot after waking up this morning and diaphoresis. Denies leg pain, long recent travels, pain or swelling in legs, use of hormones, or hx blood clot. Smokes, denies drug use. Medications reviewed. Allergies noted. - History of Current Complaint Chief Complaint: EDChestWallPain Time Seen by Provider: 09/26/19 19:11 Hx Obtained From: Patient Hx Last Menstrual Period: 01/28/19 Onset/Duration: Started Hours Ago, Still Present Timing: Constant Current Severity: Moderate Pain Intensity: 5 Pain Scale Used: 0-10 Numeric Character: Other: - soreness Aggravating Factor(s): Nothing Alleviating Factor(s): Nothing Associated Signs and Symptoms: Positive: Diaphoresis, Other: - denies trouble breathing, leg pain, leg swelling; reports feeling hot - Additional Pertinent History Primary Care Physician: MARY JANE - Allergy/Home Medications Allergies/Adverse Reactions: Allergies Allergy/AdvReac Type Severity Reaction Status Date / Time No Known Allergies Allergy Verified 09/02/19 03:33 Home Medications: Home Medications Amoxicillin/Clavulanate TAB* [Augmentin TAB 875*] 875 mg PO BID 09/26/19 [ History Confirmed 09/26/19] PMH/Surg Hx/FS Hx/Imm Hx Endocrine/Hematology History: Reports: Hx Anemia - fe def - takes PO Fe Denies: Hx Anticoagulant Therapy, Hx Blood Disorders, Hx Blood Transfusions, Hx Bone Marrow Disease, Hx Diabetes, Hx Systemic Lupus Erythematosus, Hx Sickle Cell Disease, Hx Thyroid Disease, Hx Unexplained Bleeding, Other Endocrine/ Hematological Disorders Cardiovascular History: Denies: Hx Aneurysm, Hx Angina, Hx Angioplasty, Hx Auto Implanted Cardiovert Defib, Hx Cardiac Arrest, Hx Cardiomegaly, Hx Congenital Heart Disease, Hx Congestive Heart Failure, Hx Coronary Artery Disease, Hx Deep Vein Thrombosis, Hx Embolism, Hx Hypercholesterolemia, Hx Hypotension, Hx Hypertension, Hx Pacemaker/ICD, Hx Peripheral Vascular Disease, Hx Rheumatic Fever, Hx Syncope, Hx Valvular Heart Disease, Other Cardiovascular Problems/Disorders Respiratory History: Denies: Hx Asthma, Hx Chronic Bronchitis, Hx Chronic Obstructive Pulmonary Disease (COPD), Hx Cystic Fibrosis, Hx Lung Cancer, Hx Pleural Effusion, Hx Pneumonia, Hx Pulmonary Edema, Hx Pulmonary Embolism, Hx Seasonal Allergies, Hx Sleep Apnea, Other Respiratory Problems/Disorders GI History: Denies: Hx Cirrhosis, Hx Crohn's Disease, Hx Diverticulosis, Hx Gall Bladder Disease, Hx Gastroesophageal Reflux Disease, Hx Gastrointestinal Bleed, Hx Hiatal Hernia, Hx Irritable Bowel, Hx Jaundice, Hx Obstructive Bowel, Hx Ileostomy, Hx Pyloric Stenosis, Hx Ulcer, Other GI Disorders History: Denies: Hx Acute Renal Failure, Hx Benign Prostatic Hyperplasia, Hx Chronic Renal Failure, Hx Dialysis, Hx Kidney Infection, Hx Kidney Stones, Hx Renal Disease Musculoskeletal History: Denies: Hx Arthritis, Hx Back Problems, Hx Bursitis, Hx Congenital Bone Abnormalities, Hx Fibromyalgia, Hx Gout, Hx Orthopedic Injury, Hx Osteoporosis, Hx Scoliosis, Hx Tendonitis, Other Musculoskeletal History Sensory History: Denies: Hx Cataracts, Hx Contacts or Glasses, Hx Eye Injury, Hx Eye Prosthesis, Hx Glaucoma, Hx Legally Blind, Hx Macular Degeneration, Hx Vision Problem, Hx Deafness, Hx Hearing Aid, Hx Hearing Problem, Other Sensory Impairments Opthamlomology History: Denies: Hx Cataracts, Hx Contacts or Glasses, Hx Eye Injury, Hx Eye Prosthesis, Hx Glaucoma, Hx Legally Blind, Hx Macular Degeneration, Hx Vision Problem, Other Sensory Impairments Neurological History: Reports: Hx Headaches Denies: Hx Dementia, Hx Migraine, Hx Nerve Disease, Hx Seizures, Hx Spinal Cord Injury, Hx Transient Ischemic Attacks (TIA), Other Neuro Impairments/ Disorders Psychiatric History: Reports: Hx Anxiety, Hx Depression, Hx Inpatient Treatment - december 2013 in [place], 4 days inpatient for psychosis, Hx Community Mental Health Tx Denies: Hx Attention Deficit Hyperactivity Disorder, Hx Eating Disorder, Hx Panic Disorder, Hx Post Traumatic Stress Disorder, Hx Schizophrenia, Hx Bipolar Disorder, Hx Suicide Attempt, Hx of Violent Episodes Against Others, Hx Substance Abuse, Other Psychiatric Issues/Disorders - Surgical History Surgery Procedure, Year, and Place: ORAL SURGERY Infectious Disease History: No Infectious Disease History: Reports: History Other Infectious Disease - Chlamydia [facility] Denies: Hx Clostridium Difficile, Hx Hepatitis, Hx Human Immunodeficiency Virus (HIV), Hx of Known/Suspected MRSA, Hx Shingles, Hx Tuberculosis, Traveled Outside the [place] in Last 30 Days - Family History Known Family History: Positive: Hypertension, Diabetes, Other - breast CA - Social History Alcohol Use: Weekly Alcohol Amount: weekly drinker Hx Substance Use: No Substance Use Type: Reports: None Substance Use Comment - Amount & Last Used: half to whole bottle of wine Hx Tobacco Use: Yes Smoking Status (MU): Current Every Day Smoker Type: Cigars Amount Used/How Often: 4 cigars/daily Have You Smoked in the Last Year: Yes Review of Systems Positive: Skin Diaphoresis Positive: Chest Pain Positive: Other - denies trouble breathing Positive: Other - denies leg pain, swelling All Other Systems Reviewed And Are Negative: Yes Physical Exam - Summary Physical Exam Summary: Constitutional: Well-developed, Well-nourished, Alert. (-) Distressed Skin: Warm, Dry HENT: Normocephalic; Atraumatic Eyes: Conjunctiva normal Neck: Musculoskeletal ROM normal neck. (-) JVD, (-) Stridor, (-) Tracheal deviation Cardio: Rhythm regular, borderline tachycardia in the room 95-105 BPM, Heart sounds normal; Intact distal pulses; Radial pulses are 2+ and symmetric. (-) Murmur Pulmonary/Chest wall: Effort normal. (-) Respiratory distress, (-) Wheezes, (-) Rales Abd: Soft, (-) tenderness, (-) Distension, (-) Guarding, (-) Rebound Musculoskeletal: (-) Edema Lymph: (-) Cervical adenopathy Neuro: Alert, Oriented x3 Psych: Mood and affect Normal Triage Information Reviewed: Yes Vital Signs On Initial Exam: Initial Vitals Temp Pulse Resp BP Pulse Ox 98.0 F 104 18 117/84 98 09/26/19 19:16 09/26/19 19:16 09/26/19 19:16 09/26/19 19:16 09/26/19 19:16 Vital Signs Reviewed: Yes Procedures - Sedation Patient Received Moderate/Deep Sedation with Procedure: No Diagnostics - Vital Signs Vital Signs Temp Pulse Resp BP Pulse Ox 02/08/20 19:16 98.0 F 104 18 117/84 98 - Laboratory Result Diagrams: 09/26/19 19:22 09/26/19 19:22 Lab Statement: Any lab studies that have been ordered have been reviewed, and results considered in the medical decision making process. - Radiology Chest X-Ray Radiology Interpretation Completed By: ED Physician, Radiologist Summary of Radiographic Findings: Per ED physician,. no acute process. Pending official report. - EKG 1926 Cardiac Rate: NL - 99 BPM Summary of EKG Findings: EKG taken at 1927 sinus rhythm at 99 BPM no obvious ischemic changes. Re-Evaluation - Re-Evaluation First Eval Re-Evaluation Time: 12:16 Comment: update on plan of care Chest Pain Course/Dx - Course Course Of Treatment: Patient is here with chest pain. Patient's symptoms were atypical for ACS and she has no risk factors. Patient had a negative troponin and EKG for ischemic changes. Patient made a chest x-ray. Patient was tachycardic upon arrival to the room so a d-dimer was sent and she was perc positive. Patient had a subsequent CTA. Patient was signed out to Dr. Meyer pending CTA results - Diagnoses Provider Diagnoses: Chest pain, Iron deficiency anemia Discharge ED - Sign-Out/Discharge Documenting (check all that apply): Sign-Out Patient Signing out patient TO: Tolu Meyer Receiving patient FROM: Jose Hodgson - Discharge Plan Condition: Stable Disposition: HOME Prescriptions: Al Hydrox/Mg Hydrox/Simet LIQ* [Maalox Plus*] 30 ml PO Q6H PRN #6 udc PRN Reason: gastritis Ferrous Sulfate TAB* 325 mg PO DAILY 30 Days #30 tab Patient Education Materials: Chest Pain (ED), Iron Deficiency Anemia (ED) Referrals: [facility] [place] [facility] REFERRAL [Outside] Additional Instructions: Please start taking your iron Please call the referral number to set up a primary care doctor Please return if you have severe chest pain, trouble breathing, any other concerning symptoms Please start taking Maalox for your symptoms - Billing Disposition and Condition Condition: STABLE Disposition: Home - Attestation Statements Document Initiated by Scribe: Yes Documenting Scribe: Lou Horne Provider For Whom Scribe is Documenting (Include Credential): Dr. Jose Hodgson MD Scribe Attestation: Lou Amaral, scribed for Dr. Jose Hodgson MD on 09/29/19 at 0739. Scribe Documentation Reviewed: Yes Provider Attestation: The documentation as recorded by the scribe, Lou Horne accurately reflects the service I personally performed and the decisions made by me, Dr. Jose Hodgson MD Status of Scribe Document: Viewed
[2019-09-26 19:48] LABS: ALT 12 U/L (7-52); AST 19 U/L (13-39); Albumin 4.6 g/dL (3.2-5.2); Albumin/Globulin Ratio 1.6 (1-3); Alkaline Phosphatase 34 U/L (34-104); Anion Gap 7 mmol/L (2-11); BUN/Creatinine Ratio 14.3 (8-20); Blood Urea Nitrogen 10 mg/dL (6-24); CO2 Carbon Dioxide 22 mmol/L (22-32); Calcium 9.4 mg/dL (8.6-10.3); Chloride 107 mmol/L (101-111); EGFR African American 122.4 (>60); EGFR Non-African American 101.1 (>60); Globulin 2.8 g/dL (2-4); Glucose 95 mg/dL (70-100); Potassium 3.4 mmol/L (3.5-5.0); Sodium 136 mmol/L (135-145); Total Protein 7.4 g/dL (6.4-8.9)
[2019-09-26 19:51] LABS: Troponin I 0.01 ng/mL (<0.03)
[2019-09-26 19:55] LABS: HCG Pregnancy < 0.60 mIU/mL
--- OUTSIDE RECORDS SUMMARY | 2019-09-26 19:55 | XMS REPORT ---
:1990 Author Organization [facility] Care Team Providers Name Role Phone Lauren Jerez Primary Care Physician Unavailable Allergies, Adverse Reactions, Alerts Allergy Code CodeSystem Reaction Severity Criticality Status Start Substance Date Moderate Medications Medication Medication Medication Start Stop Route Dose Status Fill Code CodeSystem Date Date Instructions Abilify 0017353 RxNorm 2018-08 IM 400 mg active for 1 Maintena 1-06 suspensio day(s) n,extende d rel syring fluoxetine [id number] RxNorm 2018-08 oral 10 mg active for 30 1-25 capsule day(s) Aristada [id number] RxNorm 2018-08- IM 675 completed Inject 2.4 ml Initio 1-04 11-12 mg/2.4 mL intramuscularly 2.4 as directed for suspensio 1 day(s) n,extende d rel syring as directed Problems Problem Name Code CodeSystem Alternate Alternate Start End Status Narrative Code CodeSystem Date Date Schizophreni [id number] SNOMED-CT Completed a, 3-22 unspecified Schizophreni [id number] SNOMED-CT Active a, 3-22 unspecified Schizoaffect [id number] SNOMED-CT 2018-08 Active stephania disorder, 0-17 Depressive type Relevant diagnostic tests/laboratory data Narrative No Information Procedures Procedure Code CodeSystem Target Date of Status Service Device Device Device Name Site Procedure Delivery Code Name UID Location SNOMED-CT () 2019-04-28 complete Mental d [address], [id number] SNOMED-CT () 2019-05-13 complete Mental d [address], [id number] Psychiatric [id number] SNOMED-CT () 2019-06-03 complete Mental diagnostic [address], [id number] Comprehensiv [id number] SNOMED-CT () 2019-06-24 complete Mental e medication 0 d Health- services, [place] per [address] [place] [address] [place] [address], [id number] Comprehensiv 184746 SNOMED-CT () 2019-06-22 complete Mental e medication 0 d Health- services, [place] per [address] [place] [address] [place] [address], [id number] SNOMED-CT () 2019-07-03 complete Mental d Health- [place] [address], [id number] [id number] Office or 648611 SNOMED-CT () 2019-06-30 complete Mental other 7 d Health- outpatient [place] visit for [address], [facility], established [id number] patient, [id number] which requires at least 2 of these 3 aldridge components: An expanded problem focused history; An expanded problem focused examination; Medical decision making of low SNOMED-CT () 2019-07-08 complete Mental d Health- [place] [address], [id number] [id number] Office or [id number] SNOMED-CT () 2019-07-13 complete Mental other 7 d Health- outpatient [place] visit for [address], [facility], established [id number] patient, [id number] which requires at least 2 of these 3 aldridge components: An expanded problem focused history; An expanded problem focused examination; Medical decision making of low Office or 602170 SNOMED-CT () 2019-07-21 complete Mental other 7 d Health- outpatient [place] visit for [address], established [id number] patient, [id number] which requires at least 2 of these 3 aldridge components: An expanded problem focused history; An expanded problem focused examination; Medical decision making of low Psychotherap 356865 SNOMED-CT () 2019-07-31 complete Mental y, 45 04 d Health- minutes with [place] patient [address], [id number] Psychotherap [id number] SNOMED-CT () 2019-09-11 complete Mental y, 45 04 d Health- minutes with [place] patient [address], [id number] Encounters/Encounter Diagnoses Encounter Encounter Diagnosis Diagnosis Name Diagnosis Date of Service Name Code Code CodeSystem Diagnosis Delivery Location Non-[facility] [id number] Schizoaffective SNOMED-CT 2019-09-17 Behavioral e disorder, Health Depressive type Clinic , , , Vital Signs No Information Social History Element Description Description Start End Code CodeSystem AdditionalInfo Date Date SexAssignedAtBirth Female F AdministrativeGender 12-12 Hospital Discharge Instructions Reason For Referral Medical Equipment FDA Assessments
[2019-09-26 19:57] LABS: Hematocrit 28 % (35-47); Hemoglobin 8.5 g/dL (12.0-16.0); Mean Corpuscular HGB Conc 30 g/dL (31-36); Mean Corpuscular Hemoglobin 21 pg (27-31); Mean Corpuscular Volume 69 fL (80-97); Mean Platelet Volume 7.3 fL (7.4-10.4); Platelet Count 357 10^3/uL (150-450); Red Cell Distribution Width 19 % (10-15); White Blood Count 9.8 10^3/uL (3.5-10.8)
[2019-09-26 19:59] LABS: ABS Basophils 0.1 10^3/ul (0-0.2); ABS Eosinophils 0.3 10^3/ul (0-0.6); ABS Lymphocytes 1.6 10^3/ul (1.0-4.8); ABS Monocytes 0.5 10^3/ul (0-0.8); ABS Neutrophils 7.5 10^3/ul (1.5-7.7); Eosinophil % 2.7 %; Lymphocyte % 15.8 %
[2019-09-26] MEDS ORDERED: Al Hydrox/Mg Hydrox/Simet LIQ* 30 ML UDC PO ONE (20:51)
[2019-09-26] MEDS ORDERED: Iohexol 350* (CONTRAST) 500 ML MDV IV ONE (21:05)
--- NOTE | 2019-09-26 22:11 | ED ---
Progress - Progress Note Progress Note: This patient is a sign-out from Dr. Jose Hodgson to Dr. Tolu Meyer at 2200 on 09/26/2019 pending CTA chest to r/o PE for a chief complaint of chest pain. Re-Evaluation - Re-Evaluation First Eval Re-Evaluation Time: 12:16 Comment: update on plan of care Course/Dx - Course Course Of Treatment: This patient is a sign-out from Dr. Jose Hodgson to Dr. Tolu Meyer at 2200 on 09/26/2019 pending CTA chest to r/o PE for a chief complaint of chest pain. CTA chest: Negative CTA chest. No pulmonary embolism is identified. Patient will be discharged home with dx of chest pain and iron deficiency anemia. - Diagnoses Provider Diagnoses: Chest pain, Iron deficiency anemia Discharge ED - Sign-Out/Discharge Documenting (check all that apply): Patient Departure - Discharge, Receiving Sign-Out Receiving patient FROM: Jose Hodgson - Discharge Plan Condition: Stable Disposition: HOME Prescriptions: Al Hydrox/Mg Hydrox/Simet LIQ* [Maalox Plus*] 30 ml PO Q6H PRN #6 udc PRN Reason: gastritis Ferrous Sulfate TAB* 325 mg PO DAILY 30 Days #30 tab Patient Education Materials: Chest Pain (ED), Iron Deficiency Anemia (ED) Referrals: [facility] [place] [place]Outside] Additional Instructions: Please start taking your iron Please call the referral number to set up a primary care doctor Please return if you have severe chest pain, trouble breathing, any other concerning symptoms Please start taking Maalox for your symptoms - Billing Disposition and Condition Condition: STABLE Disposition: Home - Attestation Statements Document Initiated by Antonio: Yes Documenting Scribe: Tevin Garcia Provider For Whom Antonio is Documenting (Include Credential): Tolu Meyer MD Scribsantino Attestation: Tevin Amaral, scribed for Tolu Meyer MD on 09/27/19 at 0643. Scribe Documentation Reviewed: Yes Provider Attestation: The documentation as recorded by the Tevin rodriguez accurately reflects the service I personally performed and the decisions made by , Tolu Meyer MD Status of Scribe Document: Viewed Procedures - Sedation Patient Received Moderate/Deep Sedation with Procedure: No Diagnostics - Vital Signs Vital Signs Temp Pulse Resp BP Pulse Ox 09/26/19 21:27 97 16 145/83 98 02/08/20 21:00 95 18 99 09/26/19 20:57 90 17 137/83 85 09/26/19 20:24 93 99 09/26/19 19:31 99 22 122/76 99 09/26/19 19:17 101 26 99 09/26/19 19:16 98.0 F 103 12 117/84 100 09/26/19 19:12 99 14 129/75 99 - Laboratory Lab Results: Lab Results 09/26/19 09/26/19 09/26/19 Range/Units 19:22 19:22 19:23 WBC 9.8 (3.5-10.8) 10^3/uL RBC 4.10 (3.70-4.87) 10^6 /uL Hgb 8.5 L (12.0-16.0) g/dL Hct 28 L (35-47) % MCV 69 L (80-97) fL MCH 21 L (27-31) pg MCHC 30 L (31-36) g/dL RDW 19 H (10-15) % Plt Count 357 (150-450) 10^3/uL MPV 7.3 L (7.4-10.4) fL Neut % (Auto) 76.1 % Lymph % (Auto) 15.8 % Cache % (Auto) 4.6 % Eos % (Auto) 2.7 % Baso % (Auto) 0.8 % Absolute Neuts (auto) 7.5 (1.5-7.7) 10^3/ul Absolute Lymphs (auto) 1.6 (1.0-4.8) 10^3/ul Absolute Monos (auto) 0.5 (0-0.8) 10^3/ul Absolute Eos (auto) 0.3 (0-0.6) 10^3/ul Absolute Basos (auto) 0.1 (0-0.2) 10^3/ul Absolute Nucleated RBC 0.0 10^3/ul Nucleated RBC % 0.0 Hem Pathologist Commnt Pending D-Dimer, Quantitative 314 H (Less Than 230) ng/mL Sodium 136 (135-145) mmol/L Potassium 3.4 L (3.5-5.0) mmol/L Chloride 107 (101-111) mmol/L Carbon Dioxide 22 (22-32) mmol/L Anion Gap 7 (2-11) mmol/L BUN 10 (6-24) mg/dL Creatinine 0.70 (0.51-0.95) mg/dL Est GFR ( Amer) 122.4 (>60) Est GFR (Non-Af Amer) 101.1 (>60) BUN/Creatinine Ratio 14.3 (8-20) Glucose 95 (70-100) mg/dL Calcium 9.4 (8.6-10.3) mg/dL Total Bilirubin 0.40 (0.2-1.0) mg/dL AST 19 (13-39) U/L ALT 12 (7-52) U/L Alkaline Phosphatase 34 (34-104) U/L Troponin I 0.01 (<0.03) ng/mL Total Protein 7.4 (6.4-8.9) g/dL Albumin 4.6 (3.2-5.2) g/dL Globulin 2.8 (2-4) g/dL Albumin/Globulin Ratio 1.6 (1-3) Beta HCG, Quant < 0.60 mIU/mL Result Diagrams: 09/26/19 19:22 09/26/19 19:22 Lab Statement: Any lab studies that have been ordered have been reviewed, and results considered in the medical decision making process. - Radiology Chest X-Ray Radiology Interpretation Completed By: ED Physician, Radiologist Summary of Radiographic Findings: Per ED physician,. no acute process. Pending official report. - CT Chest CTA CT Interpretation Completed By: Radiologist Summary of CT Findings: Negative CTA chest. No pulmonary embolism is identified. Dr. Meyer has reviewed this radiology report. - EKG 1926 Cardiac Rate: NL - 99 BPM Summary of EKG Findings: EKG taken at 1926 sinus rhythm at 99 BPM no obvious ischemic changes.
[2019-09-26 23:22] VITALS: BP 133/67
== END 2019-09-26 23:21 | disposition home or self-care (01) ==
LOC: ED 18:58
DX: R07.9 Chest pain, unspecified (principal); D50.9 Iron deficiency anemia, unspecified; F41.9 Anxiety disorder, unspecified; F32.9 Major depressive disorder, single episode, unspecified; F17.290 Nicotine dependence, other tobacco product, uncomplicated
CPT/HCPCS: 36415; 71046; 71275; 80053; 84484; 84702; 85025; 85060; 85379; 93005; 99283; A9270-GY; Q9967

== ENCOUNTER 2020-11-02 08:42 | Inpatient (IN) ==
[2020-11-02] MEDS ORDERED: Lactated Ringers 1000 ml BAG 1,000 ML IV ONE (13:18)
[2020-11-02] MEDS ORDERED: Buffered Lidocaine 1% SYRIN 1 ml INTRADERM ONE (13:18)
[2020-11-02] MEDS ORDERED: Dinoprostone 10 MG VAG.SUPP VAGINAL ONE (13:57)
[2020-11-02] MEDS ORDERED: Lactated Ringers 1000 ml BAG 1,000 ML IV SCH (14:00)
[2020-11-02 14:39] LABS: Urine Benzodiazepine Screen None Detected (None Detect); Urine Cannabinoids Screen None Detected (None Detect); Urine Opiates Screen None Detected (None Detect)
[2020-11-03] MEDS ORDERED: FERROUS SULFATE 15 MG PO SCH (09:00)
[2020-11-03] MEDS ORDERED: Oxytocin in LR 20 UNITS/1,000 ML BAG IVPB SCH (16:00)
[2020-11-03 16:32] LABS: ABS Basophils 0.1 10^3/ul (0-0.2); ABS Eosinophils 0.1 10^3/ul (0-0.6); ABS Lymphocytes 2.5 10^3/ul (1.0-4.8); ABS Monocytes 1.3 10^3/ul (0-0.8); ABS Neutrophils 11.6 10^3/ul (1.5-7.7); Eosinophil % 0.9 %; Hematocrit 39 % (35-47); Lymphocyte % 16.2 %; Mean Corpuscular HGB Conc 33 g/dL (31-36); Mean Corpuscular Hemoglobin 31 pg (27-31); Mean Corpuscular Volume 93 fL (80-97); Platelet Count 256 10^3/uL (150-450); Red Blood Count 4.22 10^6 /uL (3.70-4.87); Red Cell Distribution Width 13 % (10-15); White Blood Count 15.8 10^3/uL (3.5-10.8)
[2020-11-03] MEDS ORDERED: OBEPIDURAL 250 ML EPIDURAL ONE (21:24)
[2020-11-03] MEDS ORDERED: fentaNYL 100 mcg/2 ml 50 MCG/ML VIAL ONE (23:01)
[2020-11-03] MEDS ORDERED: Lactated Ringers 1000 ml BAG 1,000 ML IV ONE (23:30)
[2020-11-03] MEDS ORDERED: EPHEDrine (Pressors) 50 MG/ML VIAL IV PUSH PRN (23:30)
[2020-11-03] MEDS ORDERED: Phenylephrine 40 mcg/mL 10mL (400mcg) SYRINGE IV PUSH PRN ×2 (23:30)
[2020-11-03] MEDS ORDERED: Sodium Citrate/Citric Acid LIQ 15 ML UDC PO PRN (23:30)
[2020-11-03] MEDS ORDERED: OBEPIDURAL 250 ML EPIDURAL SCH (23:45)
[2020-11-03] MEDS ORDERED: Lactated Ringers 1000 ml BAG 1,000 ML IV SCH (23:45)
[2020-11-04] MEDS ORDERED: Glycerin ADULT 2.4 gm SUPP PR PRN (10:03)
[2020-11-04] MEDS ORDERED: Witch Hazel PAD JAR TOPICAL PRN (10:03)
[2020-11-04] MEDS ORDERED: Oxytocin in LR 20 UNITS/1,000 ML BAG IVPB SCH (11:00)
[2020-11-04] MEDS: Dibucaine 1% OINT 28.35 GM TUBE PR PRN (14:00)
[2020-11-05 08:13] LABS: ABS Basophils 0.1 10^3/ul (0-0.2); ABS Eosinophils 0.3 10^3/ul (0-0.6); ABS Lymphocytes 3.8 10^3/ul (1.0-4.8); ABS Monocytes 1.4 10^3/ul (0-0.8); ABS Neutrophils 12.3 10^3/ul (1.5-7.7); Eosinophil % 1.6 %; Hematocrit 32 % (35-47); Hemoglobin 10.8 g/dL (12.0-16.0); Lymphocyte % 21.3 %; Mean Corpuscular HGB Conc 34 g/dL (31-36); Mean Corpuscular Hemoglobin 31 pg (27-31); Mean Corpuscular Volume 93 fL (80-97); Mean Platelet Volume 8.6 fL (7.4-10.4); Platelet Count 212 10^3/uL (150-450); Red Blood Count 3.46 10^6 /uL (3.70-4.87); Red Cell Distribution Width 13 % (10-15); White Blood Count 17.9 10^3/uL (3.5-10.8)
[2020-11-06 08:32] VITALS: BP 133/82
[2020-11-06] MEDS: Dibucaine 1% OINT 28.35 GM TUBE PR PRN (10:00)
== END 2020-11-06 16:04 | disposition home or self-care (01) | DRG 807 ==
LOC: MCHOBOUT 08:42 → MCHOB 13:20
PROVIDERS: ADMIT Midwife; ATTEND Midwife